=== PATIENT | male | born 1935 | race Caucasian/White ===

== ENCOUNTER 2017-07-09 17:18 | Emergency (ER) | payer MEDICARE, MEDICAID ==
[~2017-07-09] VITALS: Ht 182.9 cm; Wt 78.0 kg
[~2017-07-09 17:18] MED LIST: DIGO0.25 PO; FLAG500T PO; GABA800T OR; GLIP5 PO; GLUCTAB OR; LEVA500T PO; METO50CR PO; PHEN1TAB49 PO; SIMV5TAB3 PO; TRAM50 PO; ZOFR8TAB4 PO
[2017-07-09] MEDS ORDERED: SODIUM CHLORIDE 0.9% FLUSH 5 ML FLUSH IV FLUSH PRN (17:30)
[2017-07-09 17:40] VITALS: BP 160/74; PULSE 72; RESP 18; TEMP 98.5; O2SAT 95
--- NOTE | 2017-07-09 17:46 | PD ---
HPI . fall Chief Complaint: Fall Time Seen by Provider: 17:30 Travel History International Travel<30 days: No Contact w/Intl Traveler<30days: No History of Present Illness HPI The patient is 81 years old. He arrives after a fall from [facility]. The fall was unwitnessed and the patient was found on the ground. He takes Coumadin for atrial fibrillation. He was sent to the ER for evaluation. In the ER the patient offers no complaint. EMS reports normal vital signs on scene. Onset sudden. Location generalized. PFSH Past Medical History Arthritis: No Asthma: No Atrial Fibrillation: Yes Autoimmune Disease: No Blood Disorders: No Anxiety: No Depression: No Heart Rhythm Problems: Yes Cancer: No Cardiovascular Problems: Yes High Cholesterol: Yes Chemotherapy: No Chest Pain: Yes Congestive Heart Failure: No COPD: No Cerebrovascular Accident: No Coronary Artery Disease: Yes Diabetes: Yes Diminished Hearing: No Endocrine: No Gastrointestinal Disorders: Yes GERD: Yes Glaucoma: No Genitourinary: No Headaches: No Hepatitis: Yes (A LONG TIME AGO) Hiatal Hernia: No Hypertension: Yes Immune Disorder: No Implanted Vascular Access Dvce: No Kidney Stones: No Musculoskeletal: No Neurologic: Yes (NEUROPATHY) Psychiatric: No Reproductive: No Respiratory: No Migraines: No Myocardial Infarction: No Radiation Therapy: No Renal Failure: No Seizures: No Sickle Cell Disease: No Sleep Apnea: No Thyroid Disease: No Ulcer: No Past Surgical History Abdominal Surgery: No AICD: No Appendectomy: No Arteriovenous Shunt: No Cardiac Surgery: Yes ("QUADRUPLE BYPASS--Sep) Cholecystectomy: No Coronary Artery Bypass Graft: Yes Ear Surgery: No Endocrine Surgery: No Eye Surgery: No Genitourinary Surgery: No Gynecologic Surgery: No Insulin Pump: No Joint Replacement: No Neurologic Surgery: No Oral Surgery: Yes (TONSILLECTOMY 2000) Pacemaker: No Thoracic Surgery: No Tonsillectomy: Yes (1941) Other Surgery: Yes Social History Alcohol Use: No Tobacco Use: No Substance Use: No Allergies-Medications (Allergen,Severity, Reaction): Coded Allergies: penicillin G (Unverified Allergy, Intermediate, 06/15/17) Uncoded Allergies: MYCIN (Allergy, Severe, Rash, 06/06/09) Reported Meds & Prescriptions Reported Meds & Active Scripts Active Reported Vitamin C (Ascorbic Acid) 250 Mg Chew 500 Mg PEG DAILY Zinc Sulfate 220 Mg Tab 220 Mg PEG HS Pyridoxine (Pyridoxine HCl) 50 Mg Tab 50 Mg PEG DAILY Pantoprazole (Pantoprazole Sodium) 40 Mg Tab 40 Mg PEG DAILY Metoprolol Tartrate 50 Mg Tab 50 Mg PEG BID Metformin (Metformin HCl) 500 Mg Tab 500 Mg PEG BIDPC With meals Humalog Inj (Insulin Human Lispro) 1,000 Unit/10 Ml Vial 1-9 Units SQ ACHS Max dose at bedtime:( )units; sugars< 70,(0)units; sugars 150-199,(1)unit; sugars 200-249,(3)units; sugars 250-299,(5)units; sugars 300-349,(7)units; sugars more than 349,(9)units. Apidra Inj (Insulin Glulisine Inj) 1,000 Unit/10 Ml Vial 15 Units SQ HS Ezetimibe 10 Mg Tab 10 Mg PEG DAILY Enoxaparin Inj (Enoxaparin Sodium) 120 Mg/0.8ML Syr 120 Mg SQ DAILY Digoxin 0.25 Mg Tab 0.25 Mg G-TUBE DAILY Coumadin (Warfarin) 3 Mg Tab 3 Mg PO DAILY Citroma Liq (Magnesium Citrate) 300 Ml Liq 300 Ml PO DIRECTED Cerovite Advanced Formula (Multiple Vitamins W/ Minerals) 18 Mg Iron-400 Mcg Tab 18 Mg G-TUBE DAILY Aspirin 81 Mg Chew 81 Mg CHEW DAILY Acetaminophen Supp (Acetaminophen) 650 Mg Supp 650 Mg RECTAL Q6H PRN Review of Systems Except as stated in HPI: all other systems reviewed are Neg General / Constitutional: No: Fever Physical Exam Narrative GENERAL: 81-year-old male well-nourished well-developed no acute distress SKIN: Warm and dry. HEAD: Atraumatic. Normocephalic. EYES: Pupils equal and round. No scleral icterus. No injection or drainage. ENT: No nasal bleeding or discharge. Mucous membranes pink and moist. NECK: Trachea midline. No JVD. CARDIOVASCULAR: Regular rate and rhythm. RESPIRATORY: No accessory muscle use. Clear to auscultation. Breath sounds equal bilaterally. GASTROINTESTINAL: Abdomen soft, non-tender, nondistended. Hepatic and splenic margins not palpable. MUSCULOSKELETAL: Extremities without clubbing, cyanosis, or edema. No obvious deformities. NEUROLOGICAL: Patient moves all extremities. Speech is incomprehensible however he does respond to questions. PSYCHIATRIC: Unable to assess. Data Data Last Documented VS Vital Signs Date Time Temp Pulse Resp B/P (MAP) Pulse Ox O2 Delivery O2 Flow Rate FiO2 07/10/17 10:09 07/10/17 07:37 88 18 98 Room Air 07/09/17 18:26 98.5 Orders Orders Basic Metabolic Panel (Bmp) (07/09/17 17:30) Complete Blood Count With Diff (07/09/17 17:30) Blood Glucose (07/09/17 17:30) Ecg Monitoring (07/09/17 17:30) Iv Access Insert/Monitor (07/09/17 17:30) Oximetry (07/09/17 17:30) Sodium Chloride 0.9% Flush (Ns Flush) (07/09/17 17:30) Prothrombin Time / Inr (Pt) (07/09/17 17:41) Ct Brain W/O Iv Contrast(Rout) (07/09/17 17:41) Labs Laboratory Tests Test 07/09/17 18:10 White Blood Count 10.8 TH/MM3 Red Blood Count 5.43 MIL/MM3 Hemoglobin 15.6 GM/DL Hematocrit 45.1 % Mean Corpuscular Volume 83.1 FL Mean Corpuscular Hemoglobin 28.7 PG Mean Corpuscular Hemoglobin Concent 34.6 % Red Cell Distribution Width 14.3 % Platelet Count 351 TH/MM3 Mean Platelet Volume 7.1 FL Neutrophils (%) (Auto) 66.1 % Lymphocytes (%) (Auto) 24.8 % Monocytes (%) (Auto) 7.6 % Eosinophils (%) (Auto) 0.7 % Basophils (%) (Auto) 0.8 % Neutrophils # (Auto) 7.1 TH/MM3 Lymphocytes # (Auto) 2.7 TH/MM3 Monocytes # (Auto) 0.8 TH/MM3 Eosinophils # (Auto) 0.1 TH/MM3 Basophils # (Auto) 0.1 TH/MM3 CBC Comment AUTO DIFF Differential Comment AUTO DIFF CONFIRMED Platelet Estimate NORMAL Platelet Morphology Comment NORMAL Prothrombin Time 19.9 SEC Prothromb Time International Ratio 1.8 RATIO Blood Urea Nitrogen 22 MG/DL Creatinine 0.71 MG/DL Random Glucose 149 MG/DL Calcium Level 8.8 MG/DL Sodium Level 134 MEQ/L Potassium Level 5.0 MEQ/L Chloride Level 99 MEQ/L Carbon Dioxide Level 28.9 MEQ/L Anion Gap 6 MEQ/L Estimat Glomerular Filtration Rate 107 ML/MIN MDM Medical Decision Making Medical Screen Exam Complete: Yes Emergency Medical Condition: Yes Differential Diagnosis Intracranial hemorrhage, anemia, contusion, electrolyte imbalance, anemia Narrative Course CBC & BMP Diagram 07/09/17 18:10 Calcium Level 8.8 Last [address] 07/09/17 1741 Signed Impressions: Service Date/Time: Sunday, July 09, 2017 18:12 - CONCLUSION: 1. No acute findings. Remote lacunar infarct right basal ganglia. Atrophy and ventricular prominence. Chavez Landis MD INR 1.8 No evidence intracranial hemorrhage/significant head trauma. Pt is ok for discharge home. Diagnosis Primary Impression: Fall Qualified Codes: W19.XXXA - Unspecified fall, initial encounter Referrals: Primary Care Physician 1 day Med/Other Pt SpecificInfo: No Meds Exist/No RX given Disposition: DISCHARGE HOME Condition: Stable Marvel Pettit MD Jul 09, 2017 17:46
[2017-07-09 18:25] LABS: AUTOMATED NEUTROPHIL # 7.1 TH/MM3 (1.8-7.7); BASOPHIL # 0.1 TH/MM3 (0-0.2); BASOPHIL % 0.8 % (0.0-2.0); EOSINOPHIL # 0.1 TH/MM3 (0-0.4); EOSINOPHIL % 0.7 % (0.0-4.0); HEMATOCRIT 45.1 % (39.0-51.0); LYMPH % 24.8 % (9.0-44.0); LYMPHOCYTE # 2.7 TH/MM3 (1.0-4.8); MEAN CELL VOLUME 83.1 FL (80.0-100.0); MEAN CORPUSCULAR HEMOGLOBIN 28.7 PG (27.0-34.0); MEAN CORPUSCULAR HGB CONC 34.6 % (32.0-36.0); MONO % 7.6 % (0.0-8.0); NEUT % 66.1 % (16.0-70.0); PLATELET COUNT 351 TH/MM3 (150-450); RED BLOOD COUNT 5.43 MIL/MM3 (4.50-5.90); RED CELL DISTRIBUTION WIDTH 14.3 % (11.6-17.2); WHITE BLOOD COUNT 10.8 TH/MM3 (4.0-11.0)
[2017-07-09 18:26] VITALS: BP 160/74; PULSE 72; RESP 18; TEMP 98.5; O2SAT 95
[2017-07-09 18:27] LABS: HEMO FLAGS AUTO DIFF
[2017-07-09 18:35] LABS: INTERNATIONAL NORMALIZED RATIO 1.8 RATIO; PROTHROMBIN TIME - PATIENT 19.9 SEC (9.8-11.6)
--- NOTE | 2017-07-09 18:42 | RADRPT ---
EXAM DATE/TIME: 07/09/2017 18:12 [facility] COMPARISON: No previous studies available for comparison. INDICATIONS : Head pain due to trauma. RADIATION DOSE: 56.35 CTDIvol (mGy) MEDICAL HISTORY : Cardiovascular disease. Hypertension. Diabetes mellitus type 2.AFIB SURGICAL HISTORY : CABG ENCOUNTER: Initial ACUITY: 1 day PAIN SCALE: Non-responsive LOCATION: Bilateral cranial TECHNIQUE: Multiple contiguous axial images were obtained of the head. Using automated exposure control and adj ustment of the mA and/or kV according to patient size, radiation dose was kept as low as reasonably a chievable to obtain optimal diagnostic quality images. DICOM format image data is available electro nically for review and comparison. FINDINGS: There is atrophy and mild ventricular prominence. Remote lacunar infarct right basal ganglia. White m atter ischemic changes, chronic. No acute bony abnormality. CONCLUSION: 1. No acute findings. Remote lacunar infarct right basal ganglia. Atrophy and ventricular prominence. Chavez Landis MD on July 09, 2017 at 18:38 Board Certified Radiologist. This report was verified electronically.
[2017-07-09 18:54] LABS: BICARBONATE 28.9 MEQ/L (21.0-32.0)
[2017-07-09] MEDS ORDERED: PYRI50TA PEG (19:00)
[2017-07-09] MEDS ORDERED: PANT40TA3 PEG (19:00)
[2017-07-09] MEDS ORDERED: HUMALOG SQ (19:00)
[2017-07-09] MEDS ORDERED: VITA250C3 PEG (19:00)
[2017-07-09] MEDS ORDERED: APIDINJ SQ (19:00)
[2017-07-09] MEDS ORDERED: DIGO0.25 G-TUBE (19:00)
[2017-07-09] MEDS ORDERED: ENOX120I SQ (19:00)
[2017-07-09] MEDS ORDERED: CEROTAB G-TUBE (19:00)
[2017-07-09] MEDS ORDERED: ZINC220T PEG (19:00)
[2017-07-09] MEDS ORDERED: METF500T PEG (19:00)
[2017-07-09] MEDS ORDERED: ASPI81CH CHEW (19:00)
[2017-07-09] MEDS ORDERED: COUM3TAB PO (19:00)
[2017-07-09] MEDS ORDERED: EZET1TAB8 PEG (19:00)
[2017-07-09] MEDS ORDERED: CITRSOL4 PO (19:00)
[2017-07-09] MEDS ORDERED: METO50TA PEG (19:00)
[2017-07-09] MEDS ORDERED: ACET650S4 RECTAL (19:00)
[2017-07-09 20:01] LABS: PLATELET ESTIMATE SMEAR NORMAL (NORMAL); PLATELET MORPHOLOGY NORMAL (NORMAL); SCAN/DIFF AUTO DIFF CONFIRMED
[2017-07-09 22:00] VITALS: BP 141/74; PULSE 74; RESP 16
[2017-07-10 03:30] VITALS: BP 153/71; PULSE 70; RESP 16
[2017-07-10 07:37] VITALS: BP 128/62; PULSE 88; RESP 18; O2SAT 98
== END 2017-07-10 10:19 | disposition home or self-care (01) ==
LOC: NEPE 17:18
DX: T14.90 Injury, unspecified (principal); I48.91 Unspecified atrial fibrillation; W19.XXXA Unspecified fall, initial encounter; Y92.538 Other ambulatory health services establishments as the place of occurrence of the external cause; Z79.01 Long term (current) use of anticoagulants
CPT/HCPCS: 70450; 80048; 85025; 85610; 99284

== ENCOUNTER 2017-09-03 23:46 | Inpatient (IN) | payer MEDICARE, OTHER ==
[~2017-09-03] VITALS: Ht 182.9 cm; Wt 121.5 kg
[~2017-09-03 23:46] MED LIST changes: +ACET650S4 RECTAL; +APIDINJ SQ; +ASPI-516 CHEW; +CEROTAB G-TUBE; +CITRSOL4 PO; +COUM3TAB PO; +DIGO0.25 G-TUBE; -DIGO0.25 PO; +ENOX120I SQ; +EZET1TAB8 PEG; -FLAG500T PO; -GABA800T OR; -GLIP5 PO; -GLUCTAB OR; +HUMALOG SQ; -LEVA500T PO; +METF500T PEG; -METO50CR PO; +METO50TA PEG; +PANT40TA3 PEG; -PHEN1TAB49 PO; +PYRI50TA5 PEG; -SIMV5TAB3 PO; -TRAM50 PO; +VITA250C3 PEG; +ZINC220T PEG; -ZOFR8TAB4 PO
[2017-09-04] VITALS (32 sets, daily range): BP systolic 91–133; BP diastolic 49–98; PULSE 81–173; RESP 14–44; TEMP 99.1–102.3; O2SAT 88–100
[2017-09-04] MEDS ORDERED: PANTOPRAZOLE INJ 80 MG in SODIUM CHLORIDE 0.9% INJ 100 ML IV SCH (00:17)
[2017-09-04] MEDS ORDERED: SODIUM CHLOR 0.9% 1000 ML INJ 1,000 ML IV SCH (00:17)
[2017-09-04] MEDS ORDERED: PANTOPRAZOLE INJ 80 MG in SODIUM CHLORIDE 0.9% INJ 35 ML IV ONE (00:17)
--- NOTE | 2017-09-04 00:30 | PD ---
HPI Chief Complaint: GI Complaint Time Seen by Provider: 00:17 Travel History International Travel<30 days: No Contact w/Intl Traveler<30days: No Traveled to known affect area: No History of Present Illness HPI 82yo M with PMH of dementia, CVA with baseline aphasia, DM, HTN was sent here from [facility] because he had vomited bright red blood and also had blood from rectum today. Pt is at baseline mental status. Pt is aphasic but awake and moves upper extremities to command. He is tachycardic in the 120s. Uses 2L NC normally and saturating at 94% on 3L NC. Pt is full code and has no family member. Next of kin is a long time significant other. PFSH Past Medical History Hx Anticoagulant Therapy: Yes (COUMADIN) Arthritis: No Asthma: No Atrial Fibrillation: Yes Autoimmune Disease: No Blood Disorders: No Anxiety: No Depression: No Heart Rhythm Problems: Yes Cancer: No Cardiovascular Problems: Yes High Cholesterol: Yes Chemotherapy: No Chest Pain: Yes Congestive Heart Failure: No COPD: No Cerebrovascular Accident: Yes Coronary Artery Disease: Yes Dementia: Yes Diabetes: Yes Patient Takes Glucophage: No Diminished Hearing: Yes Endocrine: No Gastrointestinal Disorders: Yes GERD: Yes Glaucoma: No Genitourinary: No Headaches: No Hepatitis: Yes (HX) Hiatal Hernia: No Hypertension: Yes Immune Disorder: No Implanted Vascular Access Dvce: No Kidney Stones: No Musculoskeletal: No Neurologic: Yes (NEUROPATHY) Psychiatric: No Reproductive: No Respiratory: No Migraines: No Myocardial Infarction: No Radiation Therapy: No Renal Failure: No Seizures: No Sickle Cell Disease: No Sleep Apnea: No Thyroid Disease: No Ulcer: No Tetanus Vaccination: > 5 Years Influenza Vaccination: No Past Surgical History Abdominal Surgery: No AICD: No Appendectomy: No Arteriovenous Shunt: No Cardiac Surgery: Yes ("QUADRUPLE BYPASS--Sep) Cholecystectomy: No Coronary Artery Bypass Graft: Yes Ear Surgery: No Endocrine Surgery: No Eye Surgery: No Genitourinary Surgery: No Gynecologic Surgery: No Insulin Pump: No Joint Replacement: No Neurologic Surgery: No Oral Surgery: Yes (TONSILLECTOMY 2000) Pacemaker: No Thoracic Surgery: No Tonsillectomy: Yes Other Surgery: Yes Social History Alcohol Use: No Tobacco Use: No Substance Use: No Allergies-Medications (Allergen,Severity, Reaction): Coded Allergies: penicillin G (Unverified Allergy, Intermediate, 11/4/17) Uncoded Allergies: MYCIN (Allergy, Severe, Rash, 06/06/09) Reported Meds & Prescriptions Reported Meds & Active Scripts Active Reported Vitamin C (Ascorbic Acid) 250 Mg Chew 500 Mg PEG DAILY Zinc Sulfate 220 Mg Tab 220 Mg PEG HS Pyridoxine (Pyridoxine HCl) 50 Mg Tab 50 Mg PEG DAILY Pantoprazole (Pantoprazole Sodium) 40 Mg Tab 40 Mg PEG DAILY Metoprolol Tartrate 50 Mg Tab 50 Mg PEG BID Metformin (Metformin HCl) 500 Mg Tab 500 Mg PEG BIDPC With meals Humalog Inj (Insulin Human Lispro) 1,000 Unit/10 Ml Vial 1-9 Units SQ ACHS Max dose at bedtime:( )units; sugars< 70,(0)units; sugars 150-199,(1)unit; sugars 200-249,(3)units; sugars 250-299,(5)units; sugars 300-349,(7)units; sugars more than 349,(9)units. Apidra Inj (Insulin Glulisine Inj) 1,000 Unit/10 Ml Vial 15 Units SQ HS Ezetimibe 10 Mg Tab 10 Mg PEG DAILY Enoxaparin Inj (Enoxaparin Sodium) 120 Mg/0.8ML Syr 120 Mg SQ DAILY Digoxin 0.25 Mg Tab 0.25 Mg G-TUBE DAILY Coumadin (Warfarin) 3 Mg Tab 3 Mg PO DAILY Citroma Liq (Magnesium Citrate) 300 Ml Liq 300 Ml PO DIRECTED Cerovite Advanced Formula (Multiple Vitamins W/ Minerals) 18 Mg Iron-400 Mcg Tab 18 Mg G-TUBE DAILY Aspirin 81 Mg Chew 81 Mg CHEW DAILY Acetaminophen Supp (Acetaminophen) 650 Mg Supp 650 Mg RECTAL Q6H PRN Review of Systems Except as stated in HPI: all other systems reviewed are Neg Physical Exam Narrative GENERAL: 82yo M in moderate distress. SKIN: Focused skin assessment warm/dry. HEAD: Atraumatic. Normocephalic. EYES: Pupils equal and round. No scleral icterus. No injection or drainage. ENT: No nasal bleeding or discharge. Mucous membranes pink and moist. NECK: Trachea midline. No JVD. CARDIOVASCULAR: Tachycardic in 120s. RESPIRATORY: No accessory muscle use. Clear to auscultation. Breath sounds equal bilaterally. GASTROINTESTINAL: Abdomen soft, non-tender, nondistended. No rebound tenderness or guarding. MUSCULOSKELETAL: No obvious deformities. No clubbing. No cyanosis. No edema. NEUROLOGICAL: Aphasic. Moves upper extremities to command. Does not move lower extremities. Exam limited. Data Data Last Documented VS Vital Signs Date Time Temp Pulse Resp B/P (MAP) Pulse Ox O2 Delivery O2 Flow Rate FiO2 09/04/17 01:04 138 32 117/58 (77) 97 Nasal Cannula 2.00 09/04/17 00:20 101.3 Orders Orders Basic Metabolic Panel (Bmp) (09/04/17 00:17) Complete Blood Count With Diff (09/04/17:) Lipase (09/04/17:17) Prothrombin Time / Inr (Pt) (09/04/17:) Act Partial Throm Time (Ptt) (09/04/17:) Urinalysis - C+S If Indicated (09/04/17:17) Type And Screen (09/04/17:) Cath For Specimen (09/04/17 00:17) Sodium Chlor 0.9% 1000 Ml Inj (Ns 1000 M (09/04/17 00:17) Sodium Chloride 0.9... W/Pantoprazole In (09/04/17 00:17) Sodium Chloride 0.9... W/Pantoprazole In (09/04/17 00:17) Electrocardiogram (09/04/17 ) Troponin I (09/04/17 00:17) Blood Culture (09/04/17 00:31) Lactic Acid Sepsis Protocol (09/04/17 00:31) Acetaminophen Supp (Tylenol Supp) (09/04/17 01:00) Urinary Catheter Insert/Apply (09/04/17 01:00) Vancomycin Inj (Vancomycin Inj) (09/04/17 01:15) Aztreonam Inj (Azactam Inj) (09/04/17 01:15) Chest, Single Ap (09/04/17 ) Prothrombin Complex Conc Inj (Kcentra In (09/04/17 02:45) Phytonadione Inj (Vitamin K Inj) (09/04/17 02:15) Fresh Frozen Plasma (Ffp) (09/04/17 02:06) Blood Product Administration (09/04/17 02:06) Ct Brain W/O Iv Contrast(Rout) (09/04/17 ) Ct Thorax/ Chest W Iv Contrast (09/04/17 ) Ct Abd/Pel W Iv Contrast(Rout) (09/04/17 ) Acetaminophen Supp (Tylenol Supp) (09/04/17 02:30) Digoxin (Lanoxin) (09/04/17 09:00) Ezetimibe (Zetia) (09/04/17 09:00) Zinc Sulfate (Zinc Sulfate) (09/04/17 21:00) Blood Glucose Goal (Criteria) (09/04/17 02:17) Hypoglycemia 70 Mg/Dl Or < (09/04/17 02:17) Notify Dr: Other (09/04/17 02:17) Dextrose 50% In Pieter (Vial) Inj (D50w (Vi (09/04/17 02:30) Glucagon Inj (Glucagon Inj) (09/04/17 02:30) Insulin Aspart Supplemtl Scale (Novolog (09/04/17 08:00) Admit To Inpatient (09/04/17 ) Code Status (09/04/17 02:18) Vital Signs (Adult) NOEMI.Q1H (09/04/17 02:18) Activity Bed Rest (09/04/17 02:18) Elevate Head Of Bed (09/04/17 02:18) Neuro Checks . ORDERED (09/04/17 02:18) Intake + Output Q1H (09/04/17 02:18) Diet Npo (09/04/17 Breakfast) Sodium Chlor 0.9% 1000 Ml Inj (Ns 1000 M (09/04/17 02:18) Sodium Chloride 0.9% Flush (Ns Flush) (09/04/17 02:30) Sodium Chloride 0.9% Flush (Ns Flush) (09/04/17 09:00) Acetaminophen (Tylenol) (09/04/17 02:30) Pantoprazole Inj (Protonix Inj) (09/04/17 09:00) Midazolam Inj (Versed Inj) (09/04/17 02:30) Artificial Tears Opth Soln (Tears Natura (09/04/17 09:00) Ondansetron Inj (Zofran Inj) (09/04/17 02:30) Albuterol-Ipratropium Neb (Duoneb Neb) (09/04/17 02:30) Complete Blood Count With Diff (09/05/17 04:00) Comprehensive Metabolic Panel (09/05/17 04:00) Act Partial Throm Time (Ptt) (09/05/17 04:00) Prothrombin Time / Inr (Pt) (09/05/17 04:00) Magnesium (Mg) (09/05/17 04:00) Phosphorus (Po4) (09/05/17 04:00) Pt Request For Service (09/04/17 02:18) Consult Gastroenterology (09/04/17 ) Transcribing Operators Supervisor / Telemetry NOEMI.Q8H (09/04/17 02:18) Scd Bilateral/Knee High NOEMI.BID (09/04/17 02:18) Kelvin Bilateral/Knee High NOEMI.QSHIFT (09/04/17 02:18) Pharmacologic Contraindication (09/04/17:18) ^ Initiate Protocol (09/04/17 02:18) Instruction (09/04/17 02:18) [facility] Information (09/04/17 02:30) Chlorhexidine 2% Cloth (Chlorhexidine 2% (09/04/17 04:00) Chlorhexidine 2% Cloth (Chlorhexidine 2% (09/04/17 02:30) Mrsa Pcr Surveillance (09/04/17 02:18) Docusate Sodium-Senna (Socorro-Colace) (09/04/17 09:00) Magnesium Hydroxide Liq (Milk Of Magnesi (09/04/17 02:30) Sennosides (Senokot) (09/04/17 02:30) Bisacodyl Supp (Dulcolax Supp) (09/04/17 02:30) Lactulose Liq (Lactulose Liq) (09/04/17 02:30) Elevate Head Of Bed (09/04/17 02:18) Chlorhexidine 0.12% Liq (Peridex 0.12% L (09/04/17 08:00) Restraints Non-Violent NOEMI.Q3H (09/04/17 02:18) Ventilator Weaning Readiness NOEMI.DAILY@0800 (09/04/17 02:18) Propofol 1000 Mg/100 Ml Inj (Diprivan 10 (09/04/17 02:30) Neurological Rass Scale Q30MX2,Q2HX4,Q4H (09/04/17 02:18) Inpatient Certification (09/04/17 ) Admit Order (Ed Use Only) (09/04/17 02:29) Labs Laboratory Tests Test 09/04/17 00:20 09/04/17 00:37 09/04/17 00:40 White Blood Count 14.5 TH/MM3 Red Blood Count 5.26 MIL/MM3 Hemoglobin 14.4 GM/DL Hematocrit 44.6 % Mean Corpuscular Volume 84.7 FL Mean Corpuscular Hemoglobin 27.4 PG Mean Corpuscular Hemoglobin Concent 32.4 % Red Cell Distribution Width 15.1 % Platelet Count 348 TH/MM3 Mean Platelet Volume 7.3 FL Neutrophils (%) (Auto) 82.0 % Lymphocytes (%) (Auto) 12.1 % Monocytes (%) (Auto) 4.6 % Eosinophils (%) (Auto) 0.7 % Basophils (%) (Auto) 0.6 % Neutrophils # (Auto) 11.9 TH/MM3 Lymphocytes # (Auto) 1.8 TH/MM3 Monocytes # (Auto) 0.7 TH/MM3 Eosinophils # (Auto) 0.1 TH/MM3 Basophils # (Auto) 0.1 TH/MM3 CBC Comment DIFF FINAL Differential Comment Prothrombin Time 54.9 SEC Prothromb Time International Ratio 4.6 RATIO Activated Partial Thromboplast Time 45.1 SEC Blood Urea Nitrogen 36 MG/DL Creatinine 0.95 MG/DL Random Glucose 206 MG/DL Calcium Level 8.3 MG/DL Sodium Level 142 MEQ/L Potassium Level 3.5 MEQ/L Chloride Level 105 MEQ/L Carbon Dioxide Level 26.3 MEQ/L Anion Gap 11 MEQ/L Estimat Glomerular Filtration Rate 76 ML/MIN Troponin I LESS THAN 0.02 NG/ML Lipase 243 U/L Urine Color YELLOW Urine Turbidity CLEAR Urine pH 6.0 Urine Specific Jackson 1.022 Urine Protein TRACE mg/dL Urine Glucose (UA) TRACE mg/dL Urine Ketones NEG mg/dL Urine Occult Blood NEG Urine Nitrite NEG Urine Bilirubin NEG Urine Urobilinogen LESS THAN 2.0 MG/DL Urine Leukocyte Esterase NEG Urine RBC 5 /hpf Urine WBC 2 /hpf Urine Mucus FEW /lpf Microscopic Urinalysis Comment CULT NOT INDICATED Lactic Acid Level 3.2 mmol/L MDM Medical Decision Making Medical Screen Exam Complete: Yes Emergency Medical Condition: Yes Interpretation(s) EKG: Sinus tachycardia at 136bpm. ST depressions lateral leads. Differential Diagnosis Sepsis secondary to UTI vs. Pneumonia vs. Upper GI bleed vs. dehydration Narrative Course 82yo M with dementia, CVA here for evaluation after vomiting blood. Hemprompt positive from blood in mouth. Hemaprompt negative from stool. Pt with sinus tachycardia in the 130s upon arrival and BP was low at 96/52. Pt also with fever of 101.3F. Labs reviewed, leukocytosis at 14.5. H/H stable at 14.4/ 44.6. Lactic acid elevated at 3.2. BUN elevated at 36, consistent with GI bleed. Troponin negative. INR elevated at 4.6. Pt given K-centra, FFP, vitamin K. CXR showed mild patchy opacity of lung bases. Pt given antibiotics. Pt given NS IVF x3. Pt reevaluated at bedside and was hypoxic in the 80s on 100% nonrebreather. Pt seems more tachypneic. Discussed with pt's only contact, his significant other on the phone and she said he is full code and wants everything done. Pt emergently intubated. CXR showed ET tube and NG tube in place. Increased bilateral lower lung zone opacity. Discussed with Dr. Escobar and accepted to his service. Critical Care Narrative Aggregate critical care was 60 minutes. Time to perform other separately billable procedures was not included in the critical care time. My time did not include minutes spent treating any other patients simultaneously or on activities that did not directly contribute to the patient's treatment. The services I provided to this patient were to treat and/or prevent clinically significant deterioration that could result in: respiratory failure or . I provided critical care services requiring my management, as noted below: Chart data review, documentation time, medication orders and management, vital sign assessments/reviewing monitor data, ordering and reviewing lab tests, ordering and interpreting/reviewing x- rays and diagnostic studies, care of the patient and discussion of the patient with admitting physicians. Procedures Procedure Narrative The patient was put in optimal position for the procedure. Rapid sequence intubation was initiated by me using 20 milligrams of etomidate IV and 50 milligrams of rocuronium IV. The patient was intubated with a [-] cuffed endotracheal tube. Tube placement was confirmed by visualization of the tube and balloon passing through the cords, capnometry and subsequent chest x-ray. Breath sounds were equal and well aerated bilaterally postintubation. No breath sounds over stomach. Patient tolerated procedure well. Sepsis Criteria SIRS Criteria (2 or more): Temp > 100.9 or < 96.8, Heart rate over 90 Sepsis Criteria (SIRS+source): Infect source susp/known Severe Sepsis (+one): Hypotension Septic Shock Criteria: Unresponsive to 30ml/kg fluid bolus Diagnosis Primary Impression: Acute respiratory failure with hypoxia Additional Impression: GI bleeding Admitting Information Admitting Physician Requests: Diana Encarnacion DO Sep 04, 2017 00:30
[2017-09-04 00:37] LABS: AUTOMATED NEUTROPHIL # 11.9 TH/MM3 (1.8-7.7); BASOPHIL # 0.1 TH/MM3 (0-0.2); BASOPHIL % 0.6 % (0.0-2.0); EOSINOPHIL # 0.1 TH/MM3 (0-0.4); EOSINOPHIL % 0.7 % (0.0-4.0); HEMATOCRIT 44.6 % (39.0-51.0); HEMO FLAGS DIFF FINAL; LYMPH % 12.1 % (9.0-44.0); LYMPHOCYTE # 1.8 TH/MM3 (1.0-4.8); MEAN CELL VOLUME 84.7 FL (80.0-100.0); MEAN CORPUSCULAR HEMOGLOBIN 27.4 PG (27.0-34.0); MEAN CORPUSCULAR HGB CONC 32.4 % (32.0-36.0); MONO % 4.6 % (0.0-8.0); PLATELET COUNT 348 TH/MM3 (150-450); RED BLOOD COUNT 5.26 MIL/MM3 (4.50-5.90); RED CELL DISTRIBUTION WIDTH 15.1 % (11.6-17.2); WHITE BLOOD COUNT 14.5 TH/MM3 (4.0-11.0)
[2017-09-04 00:54] LABS: APTT (PATIENT) 45.1 SEC (24.3-30.1); INTERNATIONAL NORMALIZED RATIO 4.6 RATIO; PROTHROMBIN TIME - PATIENT 54.9 SEC (9.8-11.6)
[2017-09-04] MEDS ORDERED: ACETAMINOPHEN 650 MG SUPP RECTAL ONE (01:00)
[2017-09-04 01:06] LABS: BLOOD, URINE NEG (NEG); GLUCOSE,URINE TRACE mg/dL (NEG); KETONE, URINE NEG (NEG); MUCUS URINE FEW /lpf (OCC); NITRITE,URINE NEG (NEG); URINE COLOR YELLOW (YELLW/STRAW)
[2017-09-04 01:07] LABS: COMMENT (UR) CULT NOT INDICATED; CULTURE IF INDICATED CULT NOT INDICATED
[2017-09-04] MEDS ORDERED: VANCOMYCIN INJ 1,100 MG in SODIUM CHLOR 0.9% 250 ML INJ 250 ML IV ONE (01:15)
[2017-09-04] MEDS ORDERED: AZTREONAM INJ 1,000 MG in SODIUM CHLORIDE 0.9% INJ 100 ML IV ONE (01:15)
[2017-09-04 01:19] LABS: ANION GAP 11 MEQ/L (5-15); BICARBONATE 26.3 MEQ/L (21.0-32.0); BLOOD UREA NITROGEN 36 MG/DL (7-18); CHLORIDE 105 MEQ/L (98-107); GLOMERULAR FILTRATION RATE 76 ML/MIN (>89); POTASSIUM 3.5 MEQ/L (3.5-5.1); SODIUM (NA) 142 MEQ/L (136-145)
--- NOTE | 2017-09-04 02:11 | RADRPT ---
EXAM DATE/TIME: 09/04/2017 01:55 [facility] COMPARISON: No previous studies available for comparison. INDICATIONS : Shortness of breath MEDICAL HISTORY : Cardiovascular disease. Diabetes mellitus type II. Hypertension. A-Fib SURGICAL HISTORY : CABG. ENCOUNTER: Initial ACUITY: 1 day PAIN SCORE: 8/10 LOCATION: Bilateral chest FINDINGS: Single AP view of the chest. Mild patchy opacity at the lung bases. No evidence of pleural effusion o r pneumothorax. Median sternotomy wires. Cardiomediastinal silhouette within normal limits. CONCLUSION: Mild patchy opacity of the lung bases likely representing atelectasis or scarring. Damion Monroy MD on September 04, 2017 at 2:09 Board Certified Radiologist. This report was verified electronically.
[2017-09-04] MEDS ORDERED: PHYTONADIONE INJ 10 MG in SODIUM CHLORIDE 0.9% INJ 50 ML IV ONE (02:15)
[2017-09-04] MEDS ORDERED: RESP: ALBUTEROL 2.5 MG/IPRATROPIUM 0.5 MG NEB (PRN) INH (02:30)
[2017-09-04] MEDS ORDERED: DEXTROSE 50% IN WATER 50 ML VIAL(D50) IV PUSH PRN (02:30)
[2017-09-04] MEDS ORDERED: GLUCAGON 1 MG/ML VIAL OTHER PRN (02:30)
[2017-09-04] MEDS ORDERED: ONDANSETRON HCL 4 MG/2 ML VIAL IV PUSH PRN (02:30)
[2017-09-04] MEDS ORDERED: ACETAMINOPHEN 650 MG SUPP RECTAL PRN (02:30)
[2017-09-04] MEDS ORDERED: LACTULOSE SYRUP 20 GM/30 ML CUP PO PRN (02:30)
[2017-09-04] MEDS ORDERED: SODIUM CHLORIDE 0.9% FLUSH 10 ML FLUSH IV FLUSH PRN (02:30)
[2017-09-04] MEDS ORDERED: MAGNESIUM HYDROXIDE SUSP 30 ML CUP PO PRN (02:30)
[2017-09-04] MEDS ORDERED: SENNOSIDES 8.6 MG TAB PO PRN (02:30)
[2017-09-04] MEDS ORDERED: MISCELLANEOUS NURSING INFORMATION XX SCH (02:30)
[2017-09-04] MEDS ORDERED: MIDAZOLAM HCL 2 MG/2 ML VIAL IV PUSH PRN (02:30)
[2017-09-04] MEDS ORDERED: BISACODYL 10 MG SUPP RECTAL PRN (02:30)
[2017-09-04] MEDS ORDERED: CHLORHEXIDINE GLUCONATE 2 % 1 PACK (2 CLOTHS) TOP PRN (02:30)
[2017-09-04] MEDS: CHLORHEXIDINE GLUCONATE 2 % 1 PACK (2 CLOTHS) TOP SCH (02:42)
[2017-09-04] MEDS ORDERED: PROTHROMBIN COMPLEX CONC INJ 2,500 UNITS in SYRINGE/BAG 1 EA IV ONE (02:45)
[2017-09-04 02:53] LABS: LACTIC ACID GHOST NOT REPORTABLE
[2017-09-04] MEDS ORDERED: ROCURONIUM INJ 50 MG/5 ML VIAL IV ONE ×2 (03:00→10:00)
[2017-09-04] MEDS ORDERED: ETOMIDATE 20 MG/10 ML VIAL IV PUSH ONE (03:00)
[2017-09-04 03:18] LABS: BLOOD GAS BASE EXCESS -5.3 mmol/L (-2-2); BLOOD GAS HCO3 22 mmol/L (22-26); BLOOD GAS O2 HGB SATURATION 96 % (90-100); BLOOD GAS OXYGEN CONTENT 18.6 Vol % (12.0-20.0); BLOOD GAS PCO2 60 mmHg (38-42); BLOOD GAS PO2 145 mmHG (61-120); BLOOD GAS TOTAL HGB 13.6 G/DL (12.0-16.0); TEMP CORR TO 98.6
[2017-09-04 03:19] LABS: CRITICAL VALUE YES; DRAW SITE RT RADIAL; FIO2 100 %; NUMBER OF ARTERIAL PUNCTURES 1; OXYGEN DEVICE VENT; STAT YES; ULNAR PULSE PRESENT
[2017-09-04] MEDS: PROPOFOL 1000 MG/100 ML INJ 100 ML IV PRN (03:41)
--- NOTE | 2017-09-04 03:42 | RADRPT ---
EXAM DATE/TIME: 09/04/2017 03:16 [facility] COMPARISON: CHEST SINGLE AP, September 04, 2017, 1:55. INDICATIONS : E-T Tube placement. MEDICAL HISTORY : Cardiovascular disease. Diabetes mellitus type II. Hypertension. A-Fib SURGICAL HISTORY : CABG. ENCOUNTER: Subsequent ACUITY: 1 day PAIN SCORE: Non-responsive. LOCATION: Bilateral chest FINDINGS: Single AP view of the chest. Endotracheal tube is in place with the tip 4 cm above the katerine. Nasoga stric tube is in place with the tip below the field of view of the radiograph. Median sternotomy wire s noted. Increased bilateral lower lung zone patchy pulmonary opacity with mild obscuration of the he midiaphragms. No evidence of pleural effusion or pneumothorax. CONCLUSION: 1. Endotracheal tube and nasogastric tube now in place. 2. Increased bilateral lower lung zone opacity indicating pulmonary edema versus atelectasis/consolid ation. Damion Monroy MD on September 04, 2017 at 3:30 Board Certified Radiologist. This report was verified electronically.
[2017-09-04] MEDS ORDERED: IOHEXOL 350 MG/ML 10 ML VIAL (for RAD DIAG) IVCONTRAST ONE (04:15)
--- NOTE | 2017-09-04 04:45 | RADRPT ---
EXAM DATE/TIME: 09/04/2017 03:49 [facility] COMPARISON: CT BRAIN W/O CONTRAST, July 09, 2017, 18:12. INDICATIONS : Altered mental status. RADIATION DOSE: 63.09 CTDIvol (mGy) ; Tabletop CT Head; Patient motion MEDICAL HISTORY : Cerebrovascular disease. Dementia. Hypertension.Diabetes. SURGICAL HISTORY : CABG ENCOUNTER: Initial ACUITY: 1 day PAIN SCALE: Non-responsive LOCATION: cranial TECHNIQUE: Multiple contiguous axial images were obtained of the head. Using automated exposure control and adj ustment of the mA and/or kV according to patient size, radiation dose was kept as low as reasonably a chievable to obtain optimal diagnostic quality images. DICOM format image data is available electro nically for review and comparison. FINDINGS: CEREBRUM: Diffuse prominence of the ventricles, sulci, and cisterns unchanged indicating diffuse atrophy. No ev idence of midline shift, mass lesion, hemorrhage or acute infarction. No extra-axial fluid collectio ns are seen. Evidence of old insult right basal ganglia unchanged. POSTERIOR FOSSA: The cerebellum and brainstem are intact. The 4th ventricle is midline. The cerebellopontine angle i s unremarkable. EXTRACRANIAL: The visualized portion of the orbits is intact. SKULL: The calvaria is intact. No evidence of skull fracture. CONCLUSION: Age-related and chronic ischemic change. No acute intracranial findings. Damion Monroy MD on September 04, 2017 at 4:41 Board Certified Radiologist. This report was verified electronically.
--- NOTE | 2017-09-04 04:51 | RADRPT ---
EXAM DATE/TIME: 09/04/2017 03:55 [facility] COMPARISON: No previous studies available for comparison. INDICATIONS : Blood in stool. IV CONTRAST: 95 cc Omnipaque 350 (iohexol) IV ; Cumulative dose for multiple exams. ORAL CONTRAST: No oral contrast ingested. RADIATION DOSE: 17.71 CTDIvol (mGy) ; Combined studies - Thorax/Abdomen/Pelvis MEDICAL HISTORY : Hypertension. Cerebrovascular disease. Gastroesophageal reflux disease.Diabetes. CAD. SURGICAL HISTORY : CABG ENCOUNTER: Initial ACUITY: 1 day PAIN SCALE: Non-responsive LOCATION: Abdomen. TECHNIQUE: Volumetric scanning of the abdomen and pelvis was performed. Using automated exposure control and ad justment of the mA and/or kV according to patient size, radiation dose was kept as low as reasonably achievable to obtain optimal diagnostic quality images. DICOM format image data is available electro nically for review and comparison. FINDINGS: LOWER LUNGS: Bilateral lower lung consolidation posteriorly. LIVER: Diffuse mild periportal edema. Liver otherwise homogeneous and within normal limits. Nonspecific mild diffuse gallbladder wall thickening. No pericholecystic inflammatory changes. SPLEEN: Normal size without lesion. PANCREAS: Within normal limits. KIDNEYS: 1.1 cm cyst in the medial upper pole of the right kidney. 2 mm punctate calculus in the upper pole of the left kidney. No evidence of hydronephrosis. ADRENAL GLANDS: Within normal limits. VASCULAR: Diffuse arterial calcification. Distal abdominal aortic diameter is 3.5 cm. BOWEL/MESENTERY: Numerous colonic diverticula. Prominent amount of stool in the rectum. No evidence of acute diverticu litis. Appendix within normal limits. No free air or free fluid. ABDOMINAL WALL: Gastrostomy tube in place with the tip in the gastric lumen. RETROPERITONEUM: There is no lymphadenopathy. BLADDER: Diffuse urinary bladder wall thickening. Lee catheter in place. Bladder is collapsed. REPRODUCTIVE: Within normal limits. INGUINAL: There is no lymphadenopathy or hernia. MUSCULOSKELETAL: Within normal limits for patient age. CONCLUSION: 1. Diffuse urinary bladder wall thickening. 2. Bilateral lower lobe pulmonary consolidation. 3. Nonobstructing left renal calculus. 4. Colonic diverticulosis with no evidence of acute diverticulitis. 5. Nonspecific diffuse mild gallbladder wall thickening. No pericholecystic inflammatory changes. Damion Monroy MD on September 04, 2017 at 4:43 Board Certified Radiologist. This report was verified electronically.
--- NOTE | 2017-09-04 04:55 | RADRPT ---
EXAM DATE/TIME: 09/04/2017 03:55 [facility] COMPARISON: No previous studies available for comparison. INDICATIONS : Hemoptysis. IV CONTRAST: 95 cc Omnipaque 350 (iohexol) IV ; Cumulative dose for multiple exams. RADIATION DOSE: 17.71 CTDIvol (mGy) ; Combined studies - Thorax/Abdomen/Pelvis MEDICAL HISTORY : Cardiovascular disease. Hypertension. CAD. GERD. Diabetes. CVA. Dementia. SURGICAL HISTORY : CABG ENCOUNTER: Initial ACUITY: 1 day PAIN SCALE: Non-responsive LOCATION: chest TECHNIQUE: Volumetric scanning of the chest was performed. Using automated exposure control and adjustment of t he mA and/or kV according to patient size, radiation dose was kept as low as reasonably achievable to obtain optimal diagnostic quality images. DICOM format image data is available electronically for review and comparison. Follow-up recommendations for detected pulmonary nodules are based at a minimum on nodule size and pa tient risk factors according to Fleischner Society Guidelines. FINDINGS: LUNGS: Multiple areas of lobular consolidation in the right upper lobe and right lower lobe. Prominent confl uent posterior inferior right lower lobe consolidation. Prominent confluent posterior inferior left l ower lobe consolidation also seen. PLEURA: No evidence of pleural effusion. MEDIASTINUM: Diffuse aortic calcification and atherosclerotic disease. Endotracheal tube in place with the tip jus t above the katerine. AXILLAE: Within normal limits. No lymphadenopathy. SKELETAL: Within normal limits for patient age. MISCELLANEOUS: Abdomen findings are described on abdomen CT report. CONCLUSION: Moderate severity bilateral pulmonary consolidation most prominent at the dependent p ortions of lower lobes. Damion Monroy MD on September 04, 2017 at 4:50 Board Certified Radiologist. This report was verified electronically.
[2017-09-04] MEDS: SODIUM CHLOR 0.9% 1000 ML INJ 1,000 ML IV SCH ×3 (05:07→18:15)
[2017-09-04] MEDS: fentaNYL DRIP 250 ML IV PRN (05:07)
--- NOTE | 2017-09-04 05:54 | HHI.HP ---
HPI Service Critical Care Medicine Primary Care Physician Unknown Admission Diagnosis GI bleed with supratherapeutic INR Diagnosis: Travel History International Travel<30 Days: No Contact w/Intl Traveler <30 Da: No Traveled to Known Affected Are: No History of Present Illness 82-year-old gentleman with past medical history of dementia, status post CVA with baseline aphasia, dysphasia and PEG, DM, HTN was sent here from [facility] because he had vomited bright red blood and also had blood from rectum today. He was also chronic respiratory failure on 2 L nasal cannula and usually sats close to 94%. Patient has no family members however his next of can and long time friend requested patient to be a full code and he was intubated for an airway protection and hypoxemia by ED attending. Review of Systems ROS Unobtainable patient is sedated and intubated Past Family Social History Allergies: Coded Allergies: penicillin G (Unverified Allergy, Intermediate, 09/04/17) Uncoded Allergies: MYCIN (Allergy, Severe, Rash, 06/06/09) Past Medical History Atrial fibrillation Coronary artery disease Diabetes mellitus CVA Dementia Dysphagia Aphasia GERD Diabetic neuropathy Dyslipidemia Past Surgical History CABG Tonsillectomy Macular degeneration Reported Medications Reported Meds & Active Scripts Active Reported Vitamin C (Ascorbic Acid) 250 Mg Chew 500 Mg PEG DAILY Zinc Sulfate 220 Mg Tab 220 Mg PEG HS Pyridoxine (Pyridoxine HCl) 50 Mg Tab 50 Mg PEG DAILY Pantoprazole (Pantoprazole Sodium) 40 Mg Tab 40 Mg PEG DAILY Metoprolol Tartrate 50 Mg Tab 50 Mg PEG BID Metformin (Metformin HCl) 500 Mg Tab 500 Mg PEG BIDPC With meals Humalog Inj (Insulin Human Lispro) 1,000 Unit/10 Ml Vial 1-9 Units SQ ACHS Max dose at bedtime:( )units; sugars< 70,(0)units; sugars 150-199,(1)unit; sugars 200-249,(3)units; sugars 250-299,(5)units; sugars 300-349,(7)units; sugars more than 349,(9)units. Apidra Inj (Insulin Glulisine Inj) 1,000 Unit/10 Ml Vial 15 Units SQ HS Ezetimibe 10 Mg Tab 10 Mg PEG DAILY Enoxaparin Inj (Enoxaparin Sodium) 120 Mg/0.8ML Syr 120 Mg SQ DAILY Digoxin 0.25 Mg Tab 0.25 Mg G-TUBE DAILY Coumadin (Warfarin) 3 Mg Tab 3 Mg PO DAILY Citroma Liq (Magnesium Citrate) 300 Ml Liq 300 Ml PO DIRECTED Cerovite Advanced Formula (Multiple Vitamins W/ Minerals) 18 Mg Iron-400 Mcg Tab 18 Mg G-TUBE DAILY Aspirin 81 Mg Chew 81 Mg CHEW DAILY Acetaminophen Supp (Acetaminophen) 650 Mg Supp 650 Mg RECTAL Q6H PRN Active Ordered Medications Current Medications Medications (Trade) Dose Ordered Sig/Andrea Route PRN Reason Start Time Stop Time Status Last Admin Dose Admin Acetaminophen (Tylenol Supp) 650 mg Q6H PRN RECTAL FEVER 09/04/17 02:30 Digoxin (Lanoxin) 0.25 mg DAILY G-TUBE 09/04/17 09:00 EZETIMIBE (Zetia) 10 mg DAILY PEG 09/04/17 09:00 Zinc Sulfate (Zinc Sulfate) 220 mg HS PEG 09/04/17 21:00 Dextrose (D50w (Vial) Inj) 50 ml UNSCH PRN IV PUSH HYPOGLYCEMIA-SEE COMMENTS 09/04/17 02:30 Glucagon (Glucagon Inj) 1 mg UNSCH PRN OTHER HYPOGLYCEMIA-SEE COMMENTS 09/04/17 02:30 Insulin Aspart (NovoLOG SUPPLEMENTAL SCALE) 1 ACHS SLIDING SCALE SQ 09/04/17 08:00 Sodium Chloride 1,000 ml @ 124 mls/hr Q8H4M IV 09/04/17 02:18 09/04/17 05:07 Sodium Chloride (NS Flush) 2 ml UNSCH PRN IV FLUSH FLUSH AFTER USING IV ACCESS 09/04/17 02:30 Sodium Chloride (NS Flush) 2 ml BID IV FLUSH 09/04/17 09:00 Acetaminophen (Tylenol) 650 mg Q6H PRN PO PAIN 1-10 AND/OR FEVER >101F 09/04/17 02:30 09/04/17 06:03 Pantoprazole Sodium (Protonix Inj) 40 mg Q12HR IV PUSH 09/04/17 09:00 Midazolam HCl (Versed Inj) 2 mg Q1H PRN IV PUSH SEDATION 09/04/17 02:30 Artificial Tears (Tears Naturale Opth Soln) 1 drop TID EACH EYE 09/04/17 09:00 Ondansetron HCl (Zofran Inj) 4 mg Q6H PRN IV PUSH NAUSEA OR VOMITING 09/04/17 02:30 Albuterol/ Ipratropium (Duoneb Neb) 1 ampule Q2HR NEB PRN INH WHEEZING 09/04/17 02:30 Miscellaneous Information 1 Q361D XX 09/04/17 02:30 Chlorhexidine Gluconate (Chlorhexidine 2% Cloth) 3 pack Taper DAILY@04 TOP 09/04/17 04:00 08/31/18 03:59 Chlorhexidine Gluconate (Chlorhexidine 2% Cloth) 3 pack UNSCH PRN TOP HYGIENIC CARE 09/04/17 02:30 Senna/Docusate Sodium ([place]-Colace) 1 tab BID PO 09/04/17 09:00 Magnesium Hydroxide (Milk Of Magnesia Liq) 30 ml Q12H PRN PO Mild constipation 09/04/17 02:30 Sennosides (Senokot) 17.2 mg Q12H PRN PO Moderate constipation 09/04/17 02:30 Bisacodyl (Dulcolax Supp) 10 mg DAILY PRN RECTAL SEVERE CONSITIPATION 09/04/17 02:30 Lactulose (Lactulose Liq) 30 ml DAILY PRN PO SEVERE CONSITIPATION 09/04/17 02:30 Chlorhexidine Gluconate (Peridex 0.12% Liq) 15 ml BID@08,20 MT 09/04/17 08:00 Propofol 100 ml @ 2.19 mls/hr TITRATE PRN IV SEDATION 09/04/17 02:30 09/04/17 03:41 Fentanyl Citrate 250 ml @ 5 mls/hr TITRATE PRN IV SEDATION 09/04/17 04:45 09/04/17 05:07 Family History No family history significant of malignancy Social History Lives at the detention, no history significant of tobacco alcohol or illicit drug abuse Physical Exam Vital Signs Vital Signs Date Time Temp Pulse Resp B/P (MAP) Pulse Ox O2 Delivery O2 Flow Rate FiO2 09/04/17 05:19 101.9 144 34 101/51 98 09/04/17 05:00 101.9 144 36 95/49 (64) 98 09/04/17 04:28 99 100 09/04/17 04:15 102.2 152 44 127/59 (81) 100 09/04/17 04:00 100 09/04/17 04:00 152 09/04/17 03:50 100 100 09/04/17 03:40 09/04/17 02:37 138 14 133/58 (83) 100 Auto-Vent 100 09/04/17 02:37 100 09/04/17 02:35 99 Ventilator 100 09/04/17 02:35 99 100 09/04/17 01:04 138 32 117/58 (77) 97 Nasal Cannula 2.00 09/04/17 00:20 101.3 134 32 96/52 (67) 95 Nasal Cannula 2.00 Physical Exam GENERAL: Elderly gentleman sedated and intubated SKIN: Warm and dry. HEAD: Normocephalic. EYES: No scleral icterus. No injection or drainage. NECK: Supple, trachea midline. No JVD or lymphadenopathy. CARDIOVASCULAR: Regular rate and rhythm without murmurs, gallops, or rubs. RESPIRATORY: Breath sounds equal bilaterally. No accessory muscle use. GASTROINTESTINAL: Abdomen soft, non-tender, nondistended. MUSCULOSKELETAL: No cyanosis, or edema. BACK: Nontender without obvious deformity. NEURO EXAM: Mental Status: The patient is sedated and intubated Cranial Nerves: Pupils are round, reactive to light. Reflexes: Biceps, patellar, and Achilles are 2/4 bilaterally. No clonus. Laboratory Laboratory Tests Test 09/04/17 00:20 09/04/17 00:37 09/04/17 00:40 09/04/17 02:59 White Blood Count 14.5 Red Blood Count 5.26 Hemoglobin 14.4 Hematocrit 44.6 Mean Corpuscular Volume 84.7 Mean Corpuscular Hemoglobin 27.4 Mean Corpuscular Hemoglobin Concent 32.4 Red Cell Distribution Width 15.1 Platelet Count 348 Mean Platelet Volume 7.3 Neutrophils (%) (Auto) 82.0 Lymphocytes (%) (Auto) 12.1 Monocytes (%) (Auto) 4.6 Eosinophils (%) (Auto) 0.7 Basophils (%) (Auto) 0.6 Neutrophils # (Auto) 11.9 Lymphocytes # (Auto) 1.8 Monocytes # (Auto) 0.7 Eosinophils # (Auto) 0.1 Basophils # (Auto) 0.1 CBC Comment DIFF FINAL Differential Comment Prothrombin Time 54.9 Prothromb Time International Ratio 4.6 Activated Partial Thromboplast Time 45.1 Blood Urea Nitrogen 36 Creatinine 0.95 Random Glucose 206 Calcium Level 8.3 Sodium Level 142 Potassium Level 3.5 Chloride Level 105 Carbon Dioxide Level 26.3 Anion Gap 11 Estimat Glomerular Filtration Rate 76 Troponin I LESS THAN 0.02 Lipase 243 Urine Color YELLOW Urine Turbidity CLEAR Urine pH 6.0 Urine Specific [place] 1.022 Urine Protein TRACE Urine Glucose (UA) TRACE Urine Ketones NEG Urine Occult Blood NEG Urine Nitrite NEG Urine Bilirubin NEG Urine Urobilinogen LESS THAN 2.0 Urine Leukocyte Esterase NEG Urine RBC 5 Urine WBC 2 Urine Mucus FEW Microscopic Urinalysis Comment CULT NOT INDICATED Lactic Acid Level 3.2 Blood Gas Puncture Site RT RADIAL Blood Gas Patient Temperature 98.6 Blood Gas HCO3 22 Blood Gas Base Excess -5.3 Blood Gas Oxygen Saturation 96 Arterial Blood pH 7.19 Arterial Blood Partial Pressure CO2 60 Arterial Blood Partial Pressure O2 145 Arterial Blood Oxygen Content 18.6 Arterial Blood Carboxyhemoglobin 1.0 Arterial Blood Methemoglobin 1.0 Blood Gas Hemoglobin 13.6 Oxygen Delivery Device VENT Blood Gas Ventilator Setting Blood Gas Inspired Oxygen 100 Test 09/04/17 03:40 09/04/17 04:15 Lactic Acid Level 3.0 Date/Time Source Procedure Growth Status 09/04/17 00:40 Blood Peripheral Aerobic Blood Culture Pending Received 09/04/17 00:40 Blood Peripheral Anaerobic Blood Culture Pending Received Result Diagram: 09/04/17 0020 09/04/17 0020 Imaging Last [address] 09/04/17 0000 Signed Impressions: Service Date/Time: Monday, September 04, 2017 03:49 - CONCLUSION: Age- related and chronic ischemic change. No acute intracranial findings. Damion Monroy MD Chest X-Ray 09/04/17 0000 Signed Impressions: Service Date/Time: Monday, September 04, 2017 03:16 - CONCLUSION: 1. Endotracheal tube and nasogastric tube now in place. 2. Increased bilateral lower lung zone opacity indicating pulmonary edema versus atelectasis/consolidation. Damion Monroy MD Chest X-Ray 09/04/17 0000 Signed Impressions: Service Date/Time: Monday, September 04, 2017 01:55 - CONCLUSION: Mild patchy opacity of the lung bases likely representing atelectasis or scarring. Damion Monroy MD Chest CT 09/04/17 0000 Signed Impressions: Service Date/Time: Monday, September 04, 2017 03:55 - CONCLUSION: Moderate severity bilateral pulmonary consolidation most prominent at the dependent portions of lower lobes. Damion Monroy MD Abdomen/Pelvis CT 09/04/17 0000 Signed Impressions: Service Date/Time: Monday, September 04, 2017 03:55 - CONCLUSION: 1. Diffuse urinary bladder wall thickening. 2. Bilateral lower lobe pulmonary consolidation. 3. Nonobstructing left renal calculus. 4. Colonic diverticulosis with no evidence of acute diverticulitis. 5. Nonspecific diffuse mild gallbladder wall thickening. No pericholecystic inflammatory changes. Damion Monroy MD Caprini VTE Risk Assessment Caprini VTE Risk Assessment: Mod/High Risk (score >= 2) VTE Pharm Contraindication: Hemorrhage Caprini Risk Assessment Model Point Value = 1 Point Value = 2 Point Value = 3 Point Value = 5 Age 41-60 Minor surgery BMI > 25 kg/m2 Swollen legs Varicose veins or History of unexplained or recurrent spontaneous Oral contraceptives or hormone replacement Sepsis (< 1 month) Serious lung disease, including pneumonia (< 1 month) Abnormal pulmonary function Acute myocardial infarction Congestive heart failure (< 1 month) History of inflammatory bowel disease Medical patient at bed rest Age 61-74 Arthroscopic surgery Major open surgery (> 45 min) Laparoscopic surgery (> 45 min) Malignancy Confined to bed (> 72 hours) Immobilizing plaster cast Central venous access Age >= 75 History of VTE Family history of VTE Factor V Leiden Prothrombin [id number] Lupus anticoagulant Anticardiolipin antibodies Elevated serum homocysteine Heparin-induced thrombocytopenia Other congenital or acquired thrombophilia Stroke (< 1 month) Elective arthroplasty Hip, pelvis, or leg fracture Acute spinal cord injury (< 1 month) Prophylaxis Regimen Total Risk Factor Score Risk Level Prophylaxis Regimen 0-1 Low Early ambulation 2 Moderate Order ONE of the following: *Sequential Compression Device (SCD) *Heparin 5000 units SQ BID 3-4 Higher Order ONE of the following medications: *Heparin 5000 units SQ TID *Enoxaparin/Lovenox 40 mg SQ daily (WT < 150 kg, CrCl > 30 mL/min) *Enoxaparin/Lovenox 30 mg SQ daily (WT < 150 kg, CrCl > 10-29 mL/min) *Enoxaparin/Lovenox 30 mg SQ BID (WT < 150 kg, CrCl > 30 mL/min) AND/OR *Sequential Compression Device (SCD) 5 or more Highest Order ONE of the following medications: *Heparin 5000 units SQ TID (Preferred with Epidurals) *Enoxaparin/Lovenox 40 mg SQ daily (WT < 150 kg, CrCl > 30 mL/min) *Enoxaparin/Lovenox 30 mg SQ daily (WT < 150 kg, CrCl > 10-29 mL/min) *Enoxaparin/Lovenox 30 mg SQ BID (WT < 150 kg, CrCl > 30 mL/min) AND *Sequential Compression Device (SCD) Assessment and Plan Assessment and Plan Respiratory failure - Acute on chronic - Intubated for airway protection - Mechanical ventilation - CXR and ABG daily - DuoNeb scheduled and when necessary GI bleed - Protonix IV twice a day - Monitor H&H - Transfuse when necessary to keep hemoglobin above 8 - GI consultation Atrial fibrillation - Continue home dose of digoxin - Amiodarone Diabetes - Hold long acting insulins due to nothing by mouth - Insulin sliding scale Dementia - Supportive care Dysphagia - PEG tube in place - Nothing by mouth until GI cleared DVT GI prophylaxis - Teds SCDs - Protonix IV twice a day - No pharmacological DVT prophylaxis due to GI bleed Critical Care: The total critical care time was 35 minutes. Time to perform other separately billable procedures was not included in the critical care time. Jian Escobar MD Sep 04, 2017 5:53 am
[2017-09-04] MEDS: ACETAMINOPHEN 325 MG TAB PO PRN (06:03)
[2017-09-04] MEDS ORDERED: AMIODARONE INJ 150 MG in DEXTROSE 5% IN WATER 100ML INJ 100 ML IV ONE ×4 (06:24→17:45)
[2017-09-04] MEDS ORDERED: Vancomycin Consult Pharmacy 1 EA OTHER SCH (06:45)
[2017-09-04] MEDS ORDERED: PIPERACIL-TAZO 3.375 GM PREMIX 50 ML IV SCH (06:45)
[2017-09-04] MEDS: PANTOPRAZOLE SODIUM 40 MG VIAL IV PUSH SCH ×2 (08:07→20:54)
[2017-09-04] MEDS: DIGOXIN 0.25 MG TAB G-TUBE SCH (08:07)
[2017-09-04] MEDS: SODIUM CHLORIDE 0.9% FLUSH 10 ML FLUSH IV FLUSH SCH ×2 (08:07→21:23)
[2017-09-04] MEDS: EZETIMIBE 10 MG TAB PEG SCH (08:07)
[2017-09-04] MEDS: CHLORHEXIDINE 0.12% (ORAL KIT) 15 ML CUP MT SCH ×2 (08:07→21:26)
[2017-09-04] MEDS ORDERED: TERBUTALINE INJ 1 MG/ML AMP SQ PRN ×4 (08:45→23:30)
[2017-09-04] MEDS: ARTIFICIAL TEARS OPTH SOLN 15 ML BTL EACH EYE SCH ×3 (09:00→17:56)
[2017-09-04] MEDS: DOCUSATE SODIUM 50 MG/SENNA 8.6 MG TAB PO SCH ×2 (09:00→21:02)
--- NOTE | 2017-09-04 09:00 | HHI.CCPN ---
Subjective Remarks/Hospital Course 82-year-old gentleman with past medical history of dementia, status post CVA with baseline aphasia, dysphasia and PEG, DM, HTN was sent here from [facility] because he had vomited bright red blood and also had blood from rectum today. He was also chronic respiratory failure on 2 L nasal cannula and usually sats close to 94%. Patient has no family members however his next of can and long time friend requested patient to be a full code and he was intubated for an airway protection and hypoxemia by ED attending. CCM re eval at 08.30: Worsening septic shock. Worsening hypoxia, now on 100% FiO2. Showing agonal breathing on the ventilator TV increased to 600, PEEP increased to 10. Kalin-Synephrine started to keep map above 65, additional 1 L fluid bolus given. Receiving sedation after blood pressure is improved. CT of the chest did show extensive bibasilar pneumonia Objective Vital Signs Date Time Temp Pulse Resp B/P (MAP) Pulse Ox O2 Delivery O2 Flow Rate FiO2 09/04/17 08:35 97 90 09/04/17 07:47 125 83/44 09/04/17 06:55 101.8 34 09/04/17 02:37 Auto-Vent 09/04/17 01:04 2.00 Intake and Output 09/04/17 09/04/17 09/05/17 08:00 16:00 00:00 Intake Total 2045 ml Output Total 350 ml Balance 1695 ml Result Diagram: 09/04/17 0020 09/04/17 0020 Other Results Laboratory Tests Test 09/04/17 02:59 Blood Gas Puncture Site RT RADIAL Blood Gas Patient Temperature 98.6 Blood Gas HCO3 22 mmol/L (22-26) Blood Gas Base Excess -5.3 mmol/L (-2-2) Blood Gas Oxygen Saturation 96 % (90-100) Arterial Blood pH 7.19 (7.380-7.420) Arterial Blood Partial Pressure CO2 60 mmHg (38-42) Arterial Blood Partial Pressure O2 145 mmHG (61-120) Arterial Blood Oxygen Content 18.6 Vol % (12.0-20.0) Arterial Blood Carboxyhemoglobin 1.0 % (0-4) Arterial Blood Methemoglobin 1.0 % (0-2) Blood Gas Hemoglobin 13.6 G/DL (12.0-16.0) Oxygen Delivery Device VENT Blood Gas Ventilator Setting Blood Gas Inspired Oxygen 100 % Imaging Last [address] 09/04/17 Signed Impressions: Service Date/Time: Monday, September 04, 2017 03:49 - CONCLUSION: Age- related and chronic ischemic change. No acute intracranial findings. Damion Monroy MD Chest X-Ray 09/04/17 Signed Impressions: Service Date/Time: Monday, September 04, 2017 03:16 - CONCLUSION: 1. Endotracheal tube and nasogastric tube now in place. 2. Increased bilateral lower lung zone opacity indicating pulmonary edema versus atelectasis/consolidation. Damion Monroy MD Chest X-Ray 09/04/17 Signed Impressions: Service Date/Time: Monday, September 04, 2017 01:55 - CONCLUSION: Mild patchy opacity of the lung bases likely representing atelectasis or scarring. Damion Monroy MD Chest CT 09/04/17 Signed Impressions: Service Date/Time: Monday, September 04, 2017 03:55 - CONCLUSION: Moderate severity bilateral pulmonary consolidation most prominent at the dependent portions of lower lobes. Damion Monroy MD Abdomen/Pelvis CT 09/04/17 Signed Impressions: Service Date/Time: Monday, September 04, 2017 03:55 - CONCLUSION: 1. Diffuse urinary bladder wall thickening. 2. Bilateral lower lobe pulmonary consolidation. 3. Nonobstructing left renal calculus. 4. Colonic diverticulosis with no evidence of acute diverticulitis. 5. Nonspecific diffuse mild gallbladder wall thickening. No pericholecystic inflammatory changes. Damion Monroy MD Objective Remarks GENERAL: Elderly gentleman sedated and intubated, showing agonal breathing on vent SKIN: Warm and dry. HEAD: Normocephalic. EYES: No scleral icterus. No injection or drainage. NECK: Supple, trachea midline. No JVD or lymphadenopathy. CARDIOVASCULAR: Tachycardic rate and rhythm without murmurs, gallops, or rubs. RESPIRATORY: Breath sounds equal bilaterally. No accessory muscle use. Diminished air entry at the bases with crackles. Tachypneic GASTROINTESTINAL: Abdomen soft, non-tender, nondistended. MUSCULOSKELETAL: No cyanosis, or edema. BACK: Nontender without obvious deformity. NEURO: The patient is sedated and intubated. Pupils are round, reactive to light. No focal deficits Urinary Catheter: Yes Assessment to: Continue A/P Assessment and Plan Neuro: Metabolic encephalopathy History of CVA Dementia - Propofol and sedation for ventilator synchrony - Daily sedation vacation only when the respiratory status and mental status improves RESP; Acute on chronic hypoxemic respiratory failure Severe bilateral pneumonia - Intubated for airway protection - PRVC 18/500/PEEP 5. FiO2 100%. PEEP increased to 10, tidal volume increased to 600 - Attempt to wean FiO2 to keep saturation above 90% - CXR and ABG daily - DuoNeb scheduled and when necessary - Broad-spectrum antibiotics with vancomycin Azactam and Flagyl CVS: Septic shock Sinus tachycardia History of atrial fibrillation - Start Kalin-Synephrine to keep map above 65 - Trend lactic acid - Received 2 L fluid boluses, additional 1 L fluid bolus with normal saline - Continue normal saline at 124 mL per hour - Continue home dose of digoxin - Amiodarone gtt if needed GI: GI bleed - Protonix IV twice a day - Monitor H&H - Transfuse when necessary to keep hemoglobin above 8 - GI consultation pending - PEG tube in place - Nothing by mouth until GI cleared ID: Septic shock Bilateral pneumonia - Follow-up on blood and sputum culture - Continue vancomycin, DC Zosyn and start Azactam and Flagyl - Aggressive fluid resuscitation and pressors as above ENDO: Diabetes - Hold long acting insulins due to nothing by mouth - Insulin sliding scale DVT GI prophylaxis - Teds SCDs - Protonix IV twice a day - No pharmacological DVT prophylaxis due to GI bleed Critical Care: The total critical care time was 42 minutes. Time to perform other separately billable procedures was not included in the critical care time. Jose Trinidad MD Sep 04, 2017 09:00
[2017-09-04] MEDS ORDERED: SODIUM BICARBONATE 8.4% INJ 50 MEQ/50 ML SYR ONE ×2 (09:13)
--- NOTE | 2017-09-04 09:37 | PD.PROCEDR ---
Central Line Procedure REASON FOR PROCEDURE Central venous access PROCEDURE PERFORMED Central line placement: L subclavian central line (5 lumen) CONSENT Informed consent for procedure was obtained from POA. The risks and benefits of the procedure were discussed to include but limited to bleeding, clot formation, infection, and even . ANESTHESIA Local injection of 1% Lidocaine DESCRIPTION OF THE PROCEDURE The patient was placed in supine, mild Trendelenburg position. The area was exposed and cleansed with ChloraPrep, times two. Large sterile drape was used to cover the patient, with the site exposed, under sterile conditions including cap, face mask, sterile gown, and sterile gloves. On single attempt, the introducer needle was inserted with negative pressure in syringe and venous flash was obtained. The guide wire was then advanced without any restriction and the needle was removed. The dilator was used without any complications. Using Seldinger technique the 20 CM 10F 5 lumen catheter was advanced over the guide wire to a depth of 18 centimeters. The guide wire was removed. All ports were aspirated with dark venous blood return and flushed easily with sterile saline. All ports were capped. Antibiotic disc was placed around central line at puncture site. The central line was secured to the skin with two interrupted 2.0 silk sutures. The area was bandaged with sterile see- through central line bandage. COMPLICATIONS: No apparent complications ESTIMATED BLOOD LOSS: Less than 1 cc. Jose Trinidad MD Sep 04, 2017 09:37
[2017-09-04] MEDS: PHENYLEPHRINE INJ 40 MG in DEXTROSE 5% IN WATE 500 ML INJ 496 ML IV PRN ×10 (09:41→23:46)
[2017-09-04] MEDS ORDERED: SODIUM CHLOR 0.9% 1000 ML INJ 1,000 ML IV ONE ×2 (10:00→15:15)
[2017-09-04] MEDS ORDERED: SODIUM BICARBONATE 8.4% INJ 50 MEQ/50 ML SYR IV ONE (10:00)
[2017-09-04] MEDS: metroNIDAZOLE 500 MG INJ 100 ML IV SCH ×2 (10:08→16:44)
--- NOTE | 2017-09-04 10:14 | RADRPT ---
EXAM DATE/TIME: 09/04/2017 09:58 [place] COMPARISON: CHEST SINGLE AP, September 04, 2017, 3:16. INDICATIONS : Status post central line placement. Evaluate for line placement. MEDICAL HISTORY : Cardiovascular disease. Diabetes mellitus type II. Hypertension. A-Fib SURGICAL HISTORY : CABG. ENCOUNTER: Subsequent ACUITY: 1 day PAIN SCORE: Non-responsive. LOCATION: chest FINDINGS: Interval placement of right-sided subclavian catheter with tip in the atriocaval junction. No signifi cant pneumothorax. Stable ETT and NGT coursing beyond the GE junction with tip omitted from the image . Redemonstration of bilateral lower lung zone pleural-parenchymal disease, partially imaged on this exam. Remainder of exam unchanged. CONCLUSION: 1. Right subclavian central line in good position without significant pneumothorax. 2. Remainder of the exam is unchanged. Ady George MD on September 04, 2017 at 10:11 Board Certified Radiologist. This report was verified electronically.
[2017-09-04 10:26] LABS: BLOOD GAS BASE EXCESS -3.4 mmol/L (-2-2); BLOOD GAS CARBOXYHEMOGLOBIN 0.8 % (0-4); BLOOD GAS HCO3 23 mmol/L (22-26); BLOOD GAS METHEMOGLOBIN 1.3 % (0-2); BLOOD GAS O2 HGB SATURATION 93 % (90-100); BLOOD GAS PCO2 53 mmHg (38-42); BLOOD GAS PO2 86 mmHg (61-120); BLOOD GAS TOTAL HGB 12.2 G/DL (12.0-16.0); CRITICAL VALUE YES; OXYGEN DEVICE VENTILATOR; TEMP CORR TO 98.6
[2017-09-04 10:27] LABS: DRAW SITE RT RADIAL; FIO2 100 %; NUMBER OF ARTERIAL PUNCTURES 1; STAT NO; ULNAR PULSE PRESENT; VENT SETTINGS PRVC18/600/+10PEEP
[2017-09-04] MEDS: INSULIN ASPART SUPPLEMENTAL SCALE SQ SCH ×4 (11:41→21:00)
[2017-09-04] MEDS: AZTREONAM INJ 2,000 MG in SODIUM CHLORIDE 0.9% INJ 100 ML IV SCH ×2 (11:41→18:14)
[2017-09-04 11:50] LABS: AUTOMATED NEUTROPHIL # 19.1 TH/MM3 (1.8-7.7); BASOPHIL % 0.2 % (0.0-2.0); EOSINOPHIL # 0.1 TH/MM3 (0-0.4); EOSINOPHIL % 0.3 % (0.0-4.0); HEMATOCRIT 37.3 % (39.0-51.0); HEMO FLAGS DIFF FINAL; LYMPH % 4.8 % (9.0-44.0); MEAN CELL VOLUME 85.9 FL (80.0-100.0); MEAN CORPUSCULAR HEMOGLOBIN 28.6 PG (27.0-34.0); MEAN CORPUSCULAR HGB CONC 33.3 % (32.0-36.0); MONO % 3.3 % (0.0-8.0); NEUT % 91.4 % (16.0-70.0); PLATELET COUNT 342 TH/MM3 (150-450); RED BLOOD COUNT 4.34 MIL/MM3 (4.50-5.90); RED CELL DISTRIBUTION WIDTH 15.4 % (11.6-17.2); WHITE BLOOD COUNT 20.9 TH/MM3 (4.0-11.0)
--- NOTE | 2017-09-04 14:23 | PD.CONS ---
HPI History of Present Illness This is a 82 year old male with hx CVA, dysphagia with PEG, DM, HTN, dementia who was sent from [facility] for BRBPR and hematemesis. Per nursing report he was having coffee ground output from PEG and CGE. His INR was 4.6 on admission. He has been intubated. Hx obtained from EMR, nurses as pt intubated. (Aliza Devlin) PFSH Past Medical History AF DM respiratory failure Dementia dysphagia CVA Past Surgical History unk (Aliza Devlin) Coded Allergies: penicillin G (Unverified Allergy, Intermediate, 09/04/17) Uncoded Allergies: MYCIN (Allergy, Severe, Rash, 06/06/09) Family History unk Social History unk (Aliza Devlin) Review of Systems ROS noncontributory (Aliza Devlin) GI Exam Vitals I&O Vital Signs Date Time Temp Pulse Resp B/P (MAP) Pulse Ox O2 Delivery O2 Flow Rate FiO2 09/04/17 13:37 93 90 09/04/17 12:56 112 104/51 09/04/17 12:37 99 80 09/04/17 11:00 100 90 09/04/17 10:04 113 81/45 09/04/17 09:41 111 77/44 09/04/17 08:35 97 100 09/04/17 07:47 125 83/44 09/04/17 06:55 101.8 140 34 97/51 93 09/04/17 06:00 102.2 143 35 93/51 (65) 98 09/04/17 06:00 143 09/04/17 05:51 102.2 141 33 91/51 97 09/04/17 05:19 101.9 144 34 101/51 98 09/04/17 05:00 101.9 144 36 95/49 (64) 98 09/04/17 04:28 99 100 09/04/17 04:15 102.2 152 44 127/59 (81) 100 09/04/17 04:00 100 09/04/17 04:00 152 09/04/17 03:50 100 100 09/04/17 03:40 09/04/17 02:37 138 14 133/58 (83) 100 Auto-Vent 100 09/04/17 02:37 100 09/04/17 02:35 99 Ventilator 100 09/04/17 02:35 99 100 09/04/17 01:04 138 32 117/58 (77) 97 Nasal Cannula 2.00 09/04/17 00:20 101.3 134 32 96/52 (67) 95 Nasal Cannula 2.00 I/O 09/03/17 09/03/17 09/03/17 09/04/17 09/04/17 09/04/17 07:00 15:00 23:00 07:00 15:00 23:00 Intake Total 1942 ml 103 ml Output Total 350 ml Balance 1592 ml 103 ml Intake IV Total 1652 ml 103 ml FFP 285 ml Blood Product IV Normal Saline Flush 5 ml Output Urine Total 350 ml # Bowel Movements 1 Imaging Last Impressions Head CT 09/04/17 0000 Signed Impressions: Service Date/Time: Monday, September 04, 2017 03:49 - CONCLUSION: Age- related and chronic ischemic change. No acute intracranial findings. Damion Monroy MD Chest X-Ray 09/04/17 0000 Signed Impressions: Service Date/Time: Monday, September 04, 2017 09:58 - CONCLUSION: 1. Right subclavian central line in good position without significant pneumothorax. 2. Remainder of the exam is unchanged. Ady George MD Chest CT 09/04/17 0000 Signed Impressions: Service Date/Time: Monday, September 04, 2017 03:55 - CONCLUSION: Moderate severity bilateral pulmonary consolidation most prominent at the dependent portions of lower lobes. Damion Monroy MD Abdomen/Pelvis CT 09/04/17 0000 Signed Impressions: Service Date/Time: Monday, September 04, 2017 03:55 - CONCLUSION: 1. Diffuse urinary bladder wall thickening. 2. Bilateral lower lobe pulmonary consolidation. 3. Nonobstructing left renal calculus. 4. Colonic diverticulosis with no evidence of acute diverticulitis. 5. Nonspecific diffuse mild gallbladder wall thickening. No pericholecystic inflammatory changes. Damion Monroy MD Laboratory Test 09/04/17 00:20 09/04/17 00:37 09/04/17 00:40 09/04/17 02:59 White Blood Count 14.5 TH/MM3 Red Blood Count 5.26 MIL/MM3 Hemoglobin 14.4 GM/DL Hematocrit 44.6 % Mean Corpuscular Volume 84.7 FL Mean Corpuscular Hemoglobin 27.4 PG Mean Corpuscular Hemoglobin Concent 32.4 % Red Cell Distribution Width 15.1 % Platelet Count 348 TH/MM3 Mean Platelet Volume 7.3 FL Neutrophils (%) (Auto) 82.0 % Lymphocytes (%) (Auto) 12.1 % Monocytes (%) (Auto) 4.6 % Eosinophils (%) (Auto) 0.7 % Basophils (%) (Auto) 0.6 % Neutrophils # (Auto) 11.9 TH/MM3 Lymphocytes # (Auto) 1.8 TH/MM3 Monocytes # (Auto) 0.7 TH/MM3 Eosinophils # (Auto) 0.1 TH/MM3 Basophils # (Auto) 0.1 TH/MM3 CBC Comment DIFF FINAL Differential Comment Prothrombin Time 54.9 SEC Prothromb Time International Ratio 4.6 RATIO Activated Partial Thromboplast Time 45.1 SEC Blood Urea Nitrogen 36 MG/DL Creatinine 0.95 MG/DL Random Glucose 206 MG/DL Calcium Level 8.3 MG/DL Sodium Level 142 MEQ/L Potassium Level 3.5 MEQ/L Chloride Level 105 MEQ/L Carbon Dioxide Level 26.3 MEQ/L Anion Gap 11 MEQ/L Estimat Glomerular Filtration Rate 76 ML/MIN Troponin I LESS THAN 0.02 NG/ML Lipase 243 U/L Urine Color YELLOW Urine Turbidity CLEAR Urine pH 6.0 Urine Specific [place] 1.022 Urine Protein TRACE mg/dL Urine Glucose (UA) TRACE mg/dL Urine Ketones NEG mg/dL Urine Occult Blood NEG Urine Nitrite NEG Urine Bilirubin NEG Urine Urobilinogen LESS THAN 2.0 MG/DL Urine Leukocyte Esterase NEG Urine RBC 5 /hpf Urine WBC 2 /hpf Urine Mucus FEW /lpf Microscopic Urinalysis Comment CULT NOT INDICATED Lactic Acid Level 3.2 mmol/L Blood Gas Puncture Site RT RADIAL Blood Gas Patient Temperature 98.6 Blood Gas HCO3 22 mmol/L Blood Gas Base Excess -5.3 mmol/L Blood Gas Oxygen Saturation 96 % Arterial Blood pH 7.19 Arterial Blood Partial Pressure CO2 60 mmHg Arterial Blood Partial Pressure O2 145 mmHG Arterial Blood Oxygen Content 18.6 Vol % Arterial Blood Carboxyhemoglobin 1.0 % Arterial Blood Methemoglobin 1.0 % Blood Gas Hemoglobin 13.6 G/DL Oxygen Delivery Device VENT Blood Gas Ventilator Setting Blood Gas Inspired Oxygen 100 % Test 09/04/17 03:40 09/04/17 04:15 09/04/17 10:20 09/04/17 11:30 Lactic Acid Level 3.0 mmol/L 3.1 mmol/L Nasal Screen MRSA (PCR) MRSA DETECTED Blood Gas Puncture Site RT RADIAL Blood Gas Patient Temperature 98.6 Blood Gas HCO3 23 mmol/L Blood Gas Base Excess -3.4 mmol/L Blood Gas Oxygen Saturation 93 % Arterial Blood pH 7.25 Arterial Blood Partial Pressure CO2 53 mmHg Arterial Blood Partial Pressure O2 86 mmHg Arterial Blood Oxygen Content 16.0 Vol % Arterial Blood Carboxyhemoglobin 0.8 % Arterial Blood Methemoglobin 1.3 % Blood Gas Hemoglobin 12.2 G/DL Oxygen Delivery Device VENTILATOR Blood Gas Ventilator Setting PRVC18/600/+10PEEP Blood Gas Inspired Oxygen 100 % White Blood Count 20.9 TH/MM3 Red Blood Count 4.34 MIL/MM3 Hemoglobin 12.4 GM/DL Hematocrit 37.3 % Mean Corpuscular Volume 85.9 FL Mean Corpuscular Hemoglobin 28.6 PG Mean Corpuscular Hemoglobin Concent 33.3 % Red Cell Distribution Width 15.4 % Platelet Count 342 TH/MM3 Mean Platelet Volume 7.6 FL Neutrophils (%) (Auto) 91.4 % Lymphocytes (%) (Auto) 4.8 % Monocytes (%) (Auto) 3.3 % Eosinophils (%) (Auto) 0.3 % Basophils (%) (Auto) 0.2 % Neutrophils # (Auto) 19.1 TH/MM3 Lymphocytes # (Auto) 1.0 TH/MM3 Monocytes # (Auto) 0.7 TH/MM3 Eosinophils # (Auto) 0.1 TH/MM3 Basophils # (Auto) 0.0 TH/MM3 CBC Comment DIFF FINAL Differential Comment Date/Time Source Procedure Growth Status 09/04/17 00:40 Blood Peripheral Aerobic Blood Culture Pending Received 09/04/17 00:40 Blood Peripheral Anaerobic Blood Culture Pending Received 09/04/17 08:55 Sputum Endotracheal Gram Stain Pending Received 09/04/17 08:55 Sputum Endotracheal Sputum Culture Pending Received Physical Examination HEENT: normocephalic; atraumatic; no jaundice. OGT with dark output, some coffee ground appearance; intubated CHEST: CTA CARDIAC: RRR ABDOMEN: Soft, nondistended, nontender; no hepatosplenomegaly;BS faint; PEG site with scant discharge/leakage EXTREMITIES: No clubbing, cyanosis, or edema. SKIN: Normal; no rash; no jaundice. ADVENTURE GUIDE: sedated on vent (Aliza Devlin) Assessment and Plan Plan ASSESSMENT - hematemesis, ?BRBPR - reports of CGE. some dark output with coffee ground appearance from OGT. per RN no rectal bleeding seen. INR was 4.6 on admission, got vit K this morning. CT showed diverticulosis. - anemia - mild, HH was WNL on admission and has dropped to 12.4 today. could be multifactorial d/t above and dilution - septic shock, PNA, respiratory failure, metabolic encephalopathy, per [facility] - consider EGD when stable - monitor HH - transfuse if needed - supportive care - further recs to follow This pt seen by myself and Dr Marr and this note is written on his behalf (Aliza Devlin) Physician Comments Seen and examined, plan as above. Will monitor with you current status, follow HH and correct INR and overall status. Thank you for the consult. (Nicole Marr MD) Aliza Devlin Sep 04, 2017 14:23 Nicole Marr MD Sep 04, 2017 14:55
[2017-09-04] MEDS ORDERED: DILTIAZEM HCL 25 MG/5 ML VIAL ONE (17:33)
[2017-09-04] MEDS ORDERED: DILTIAZEM HCL 25 MG/5 ML (Bolus) IV PUSH ONE (18:00)
[2017-09-04] MEDS: AMIODARONE INJ 450 MG in DEXTROSE 5% IN WATE(EXCEL) INJ 250 ML IV PRN ×2 (20:15)
[2017-09-04] MEDS: ZINC SULFATE 220 MG CAP PEG SCH (20:54)
[2017-09-04] MEDS: HYDROCORTISONE SOD SUCCINATE 100 MG VIAL IV SCH (22:27)
[2017-09-04] MEDS: NOREPINEPHRINE-DEXTROSE DRIP 250 ML IV PRN (23:51)
[2017-09-05] VITALS (24 sets, daily range): BP systolic 100–132; BP diastolic 43–62; PULSE 74–118; RESP 15–20; TEMP 102–103.1; O2SAT 92–98
[2017-09-05] MEDS: metroNIDAZOLE 500 MG INJ 100 ML IV SCH ×3 (00:09→17:39)
[2017-09-05] MEDS: AMIODARONE INJ 450 MG in DEXTROSE 5% IN WATE(EXCEL) INJ 250 ML IV PRN ×4 (01:05→16:58)
[2017-09-05] MEDS: PHENYLEPHRINE INJ 40 MG in DEXTROSE 5% IN WATE 500 ML INJ 496 ML IV PRN ×10 (01:18→22:52)
[2017-09-05] MEDS: AZTREONAM INJ 2,000 MG in SODIUM CHLORIDE 0.9% INJ 100 ML IV SCH ×2 (02:33→10:01)
[2017-09-05] MEDS ORDERED: VANCOMYCIN 1,500 MG/NS 500 ML IV SCH ×2 (03:00)
[2017-09-05 03:16] LABS: APTT (PATIENT) 42.2 SEC (24.3-30.1); AUTOMATED NEUTROPHIL # 33.8 TH/MM3 (1.8-7.7); BASOPHIL # 0.2 TH/MM3 (0-0.2); BASOPHIL % 0.4 % (0.0-2.0); HEMATOCRIT 35.8 % (39.0-51.0); INTERNATIONAL NORMALIZED RATIO 1.7 RATIO; LYMPH % 5.4 % (9.0-44.0); LYMPHOCYTE # 2.1 TH/MM3 (1.0-4.8); MEAN CORPUSCULAR HEMOGLOBIN 27.5 PG (27.0-34.0); MEAN CORPUSCULAR HGB CONC 31.2 % (32.0-36.0); MONO % 4.7 % (0.0-8.0); NEUT % 89.5 % (16.0-70.0); PLATELET COUNT 358 TH/MM3 (150-450); PROTHROMBIN TIME - PATIENT 19.5 SEC (9.8-11.6); RED BLOOD COUNT 4.07 MIL/MM3 (4.50-5.90); RED CELL DISTRIBUTION WIDTH 15.8 % (11.6-17.2); WHITE BLOOD COUNT 37.9 TH/MM3 (4.0-11.0)
[2017-09-05 03:21] LABS: HEMO FLAGS AUTO DIFF
[2017-09-05 03:44] LABS: BICARBONATE 19.5 MEQ/L (21.0-32.0); MAGNESIUM 1.6 MG/DL (1.5-2.5); POTASSIUM 4.9 MEQ/L (3.5-5.1); TOTAL BILIRUBIN ADULT 1.9 MG/DL (0.2-1.0)
[2017-09-05] MEDS: CHLORHEXIDINE GLUCONATE 2 % 1 PACK (2 CLOTHS) TOP SCH (04:00)
[2017-09-05] MEDS: SODIUM CHLOR 0.9% 1000 ML INJ 1,000 ML IV SCH (04:03)
[2017-09-05 04:29] LABS: BANDS 30 % (0-6); METAMYELOCYTES 32 % (0-1); MYELOCYTES 2 % (0-0); NEUTROPHIL # MANUAL DIFF 35.2 TH/MM3 (1.8-7.7); POLYS (SEG NEUTROPHILS) 29 % (16-70); WBC DIFF SAMPLE 100
[2017-09-05 04:30] LABS: DOHLE BODIES PRESENT (NONE SEEN)
[2017-09-05 04:31] LABS: PLATELET ESTIMATE SMEAR HIGH (NORMAL); PLATELET MORPHOLOGY NORMAL (NORMAL); SCAN/DIFF FINAL DIFF MANUAL
[2017-09-05] MEDS: HYDROCORTISONE SOD SUCCINATE 100 MG VIAL IV SCH ×3 (04:56→20:51)
[2017-09-05] MEDS: fentaNYL DRIP 250 ML IV PRN (05:04)
[2017-09-05] MEDS: PANTOPRAZOLE SODIUM 40 MG VIAL IV PUSH SCH ×2 (08:39→20:51)
[2017-09-05] MEDS: EZETIMIBE 10 MG TAB PEG SCH (08:40)
[2017-09-05] MEDS: ARTIFICIAL TEARS OPTH SOLN 15 ML BTL EACH EYE SCH ×2 (08:40→17:39)
[2017-09-05] MEDS: SODIUM CHLORIDE 0.9% FLUSH 10 ML FLUSH IV FLUSH SCH ×2 (08:40→20:51)
[2017-09-05] MEDS: DIGOXIN 0.25 MG TAB G-TUBE SCH (08:40)
[2017-09-05] MEDS: INSULIN ASPART SUPPLEMENTAL SCALE SQ SCH ×4 (08:41→20:53)
[2017-09-05] MEDS: CHLORHEXIDINE 0.12% (ORAL KIT) 15 ML CUP MT SCH ×2 (08:42→20:51)
[2017-09-05] MEDS: DOCUSATE SODIUM 50 MG/SENNA 8.6 MG TAB PO SCH ×2 (08:43→20:51)
--- NOTE | 2017-09-05 09:03 | EKG ---
Date Performed: 09/04/2017 Time Performed: 00:32:39 PTAGE: 82 years EKG: SINUS TACHYCARDIA ST DEVIATION AND MODERATE T-WAVE ABNORMALITY, CONSIDER INFERIOR ISCHEMIA Compared to prior tracing no significant change ABNORMAL ECG PREVIOUS TRACING : 12/25/2013 19.23 DOCTOR: Kevin Corbin Interpretating Date/Time 09/05/2017 09:02:21
--- NOTE | 2017-09-05 09:26 | HHI.GIFU ---
Subjective Remarks Followup visit for GI bleed. Patient in bed. Sedated on vent. RN reports no more blood noted. (Aidee Shea) Objective Vitals I&O Vital Signs Date Time Temp Pulse Resp B/P (MAP) Pulse Ox O2 Delivery O2 Flow Rate FiO2 09/05/17 08:00 70 09/05/17 06:47 76 115/56 09/05/17 06:45 73 115/56 09/05/17 06:15 74 108/53 09/05/17 06:00 74 09/05/17 06:00 102.0 74 18 118/54 (75) 95 09/05/17 06:00 74 118/54 09/05/17 06:00 74 118/54 09/05/17 06:00 74 118/54 09/05/17 06:00 74 118/54 09/05/17 05:04 76 116/53 09/05/17 05:00 102.6 76 18 116/53 (74) 95 09/05/17 04:53 70 09/05/17 04:47 98 70 09/05/17 04:00 80 09/05/17 04:00 103.0 79 18 109/55 (73) 98 09/05/17 04:00 79 09/05/17 03:57 79 103/55 09/05/17 03:45 79 103/55 09/05/17 03:00 80 18 115/56 (75) 97 09/05/17 03:00 80 115/56 09/05/17 02:00 82 18 103/51 (68) 98 09/05/17 02:00 82 09/05/17 01:18 84 75/43 09/05/17 01:09 83 102/51 09/05/17 01:05 84 102/51 09/05/17 01:00 84 20 101/51 (68) 98 09/05/17 00:55 85 111/54 09/05/17 00:45 85 111/54 09/05/17 00:15 86 103/51 09/05/17 00:00 86 09/05/17 00:00 103.1 90 20 100/53 (69) 98 09/05/17 00:00 90 09/04/17 23:56 99 80 11/4/17 23:51 90 90/53 11/4/17 23:46 90 90/53 09/04/17 23:30 89 83/45 09/04/17 23:00 91 20 96/51 (66) 98 09/04/17 22:45 90 90/50 09/04/17 22:00 92 20 94/51 (65) 98 09/04/17 22:00 92 09/04/17 21:45 168 117/58 09/04/17 21:15 168 117/58 09/04/17 21:03 118 110/53 09/04/17 21:00 109 24 110/53 (72) 100 09/04/17 20:49 100 90 09/04/17 20:15 179 132/66 09/04/17 20:00 90 09/04/17 20:00 104 09/04/17 20:00 173 23 115/57 (76) 100 09/04/17 19:15 124 72/52 09/04/17 19:00 100.3 104 21 125/98 (107) 100 09/04/17 19:00 104 125/98 09/04/17 18:13 103 113/56 09/04/17 18:13 100 50 09/04/17 18:11 100 100 09/04/17 18:00 120 09/04/17 17:45 207 136/90 09/04/17 16:00 90 09/04/17 16:00 102.3 87 32 112/55 (74) 88 09/04/17 16:00 90 09/04/17 14:00 112 09/04/17 13:37 93 90 09/04/17 12:56 112 104/51 09/04/17 12:37 99 80 09/04/17 12:00 90 09/04/17 12:00 113 09/04/17 12:00 99.1 88 36 131/63 (85) 95 09/04/17 11:00 100 90 09/04/17 10:04 113 81/45 09/04/17 10:00 113 09/04/17 09:41 111 77/44 I/O 09/04/17 09/04/17 09/04/17 09/05/17 09/05/17 09/05/17 07:00 15:00 23:00 07:00 15:00 23:00 Intake Total 1942 ml 103 ml 1803 ml 4693 ml Output Total 350 ml 565 ml 60 ml Balance 1592 ml 103 ml 1238 ml 4633 ml Intake IV Total 1652 ml 103 ml 1803 ml 4443 ml FFP 285 ml Blood Product IV Normal Saline Flush 5 ml Other 250 ml Output Urine Total 350 ml 565 ml 60 ml # Bowel Movements 1 0 Laboratory Laboratory Tests Test 09/04/17 10:20 09/04/17 11:30 09/05/17 02:40 Blood Gas Puncture Site RT RADIAL Blood Gas Patient Temperature 98.6 Blood Gas HCO3 23 Blood Gas Base Excess -3.4 Blood Gas Oxygen Saturation 93 Arterial Blood pH 7.25 Arterial Blood Partial Pressure CO2 53 Arterial Blood Partial Pressure O2 86 Arterial Blood Oxygen Content 16.0 Arterial Blood Carboxyhemoglobin 0.8 Arterial Blood Methemoglobin 1.3 Blood Gas Hemoglobin 12.2 Oxygen Delivery Device VENTILATOR Blood Gas Ventilator Setting PRVC18/600/+10PEEP Blood Gas Inspired Oxygen 100 White Blood Count 20.9 37.9 Red Blood Count 4.34 4.07 Hemoglobin 12.4 11.2 Hematocrit 37.3 35.8 Mean Corpuscular Volume 85.9 88.0 Mean Corpuscular Hemoglobin 28.6 27.5 Mean Corpuscular Hemoglobin Concent 33.3 31.2 Red Cell Distribution Width 15.4 15.8 Platelet Count 342 358 Mean Platelet Volume 7.6 7.8 Neutrophils (%) (Auto) 91.4 89.5 Lymphocytes (%) (Auto) 4.8 5.4 Monocytes (%) (Auto) 3.3 4.7 Eosinophils (%) (Auto) 0.3 0.0 Basophils (%) (Auto) 0.2 0.4 Neutrophils # (Auto) 19.1 33.8 Lymphocytes # (Auto) 1.0 2.1 Monocytes # (Auto) 0.7 1.8 Eosinophils # (Auto) 0.1 0.0 Basophils # (Auto) 0.0 0.2 CBC Comment DIFF FINAL AUTO DIFF Differential Comment FINAL DIFF MANUAL Lactic Acid Level 3.1 Differential Total Cells Counted 100 Neutrophils % (Manual) 29 Band Neutrophils % 30 Lymphocytes % 4 Monocytes % 3 Neutrophils # (Manual) 35.2 Metamyelocytes 32 Myelocytes 2 Dohle Bodies PRESENT Platelet Estimate HIGH Platelet Morphology Comment NORMAL Red Cell Morphology Comment NORMAL Prothrombin Time 19.5 Prothromb Time International Ratio 1.7 Activated Partial Thromboplast Time 42.2 Blood Urea Nitrogen 54 Creatinine 2.62 Random Glucose 354 Total Protein 5.0 Albumin 1.7 Calcium Level 6.0 Phosphorus Level 4.3 Magnesium Level 1.6 Alkaline Phosphatase 49 Aspartate Amino Transf (AST/SGOT) 46 Alanine Aminotransferase (ALT/SGPT) 29 Total Bilirubin 1.9 Sodium Level 131 Potassium Level 4.9 Chloride Level 102 Carbon Dioxide Level 19.5 Anion Gap 10 Estimat Glomerular Filtration Rate 24 Protein Corrected Calcium 7.0 Date/Time Source Procedure Growth Status 09/04/17 00:40 Blood Peripheral Aerobic Blood Culture Pending Received 09/04/17 00:40 Blood Peripheral Anaerobic Blood Culture Pending Received 09/04/17 08:55 Sputum Endotracheal Gram Stain - Final Resulted 09/04/17 08:55 Sputum Endotracheal Sputum Culture Pending Resulted Imaging Last Impressions Head CT 09/04/17 0000 Signed Impressions: Service Date/Time: Monday, September 04, 2017 03:49 - CONCLUSION: Age- related and chronic ischemic change. No acute intracranial findings. Damion Monroy MD Chest X-Ray 09/04/17 Signed Impressions: Service Date/Time: Monday, September 04, 2017 09:58 - CONCLUSION: 1. Right subclavian central line in good position without significant pneumothorax. 2. Remainder of the exam is unchanged. Ady George MD Chest CT 09/04/17 0000 Signed Impressions: Service Date/Time: Monday, September 04, 2017 03:55 - CONCLUSION: Moderate severity bilateral pulmonary consolidation most prominent at the dependent portions of lower lobes. Damion Monroy MD Abdomen/Pelvis CT 09/04/17 Signed Impressions: Service Date/Time: Monday, September 04, 2017 03:55 - CONCLUSION: 1. Diffuse urinary bladder wall thickening. 2. Bilateral lower lobe pulmonary consolidation. 3. Nonobstructing left renal calculus. 4. Colonic diverticulosis with no evidence of acute diverticulitis. 5. Nonspecific diffuse mild gallbladder wall thickening. No pericholecystic inflammatory changes. Damion Monroy MD Physical Exam HEENT: Normocephalic; atraumatic; no jaundice. NECK: Neck is supple CHEST: CTA CARDIAC: RRR ABDOMEN: Soft, nondistended, nontender. PEG site with scant amount of white discharge. EXTREMITIES: No clubbing, cyanosis, or edema. SKIN: Normal; no rash; no jaundice. F[employer]IVER: Sedated on vent. (Aidee Shea) Assessment and Plan Plan ASSESSMENT - Hematemesis, ?BRBPR. Patient sent to ED from [facility] with reports of coffee ground emesis and BRBPR. Some dark output with coffee ground appearance from OGT was noted initially on admission, this has now resolved. No rectal bleeding noted. INR was 4.6 on admission, received Vit K. INR 1.7 today (09/05) . Abdomen/Pelvis CT ()--1. Diffuse urinary bladder wall thickening. 2. Bilateral lower lobe pulmonary consolidation.3. Nonobstructing left renal calculus. 4. Colonic diverticulosis with no evidence of acute diverticulitis. 5. Nonspecific diffuse mild gallbladder wall thickening. No pericholecystic inflammatory changes. HH trending down, 11.2/35.8 today. - Anemia - mild, HH 14.4/44.6 on admission. Trending down. 11.2/35.8 - Septic shock, PNA, respiratory failure, metabolic encephalopathy, per [facility] PLAN - Consider EGD when stable - Monitor HH, transfuse if needed - Supportive care - Further recommendations to follow based on results of above. Patient seen and examined by Dr. Marr and myself and this note is written on his behalf. (Aidee Shea) Physician Comments No active or recent bleeding. Plan as above. Will need endoscopic evaluation when stable. Will sign off for now, please notify us if needed. (Nicole Marr MD) Aidee Shea Sep 05, 2017 09:26 Nicole Marr MD Sep 05, 2017 12:14
[2017-09-05] MEDS: ACETAMINOPHEN 325 MG TAB PO PRN ×2 (12:28)
--- NOTE | 2017-09-05 13:07 | HHI.CCPN ---
Subjective Remarks/Hospital Course 82-year-old gentleman with past medical history of dementia, status post CVA with baseline aphasia, dysphasia and PEG, DM, HTN was sent here from [facility] because he had vomited bright red blood and also had blood from rectum today. He was also chronic respiratory failure on 2 L nasal cannula and usually sats close to 94%. Patient has no family members however his next of can and long time friend requested patient to be a full code and he was intubated for an airway protection and hypoxemia by ED attending. CCM re eval at 08.30: Worsening septic shock. Worsening hypoxia, now on 100% FiO2. Showing agonal breathing on the ventilator TV increased to 600, PEEP increased to 10. Kalin-Synephrine started to keep map above 65, additional 1 L fluid bolus given. Receiving sedation after blood pressure is improved. CT of the chest did show extensive bibasilar pneumonia SUBJ 09/05: Showing some signs of clinical deterioration. Febrile at 102.5 BUN/ creatinine 54/2.6. It was 36/0.9 yesterday. Urine output 625 mill in 24 hours. Remains on Levophed 3 mcg/m and Kalin-Synephrine at 250 mcg/m. worsening metabolic acidosis and renal function makes prognosis guarded. Sputum culture with gram-positive cocci in pairs and clusters. Most likely MRSA-discussed with pharmacy to adjust vancomycin dose appropriately Objective Vital Signs Date Time Temp Pulse Resp B/P (MAP) Pulse Ox O2 Delivery O2 Flow Rate FiO2 09/05/17 12:00 102.2 79 18 103/51 (68) 96 09/05/17 11:37 60 09/04/17 02:37 Auto-Vent 09/04/17 01:04 2.00 Intake and Output 09/05/17 09/05/17 09/06/17 08:00 16:00 00:00 Intake Total 4193 ml 200 ml Output Total 50 ml Balance 4143 ml 200 ml Result Diagram: 09/05/17 0240 09/05/17 0240 Imaging Last [address] 09/04/17 0000 Signed Impressions: Service Date/Time: Monday, September 04, 2017 03:49 - CONCLUSION: Age- related and chronic ischemic change. No acute intracranial findings. Damion Monroy MD Chest X-Ray 09/04/17 0000 Signed Impressions: Service Date/Time: Monday, September 04, 2017 03:16 - CONCLUSION: 1. Endotracheal tube and nasogastric tube now in place. 2. Increased bilateral lower lung zone opacity indicating pulmonary edema versus atelectasis/consolidation. Damion Monroy MD Chest X-Ray 09/04/17 0000 Signed Impressions: Service Date/Time: Monday, September 04, 2017 01:55 - CONCLUSION: Mild patchy opacity of the lung bases likely representing atelectasis or scarring. Damion Monroy MD Chest CT 09/04/17 0000 Signed Impressions: Service Date/Time: Monday, September 04, 2017 03:55 - CONCLUSION: Moderate severity bilateral pulmonary consolidation most prominent at the dependent portions of lower lobes. Damion Monroy MD Abdomen/Pelvis CT 09/04/17 0000 Signed Impressions: Service Date/Time: Monday, September 04, 2017 03:55 - CONCLUSION: 1. Diffuse urinary bladder wall thickening. 2. Bilateral lower lobe pulmonary consolidation. 3. Nonobstructing left renal calculus. 4. Colonic diverticulosis with no evidence of acute diverticulitis. 5. Nonspecific diffuse mild gallbladder wall thickening. No pericholecystic inflammatory changes. Damion Monroy MD Objective Remarks GENERAL: Elderly gentleman sedated and intubated, showing agonal breathing on vent, with large TV SKIN: Warm and dry. HEAD: Normocephalic. EYES: No scleral icterus. No injection or drainage. NECK: Supple, trachea midline. No JVD or lymphadenopathy. CARDIOVASCULAR: Tachycardic rate and rhythm without murmurs, gallops, or rubs. Remains on Levophed and Kalin-Synephrine RESPIRATORY: Breath sounds equal bilaterally. Taking large TV. Diminished air entry at the bases with crackles. GASTROINTESTINAL: Abdomen soft, non-tender, nondistended. MUSCULOSKELETAL: No cyanosis, or edema. NEURO: The patient is sedated and intubated. Pupils are round, reactive. Only slight withdrawal to pain patient is on sedation A/P Assessment and Plan Neuro: Metabolic encephalopathy History of CVA Dementia - Currently sedation for ventilator synchrony - Daily sedation vacation only when the respiratory status and mental status improves RESP; Acute on chronic hypoxemic respiratory failure Severe bilateral pneumonia - Intubated for airway protection, and severe pneumonia - PRVC 18/500/PEEP 5. FiO2 100%. PEEP 10, tidal volume 600 - Attempt to wean FiO2 to keep saturation above 90%, currently at 60% - CXR and ABG daily - DuoNeb scheduled and when necessary - Broad-spectrum antibiotics with vancomycin Azactam and Flagyl. Add Levaquin for atypical coverage - Stress dose hydrocortisone 100 mg IV every 8 hours CVS: Septic shock Atrial fibrillation with RVR History of atrial fibrillation - On Levophed Kalin-Synephrine to keep map above 65, increase Levophed to attempt to wean off Kalin-Synephrine - Trend lactic acid - Received 3 L fluid boluses after admission. Continue normal saline at 124 mL per hour - Continue home dose of digoxin - Amiodarone gtt at maintenance dose GI: GI bleed - Protonix IV twice a day - Monitor H&H, Transfuse when necessary to keep hemoglobin above 8 - GI consulted- EGD when stable. INR 1.7 today - PEG tube in place - Nothing by mouth until GI cleared ID: Septic shock Bilateral pneumonia Supratherapeutic INR - Follow-up on blood and sputum culture. Sputum Gram stain shows GPC in pairs and clusters most likely MRSA - Continue vancomycin, Azactam and Flagyl. Add Levaquin renally dosed for atypical coverage - Aggressive fluid resuscitation and pressors as above ENDO: Diabetes - Hold long acting insulins due to nothing by mouth - Insulin sliding scale DVT GI prophylaxis - Teds SCDs - Protonix IV twice a day - No pharmacological DVT prophylaxis due to GI bleed Critical Care: The total critical care time was 40 minutes. Time to perform other separately billable procedures was not included in the critical care time. Remains critically ill and tolerating, severe septic shock from pneumonia. Showing evidence of multiorgan failure with refractory shock and worsening renal function. Palliative care consult requested to assist with goals of care Jose Trinidad MD Sep 05, 2017 13:06
--- NOTE | 2017-09-05 13:16 | EKG ---
Date Performed: 09/04/2017 Time Performed: 18:28:24 PTAGE: 82 years EKG: ATRIAL FIBRILLATION WITH RAPID VENTRICULAR RESPONSE NONSPECIFIC T-WAVE ABNORMALITY ABNORMAL ECG PREVIOUS TRACING : 09/04/2017 00.32 Compared to previous tracing, atrial fibrillation has repla reina Sinus rhythm , inferior and lateral ST depression has resolved, nonspecific T wave abnormality is now evident. DOCTOR: Dylan Miller Interpretating Date/Time 09/05/2017 13:14:13
[2017-09-05 13:21] LABS: BLOOD GAS BASE EXCESS -12.7 mmol/L (-2-2); BLOOD GAS CARBOXYHEMOGLOBIN 1.1 % (0-4); BLOOD GAS HCO3 15 mmol/L (22-26); BLOOD GAS METHEMOGLOBIN 1.4 % (0-2); BLOOD GAS O2 HGB SATURATION 88 % (90-100); BLOOD GAS OXYGEN CONTENT 12.9 Vol % (12.0-20.0); BLOOD GAS PCO2 52 mmHg (38-42); BLOOD GAS PO2 62 mmHg (61-120); BLOOD GAS TOTAL HGB 10.3 G/DL (12.0-16.0); CRITICAL VALUE YES; DRAW SITE RT FEMORAL; FIO2 50 %; NUMBER OF ARTERIAL PUNCTURES 1; OXYGEN DEVICE VENTILATOR; STAT NO; TEMP CORR TO 98.6; VENT SETTINGS SEE COMMENTS
[2017-09-05] MEDS: NOREPINEPHRINE-DEXTROSE DRIP 250 ML IV PRN ×2 (13:23→21:06)
[2017-09-05] MEDS ORDERED: SODIUM BICARBONATE 8.4% INJ 50 MEQ/50 ML SYR IV PUSH ONE (14:00)
[2017-09-05] MEDS ORDERED: SODIUM BICARBONATE 8.4% INJ 50 MEQ/50 ML SYR ONE (14:00)
[2017-09-05] MEDS: LEVOFLOXACIN 750 MG PREMIX INJ 150 ML IV SCH (14:48)
[2017-09-05] MEDS: SODIUM BICARBONATE 8.4% INJ 150 MEQ in WATER STERILE FOR INJ 850 ML IV SCH ×2 (14:48→20:52)
--- NOTE | 2017-09-05 15:25 | PD.PROCEDR ---
Procedure Note Procedure REASON FOR PROCEDURE Invasive BP monitoring, frequent ABGs PROCEDURE PERFORMED R femoral arterial line placement CONSENT Emergency procedure due to shock and refractory metabolic acidosis ANESTHESIA Local injection of 1% Lidocaine DESCRIPTION OF THE PROCEDURE The patient was placed in supine, position. The area was exposed and cleansed with ChloraPrep, times two. Large sterile drape was used to cover the patient, with the site exposed, under sterile conditions including cap, face mask, sterile gown, and sterile gloves. On single attempt, the introducer needle was inserted with negative pressure in syringe and arterial flash was obtained. The guide wire was then advanced without any restriction and the needle was removed. The dilator was used without any complications. Using Seldinger technique the arterial catheter was placed and good wave form was obtained. The guide wire was removed. Antibiotic disc was placed around central line at puncture site. The central line was secured to the skin with two interrupted 2.0 silk sutures. The area was bandaged with sterile see-through central line bandage. COMPLICATIONS: No apparent complications ESTIMATED BLOOD LOSS: Less than 1 cc. Jose Trinidad MD Sep 05, 2017 15:25
[2017-09-05] MEDS: RESP: ALBUTEROL 2.5 MG/IPRATROPIUM 0.5 MG NEB (SCH) NEB ×2 (15:39→23:07)
[2017-09-05 16:15] LABS: BLOOD GAS BASE EXCESS -8.9 mmol/L (-2-2); BLOOD GAS CARBOXYHEMOGLOBIN 1.1 % (0-4); BLOOD GAS HCO3 18 mmol/L (22-26); BLOOD GAS METHEMOGLOBIN 1.3 % (0-2); BLOOD GAS O2 HGB SATURATION 92 % (90-100); BLOOD GAS OXYGEN CONTENT 13.2 Vol % (12.0-20.0); BLOOD GAS PCO2 47 mmHg (38-42); BLOOD GAS PO2 68 mmHg (61-120); BLOOD GAS TOTAL HGB 10.2 G/DL (12.0-16.0); CRITICAL VALUE YES; OXYGEN DEVICE VENTILATOR; TEMP CORR TO 98.6
[2017-09-05 16:16] LABS: DRAW SITE ALINE; FIO2 50 %; STAT YES; VENT SETTINGS SEE COMMENTS
[2017-09-05] MEDS ORDERED: SODIUM BICARBONATE 8.4% INJ 50 MEQ/50 ML SYR IV ONE (17:00)
[2017-09-05] MEDS: AZTREONAM 1,000 MG/NS 100 ML IV SCH ×2 (18:32)
[2017-09-05] MEDS: ZINC SULFATE 220 MG CAP PEG SCH (20:51)
[2017-09-06] VITALS (33 sets, daily range): BP systolic 98–150; BP diastolic 41–78; PULSE 120–143; RESP 14–26; TEMP 98.7–101.8; O2SAT 94–100
[2017-09-06] MEDS: AZTREONAM 1,000 MG/NS 100 ML IV SCH ×6 (00:54→12:12)
[2017-09-06] MEDS: metroNIDAZOLE 500 MG INJ 100 ML IV SCH ×3 (00:55→17:16)
[2017-09-06] MEDS: ACETAMINOPHEN 325 MG TAB PO PRN (00:55)
[2017-09-06] MEDS: NOREPINEPHRINE-DEXTROSE DRIP 250 ML IV PRN ×3 (02:10→12:49)
[2017-09-06] MEDS: CHLORHEXIDINE GLUCONATE 2 % 1 PACK (2 CLOTHS) TOP SCH (04:00)
[2017-09-06] MEDS: SODIUM BICARBONATE 8.4% INJ 150 MEQ in WATER STERILE FOR INJ 850 ML IV SCH ×3 (04:03→16:13)
[2017-09-06] MEDS: RESP: ALBUTEROL 2.5 MG/IPRATROPIUM 0.5 MG NEB (SCH) NEB ×4 (04:35→19:33)
--- NOTE | 2017-09-06 05:22 | RADRPT ---
EXAM DATE/TIME: 09/06/2017 04:13 [place] COMPARISON: CHEST SINGLE AP, September 04, 2017, 9:58. INDICATIONS : Shortness of breath, possible pulmonary disease. MEDICAL HISTORY : Cardiovascular disease. Diabetes mellitus type II. Hypertension. A-Fib SURGICAL HISTORY : CABG. ENCOUNTER: Subsequent ACUITY: 3 days PAIN SCORE: Non-responsive. LOCATION: Bilateral chest FINDINGS: The cardiac silhouette is normal in transverse diameter. Median sternotomy wires are present. Support lines and tubes are in satisfactory position. There are findings of congestive heart failure with in terstitial and alveolar opacity bilaterally. Left lower lobe atelectasis versus pneumonia. There has been no significant change when compared to the prior exam. CONCLUSION: 1. Cardiomegaly and findings of congestive heart failure. There has been no significant change when c ompared to the prior exam. Pastor London MD on September 06, 2017 at 5:20 Board Certified Radiologist. This report was verified electronically.
[2017-09-06 05:50] LABS: AUTOMATED NEUTROPHIL # 19.5 TH/MM3 (1.8-7.7); BASOPHIL # 0.1 TH/MM3 (0-0.2); BASOPHIL % 0.2 % (0.0-2.0); EOSINOPHIL % 0.1 % (0.0-4.0); HEMATOCRIT 32.8 % (39.0-51.0); LYMPH % 4.6 % (9.0-44.0); MEAN CELL VOLUME 83.6 FL (80.0-100.0); MEAN CORPUSCULAR HEMOGLOBIN 27.1 PG (27.0-34.0); MEAN CORPUSCULAR HGB CONC 32.4 % (32.0-36.0); MONO % 2.9 % (0.0-8.0); NEUT % 92.2 % (16.0-70.0); PLATELET COUNT 188 TH/MM3 (150-450); RED BLOOD COUNT 3.92 MIL/MM3 (4.50-5.90); RED CELL DISTRIBUTION WIDTH 15.6 % (11.6-17.2); WHITE BLOOD COUNT 21.2 TH/MM3 (4.0-11.0)
[2017-09-06 06:01] LABS: HEMO FLAGS AUTO DIFF
[2017-09-06 06:10] LABS: BICARBONATE 20.2 MEQ/L (21.0-32.0); MAGNESIUM 1.2 MG/DL (1.5-2.5); POTASSIUM 3.9 MEQ/L (3.5-5.1); TOTAL BILIRUBIN ADULT 1.4 MG/DL (0.2-1.0)
[2017-09-06 06:12] LABS: CALCIUM-PROTEIN CORRECTED 6.6 MG/DL (8.5-10.1)
[2017-09-06] MEDS: HYDROCORTISONE SOD SUCCINATE 100 MG VIAL IV SCH ×3 (06:21→21:36)
[2017-09-06] MEDS: AMIODARONE INJ 450 MG in DEXTROSE 5% IN WATE(EXCEL) INJ 250 ML IV PRN ×4 (06:22→21:42)
[2017-09-06] MEDS: PHENYLEPHRINE INJ 40 MG in DEXTROSE 5% IN WATE 500 ML INJ 496 ML IV PRN ×2 (06:35)
[2017-09-06] MEDS: INSULIN ASPART SUPPLEMENTAL SCALE SQ SCH ×4 (08:00→20:00)
[2017-09-06] MEDS: CHLORHEXIDINE 0.12% (ORAL KIT) 15 ML CUP MT SCH ×2 (08:00→21:35)
[2017-09-06 08:03] LABS: BANDS 31 % (0-6); DOHLE BODIES PRESENT (NONE SEEN); METAMYELOCYTES 26 % (0-1); NEUTROPHIL # MANUAL DIFF 20.4 TH/MM3 (1.8-7.7); POLYS (SEG NEUTROPHILS) 39 % (16-70); WBC DIFF SAMPLE 100
[2017-09-06 08:05] LABS: PLATELET ESTIMATE SMEAR NORMAL (NORMAL); TOXIC GRANULATION 1+ (NORMAL); TOXIC VACUOLATION PRESENT (NONE SEEN)
[2017-09-06 08:06] LABS: PLATELET MORPHOLOGY NORMAL (NORMAL); SCAN/DIFF FINAL DIFF MANUAL
[2017-09-06] MEDS: SODIUM CHLORIDE 0.9% FLUSH 10 ML FLUSH IV FLUSH SCH ×2 (08:56→21:36)
[2017-09-06] MEDS: DIGOXIN 0.25 MG TAB G-TUBE SCH (08:56)
[2017-09-06] MEDS: DOCUSATE SODIUM 50 MG/SENNA 8.6 MG TAB PO SCH ×2 (08:56→21:35)
[2017-09-06] MEDS: EZETIMIBE 10 MG TAB PEG SCH (08:56)
[2017-09-06] MEDS: PANTOPRAZOLE SODIUM 40 MG VIAL IV PUSH SCH ×2 (08:56→21:36)
[2017-09-06] MEDS: ARTIFICIAL TEARS OPTH SOLN 15 ML BTL EACH EYE SCH ×3 (08:57→17:16)
--- NOTE | 2017-09-06 10:46 | PD.CONS ---
Consult Service Palliative Care Consult Requested By Dr. Trinidad . Primary Care Physician Unknown . Reason for Consultation a. To assist with evaluation and management of symptoms including: Dyspnea , pain b. To assist medical decision maker(s) with: better understanding of current medical conditions; weighing benefits/burdens of medical treatment options; making medical treatment decisions. . HPI History of Present Illness This 82-year-old male, with a past history of dementia, stroke, chronic atrial fib, CAD, PVD, and diabetes, has been residing at a [place] [facility] facility. He presented to the ED on 07/09/17 after a fall, and a CT brain scan revealed an old lacunar infarct in the right basal ganglia area, as well as atrophy. The patient's friend said this was a new stroke as far she knew, and the patient was much weaker after that, nonambulatory, and he was sent to the [place] [facility]. He presented again to this hospital on 08/12/17 for lab work, and was noted to have an ammonia level of 47 and a lactic acid of 3.6. He then presented for this hospitalization on 09/04/17 after the [place] [facility] staff noted that he was both vomiting blood and passing blood per rectum. He has been on long-term Coumadin therapy. In the emergency department, findings included: * Nonverbal, dyspneic * Temp 101.3, pulse 138, respirations 32, blood pressure 117/58, and initial oxygen saturation 97% on 2 L * White count 14.15, hemoglobin 14.4 * INR 4.6 * Sodium 142, creatinine 0.95 * Chest x-ray with lower lung opacities * CT brain scan without acute findings * CT chest with moderate consolidation in both lungs * CT abdomen/pelvis with some bladder wall thickening, lower lung consolidation , and gallbladder wall thickening but no other acute findings. The patient's dyspnea worsened while in the emergency department, he became more hypoxic, and he was INTUBATED. [place] [facility] and later that day developed shock felt to be due to sepsis, and he was placed on pressor agents. By 09/05/17, the patient's hemoglobin was 12.4, the albumin was noted to be 1.7, temperature was up to 102.5, and the patient was now on both Levaquin and Kalin-Synephrine. Renal failure was developing, with creatinine 2.6 to and bicarbonate of 19 on , and now creatinine 3.99 with GFR 15 this morning. The patient continues on pressors, has mottling of the lower legs and feet, has "ice cold" feet, and remains on mechanical ventilation Palliative Care was consulted to assist with symptom management, and to enter into discussions with friends who know the patient concerning who the legal decision-maker will be, any past expressed goals are wishes, the prognosis, and the benefits and burdens of the various treatment options. . Function/Cognitive Trajectory The patient had been declining for the past year or 2, getting weaker, having more difficulty getting around. He started using a walker about a year ago, and was ambulatory with that walker at home until he had the stroke 2 or 3 months ago. He has lived in the [place] [facility] since then. He failed rehab attempts and was now a long-term resident. He remained nonverbal and nonambulatory, and had significant dysphagia resulting in placement of a PEG tube. . Review of Systems ROS Limitations: Clinical Condition (history per medical records), Intubated Constitutional: COMPLAINS OF: Fever Endocrine: DENIES: Polyuria Eyes: DENIES: Eye inflammation Ears, nose, mouth, throat: DENIES: Epistaxis Respiratory: COMPLAINS OF: Shortness of breath Cardiovascular: COMPLAINS OF: Lower Extremity Edema Gastrointestinal: COMPLAINS OF: Bloody stools, Vomiting, Vomiting blood Genitourinary: DENIES: Hematuria Musculoskeletal: DENIES: Joint Swelling Integumentary: DENIES: Rash Hematologic/Lymphatics: COMPLAINS OF: Bruising Immunologic/Allergic: DENIES: Urticaria Neurologic: DENIES: Seizures Psychiatric: COMPLAINS OF: Confusion Past Family Social History Coded Allergies: penicillin G (Unverified Allergy, Intermediate, 09/04/17) Uncoded Allergies: MYCIN (Allergy, Severe, Rash, 06/06/09) Past Medical History * History of CVA, with aphasia and dysphagia * History of dementia * Chronic atrial fibrillation, recently on Coumadin * Diabetes type 2 * CAD, history of CABG * Peripheral neuropathy * Peripheral vascular disease, status post stent in the left leg * Hyperlipidemia * Hypertension * Macular degeneration . Past Surgical History * Tonsillectomy 194 * CABG 2005 * Left leg stent for PVD * PEG tube . Reported Medications Reported Meds & Active Scripts Active Reported Vitamin C (Ascorbic Acid) 250 Mg Chew 500 Mg PEG DAILY Zinc Sulfate 220 Mg Tab 220 Mg PEG HS Pyridoxine (Pyridoxine HCl) 50 Mg Tab 50 Mg PEG DAILY Pantoprazole (Pantoprazole Sodium) 40 Mg Tab 40 Mg PEG DAILY Metoprolol Tartrate 50 Mg Tab 50 Mg PEG BID Metformin (Metformin HCl) 500 Mg Tab 500 Mg PEG BIDPC With meals Humalog Inj (Insulin Human Lispro) 1,000 Unit/10 Ml Vial 1-9 Units SQ ACHS Max dose at bedtime:( )units; sugars< 70,(0)units; sugars 150-199,(1)unit; sugars 200-249,(3)units; sugars 250-299,(5)units; sugars 300-349,(7)units; sugars more than 349,(9)units. Apidra Inj (Insulin Glulisine Inj) 1,000 Unit/10 Ml Vial 15 Units SQ HS Ezetimibe 10 Mg Tab 10 Mg PEG DAILY Enoxaparin Inj (Enoxaparin Sodium) 120 Mg/0.8ML Syr 120 Mg SQ DAILY Digoxin 0.25 Mg Tab 0.25 Mg G-TUBE DAILY Coumadin (Warfarin) 3 Mg Tab 3 Mg PO DAILY Citroma Liq (Magnesium Citrate) 300 Ml Liq 300 Ml PO DIRECTED Cerovite Advanced Formula (Multiple Vitamins W/ Minerals) 18 Mg Iron-400 Mcg Tab 18 Mg G-TUBE DAILY Aspirin 81 Mg Chew 81 Mg CHEW DAILY Acetaminophen Supp (Acetaminophen) 650 Mg Supp 650 Mg RECTAL Q6H PRN . Current Medications Medications (Trade) Dose Ordered Sig/Andrea Route Start Time Stop Time Status Last Admin (Tylenol Supp) 650 mg Q6H PRN RECTAL 09/04/17 02:30 09/04/17 17:13 (Lanoxin) 0.25 mg DAILY G-TUBE 09/04/17 09:00 09/06/17 08:56 (Zetia) 10 mg DAILY PEG 09/04/17 09:00 09/06/17 08:56 (Zinc Sulfate) 220 mg HS PEG 09/04/17 21:00 09/05/17 20:51 (D50w (Vial) Inj) 50 ml UNSCH PRN IV PUSH 09/04/17 02:30 (Glucagon Inj) 1 mg UNSCH PRN OTHER 09/04/17 02:30 (NovoLOG SUPPLEMENTAL SCALE) 1 ACHS SLIDING SCALE SQ 09/04/17 08:00 09/06/17 08:00 (NS Flush) 2 ml UNSCH PRN IV FLUSH 09/04/17 02:30 (NS Flush) 2 ml BID IV FLUSH 09/04/17 09:00 09/06/17 08:56 (Tylenol) 650 mg Q6H PRN PO 09/04/17 02:30 09/06/17 00:55 (Protonix Inj) 40 mg Q12HR IV PUSH 09/04/17 09:00 09/06/17 08:56 (Versed Inj) 2 mg Q1H PRN IV PUSH 09/04/17 02:30 (Tears Naturale Opth Soln) 1 drop TID EACH EYE 09/04/17 09:00 09/06/17 08:57 (Zofran Inj) 4 mg Q6H PRN IV PUSH 09/04/17 02:30 (Duoneb Neb) 1 ampule Q2HR NEB PRN INH 09/04/17 02:30 Miscellaneous Information 1 Q361D XX 09/04/17 02:30 (Chlorhexidine 2% Cloth) 3 pack Taper DAILY@04 TOP 09/04/17 04:00 08/31/18 03:59 09/06/17 04:00 (Chlorhexidine 2% Cloth) 3 pack UNSCH PRN TOP 09/04/17 02:30 (Socorro-Colace) 1 tab BID PO 09/04/17 09:00 09/06/17 08:56 (Milk Of Magnesia Liq) 30 ml Q12H PRN PO 09/04/17 02:30 (Senokot) 17.2 mg Q12H PRN PO 09/04/17 02:30 (Dulcolax Supp) 10 mg DAILY PRN RECTAL 09/04/17 02:30 (Lactulose Liq) 30 ml DAILY PRN PO 09/04/17 02:30 (Peridex 0.12% Liq) 15 ml BID@08,20 MT 09/04/17 08:00 09/06/17 08:00 Propofol 100 ml @ 2.19 mls/hr TITRATE PRN IV 09/04/17 02:30 09/04/17 03:41 Fentanyl Citrate 250 ml @ 5 mls/hr TITRATE PRN IV 09/04/17 04:45 09/05/17 05:04 Amiodarone HCl 450 mg/Dextrose 259 ml @ 34.53 mls/ hr Q7H31M PRN IV 09/04/17 06:34 09/06/17 06:22 Pharmacy Profile Note 0 ml @ 0 mls/hr UNSCH OTHER 09/04/17 06:45 (Brethine Inj) 1 mg UNSCH PRN SQ 09/04/17 08:45 Metronidazole 100 ml @ 100 mls/hr Q8H IV 09/04/17 09:00 09/06/17 08:56 Phenylephrine HCl 40 mg/Dextrose 500 ml @ 30 mls/hr TITRATE PRN IV 09/04/17 10:00 09/06/17 06:35 Vancomycin HCl 1500 mg/Sodium Chloride 515 ml @ 257.5 mls/ hr Q24H IV 09/05/17 03:00 Future Hold 09/05/17 01:36 (SoluCORTEF INJ) 100 mg Q8HR IV 09/04/17 22:00 09/06/17 06:21 Norepinephrine Bitartrate 250 ml @ 7.5 mls/hr TITRATE PRN IV 09/04/17 23:30 09/06/17 06:23 Aztreonam 1000 mg/ Sodium Chloride 100 ml @ 200 mls/hr Q6H IV 09/05/17 18:00 09/06/17 06:00 (Duoneb Neb) 1 ampule Q6HR NEB NEB 09/05/17 16:00 09/06/17 09:42 Levofloxacin/ Dextrose 150 ml @ 100 mls/hr Q48H IV 09/05/17 14:00 09/05/17 14:48 Sodium Bicarbonate 150 meq/Sterile Water 1,000 ml @ 150 mls/hr Q6H40M IV 09/05/17 16:00 09/06/17 10:11 Vancomycin HCl 1250 mg/Sodium Chloride 262.5 ml @ 250 mls/hr ONCE ONCE IV 09/06/17 12:00 09/06/17 13:02 Family History The patient's father at age 70 of melanoma, and his mother at age 46 with MS and heart disease. Other family members have had heart disease. . Substance Use Tobacco: None Alcohol: None Prescription med abuse: None Illicits: None . Psychosocial History The patient was born and raised in [place], but moved to [place] more than 60 years ago. He was living with his significant other Ameena Pineda for the past 14 years, but he has been in the [place] [facility] is a long-term resident now for the last 2 or 3 months since his stroke. 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 He has been retired several years. He was and , and he had no children. His significant other Ameena Pineda thinks the patient may have a sister, but she does not know the sister's name or what state she may live in, and notes that the patient has had no contact with her for quite some time. . Spiritual/Cultural Factors The patient was raised [employer]an, but he is said now "to not like them at all." The patient's significant other Ameena Pineda and her daughter believe that the patient would want a garment manufacturing supervisor to come by to visit him. . Living Will: Never completed Health Care Surrogate: Never completed Durable Power of Physics Teacher: Never completed Documented care wishes: The patient's significant other Ms. Pineda reports that the patient has told her on multiple occasions in the past couple years that he would not want to be kept alive on life support indefinitely. She is certain that he would not want to be resuscitated when his heart stops now. . Family/friends goals: The patient's significant other and her daughter both note the patient well, and they are certain that he would not want to be resuscitated when his heart stops in the upcoming hours or days. They note that he told them in the past that he would not want to be kept alive on life support for very long. . Ethical and Legal Issues There are no ethical issues that would impact his care or decision-making at this time. The patient lacks capacity for decision-making, and he will not regain that capacity. The only potential family is a sister, but there is been no contact for many years and no one knows her name or what state she may reside in. Therefore, the proxy decision-maker is the patient's long time significant other Ameena Pineda. . Physical Exam Vital Signs Date Time Temp Pulse Resp B/P (MAP) Pulse Ox O2 Delivery O2 Flow Rate FiO2 09/06/17 09:00 143 25 131/56 (81) 97 113/51 (71) 09/06/17 08:45 138 24 123/56 (78) 96 108/49 (68) 09/06/17 08:30 137 24 112/56 (74) 96 102/46 (64) 09/06/17 08:15 135 24 127/57 (80) 97 110/49 (69) 09/06/17 08:00 50 09/06/17 08:00 99.1 134 26 115/54 (74) 96 106/48 (67) 09/06/17 08:00 134 09/06/17 07:59 95 50 09/06/17 07:45 135 16 118/58 (78) 95 103/48 (66) 09/06/17 07:30 141 16 111/57 (75) 95 102/47 (65) 09/06/17 07:15 138 18 118/56 (76) 95 104/47 (66) 09/06/17 07:00 131 16 105/54 (71) 96 103/47 (65) 09/06/17 06:35 133 98/50 09/06/17 06:23 129 103/47 09/06/17 06:22 143 107/47 09/06/17 06:00 98.7 134 14 129/57 (81) 95 113/52 (72) 09/06/17 06:00 133 09/06/17 05:15 140 110/58 09/06/17 05:00 99.0 138 20 131/60 (83) 95 109/54 (72) 09/06/17 04:38 99 50 09/06/17 04:03 135 114/50 09/06/17 04:00 126 09/06/17 04:00 50 09/06/17 04:00 99.8 135 17 136/70 (92) 95 98/45 (62) 09/06/17 03:00 100.8 134 14 121/55 (77) 94 104/47 (66) 09/06/17 02:10 124 125/42 09/06/17 02:10 121 139/41 09/06/17 02:00 121 09/06/17 02:00 101.8 121 20 150/78 (102) 100 139/41 (73) 09/06/17 01:00 104.0 123 18 138/60 (86) 95 138/47 (77) 09/06/17 00:54 121 138/47 09/06/17 00:00 104.2 120 19 130/61 (84) 94 132/45 (74) 09/06/17 00:00 120 09/06/17 00:00 50 09/05/17 23:07 95 50 09/05/17 23:00 104.0 118 19 126/59 (81) 92 129/43 (71) 09/05/17 22:52 117 127/44 09/05/17 22:00 118 09/05/17 22:00 103.6 118 18 121/57 (78) 92 127/43 (71) 09/05/17 21:06 115 123/42 09/05/17 21:00 103.3 114 18 113/56 (75) 92 115/43 (67) 09/05/17 20:00 50 09/05/17 20:00 115 09/05/17 20:00 102.9 115 17 125/59 (81) 92 118/44 (68) 09/05/17 19:00 102.6 117 18 125/56 (79) 93 123/46 (71) 09/05/17 18:00 102.2 117 15 132/62 (85) 95 127/47 (73) 09/05/17 18:00 117 09/05/17 16:58 116 119/46 09/05/17 16:28 97 50 09/05/17 16:00 50 09/05/17 16:00 112 09/05/17 14:44 95 50 09/05/17 14:00 81 09/05/17 13:23 79 102/50 09/05/17 12:00 102.2 79 18 103/51 (68) 96 09/05/17 12:00 60 09/05/17 12:00 79 09/05/17 11:37 96 60 09/06/17 09/07/17 19:00 07:00 Intake Total 580 ml Balance 580 ml Intake IV Total 580 ml Exam CONSTITUTIONAL/GENERAL: This is an ill-appearing, elderly patient, in mild respiratory distress. TUBES/LINES/DRAINS: ET tube, Lee, right subclavian, art line SKIN: No jaundice, rashes, or lesions. Ecchymoses on upper extremities. No wounds seen anteriorly. Skin temperature very cold in the feet and ankles HEAD: Atraumatic. Normocephalic. EYES: Pupils equal and round and reactive. No scleral icterus. No injection or drainage. Fundi not examined. ENT: Nose without bleeding or purulent drainage. NECK: Trachea midline. Supple, nontender. No palpable thyroid enlargement or nodularity. CARDIOVASCULAR: Irregular, rapid rhythm without murmurs, gallops, or rubs. No JVD. Peripheral pulses not palpable in the feet/ankles. RESPIRATORY/CHEST: Symmetric, perhaps mildly labored respirations. A few scattered rales and rhonchi. GASTROINTESTINAL: Abdomen soft, non-tender, nondistended. No hepato-splenomegaly , or palpable masses. No guarding. Bowel sounds present. GENITOURINARY: Without palpable bladder distension. Lee catheter in place. MUSCULOSKELETAL: Extremities without clubbing, but there is marked mottling and cool temperatures in the ankles and feet..No calf tenderness. No mottling or clubbing. LYMPHATICS: No palpable cervical or supraclavicular adenopathy. NEUROLOGICAL: Not responsive to voice, touch, or pain. PSYCHIATRIC: Unable to evaluate due to clinical condition .. Diagnostic Tests Laboratory Laboratory Tests Test 09/04/17 00:20 09/04/17 00:37 09/04/17 00:40 09/04/17 02:59 White Blood Count 14.5 TH/MM3 (4.0-11.0) Red Blood Count 5.26 MIL/MM3 (4.50-5.90) Hemoglobin 14.4 GM/DL (13.0-17.0) Hematocrit 44.6 % (39.0-51.0) Mean Corpuscular Volume 84.7 FL (80.0-100.0) Mean Corpuscular Hemoglobin 27.4 PG (27.0-34.0) Mean Corpuscular Hemoglobin Concent 32.4 % (32.0-36.0) Red Cell Distribution Width 15.1 % (11.6-17.2) Platelet Count 348 TH/MM3 (150-450) Mean Platelet Volume 7.3 FL (7.0-11.0) Neutrophils (%) (Auto) 82.0 % (16.0-70.0) Lymphocytes (%) (Auto) 12.1 % (9.0-44.0) Monocytes (%) (Auto) 4.6 % (0.0-8.0) Eosinophils (%) (Auto) 0.7 % (0.0-4.0) Basophils (%) (Auto) 0.6 % (0.0-2.0) Neutrophils # (Auto) 11.9 TH/MM3 (1.8-7.7) Lymphocytes # (Auto) 1.8 TH/MM3 (1.0-4.8) Monocytes # (Auto) 0.7 TH/MM3 (0-0.9) Eosinophils # (Auto) 0.1 TH/MM3 (0-0.4) Basophils # (Auto) 0.1 TH/MM3 (0-0.2) CBC Comment DIFF FINAL Differential Comment Prothrombin Time 54.9 SEC (9.8-11.6) Prothromb Time International Ratio 4.6 RATIO Activated Partial Thromboplast Time 45.1 SEC (24.3-30.1) Blood Urea Nitrogen 36 MG/DL (7-18) Creatinine 0.95 MG/DL (0.60-1.30) Random Glucose 206 MG/DL (74-106) Calcium Level 8.3 MG/DL (8.5-10.1) Sodium Level 142 MEQ/L (136-145) Potassium Level 3.5 MEQ/L (3.5-5.1) Chloride Level 105 MEQ/L (98-107) Carbon Dioxide Level 26.3 MEQ/L (21.0-32.0) Anion Gap 11 MEQ/L (5-15) Estimat Glomerular Filtration Rate 76 ML/MIN (>89) Troponin I LESS THAN 0.02 NG/ML Lipase 243 U/L (73-393) Urine Color YELLOW (YELLW/STRAW) Urine Turbidity CLEAR (CLEAR) Urine pH 6.0 (5.0-8.5) Urine Specific [place] 1.022 (1.002-1.035) Urine Protein TRACE mg/dL (NEG-TRACE) Urine Glucose (UA) TRACE mg/dL (NEG) Urine Ketones NEG mg/dL (NEG) Urine Occult Blood NEG (NEG) Urine Nitrite NEG (NEG) Urine Bilirubin NEG (NEG) Urine Urobilinogen LESS THAN 2.0 MG/DL (LESS Urine Leukocyte Esterase NEG (NEG) Urine RBC 5 /hpf (0-3) Urine WBC 2 /hpf (0-5) Urine Mucus FEW /lpf (OCC) Microscopic Urinalysis Comment CULT NOT INDICATED Lactic Acid Level 3.2 mmol/L (0.4-2.0) Blood Gas Puncture Site RT RADIAL Blood Gas Patient Temperature 98.6 Blood Gas HCO3 22 mmol/L (22-26) Blood Gas Base Excess -5.3 mmol/L (-2-2) Blood Gas Oxygen Saturation 96 % (90-100) Arterial Blood pH 7.19 (7.380-7.420) Arterial Blood Partial Pressure CO2 60 mmHg (38-42) Arterial Blood Partial Pressure O2 145 mmHG (61-120) Arterial Blood Oxygen Content 18.6 Vol % (12.0-20.0) Arterial Blood Carboxyhemoglobin 1.0 % (0-4) Arterial Blood Methemoglobin 1.0 % (0-2) Blood Gas Hemoglobin 13.6 G/DL (12.0-16.0) Oxygen Delivery Device VENT Blood Gas Ventilator Setting Blood Gas Inspired Oxygen 100 % Test 09/04/17 03:40 09/04/17 04:15 09/04/17 10:20 09/04/17 11:30 Lactic Acid Level 3.0 mmol/L (0.4-2.0) 3.1 mmol/L (0.4-2.0) Nasal Screen MRSA (PCR) MRSA DETECTED (NOT DETECT) Blood Gas Puncture Site RT RADIAL Blood Gas Patient Temperature 98.6 Blood Gas HCO3 23 mmol/L (22-26) Blood Gas Base Excess -3.4 mmol/L (-2-2) Blood Gas Oxygen Saturation 93 % (90-100) Arterial Blood pH 7.25 (7.380-7.420) Arterial Blood Partial Pressure CO2 53 mmHg (38-42) Arterial Blood Partial Pressure O2 86 mmHg (61-120) Arterial Blood Oxygen Content 16.0 Vol % (12.0-20.0) Arterial Blood Carboxyhemoglobin 0.8 % (0-4) Arterial Blood Methemoglobin 1.3 % (0-2) Blood Gas Hemoglobin 12.2 G/DL (12.0-16.0) Oxygen Delivery Device VENTILATOR Blood Gas Ventilator Setting PRVC18/600/+10PEEP Blood Gas Inspired Oxygen 100 % White Blood Count 20.9 TH/MM3 (4.0-11.0) Red Blood Count 4.34 MIL/MM3 (4.50-5.90) Hemoglobin 12.4 GM/DL (13.0-17.0) Hematocrit 37.3 % (39.0-51.0) Mean Corpuscular Volume 85.9 FL (80.0-100.0) Mean Corpuscular Hemoglobin 28.6 PG (27.0-34.0) Mean Corpuscular Hemoglobin Concent 33.3 % (32.0-36.0) Red Cell Distribution Width 15.4 % (11.6-17.2) Platelet Count 342 TH/MM3 (150-450) Mean Platelet Volume 7.6 FL (7.0-11.0) Neutrophils (%) (Auto) 91.4 % (16.0-70.0) Lymphocytes (%) (Auto) 4.8 % (9.0-44.0) Monocytes (%) (Auto) 3.3 % (0.0-8.0) Eosinophils (%) (Auto) 0.3 % (0.0-4.0) Basophils (%) (Auto) 0.2 % (0.0-2.0) Neutrophils # (Auto) 19.1 TH/MM3 (1.8-7.7) Lymphocytes # (Auto) 1.0 TH/MM3 (1.0-4.8) Monocytes # (Auto) 0.7 TH/MM3 (0-0.9) Eosinophils # (Auto) 0.1 TH/MM3 (0-0.4) Basophils # (Auto) 0.0 TH/MM3 (0-0.2) CBC Comment DIFF FINAL Differential Comment Test 09/05/17 02:40 09/05/17 13:10 09/05/17 14:15 09/05/17 16:05 White Blood Count 37.9 TH/MM3 (4.0-11.0) Red Blood Count 4.07 MIL/MM3 (4.50-5.90) Hemoglobin 11.2 GM/DL (13.0-17.0) Hematocrit 35.8 % (39.0-51.0) Mean Corpuscular Volume 88.0 FL (80.0-100.0) Mean Corpuscular Hemoglobin 27.5 PG (27.0-34.0) Mean Corpuscular Hemoglobin Concent 31.2 % (32.0-36.0) Red Cell Distribution Width 15.8 % (11.6-17.2) Platelet Count 358 TH/MM3 (150-450) Mean Platelet Volume 7.8 FL (7.0-11.0) Neutrophils (%) (Auto) 89.5 % (16.0-70.0) Lymphocytes (%) (Auto) 5.4 % (9.0-44.0) Monocytes (%) (Auto) 4.7 % (0.0-8.0) Eosinophils (%) (Auto) 0.0 % (0.0-4.0) Basophils (%) (Auto) 0.4 % (0.0-2.0) Neutrophils # (Auto) 33.8 TH/MM3 (1.8-7.7) Lymphocytes # (Auto) 2.1 TH/MM3 (1.0-4.8) Monocytes # (Auto) 1.8 TH/MM3 (0-0.9) Eosinophils # (Auto) 0.0 TH/MM3 (0-0.4) Basophils # (Auto) 0.2 TH/MM3 (0-0.2) CBC Comment AUTO DIFF Differential Total Cells Counted 100 Neutrophils % (Manual) 29 % (16-70) Band Neutrophils % 30 % (0-6) Lymphocytes % 4 % (9-44) Monocytes % 3 % (0-8) Neutrophils # (Manual) 35.2 TH/MM3 (1.8-7.7) Metamyelocytes 32 % (0-1) Myelocytes 2 % (0-0) Differential Comment FINAL DIFF MANUAL Dohle Bodies PRESENT (NONE SEEN) Platelet Estimate HIGH (NORMAL) Platelet Morphology Comment NORMAL (NORMAL) Red Cell Morphology Comment NORMAL (NORMAL) Prothrombin Time 19.5 SEC (9.8-11.6) Prothromb Time International Ratio 1.7 RATIO Activated Partial Thromboplast Time 42.2 SEC (24.3-30.1) Blood Urea Nitrogen 54 MG/DL (7-18) Creatinine 2.62 MG/DL (0.60-1.30) Random Glucose 354 MG/DL (74-106) Total Protein 5.0 GM/DL (6.4-8.2) Albumin 1.7 GM/DL (3.4-5.0) Calcium Level 6.0 MG/DL (8.5-10.1) Phosphorus Level 4.3 MG/DL (2.5-4.9) Magnesium Level 1.6 MG/DL (1.5-2.5) Alkaline Phosphatase 49 U/L (45-117) Aspartate Amino Transf (AST/SGOT) 46 U/L (15-37) Alanine Aminotransferase (ALT/SGPT) 29 U/L (12-78) Total Bilirubin 1.9 MG/DL (0.2-1.0) Sodium Level 131 MEQ/L (136-145) Potassium Level 4.9 MEQ/L (3.5-5.1) Chloride Level 102 MEQ/L (98-107) Carbon Dioxide Level 19.5 MEQ/L (21.0-32.0) Anion Gap 10 MEQ/L (5-15) Estimat Glomerular Filtration Rate 24 ML/MIN (>89) Protein Corrected Calcium 7.0 MG/DL (8.5-10.1) Blood Gas Puncture Site RT FEMORAL ROMI Blood Gas Patient Temperature 98.6 98.6 Blood Gas HCO3 15 mmol/L (22-26) 18 mmol/L (22-26) Blood Gas Base Excess -12.7 mmol/L (-2-2) -8.9 mmol/L (-2-2) Blood Gas Oxygen Saturation 88 % (90-100) 92 % (90-100) Arterial Blood pH 7.10 (7.380-7.420) 7.20 (7.380-7.420) Arterial Blood Partial Pressure CO2 52 mmHg (38-42) 47 mmHg (38-42) Arterial Blood Partial Pressure O2 62 mmHg (61-120) 68 mmHg (61-120) Arterial Blood Oxygen Content 12.9 Vol % (12.0-20.0) 13.2 Vol % (12.0-20.0) Arterial Blood Carboxyhemoglobin 1.1 % (0-4) 1.1 % (0-4) Arterial Blood Methemoglobin 1.4 % (0-2) 1.3 % (0-2) Blood Gas Hemoglobin 10.3 G/DL (12.0-16.0) 10.2 G/DL (12.0-16.0) Oxygen Delivery Device VENTILATOR VENTILATOR Blood Gas Ventilator Setting SEE COMMENTS SEE COMMENTS Blood Gas Inspired Oxygen 50 % 50 % Lactic Acid Level 3.4 mmol/L (0.4-2.0) Test 09/06/17 04:30 White Blood Count 21.2 TH/MM3 (4.0-11.0) Red Blood Count 3.92 MIL/MM3 (4.50-5.90) Hemoglobin 10.6 GM/DL (13.0-17.0) Hematocrit 32.8 % (39.0-51.0) Mean Corpuscular Volume 83.6 FL (80.0-100.0) Mean Corpuscular Hemoglobin 27.1 PG (27.0-34.0) Mean Corpuscular Hemoglobin Concent 32.4 % (32.0-36.0) Red Cell Distribution Width 15.6 % (11.6-17.2) Platelet Count 188 TH/MM3 (150-450) Mean Platelet Volume 7.9 FL (7.0-11.0) Neutrophils (%) (Auto) 92.2 % (16.0-70.0) Lymphocytes (%) (Auto) 4.6 % (9.0-44.0) Monocytes (%) (Auto) 2.9 % (0.0-8.0) Eosinophils (%) (Auto) 0.1 % (0.0-4.0) Basophils (%) (Auto) 0.2 % (0.0-2.0) Neutrophils # (Auto) 19.5 TH/MM3 (1.8-7.7) Lymphocytes # (Auto) 1.0 TH/MM3 (1.0-4.8) Monocytes # (Auto) 0.6 TH/MM3 (0-0.9) Eosinophils # (Auto) 0.0 TH/MM3 (0-0.4) Basophils # (Auto) 0.1 TH/MM3 (0-0.2) CBC Comment AUTO DIFF Differential Total Cells Counted 100 Neutrophils % (Manual) 39 % (16-70) Band Neutrophils % 31 % (0-6) Lymphocytes % 3 % (9-44) Monocytes % 1 % (0-8) Neutrophils # (Manual) 20.4 TH/MM3 (1.8-7.7) Metamyelocytes 26 % (0-1) Differential Comment FINAL DIFF MANUAL Toxic Granulation 1+ (NORMAL) Toxic Vacuolation PRESENT (NONE SEEN) Dohle Bodies PRESENT (NONE SEEN) Platelet Estimate NORMAL (NORMAL) Platelet Morphology Comment NORMAL (NORMAL) Blood Urea Nitrogen 63 MG/DL (7-18) Creatinine 3.99 MG/DL (0.60-1.30) Random Glucose 204 MG/DL (74-106) Total Protein 4.6 GM/DL (6.4-8.2) Albumin 1.5 GM/DL (3.4-5.0) Calcium Level 5.5 MG/DL (8.5-10.1) Magnesium Level 1.2 MG/DL (1.5-2.5) Alkaline Phosphatase 72 U/L (45-117) Aspartate Amino Transf (AST/SGOT) 48 U/L (15-37) Alanine Aminotransferase (ALT/SGPT) 32 U/L (12-78) Total Bilirubin 1.4 MG/DL (0.2-1.0) Sodium Level 123 MEQ/L (136-145) Potassium Level 3.9 MEQ/L (3.5-5.1) Chloride Level 89 MEQ/L (98-107) Carbon Dioxide Level 20.2 MEQ/L (21.0-32.0) Anion Gap 14 MEQ/L (5-15) Estimat Glomerular Filtration Rate 15 ML/MIN (>89) Protein Corrected Calcium 6.6 MG/DL (8.5-10.1) Random Vancomycin Level 17.7 COMMENT Result Diagram: 09/06/17 0430 09/06/17 0430 Microbiology Microbiology Date/Time Source Procedure Growth Status 09/04/17 00:40 Blood Peripheral Aerobic Blood Culture - Preliminary NO GROWTH IN 1 DAY Resulted 09/04/17 00:40 Blood Peripheral Anaerobic Blood Culture - Preliminary NO GROWTH IN 1 DAY Resulted 09/04/17 00:35 Blood Peripheral Aerobic Blood Culture - Preliminary NO GROWTH IN 1 DAY Resulted 09/04/17 00:35 Blood Peripheral Anaerobic Blood Culture - Preliminary NO GROWTH IN 1 DAY Resulted 09/04/17 08:55 Sputum Endotracheal Gram Stain - Final Resulted 09/04/17 08:55 Sputum Culture - Preliminary S. Aureus Mrsa Resulted 09/05/17 09:00 Wound Other Gram Stain - Final Resulted 09/05/17 09:00 Wound Other Wound Culture Pending Resulted Imaging Last Impressions Chest X-Ray 09/06/17 0600 Signed Impressions: Service Date/Time: Wednesday, September 06, 2017 04:13 - CONCLUSION: 1. Cardiomegaly and findings of congestive heart failure. There has been no significant change when compared to the prior exam. Pastor London MD Head CT 09/04/17 0000 Signed Impressions: Service Date/Time: Monday, September 04, 2017 03:49 - CONCLUSION: Age- related and chronic ischemic change. No acute intracranial findings. Damion Monroy MD Chest CT 09/04/17 0000 Signed Impressions: Service Date/Time: Monday, September 04, 2017 03:55 - CONCLUSION: Moderate severity bilateral pulmonary consolidation most prominent at the dependent portions of lower lobes. Damion Monroy MD Abdomen/Pelvis CT 09/04/17 0000 Signed Impressions: Service Date/Time: Monday, September 04, 2017 03:55 - CONCLUSION: 1. Diffuse urinary bladder wall thickening. 2. Bilateral lower lobe pulmonary consolidation. 3. Nonobstructing left renal calculus. 4. Colonic diverticulosis with no evidence of acute diverticulitis. 5. Nonspecific diffuse mild gallbladder wall thickening. No pericholecystic inflammatory changes. Damion Monroy MD Procedures INTUBATION 09/04/17 Right subclavian line 09/04/17 Art line 09/04/17 . Patient/Family Conference Present at Family Conference: Patient's significant other Ms. Pineda and her daughter Riana. . Family Conference Time (mins): 58 Family Conference Location: Consult Room Issues Discussed: * Palliative care role, purpose, approach * Additional medical, psychosocial, and spiritual history * Patients general health, functional status, and cognitive changes in the months leading up to the current hospitalization * Patient/family understanding of the current medical problems * Patient/family understanding of prognosis * Patients goals of care as best understood from advance directives and/or conversations and/or values * Current medical treatment options and benefits/burdens of those options * Likely scenarios comparing ongoing aggressive care with a transition to comfort measures only * Questions answered to the best of my ability * Palliative care contact information provided Ms. Pineda and her daughter feel it is very important that we make sure the patient does not suffer, acknowledging that is likely going to come in the upcoming hours or days from the multisystem organ failure. . Assessment and Plan Disease Oriented Problem List: (1) multisystem organ failure (2) septic shock, pneumonia (3) respiratory failure (4) GI bleeding Comment: Source undetermined (5) rapidly progressive RENAL FAILURE, with acidosis (6) history of CVA, with aphasia and dysphagia (7) history of dementia (8) chronic atrial fibrillation, recently on Coumadin (9) diabetes type 2 (10) CAD, history of CABG (11) peripheral neuropathy (12) peripheral vascular disease, status post stent left leg (13) hyperlipidemia (14) hypertension (15) macular degeneration Symptom Scale: (1) pain 0-10 Scale: Unable to quantify (2) dyspnea 0-10 Scale: Unable to quantify Pertinent Non-Medical Issues Psychosocial: Originally from [place]. Served in the [employer], , no children, lives with significant other Ms. Pineda the past 14 years. Spiritual: The patient was raised [employer]an, but he is said now "to not like them at all." The patient's significant other Ameena Pineda and her daughter believe that the patient would want a garment manufacturing supervisor to come by to visit him. Legal: The patient lacks capacity for decision-making, and he will not regain that capacity. The only potential family is a sister, but there is been no contact for many years and no one knows her name or what state she may reside in. Therefore, the proxy decision-maker is the patient's long time significant other Ameena Pineda. Ethical issues impacting care: None . Important Contacts Significant other and proxy decision-maker Ameena Pineda: Home: Ms. Pineda's daughter Riana Harmon: [phone] Ms. Pineda's son Otto Pineda: [phone] . Prognosis This patient is terminal, with multisystem organ failure and ongoing shock, acidosis. . Code Status: Alternative Code (intubation only) Plan * ALTERNATE CODE (intubation only) * DECISION-MAKING: The patient lacks capacity for decision-making, and he will not regain that capacity. The only potential family is a sister, but there is been no contact for many years and no one knows her name or what state she may reside in. Therefore, the proxy decision-maker is the patient's long time significant other Ameena Pineda. * GOALS: The patient's significant other and her daughter both note the patient well, and they are certain that he would not want to be resuscitated when his heart stops in the upcoming hours or days. They note that he told them in the past that he would not want to be kept alive on life support for very long. ALTERNATE CODE STATUS entered into the orders. Ms. Pineda and her daughter feel it is very important that we make sure the patient does not suffer , acknowledging that is likely going to come in the upcoming hours or days from the multisystem organ failure. * Director Oracle Database consulted. * SYMPTOMS: The patient remains on the ventilator and fentanyl, and has no apparent or obvious pain or dyspnea at this time. I have encouraged the nursing staff to observe closely for any signs of suffering and to adjust the fentanyl accordingly. * Discussed with Dr. Richmond: We will continue the current treatment, anticipating that will come for this patient in the upcoming hours or days. * Palliative Care will continue to follow this patient during this hospitalization. . Time Spent Total Floor Time (mins): 84 Face to Face Time (mins): 15 >50% Counseling/Coord of Care: Yes (d/w RN and w Dr. Richmond) Thank you for the opportunity to participate in the care of Mr. Dooley. Attestation To help prompt me to consider important information that might be impacting today's encounter and assessment, information from prior notes written by myself or my colleagues may have been "brought forward" into today's note. My signature on this note, however, is an attestation that I personally performed the exam, history, and/or decision-making noted today, and, unless otherwise indicated, the interactions with patient, family, and staff as well as the review of records all occurred today. I also attest that the listed assessment and stated plan reflect my best clinical judgment today based on the combination of historical information, prior notes, and today's exam/ interactions. When time spent is documented, it refers only to time spent today by the signer, or if indicated, combined time spent today by collaborating physician/nurse practitioner. Mary Rodriguez MD Sep 06, 2017 10:46
[2017-09-06] MEDS ORDERED: VANCOMYCIN INJ 1,250 MG in SODIUM CHLOR 0.9% 250 ML INJ 250 ML IV ONE (12:00)
[2017-09-06] MEDS: PROPOFOL 1000 MG/100 ML INJ 100 ML IV PRN ×2 (12:12→20:34)
[2017-09-06] MEDS: fentaNYL DRIP 250 ML IV PRN (12:49)
--- NOTE | 2017-09-06 15:09 | HHI.CCPN ---
Subjective Remarks/Hospital Course 82-year-old gentleman with past medical history of dementia, status post CVA with baseline aphasia, dysphasia and PEG, DM, HTN was sent here from [facility] because he had vomited bright red blood and also had blood from rectum today. He was also chronic respiratory failure on 2 L nasal cannula and usually sats close to 94%. Patient has no family members however his next of can and long time friend requested patient to be a full code and he was intubated for an airway protection and hypoxemia by ED attending. CCM re eval at 08.30: Worsening septic shock. Worsening hypoxia, now on 100% FiO2. Showing agonal breathing on the ventilator TV increased to 600, PEEP increased to 10. Kalin-Synephrine started to keep map above 65, additional 1 L fluid bolus given. Receiving sedation after blood pressure is improved. CT of the chest did show extensive bibasilar pneumonia 09/05: Showing some signs of clinical deterioration. Febrile at 102.5 BUN/ creatinine 54/2.6. It was 36/0.9 yesterday. Urine output 625 mill in 24 hours. Remains on Levophed 3 mcg/m and Kalin-Synephrine at 250 mcg/m. worsening metabolic acidosis and renal function makes prognosis guarded. Sputum culture with gram-positive cocci in pairs and clusters. Most likely MRSA-discussed with pharmacy to adjust vancomycin dose appropriately Subjective 09/06: Febrile. Minimal response on ventilator. Essentially anuric. In discussion with palliative care patient is currently actually cut intubation only with no escalation of care. MRSA in sputum and wound. Has continued vancomycin secondary to elevated creatinine. Objective Vital Signs Date Time Temp Pulse Resp B/P (MAP) Pulse Ox O2 Delivery O2 Flow Rate FiO2 09/06/17 14:00 130 09/06/17 12:49 105/50 09/06/17 12:00 99.0 24 99 09/06/17 12:00 50 09/04/17 02:37 Auto-Vent 09/04/17 01:04 2.00 Intake and Output 09/06/17 09/06/17 09/07/17 08:00 16:00 00:00 Intake Total 6001 ml 959 ml Output Total 95 ml Balance 5906 ml 959 ml Result Diagram: 09/06/17 0430 09/06/17 0430 Other Results Microbiology Date/Time Source Procedure Growth Status 09/04/17 00:40 Blood Peripheral Aerobic Blood Culture - Preliminary NO GROWTH IN 2 DAYS Resulted 09/04/17 00:40 Blood Peripheral Anaerobic Blood Culture - Preliminary NO GROWTH IN 2 DAYS Resulted 09/04/17 08:55 Sputum Endotracheal Gram Stain - Final Complete 09/04/17 08:55 Sputum Culture - Final S. Aureus Mrsa Complete 09/05/17 09:00 Wound Other Gram Stain - Final Resulted 09/05/17 09:00 Wound Culture - Preliminary S. Aureus Mrsa Resulted Imaging Last Impressions Chest X-Ray 09/06/17 0600 Signed Impressions: Service Date/Time: Wednesday, September 06, 2017 04:13 - CONCLUSION: 1. Cardiomegaly and findings of congestive heart failure. There has been no significant change when compared to the prior exam. Pastor London MD Head CT 09/04/17 0000 Signed Impressions: Service Date/Time: Monday, September 04, 2017 03:49 - CONCLUSION: Age- related and chronic ischemic change. No acute intracranial findings. Damion Monroy MD Chest CT 09/04/17 0000 Signed Impressions: Service Date/Time: Monday, September 04, 2017 03:55 - CONCLUSION: Moderate severity bilateral pulmonary consolidation most prominent at the dependent portions of lower lobes. Damion Monroy MD Abdomen/Pelvis CT 09/04/17 0000 Signed Impressions: Service Date/Time: Monday, September 04, 2017 03:55 - CONCLUSION: 1. Diffuse urinary bladder wall thickening. 2. Bilateral lower lobe pulmonary consolidation. 3. Nonobstructing left renal calculus. 4. Colonic diverticulosis with no evidence of acute diverticulitis. 5. Nonspecific diffuse mild gallbladder wall thickening. No pericholecystic inflammatory changes. Damion Monroy MD Objective Remarks GENERAL: 82-year-old male, critically ill currently orotracheally intubated SKIN: Mottled. Cool extremities. HEAD: Normocephalic. EYES: No scleral icterus. No injection or drainage. Pupils are about 2 mm bilaterally and minimally reactive. NECK: Supple, trachea midline. No JVD or lymphadenopathy. CARDIOVASCULAR: Tachycardia, RR. S1, S2. No S4. Without murmurs, gallops, or rubs. RESPIRATORY: Breath sounds equal bilaterally. Taking large TV. Diminished air entry at the bases with crackles. GASTROINTESTINAL: Abdomen soft, non-tender, nondistended. MUSCULOSKELETAL: 1+ peripheral edema NEURO: The patient is sedated and intubated. Only slight withdrawal to pain bilateral upper looks really. Positive gag. Positive corneal reflex. Patient is on sedation Urinary Catheter: Yes Assessment to: Continue Lee insert reason: Prolonged Immobilization Vascular Central Line Catheter: Yes Date of Insertion: Sep 04, 2017 Line: Central Venous Catheter Side: Right Location: Subclavian A/P Assessment and Plan Neuro: Metabolic encephalopathy History of CVA Dementia - Currently sedation with propofol drip at 17 mg/kg minutes and fentanyl drip at 200 and output for sedation/analgesia while intubated - Goal of RA SS -2 - Daily sedation vacation only when the respiratory status and mental status improves RESP; Acute on chronic hypoxemic respiratory failure Severe bilateral pneumonia - Intubated for airway protection, and severe pneumonia - PRVC 20/600/0.9/10/50 -Ventilator bundle - CXR and ABG daily -Albuterol/ipratropium aerosols every 6 hours with albuterol aerosols every 2 hours. Dyspnea - Stress dose hydrocortisone 100 mg IV every 8 hours CVS: Septic shock Atrial fibrillation with RVR History of atrial fibrillation Dyslipidemia - On norepinephrine at 10 mcg/m and phenylephrine at 60 mg/m to keep map above 65, - Received 3 L fluid boluses after admission. - Currently on sterile water with 3 ampules of bicarbonate at 150 cc an hour - Home dose of digoxin 0.25 mill grams daily will be held in light of acute kidney injury. Recheck digoxin level in a.m. - Amiodarone gtt at maintenance dose 0.5 mg per minute On ezetimibe 10 mg daily for dyslipidemia. Holding metoprolol 50 mg twice daily in light of hypotension/vasopressor use GI: GI bleed -Pantoprazole 40 mg IV twice a day - Monitor H&H, Transfuse when necessary to keep hemoglobin above 8 - GI consulted- EGD when stable. - PEG tube in place some erythema. ID: Septic shock Bilateral pneumonia PEG tube infection - Follow-up on blood and sputum culture. Sputum Gram stain and wound from PEG tube shows MRSA - Continue aztreonam, metronidazole and levofloxacin. Discontinued vancomycin secondary to acute kidney injury. We'll add linezolid - Aggressive fluid resuscitation and pressors as above HEME: Leukocytosis Normocytic anemia Chronic warfarin use Holding warfarin 3 mg daily in light of GI bleed Monitor CBC daily. Follow trends FEN: Hypocalcemia Hyponatremia Low magnesium 2 g mag sulfate and 1 g calcium chloride 1 now. Recheck in a.m. Adjust IV fluids/vasopressors from D5 water to normal saline ENDO: Diabetes - Hold metformin 500 twice a day, acute kidney injury and insulin Glulisine 15 units at night and Humalog sliding scale - Insulin sliding scale high scale every 4 hours DVT GI prophylaxis - Teds SCDs -Pantoprazole IV twice a day - No pharmacological DVT prophylaxis due to GI bleed Level III follow-up Steve Richmond MD Sep 06, 2017 15:09
[2017-09-06] MEDS: LINEZOLID 600 MG PREMIX 300 ML IV SCH (15:42)
[2017-09-06] MEDS: MAGNESIUM SULFATE 1 GM PREMIX 100 ML IV SCH ×2 (15:42→17:16)
[2017-09-06] MEDS ORDERED: CALCIUM CHLORIDE INJ 1 GM in SODIUM CHLORIDE 0.9% INJ 100 ML IV ONE (16:00)
[2017-09-06 16:09] LABS: BLOOD GAS BASE EXCESS -5.1 mmol/L (-2-2); BLOOD GAS HCO3 20 mmol/L (22-26); BLOOD GAS METHEMOGLOBIN 1.3 % (0-2); BLOOD GAS O2 HGB SATURATION 93 % (90-100); BLOOD GAS OXYGEN CONTENT 13.3 Vol % (12.0-20.0); BLOOD GAS PCO2 43 mmHg (38-42); BLOOD GAS PO2 74 mmHg (61-120); BLOOD GAS TOTAL HGB 10.2 G/DL (12.0-16.0); CRITICAL VALUE NO; DRAW SITE ART LINE; FIO2 50 %; OXYGEN DEVICE VENTILATOR; TEMP CORR TO 98.6; VENT SETTINGS PRVC/AC 600/20
[2017-09-06 16:10] LABS: STAT NO
[2017-09-06] MEDS: PHENYLEPHRINE INJ 40 MG in SODIUM CHLORID 0.9% 500 ML INJ 496 ML IV PRN (16:14)
[2017-09-06] MEDS: NOREPINEPHRINE INJ 4 MG in SODIUM CHLOR 0.9% 250 ML INJ 246 ML IV PRN (16:15)
[2017-09-06 17:48] LABS: MEAN CELL VOLUME 82.7 FL (80.0-100.0); MEAN CORPUSCULAR HEMOGLOBIN 27.4 PG (27.0-34.0); MEAN CORPUSCULAR HGB CONC 33.1 % (32.0-36.0); PLATELET COUNT 177 TH/MM3 (150-450); RED BLOOD COUNT 3.75 MIL/MM3 (4.50-5.90); REVIEW FLAG FINAL; WHITE BLOOD COUNT 21.9 TH/MM3 (4.0-11.0)
[2017-09-06 19:26] LABS: APTT (PATIENT) 63.9 SEC (24.3-30.1)
[2017-09-06 19:31] LABS: INTERNATIONAL NORMALIZED RATIO 6.3 RATIO
--- NOTE | 2017-09-06 21:23 | RADRPT ---
EXAM DATE/TIME: 09/06/2017 18:21 [facility] COMPARISON: CT ABDOMEN & PELVIS W CONTRAST, September 04, 2017, 3:55. INDICATIONS : Increased BUN/Creatnine. MEDICAL HISTORY : Stroke. Hypercholesterolemia. Gastroesophageal reflux disease. Neuropathy. Dementia. Coronary artery disease. Anticoagulant therapy. Atrial fibrillation. Dyspnea. Diabetes. MRSA. SURGICAL HISTORY : Tonsillectomy. CABG. Left foot surgery. ENCOUNTER: Initial ACUITY: 1 day PAIN SCORE: Nonresponsive. LOCATION: Bilateral flank MEASUREMENTS: RIGHT KIDNEY: 11.4 x 4.7 x 6.0 cm LEFT KIDNEY: 9.7 x 4.5 x 6.4 cm FINDINGS: RIGHT KIDNEY: Renal cortex is normal in thickness and echotexture. No hydronephrosis, stone, or mass. LEFT KIDNEY: Renal cortex is normal in thickness and echotexture. No hydronephrosis, stone, or mass. BLADDER: Decompressed with a Lee catheter in place. There is a small left pleural effusion. CONCLUSION: 1. No hydronephrosis is present. 2. There is a small left pleural effusion visualized. Amos Mcclain MD on September 06, 2017 at 21:19 Board Certified Radiologist. This report was verified electronically.
[2017-09-06] MEDS: MUPIROCIN 2% OINT 1 APPLIC/GM SYR EACH NARE SCH (21:35)
[2017-09-06] MEDS: ZINC SULFATE 220 MG CAP PEG SCH (21:36)
[2017-09-07] VITALS (26 sets, daily range): BP systolic 96–160; BP diastolic 42–67; PULSE 123–139; RESP 18–22; TEMP 97.8–99.9; O2SAT 89–100
[2017-09-07] MEDS: NOREPINEPHRINE INJ 4 MG in SODIUM CHLOR 0.9% 250 ML INJ 246 ML IV PRN ×5 (00:04→23:42)
[2017-09-07] MEDS: metroNIDAZOLE 500 MG INJ 100 ML IV SCH ×3 (00:04→17:09)
[2017-09-07] MEDS: SODIUM BICARBONATE 8.4% INJ 150 MEQ in WATER STERILE FOR INJ 850 ML IV SCH ×4 (00:04→22:25)
[2017-09-07] MEDS: LINEZOLID 600 MG PREMIX 300 ML IV SCH ×2 (02:44→15:30)
[2017-09-07] MEDS: fentaNYL DRIP 250 ML IV PRN ×3 (02:45→22:26)
[2017-09-07] MEDS ORDERED: PHARMACY ORDERED LAB ONE (02:45)
[2017-09-07] MEDS: RESP: ALBUTEROL 2.5 MG/IPRATROPIUM 0.5 MG NEB (SCH) NEB ×4 (03:40→22:15)
[2017-09-07] MEDS: PHENYLEPHRINE INJ 40 MG in SODIUM CHLORID 0.9% 500 ML INJ 496 ML IV PRN ×3 (03:50→22:32)
[2017-09-07] MEDS: CHLORHEXIDINE GLUCONATE 2 % 1 PACK (2 CLOTHS) TOP SCH (03:55)
[2017-09-07] MEDS: INSULIN ASPART SUPPLEMENTAL SCALE SQ SCH ×6 (03:56→20:00)
[2017-09-07 04:15] LABS: HEMATOCRIT 31.6 % (39.0-51.0); MEAN CELL VOLUME 80.9 FL (80.0-100.0); MEAN CORPUSCULAR HEMOGLOBIN 27.2 PG (27.0-34.0); MEAN CORPUSCULAR HGB CONC 33.7 % (32.0-36.0); PLATELET COUNT 190 TH/MM3 (150-450); RED BLOOD COUNT 3.91 MIL/MM3 (4.50-5.90); RED CELL DISTRIBUTION WIDTH 15.5 % (11.6-17.2); WHITE BLOOD COUNT 25.5 TH/MM3 (4.0-11.0)
[2017-09-07 04:20] LABS: HEMO FLAGS AUTO DIFF
[2017-09-07 04:57] LABS: BICARBONATE 22.8 MEQ/L (21.0-32.0); DIGOXIN 1.3 NG/ML (0.8-2.0); MAGNESIUM 1.6 MG/DL (1.5-2.5); POTASSIUM 3.8 MEQ/L (3.5-5.1); TOTAL BILIRUBIN ADULT 1.1 MG/DL (0.2-1.0)
[2017-09-07 05:01] LABS: CALCIUM-PROTEIN CORRECTED 6.8 MG/DL (8.5-10.1)
[2017-09-07 05:10] LABS: BANDS 5 % (0-6); CORRECTED NUCLEATED RBC 1 /100 WBC (0-0); METAMYELOCYTES 3 % (0-1); POLYS (SEG NEUTROPHILS) 90 % (16-70); WBC DIFF SAMPLE 100
[2017-09-07 05:11] LABS: DOHLE BODIES PRESENT (NONE SEEN); TOXIC GRANULATION 1+ (NORMAL); TOXIC VACUOLATION PRESENT (NONE SEEN)
[2017-09-07 05:12] LABS: PLATELET ESTIMATE SMEAR NORMAL (NORMAL); PLATELET MORPHOLOGY NORMAL (NORMAL)
[2017-09-07] MEDS ORDERED: CALCIUM GLUCONATE INJ 2 GM in SODIUM CHLORIDE 0.9% INJ 100 ML IV ONE (05:15)
[2017-09-07 05:17] LABS: SCAN/DIFF FINAL DIFF MANUAL
[2017-09-07] MEDS: HYDROCORTISONE SOD SUCCINATE 100 MG VIAL IV SCH ×3 (05:27→22:32)
[2017-09-07] MEDS: MAGNESIUM SULFATE 1 GM PREMIX 100 ML IV SCH ×2 (05:27→06:25)
--- NOTE | 2017-09-07 05:42 | RADRPT ---
EXAM DATE/TIME: 09/07/2017 04:12 [facility] COMPARISON: CHEST SINGLE AP, September 06, 2017, 4:13. INDICATIONS : Short of breath. MEDICAL HISTORY : Cardiovascular disease. Diabetes mellitus type II. Hypertension. A-Fib SURGICAL HISTORY : CABG. ENCOUNTER: Subsequent ACUITY: 3 days PAIN SCORE: 0/10 LOCATION: Bilateral chest FINDINGS: The cardiac silhouette is normal in transverse diameter. Median sternotomy wires are present. There a re findings of congestive heart failure with interstitial and alveolar opacity bilaterally. Small ascencion ateral pleural effusions are identified. CONCLUSION: 1. Cardiomegaly and findings of congestive heart failure. There has been no significant change when c ompared to the prior exam. Pastor London MD on September 07, 2017 at 5:40 Board Certified Radiologist. This report was verified electronically.
[2017-09-07] MEDS: CHLORHEXIDINE 0.12% (ORAL KIT) 15 ML CUP MT SCH ×2 (08:02→22:33)
[2017-09-07] MEDS: PANTOPRAZOLE SODIUM 40 MG VIAL IV PUSH SCH ×2 (08:03→22:32)
[2017-09-07] MEDS: EZETIMIBE 10 MG TAB PEG SCH (08:03)
[2017-09-07] MEDS: DOCUSATE SODIUM 50 MG/SENNA 8.6 MG TAB PO SCH ×2 (08:03→22:32)
[2017-09-07] MEDS: SODIUM CHLORIDE 0.9% FLUSH 10 ML FLUSH IV FLUSH SCH ×2 (08:03→22:32)
[2017-09-07] MEDS: ARTIFICIAL TEARS OPTH SOLN 15 ML BTL EACH EYE SCH ×3 (08:04→17:17)
[2017-09-07] MEDS: MUPIROCIN 2% OINT 1 APPLIC/GM SYR EACH NARE SCH ×2 (08:04→22:32)
[2017-09-07] MEDS ORDERED: GELATIN 12 MM/7 MM FOAM ONE (09:39)
[2017-09-07] MEDS ORDERED: SODIUM CHLORIDE 1 GRAM TAB PO ONE (09:45)
[2017-09-07] MEDS ORDERED: GELATIN 12 MM/7 MM FOAM TOPICAL ONE (09:45)
--- NOTE | 2017-09-07 09:57 | HHI.CCPN ---
Subjective Remarks/Hospital Course 82-year-old gentleman with past medical history of dementia, status post CVA with baseline aphasia, dysphasia and PEG, DM, HTN was sent here from [facility] because he had vomited bright red blood and also had blood from rectum today. He was also chronic respiratory failure on 2 L nasal cannula and usually sats close to 94%. Patient has no family members however his next of can and long time friend requested patient to be a full code and he was intubated for an airway protection and hypoxemia by ED attending. CCM re eval at 08.30: Worsening septic shock. Worsening hypoxia, now on 100% FiO2. Showing agonal breathing on the ventilator TV increased to 600, PEEP increased to 10. Kalin-Synephrine started to keep map above 65, additional 1 L fluid bolus given. Receiving sedation after blood pressure is improved. CT of the chest did show extensive bibasilar pneumonia 09/05: Showing some signs of clinical deterioration. Febrile at 102.5 BUN/ creatinine 54/2.6. It was 36/0.9 yesterday. Urine output 625 mill in 24 hours. Remains on Levophed 3 mcg/m and Kalin-Synephrine at 250 mcg/m. worsening metabolic acidosis and renal function makes prognosis guarded. Sputum culture with gram-positive cocci in pairs and clusters. Most likely MRSA-discussed with pharmacy to adjust vancomycin dose appropriately 09/06: Febrile. Minimal response on ventilator. Essentially anuric. In discussion with palliative care patient is currently actually cut intubation only with no escalation of care. MRSA in sputum and wound. Have dis continued vancomycin secondary to elevated creatinine. Subjective 09/07: Positive gag and corneal reflex otherwise unresponsive on the ventilator. Becoming more edematous. Extremities with mottling. Very poor outlook. Objective Vital Signs Date Time Temp Pulse Resp B/P (MAP) Pulse Ox O2 Delivery O2 Flow Rate FiO2 09/07/17 08:01 134 114/50 09/07/17 08:00 99.4 22 94 09/07/17 08:00 50 09/04/17 02:37 Auto-Vent 09/04/17 01:04 2.00 Intake and Output 09/07/17 09/07/17 09/08/17 08:00 16:00 00:00 Intake Total 3942 ml 100 ml Output Total 190 ml Balance 3752 ml 100 ml Result Diagram: 09/07/17 0359 09/07/17 0359 Other Results Microbiology Date/Time Source Procedure Growth Status 09/04/17 00:40 Blood Peripheral Aerobic Blood Culture - Preliminary NO GROWTH IN 2 DAYS Resulted 09/04/17 00:40 Blood Peripheral Anaerobic Blood Culture - Preliminary NO GROWTH IN 2 DAYS Resulted 09/04/17 08:55 Sputum Endotracheal Gram Stain - Final Complete 09/04/17 08:55 Sputum Culture - Final S. Aureus Mrsa Complete 09/05/17 09:00 Wound Other Gram Stain - Final Resulted 09/05/17 09:00 Wound Culture - Preliminary S. Aureus Mrsa Yeast-Id To Follow Resulted Imaging Last Impressions Chest X-Ray 09/07/17 0600 Signed Impressions: Service Date/Time: Thursday, September 07, 2017 04:12 - CONCLUSION: 1. Cardiomegaly and findings of congestive heart failure. There has been no significant change when compared to the prior exam. Pastor London MD Renal Ultrasound 09/06/17 0000 Signed Impressions: Service Date/Time: Wednesday, September 06, 2017 18:21 - CONCLUSION: 1. No hydronephrosis is present. 2. There is a small left pleural effusion visualized. Amos Mcclain MD Head CT 09/04/17 0000 Signed Impressions: Service Date/Time: Monday, September 04, 2017 03:49 - CONCLUSION: Age- related and chronic ischemic change. No acute intracranial findings. Damion Monroy MD Chest CT 09/04/17 0000 Signed Impressions: Service Date/Time: Monday, September 04, 2017 03:55 - CONCLUSION: Moderate severity bilateral pulmonary consolidation most prominent at the dependent portions of lower lobes. Damion Monroy MD Abdomen/Pelvis CT 09/04/17 0000 Signed Impressions: Service Date/Time: Monday, September 04, 2017 03:55 - CONCLUSION: 1. Diffuse urinary bladder wall thickening. 2. Bilateral lower lobe pulmonary consolidation. 3. Nonobstructing left renal calculus. 4. Colonic diverticulosis with no evidence of acute diverticulitis. 5. Nonspecific diffuse mild gallbladder wall thickening. No pericholecystic inflammatory changes. Damion Monroy MD Objective Remarks GENERAL: 82-year-old male, critically ill currently orotracheally intubated SKIN: Mottled. Cool extremities. HEAD: Normocephalic. EYES: No scleral icterus. No injection or drainage. Pupils are about 2 mm bilaterally and minimally reactive. NECK: Supple, trachea midline. No JVD or lymphadenopathy. CARDIOVASCULAR: Tachycardia, RR. S1, S2. No S4. Without murmurs, gallops, or rubs. RESPIRATORY: Breath sounds equal bilaterally. Taking large TV. Diminished air entry at the bases with crackles. GASTROINTESTINAL: Abdomen soft, non-tender, nondistended. MUSCULOSKELETAL: 2+ peripheral edema NEURO: The patient is sedated and intubated. Only slight withdrawal to pain bilateral upper looks really. Positive gag. Positive corneal reflex. Patient is on sedation Vascular Central Line Catheter: Yes Assessment to: Continue Date of Insertion: Sep 04, 2017 Line: Central Venous Catheter Side: Right Location: Subclavian A/P Assessment and Plan Neuro: Metabolic encephalopathy History of CVA Dementia - Currently sedation with propofol drip at 13 mg/kg minutes and fentanyl drip at 200 and output for sedation/analgesia while intubated - Goal of RA SS -2 - Daily sedation vacation only when the respiratory status and mental status improves RESP; Acute on chronic hypoxemic respiratory failure Severe bilateral pneumonia - Intubated for airway protection, and severe pneumonia - PRVC 20/600/0.9/10/50 -Ventilator bundle - CXR and ABG daily -Albuterol/ipratropium aerosols every 6 hours with albuterol aerosols every 2 hours. Dyspnea - Stress dose hydrocortisone 100 mg IV every 8 hours CVS: Septic shock Atrial fibrillation with RVR History of atrial fibrillation Dyslipidemia - On norepinephrine at 10 mcg/m and phenylephrine at 60 mg/m to keep map above 65, - Received 3 L fluid boluses after admission. - Currently on sterile water with 3 ampules of bicarbonate at 150 cc an hour - Home dose of digoxin 0.25 mill grams daily will be held in light of acute kidney injury. Recheck digoxin level in a.m /. was 1.4 - Amiodarone gtt at maintenance dose 0.5 mg per minute On ezetimibe 10 mg daily for dyslipidemia. Holding metoprolol 50 mg twice daily in light of hypotension/vasopressor use GI: GI bleed -Pantoprazole 40 mg IV twice a day - Monitor H&H, Transfuse when necessary to keep hemoglobin above 8 - GI consulted- EGD when stable. - PEG tube in place some erythema. No tube feeding until cleared by GI ID: Septic shock Bilateral pneumonia PEG tube infection - Follow-up on blood and sputum culture. Sputum Gram stain and wound from PEG tube shows MRSA - Continue metronidazole and levofloxacin. Discontinued vancomycin secondary to acute kidney injury. We'll add linezolid - Aggressive fluid resuscitation and pressors as above HEME: Leukocytosis Normocytic anemia Chronic warfarin use Elevated INR Holding warfarin 3 mg daily in light of GI bleed Monitor CBC daily. Follow trends Vitamin K 10 mg IV 1, FFP 2 units 1. Recheck in a.m. FEN: Hypocalcemia Hyponatremia 2 g mag sulfate and 1 g calcium chloride 1 now. Recheck in a.m. Adjust IV fluids/vasopressors from D5 water to normal saline Sodium chloride tablets today. ENDO: Diabetes - Hold metformin 500 twice a day, acute kidney injury and insulin Glulisine 15 units at night and Humalog sliding scale - Insulin sliding scale high scale every 4 hours DVT GI prophylaxis - Teds SCDs -Pantoprazole IV twice a day - No pharmacological DVT prophylaxis due to GI bleed Level III follow-up Steve Richmond MD Sep 07, 2017 09:57
[2017-09-07] MEDS ORDERED: PHYTONADIONE INJ 10 MG in SODIUM CHLORIDE 0.9% INJ 50 ML IV ONE (11:00)
[2017-09-07 11:56] LABS: URIC ACID 7.9 MG/DL (2.6-7.2)
[2017-09-07] MEDS: AMIODARONE INJ 450 MG in DEXTROSE 5% IN WATE(EXCEL) INJ 250 ML IV PRN ×2 (12:15)
[2017-09-07] MEDS: LEVOFLOXACIN 750 MG PREMIX INJ 150 ML IV SCH (13:18)
--- NOTE | 2017-09-07 15:19 | HHI.HCPN ---
Reason for visit a. To assist with evaluation and management of symptoms including: Dyspnea , pain b. To assist medical decision maker(s) with: better understanding of current medical conditions; weighing benefits/burdens of medical treatment options; making medical treatment decisions. . Subjective/Interval History INTERVAL NOTE: The patient continues to decline. His heart rate remains in the 130s, he remains on pressors, and his GFR remains at 15. He is now essentially anuric. The patient remains unresponsive, with cold/mottled lower extremities, and his coagulopathy now has prior needle puncture sites losing blood. Significant other Ms. Pineda is at the bedside, see below . Family/friend interactions SO/HCP Ms. Pineda says that she understands he is dying, but she is still hoping for miracle. She understands that that miracle may be "a whole new body when God takes him." She again reiterates that she just wants to make sure he is not suffering and his last hours or days. . Advance Directives Living Will: Never completed Health Care Surrogate: Never completed Durable Power of Social Services Designee: Never completed Advance Directive Specifics Documented care wishes: The patient's significant other Ms. Pineda reports that the patient has told her on multiple occasions in the past couple years that he would not want to be kept alive on life support indefinitely. She is certain that he would not want to be resuscitated when his heart stops now. . Objective Vital Signs Date Time Temp Pulse Resp B/P (MAP) Pulse Ox O2 Delivery O2 Flow Rate FiO2 09/07/17 14:00 131 09/07/17 13:35 132 131/49 09/07/17 13:30 130 129/50 09/07/17 13:24 97.8 133 20 130/53 100 09/07/17 13:19 139 105/44 09/07/17 12:34 130 106/44 09/07/17 12:27 134 97/44 09/07/17 12:15 133 100/41 09/07/17 12:03 132 101/44 09/07/17 12:03 132 101/44 09/07/17 12:00 131 09/07/17 12:00 50 09/07/17 12:00 97.9 131 20 129/60 (83) 94 107/45 (65) 09/07/17 11:30 97.9 132 20 111/45 95 09/07/17 11:00 130 20 98/43 (61) 92 09/07/17 10:58 98.0 134 20 101/44 92 09/07/17 10:33 91 50 09/07/17 10:00 139 09/07/17 10:00 139 20 112/58 (76) 89 99/45 (63) 09/07/17 09:00 132 21 96/45 (62) 93 09/07/17 08:01 134 114/50 09/07/17 08:00 130 09/07/17 08:00 99.4 130 22 126/56 (79) 94 112/49 (70) 09/07/17 08:00 50 09/07/17 07:45 95 50 09/07/17 07:30 136 114/50 09/07/17 07:00 135 20 111/49 (69) 95 09/07/17 06:00 128 09/07/17 04:23 92 50 09/07/17 04:00 128 09/07/17 04:00 98.1 128 20 148/67 (94) 96 132/55 (80) 09/07/17 04:00 50 09/07/17 03:50 127 146/59 09/07/17 02:00 131 09/07/17 00:04 131 119/53 09/07/17 00:00 139 09/07/17 00:00 99.9 139 20 125/55 (78) 95 111/54 (73) 09/07/17 00:00 50 09/06/17 23:09 95 50 09/06/17 22:00 135 09/06/17 21:42 127 115/49 09/06/17 20:00 50 09/06/17 20:00 98.8 137 23 142/63 (89) 95 116/49 (71) 09/06/17 20:00 137 09/06/17 19:31 96 50 09/06/17 18:00 130 09/06/17 17:00 138 20 139/52 (81) 97 09/06/17 16:15 125 129/50 09/06/17 16:14 125 129/50 09/06/17 16:00 128 09/06/17 16:00 98.9 128 22 134/62 (86) 97 118/50 (72) 09/06/17 16:00 50 09/06/17 15:56 96 50 Intake & Output 09/07/17 09/07/17 07:00 19:00 Intake Total 2959 ml 2848 ml Output Total 190 ml Balance 2769 ml 2848 ml Intake IV Total 2959 ml 2483 ml FFP 320 ml Blood Product IV Normal Saline Flush 45 ml Output Urine Total 150 ml Gastric Drainage Total 40 ml Physical Exam CONSTITUTIONAL/GENERAL: This is an ill-appearing, elderly patient, in mild respiratory distress. TUBES/LINES/DRAINS: ET tube, Lee, right subclavian, art line SKIN: No jaundice, rashes, or lesions. Sanguinous fluid leaking from the needle puncture sites in the arms. Skin temperature very cold in the feet and ankles NECK: Trachea midline. Supple, nontender. No palpable thyroid enlargement or nodularity. CARDIOVASCULAR: Irregular, rapid rhythm without murmurs, gallops, or rubs. No JVD. Peripheral pulses not palpable in the feet/ankles. RESPIRATORY/CHEST: Symmetric, unlabored respirations. A few scattered rales and rhonchi. GASTROINTESTINAL: Abdomen soft, nondistended. No hepato-splenomegaly, or palpable masses. No guarding. Bowel sounds diminished. MUSCULOSKELETAL: Extremities without clubbing, but there is marked mottling and cool temperatures in the ankles and feet..No calf tenderness. Mottling in the lower legs and feet NEUROLOGICAL: Not responsive to voice, touch, or pain. PSYCHIATRIC: Unable to evaluate due to clinical condition .. Diagnostic Tests Laboratory Laboratory Tests Test 09/05/17 02:40 09/05/17 13:10 09/05/17 14:15 09/05/17 16:05 White Blood Count 37.9 TH/MM3 (4.0-11.0) Red Blood Count 4.07 MIL/MM3 (4.50-5.90) Hemoglobin 11.2 GM/DL (13.0-17.0) Hematocrit 35.8 % (39.0-51.0) Mean Corpuscular Volume 88.0 FL (80.0-100.0) Mean Corpuscular Hemoglobin 27.5 PG (27.0-34.0) Mean Corpuscular Hemoglobin Concent 31.2 % (32.0-36.0) Red Cell Distribution Width 15.8 % (11.6-17.2) Platelet Count 358 TH/MM3 (150-450) Mean Platelet Volume 7.8 FL (7.0-11.0) Neutrophils (%) (Auto) 89.5 % (16.0-70.0) Lymphocytes (%) (Auto) 5.4 % (9.0-44.0) Monocytes (%) (Auto) 4.7 % (0.0-8.0) Eosinophils (%) (Auto) 0.0 % (0.0-4.0) Basophils (%) (Auto) 0.4 % (0.0-2.0) Neutrophils # (Auto) 33.8 TH/MM3 (1.8-7.7) Lymphocytes # (Auto) 2.1 TH/MM3 (1.0-4.8) Monocytes # (Auto) 1.8 TH/MM3 (0-0.9) Eosinophils # (Auto) 0.0 TH/MM3 (0-0.4) Basophils # (Auto) 0.2 TH/MM3 (0-0.2) CBC Comment AUTO DIFF Differential Total Cells Counted 100 Neutrophils % (Manual) 29 % (16-70) Band Neutrophils % 30 % (0-6) Lymphocytes % 4 % (9-44) Monocytes % 3 % (0-8) Neutrophils # (Manual) 35.2 TH/MM3 (1.8-7.7) Metamyelocytes 32 % (0-1) Myelocytes 2 % (0-0) Differential Comment FINAL DIFF MANUAL Dohle Bodies PRESENT (NONE SEEN) Platelet Estimate HIGH (NORMAL) Platelet Morphology Comment NORMAL (NORMAL) Red Cell Morphology Comment NORMAL (NORMAL) Prothrombin Time 19.5 SEC (9.8-11.6) Prothromb Time International Ratio 1.7 RATIO Activated Partial Thromboplast Time 42.2 SEC (24.3-30.1) Blood Urea Nitrogen 54 MG/DL (7-18) Creatinine 2.62 MG/DL (0.60-1.30) Random Glucose 354 MG/DL (74-106) Total Protein 5.0 GM/DL (6.4-8.2) Albumin 1.7 GM/DL (3.4-5.0) Calcium Level 6.0 MG/DL (8.5-10.1) Phosphorus Level 4.3 MG/DL (2.5-4.9) Magnesium Level 1.6 MG/DL (1.5-2.5) Alkaline Phosphatase 49 U/L (45-117) Aspartate Amino Transf (AST/SGOT) 46 U/L (15-37) Alanine Aminotransferase (ALT/SGPT) 29 U/L (12-78) Total Bilirubin 1.9 MG/DL (0.2-1.0) Sodium Level 131 MEQ/L (136-145) Potassium Level 4.9 MEQ/L (3.5-5.1) Chloride Level 102 MEQ/L (98-107) Carbon Dioxide Level 19.5 MEQ/L (21.0-32.0) Anion Gap 10 MEQ/L (5-15) Estimat Glomerular Filtration Rate 24 ML/MIN (>89) Protein Corrected Calcium 7.0 MG/DL (8.5-10.1) Blood Gas Puncture Site RT FEMORAL ROMI Blood Gas Patient Temperature 98.6 98.6 Blood Gas HCO3 15 mmol/L (22-26) 18 mmol/L (22-26) Blood Gas Base Excess -12.7 mmol/L (-2-2) -8.9 mmol/L (-2-2) Blood Gas Oxygen Saturation 88 % (90-100) 92 % (90-100) Arterial Blood pH 7.10 (7.380-7.420) 7.20 (7.380-7.420) Arterial Blood Partial Pressure CO2 52 mmHg (38-42) 47 mmHg (38-42) Arterial Blood Partial Pressure O2 62 mmHg (61-120) 68 mmHg (61-120) Arterial Blood Oxygen Content 12.9 Vol % (12.0-20.0) 13.2 Vol % (12.0-20.0) Arterial Blood Carboxyhemoglobin 1.1 % (0-4) 1.1 % (0-4) Arterial Blood Methemoglobin 1.4 % (0-2) 1.3 % (0-2) Blood Gas Hemoglobin 10.3 G/DL (12.0-16.0) 10.2 G/DL (12.0-16.0) Oxygen Delivery Device VENTILATOR VENTILATOR Blood Gas Ventilator Setting SEE COMMENTS SEE COMMENTS Blood Gas Inspired Oxygen 50 % 50 % Lactic Acid Level 3.4 mmol/L (0.4-2.0) Test 09/06/17 04:30 09/06/17 15:15 09/06/17 15:55 09/06/17 16:00 White Blood Count 21.2 TH/MM3 (4.0-11.0) 21.9 TH/MM3 (4.0-11.0) Red Blood Count 3.92 MIL/MM3 (4.50-5.90) 3.75 MIL/MM3 (4.50-5.90) Hemoglobin 10.6 GM/DL (13.0-17.0) 10.3 GM/DL (13.0-17.0) Hematocrit 32.8 % (39.0-51.0) 31.0 % (39.0-51.0) Mean Corpuscular Volume 83.6 FL (80.0-100.0) 82.7 FL (80.0-100.0) Mean Corpuscular Hemoglobin 27.1 PG (27.0-34.0) 27.4 PG (27.0-34.0) Mean Corpuscular Hemoglobin Concent 32.4 % (32.0-36.0) 33.1 % (32.0-36.0) Red Cell Distribution Width 15.6 % (11.6-17.2) 16.0 % (11.6-17.2) Platelet Count 188 TH/MM3 (150-450) 177 TH/MM3 (150-450) Mean Platelet Volume 7.9 FL (7.0-11.0) 8.1 FL (7.0-11.0) Neutrophils (%) (Auto) 92.2 % (16.0-70.0) Lymphocytes (%) (Auto) 4.6 % (9.0-44.0) Monocytes (%) (Auto) 2.9 % (0.0-8.0) Eosinophils (%) (Auto) 0.1 % (0.0-4.0) Basophils (%) (Auto) 0.2 % (0.0-2.0) Neutrophils # (Auto) 19.5 TH/MM3 (1.8-7.7) Lymphocytes # (Auto) 1.0 TH/MM3 (1.0-4.8) Monocytes # (Auto) 0.6 TH/MM3 (0-0.9) Eosinophils # (Auto) 0.0 TH/MM3 (0-0.4) Basophils # (Auto) 0.1 TH/MM3 (0-0.2) CBC Comment AUTO DIFF Differential Total Cells Counted 100 Neutrophils % (Manual) 39 % (16-70) Band Neutrophils % 31 % (0-6) Lymphocytes % 3 % (9-44) Monocytes % 1 % (0-8) Neutrophils # (Manual) 20.4 TH/MM3 (1.8-7.7) Metamyelocytes 26 % (0-1) Differential Comment FINAL DIFF MANUAL Toxic Granulation 1+ (NORMAL) Toxic Vacuolation PRESENT (NONE SEEN) Dohle Bodies PRESENT (NONE SEEN) Platelet Estimate NORMAL (NORMAL) Platelet Morphology Comment NORMAL (NORMAL) Blood Urea Nitrogen 63 MG/DL (7-18) Creatinine 3.99 MG/DL (0.60-1.30) Random Glucose 204 MG/DL (74-106) Total Protein 4.6 GM/DL (6.4-8.2) Albumin 1.5 GM/DL (3.4-5.0) Calcium Level 5.5 MG/DL (8.5-10.1) Magnesium Level 1.2 MG/DL (1.5-2.5) Alkaline Phosphatase 72 U/L (45-117) Aspartate Amino Transf (AST/SGOT) 48 U/L (15-37) Alanine Aminotransferase (ALT/SGPT) 32 U/L (12-78) Total Bilirubin 1.4 MG/DL (0.2-1.0) Sodium Level 123 MEQ/L (136-145) Potassium Level 3.9 MEQ/L (3.5-5.1) Chloride Level 89 MEQ/L (98-107) Carbon Dioxide Level 20.2 MEQ/L (21.0-32.0) Anion Gap 14 MEQ/L (5-15) Estimat Glomerular Filtration Rate 15 ML/MIN (>89) Protein Corrected Calcium 6.6 MG/DL (8.5-10.1) Random Vancomycin Level 17.7 COMMENT Urine Eosinophils NONE SEEN /HPF (NONE SEEN) Urine Random Creatinine 80.7 MG/DL Urine Random Sodium 14 MEQ/L Blood Gas Puncture Site ART LINE Blood Gas Patient Temperature 98.6 Blood Gas HCO3 20 mmol/L (22-26) Blood Gas Base Excess -5.1 mmol/L (-2-2) Blood Gas Oxygen Saturation 93 % (90-100) Arterial Blood pH 7.30 (7.380-7.420) Arterial Blood Partial Pressure CO2 43 mmHg (38-42) Arterial Blood Partial Pressure O2 74 mmHg (61-120) Arterial Blood Oxygen Content 13.3 Vol % (12.0-20.0) Arterial Blood Carboxyhemoglobin 1.0 % (0-4) Arterial Blood Methemoglobin 1.3 % (0-2) Blood Gas Hemoglobin 10.2 G/DL (12.0-16.0) Oxygen Delivery Device VENTILATOR Blood Gas Ventilator Setting PRV/AC 600/20 Blood Gas Inspired Oxygen 50 % Test 09/06/17 18:30 09/07/17 03:59 09/07/17 10:45 Prothrombin Time 76.0 SEC (9.8-11.6) Prothromb Time International Ratio 6.3 RATIO Activated Partial Thromboplast Time 63.9 SEC (24.3-30.1) Fibrinogen 579 mg/dL (227-377) White Blood Count 25.5 TH/MM3 (4.0-11.0) Red Blood Count 3.91 MIL/MM3 (4.50-5.90) Hemoglobin 10.6 GM/DL (13.0-17.0) Hematocrit 31.6 % (39.0-51.0) Mean Corpuscular Volume 80.9 FL (80.0-100.0) Mean Corpuscular Hemoglobin 27.2 PG (27.0-34.0) Mean Corpuscular Hemoglobin Concent 33.7 % (32.0-36.0) Red Cell Distribution Width 15.5 % (11.6-17.2) Platelet Count 190 TH/MM3 (150-450) Mean Platelet Volume 7.7 FL (7.0-11.0) CBC Comment AUTO DIFF Differential Total Cells Counted 100 Neutrophils % (Manual) 90 % (16-70) Band Neutrophils % 5 % (0-6) Lymphocytes % 1 % (9-44) Monocytes % 1 % (0-8) Neutrophils # (Manual) 25.0 TH/MM3 (1.8-7.7) Metamyelocytes 3 % (0-1) Nucleated Red Blood Cells 1 /100 WBC (0-0) Differential Comment FINAL DIFF MANUAL Toxic Granulation 1+ (NORMAL) Toxic Vacuolation PRESENT (NONE SEEN) Dohle Bodies PRESENT (NONE SEEN) Platelet Estimate NORMAL (NORMAL) Platelet Morphology Comment NORMAL (NORMAL) Blood Urea Nitrogen 64 MG/DL (7-18) Creatinine 3.90 MG/DL (0.60-1.30) Random Glucose 167 MG/DL (74-106) Total Protein 4.4 GM/DL (6.4-8.2) Albumin 1.3 GM/DL (3.4-5.0) Calcium Level 5.6 MG/DL (8.5-10.1) Phosphorus Level 3.7 MG/DL (2.5-4.9) Magnesium Level 1.6 MG/DL (1.5-2.5) Alkaline Phosphatase 122 U/L (45-117) Aspartate Amino Transf (AST/SGOT) 37 U/L (15-37) Alanine Aminotransferase (ALT/SGPT) 29 U/L (12-78) Total Bilirubin 1.1 MG/DL (0.2-1.0) Sodium Level 121 MEQ/L (136-145) Potassium Level 3.8 MEQ/L (3.5-5.1) Chloride Level 83 MEQ/L (98-107) Carbon Dioxide Level 22.8 MEQ/L (21.0-32.0) Anion Gap 15 MEQ/L (5-15) Estimat Glomerular Filtration Rate 15 ML/MIN (>89) Lactic Acid Level 4.5 mmol/L (0.4-2.0) Protein Corrected Calcium 6.8 MG/DL (8.5-10.1) Digoxin Level 1.3 NG/ML (0.8-2.0) Urine Osmolality 274 MOSM/KG (300-1300) Urine Random Sodium 13 MEQ/L Serum Osmolality 272 MOSM/KG (275-295) Uric Acid 7.9 MG/DL (2.6-7.2) Thyroid Stimulating Hormone 3rd Gen 0.910 uIU/ML (0.358-3.740) Result Diagram: 09/07/17 0359 09/07/17 0359 Microbiology Microbiology Date/Time Source Procedure Growth Status 09/05/17 09:00 Wound Other Gram Stain - Final Resulted 09/05/17 09:00 Wound Culture - Preliminary S. Aureus Mrsa Yeast-Id To Follow Resulted Procedures INTUBATION 09/04/17 Right subclavian line 09/04/17 Art line 09/04/17 . Assessment and Plan Disease Oriented Problem List: (1) multisystem organ failure (2) septic shock, pneumonia (3) respiratory failure (4) GI bleeding Comment: Source undetermined (5) rapidly progressive RENAL FAILURE, with acidosis (6) history of CVA, with aphasia and dysphagia (7) history of dementia (8) chronic atrial fibrillation, recently on Coumadin (9) diabetes type 2 (10) CAD, history of CABG (11) peripheral neuropathy (12) peripheral vascular disease, status post stent left leg Symptom Scale: (1) pain 0-10 Scale: Unable to quantify (2) dyspnea 0-10 Scale: Unable to quantify Pertinent Non-Medical Issues Psychosocial: Originally from [place]. Served in the [employer], , no children, lives with significant other Ms. Pineda the past 14 years. Spiritual: The patient was raised Alevism, but he is said now "to not like them at all." The patient's significant other Ameena Pineda and her daughter believe that the patient would want a upkeep mechanic to come by to visit him. Legal: The patient lacks capacity for decision-making, and he will not regain that capacity. The only potential family is a sister, but there is been no contact for many years and no one knows her name or what state she may reside in. Therefore, the proxy decision-maker is the patient's long time significant other Ameena Pineda. Ethical issues impacting care: None . Important Contacts Significant other and proxy decision-maker Ameena Pineda: Home: Ms. Pineda's daughter Riana Harmon: [phone] Ms. Pineda's son Otto Pineda: [phone] . Prognosis This patient is terminal, with multisystem organ failure and ongoing shock, acidosis. . Code Status: Alternative Code (intubation only) Plan * ALTERNATE CODE (intubation only) * DECISION-MAKING: The patient lacks capacity for decision-making, and he will not regain that capacity. The only potential family is a sister, but there is been no contact for many years and no one knows her name or what state she may reside in. Therefore, the proxy decision-maker is the patient's long time significant other Ameena Pineda. * GOALS: The patient's significant other and her daughter both know the patient well, and they are certain that he would not want to be resuscitated when his heart stops in the upcoming hours or days. They note that he told them in the past that he would not want to be kept alive on life support for very long. Ms. Pineda and her daughter feel it is very important that we make sure the patient does not suffer, acknowledging that is likely going to come in the upcoming hours or days from the multisystem organ failure. * SYMPTOMS: The patient remains on the ventilator and fentanyl, and has no apparent or obvious pain or dyspnea at this time. * I anticipate in the upcoming hours.. * Palliative Care will continue to follow this patient during this hospitalization. . Time Spent Total Floor Time (mins): 41 Face to Face Time (mins): 26 >50% Counseling/Coord of Care: Yes (d/w Dr. Richmond) Attestation To help prompt me to consider important information that might be impacting today's encounter and assessment, information from prior notes written by myself or my colleagues may have been "brought forward" into today's note. My signature on this note, however, is an attestation that I personally performed the exam, history, and/or decision-making noted today, and, unless otherwise indicated, the interactions with patient, family, and staff as well as the review of records all occurred today. I also attest that the listed assessment and stated plan reflect my best clinical judgment today based on the combination of historical information, prior notes, and today's exam/ interactions. When time spent is documented, it refers only to time spent today by the signer, or if indicated, combined time spent today by collaborating physician/nurse practitioner. Mary Rodriguez MD Sep 07, 2017 15:19
[2017-09-07] MEDS: PROPOFOL 1000 MG/100 ML INJ 100 ML IV PRN (15:31)
[2017-09-07] MEDS ORDERED: CALCIUM GLUCONATE INJ 1 GM in SODIUM CHLORIDE 0.9% INJ 100 ML IV ONE (18:00)
[2017-09-07] MEDS: ZINC SULFATE 220 MG CAP PEG SCH (22:32)
[2017-09-08] VITALS (28 sets, daily range): BP systolic 112–161; BP diastolic 41–72; PULSE 117–129; RESP 20–24; TEMP 100.8; O2SAT 92–100
[2017-09-08] MEDS: metroNIDAZOLE 500 MG INJ 100 ML IV SCH ×3 (02:11→16:51)
[2017-09-08] MEDS: PHENYLEPHRINE INJ 40 MG in SODIUM CHLORID 0.9% 500 ML INJ 496 ML IV PRN ×5 (02:28→21:58)
[2017-09-08] MEDS: AMIODARONE INJ 450 MG in DEXTROSE 5% IN WATE(EXCEL) INJ 250 ML IV PRN ×4 (02:29→16:50)
[2017-09-08] MEDS: LINEZOLID 600 MG PREMIX 300 ML IV SCH ×2 (03:03→15:09)
[2017-09-08] MEDS: SODIUM BICARBONATE 8.4% INJ 150 MEQ in WATER STERILE FOR INJ 850 ML IV SCH ×2 (03:03→09:48)
[2017-09-08] MEDS: RESP: ALBUTEROL 2.5 MG/IPRATROPIUM 0.5 MG NEB (SCH) NEB ×4 (03:49→20:17)
[2017-09-08] MEDS: INSULIN ASPART SUPPLEMENTAL SCALE SQ SCH ×6 (04:00→20:00)
[2017-09-08] MEDS: CHLORHEXIDINE GLUCONATE 2 % 1 PACK (2 CLOTHS) TOP SCH (04:00)
[2017-09-08] MEDS: NOREPINEPHRINE INJ 4 MG in SODIUM CHLOR 0.9% 250 ML INJ 246 ML IV PRN ×4 (05:10→22:38)
[2017-09-08] MEDS: HYDROCORTISONE SOD SUCCINATE 100 MG VIAL IV SCH ×3 (05:10→21:35)
[2017-09-08] MEDS: PROPOFOL 1000 MG/100 ML INJ 100 ML IV PRN ×3 (05:11→21:35)
[2017-09-08 05:44] LABS: MEAN CELL VOLUME 80.6 FL (80.0-100.0); MEAN CORPUSCULAR HEMOGLOBIN 27.3 PG (27.0-34.0); MEAN CORPUSCULAR HGB CONC 33.8 % (32.0-36.0); PLATELET COUNT 164 TH/MM3 (150-450); RED BLOOD COUNT 2.41 MIL/MM3 (4.50-5.90); RED CELL DISTRIBUTION WIDTH 15.1 % (11.6-17.2); WHITE BLOOD COUNT 22.6 TH/MM3 (4.0-11.0)
[2017-09-08 05:58] LABS: HEMO FLAGS AUTO DIFF
[2017-09-08 06:01] LABS: HEMATOCRIT 19.4 % (39.0-51.0)
[2017-09-08 06:14] LABS: APTT (PATIENT) 53.3 SEC (24.3-30.1); INTERNATIONAL NORMALIZED RATIO 1.7 RATIO; PROTHROMBIN TIME - PATIENT 19.5 SEC (9.8-11.6)
[2017-09-08 06:24] LABS: ALKALINE PHOSPHATASE 124 U/L (45-117); ALT (GPT) 38 U/L (12-78); ANION GAP 14 MEQ/L (5-15); AST (GOT) 71 U/L (15-37); BICARBONATE 26.9 MEQ/L (21.0-32.0); BLOOD UREA NITROGEN 64 MG/DL (7-18); CALCIUM-PROTEIN CORRECTED 6.3 MG/DL (8.5-10.1); CHLORIDE 79 MEQ/L (98-107); GLOMERULAR FILTRATION RATE 15 ML/MIN (>89); MAGNESIUM 1.8 MG/DL (1.5-2.5); POTASSIUM 4.1 MEQ/L (3.5-5.1); TOTAL BILIRUBIN ADULT 1.6 MG/DL (0.2-1.0)
[2017-09-08 06:27] LABS: SODIUM (NA) 120 MEQ/L (136-145)
[2017-09-08 07:08] LABS: BANDS 4 % (0-6); CORRECTED NUCLEATED RBC 2 /100 WBC (0-0); NEUTROPHIL # MANUAL DIFF 21.9 TH/MM3 (1.8-7.7); POLYS (SEG NEUTROPHILS) 93 % (16-70); WBC DIFF SAMPLE 100
[2017-09-08 07:09] LABS: PLATELET ESTIMATE SMEAR NORMAL (NORMAL); PLATELET MORPHOLOGY NORMAL (NORMAL); SCAN/DIFF FINAL DIFF MANUAL
[2017-09-08] MEDS: CHLORHEXIDINE 0.12% (ORAL KIT) 15 ML CUP MT SCH ×2 (07:37→21:36)
[2017-09-08] MEDS: fentaNYL DRIP 250 ML IV PRN ×2 (07:38→17:31)
[2017-09-08] MEDS: PANTOPRAZOLE SODIUM 40 MG VIAL IV PUSH SCH ×2 (07:39→21:35)
[2017-09-08] MEDS: ARTIFICIAL TEARS OPTH SOLN 15 ML BTL EACH EYE SCH ×3 (07:40→17:31)
[2017-09-08] MEDS: DOCUSATE SODIUM 50 MG/SENNA 8.6 MG TAB PO SCH ×2 (07:40→21:35)
[2017-09-08] MEDS: MUPIROCIN 2% OINT 1 APPLIC/GM SYR EACH NARE SCH ×2 (07:40→21:35)
[2017-09-08] MEDS: SODIUM CHLORIDE 0.9% FLUSH 10 ML FLUSH IV FLUSH SCH ×2 (07:40→21:35)
[2017-09-08] MEDS: EZETIMIBE 10 MG TAB PEG SCH (07:40)
[2017-09-08] MEDS ORDERED: PHYTONADIONE INJ 10 MG in DEXTROSE 5% IN WATER INJ 50 ML IV ONE ×2 (13:15)
[2017-09-08] MEDS ORDERED: CALCIUM CHLORIDE INJ 2 GM in SODIUM CHLORIDE 0.9% INJ 100 ML IV ONE (13:15)
--- NOTE | 2017-09-08 13:15 | HHI.CCPN ---
Subjective Remarks/Hospital Course 82-year-old gentleman with past medical history of dementia, status post CVA with baseline aphasia, dysphasia and PEG, DM, HTN was sent here from [facility] because he had vomited bright red blood and also had blood from rectum today. He was also chronic respiratory failure on 2 L nasal cannula and usually sats close to 94%. Patient has no family members however his next of can and long time friend requested patient to be a full code and he was intubated for an airway protection and hypoxemia by ED attending. CCM re eval at 08.30: Worsening septic shock. Worsening hypoxia, now on 100% FiO2. Showing agonal breathing on the ventilator TV increased to 600, PEEP increased to 10. Kalin-Synephrine started to keep map above 65, additional 1 L fluid bolus given. Receiving sedation after blood pressure is improved. CT of the chest did show extensive bibasilar pneumonia 09/05: Showing some signs of clinical deterioration. Febrile at 102.5 BUN/ creatinine 54/2.6. It was 36/0.9 yesterday. Urine output 625 mill in 24 hours. Remains on Levophed 3 mcg/m and Kalin-Synephrine at 250 mcg/m. worsening metabolic acidosis and renal function makes prognosis guarded. Sputum culture with gram-positive cocci in pairs and clusters. Most likely MRSA-discussed with pharmacy to adjust vancomycin dose appropriately 09/06: Febrile. Minimal response on ventilator. Essentially anuric. In discussion with palliative care patient is currently actually cut intubation only with no escalation of care. MRSA in sputum and wound. Have dis continued vancomycin secondary to elevated creatinine. 09/07: Positive gag and corneal reflex otherwise unresponsive on the ventilator. Becoming more edematous. Extremities with mottling. Very poor outlook. Subjective 09/08: Tmax 100.9. Hemoglobin decreased to 6.6. Will transfuse 1 unit PRBCs today. Receiving 2 g calcium chloride 1 now. Actively dying. Objective Vital Signs Date Time Temp Pulse Resp B/P (MAP) Pulse Ox O2 Delivery O2 Flow Rate FiO2 09/08/17 13:00 100.9 117 21 125/50 95 09/08/17 12:00 50 Intake and Output 09/08/17 09/08/17 09/09/17 08:00 16:00 00:00 Intake Total 3803 ml 3782 ml Output Total 150 ml Balance 3653 ml 3782 ml Result Diagram: 09/08/17 0530 09/08/17 0530 Other Results Microbiology Date/Time Source Procedure Growth Status 09/04/17 00:40 Blood Peripheral Aerobic Blood Culture - Preliminary NO GROWTH IN 4 DAYS Resulted 09/04/17 00:40 Blood Peripheral Anaerobic Blood Culture - Preliminary NO GROWTH IN 4 DAYS Resulted 09/04/17 08:55 Sputum Endotracheal Gram Stain - Final Complete 09/04/17 08:55 Sputum Culture - Final S. Aureus Mrsa Complete 09/05/17 09:00 Wound Other Gram Stain - Final Complete 09/05/17 09:00 Wound Culture - Final S. Aureus Mrsa Lilian Glabrata Complete Imaging Last Impressions Chest X-Ray 09/07/17 0600 Signed Impressions: Service Date/Time: Thursday, September 07, 2017 04:12 - CONCLUSION: 1. Cardiomegaly and findings of congestive heart failure. There has been no significant change when compared to the prior exam. Pastor London MD Renal Ultrasound 09/06/17 0000 Signed Impressions: Service Date/Time: Wednesday, September 06, 2017 18:21 - CONCLUSION: 1. No hydronephrosis is present. 2. There is a small left pleural effusion visualized. Amos Mcclain MD Head CT 09/04/17 0000 Signed Impressions: Service Date/Time: Monday, September 04, 2017 03:49 - CONCLUSION: Age- related and chronic ischemic change. No acute intracranial findings. Damion Monroy MD Chest CT 09/04/17 0000 Signed Impressions: Service Date/Time: Monday, September 04, 2017 03:55 - CONCLUSION: Moderate severity bilateral pulmonary consolidation most prominent at the dependent portions of lower lobes. Damion Monroy MD Abdomen/Pelvis CT 09/04/17 0000 Signed Impressions: Service Date/Time: Monday, September 04, 2017 03:55 - CONCLUSION: 1. Diffuse urinary bladder wall thickening. 2. Bilateral lower lobe pulmonary consolidation. 3. Nonobstructing left renal calculus. 4. Colonic diverticulosis with no evidence of acute diverticulitis. 5. Nonspecific diffuse mild gallbladder wall thickening. No pericholecystic inflammatory changes. Damion Monroy MD Objective Remarks GENERAL: 82-year-old male, critically ill currently orotracheally intubated SKIN: Mottled. Cool extremities. HEAD: Normocephalic. EYES: No scleral icterus. No injection or drainage. Pupils are about 2 mm bilaterally and minimally reactive. NECK: Supple, trachea midline. No JVD or lymphadenopathy. CARDIOVASCULAR: Tachycardia, RR. S1, S2. No S4. Without murmurs, gallops, or rubs. RESPIRATORY: Breath sounds equal bilaterally. Taking large TV. Diminished air entry at the bases with crackles. GASTROINTESTINAL: Abdomen soft, non-tender, nondistended. MUSCULOSKELETAL: 2+ peripheral edema NEURO: The patient is sedated and intubated. Only slight withdrawal to pain bilateral upper looks really. Positive gag. Positive corneal reflex. Patient is on sedation Vascular Central Line Catheter: Yes Assessment to: Continue Date of Insertion: Sep 04, 2017 Line: Central Venous Catheter Side: Right Location: Subclavian A/P Assessment and Plan Neuro: Metabolic encephalopathy History of CVA Dementia - Currently sedation with propofol drip at 10 mg/kg minutes and fentanyl drip at 200 and output for sedation/analgesia while intubated - Goal of RA SS -2 - Daily sedation vacation only when the respiratory status and mental status improves RESP; Acute on chronic hypoxemic respiratory failure Severe bilateral pneumonia - Intubated for airway protection, and severe pneumonia - PRVC 20/600/0.9/10/50 -Ventilator bundle - CXR and ABG daily -Albuterol/ipratropium aerosols every 6 hours with albuterol aerosols every 2 hours. Dyspnea - Stress dose hydrocortisone 100 mg IV every 8 hours CVS: Septic shock Atrial fibrillation with RVR History of atrial fibrillation Dyslipidemia - On norepinephrine at 12 mcg/m and phenylephrine at 180 mg/m to keep map above 65, - Received 3 L fluid boluses after admission. - Currently on sterile water with 3 ampules of bicarbonate at 150 cc an hour - Home dose of digoxin 0.25 mill grams daily will be held in light of acute kidney injury. Recheck digoxin level in a.m /. was 1.4 - Amiodarone gtt at maintenance dose 0.5 mg per minute On ezetimibe 10 mg daily for dyslipidemia. Holding metoprolol 50 mg twice daily in light of hypotension/vasopressor use No escalation of vasopressor use. GI: GI bleed -Pantoprazole 40 mg IV twice a day - Monitor H&H, Transfuse when necessary to keep hemoglobin above 8 - GI consulted- EGD when stable. - PEG tube in place some erythema. No tube feeding until cleared by GI ID: Septic shock Bilateral pneumonia PEG tube infection - Follow-up on blood and sputum culture. Sputum Gram stain and wound from PEG tube shows MRSA - Continue metronidazole and levofloxacin. Discontinued vancomycin secondary to acute kidney injury. We'll add linezolid - Aggressive fluid resuscitation and pressors as above will not exceed current threshold HEME: Leukocytosis Normocytic anemia Chronic warfarin use Elevated INR Elevated PTT Holding warfarin 3 mg daily in light of GI bleed Monitor CBC daily. Follow trends Vitamin K 10 mg IV 1, recheck in AM. Transfuse 1 unit PRBCs today FEN: Hypocalcemia Hyponatremia 2 g mag sulfate and 1 g calcium chloride 1 now. Recheck in a.m. Adjust IV fluids/vasopressors from D5 water to normal saline Sodium chloride tablets today. ENDO: Diabetes - Hold metformin 500 twice a day, acute kidney injury and insulin Glulisine 15 units at night and Humalog sliding scale - Insulin sliding scale high scale every 4 hours RENAL: Acute kidney injury Patient with minimal urine output. Very poor candidate for eye HD. Would not do CVVH or SLED at this time. Discussed with very poor prognosis. Will not consult nephrology due to very poor prognosis DVT GI prophylaxis - Teds SCDs -Pantoprazole IV twice a day - No pharmacological DVT prophylaxis due to GI bleed Level III follow-up Plan is no escalation of care. Will transfuse 1 unit PRBCs today however. No additional vasopressors. No consultation to nephrology for possible hemodialysis. Discussed with . She is aware and understands. She is hoping for miracle and we will readjust goals of care if patient shows any improvement. However she appears realistic about ultimate outcome Steve Richmond MD Sep 08, 2017 13:15
--- NOTE | 2017-09-08 14:37 | HHI.HCPN ---
Reason for visit a. To assist with evaluation and management of symptoms including: Dyspnea , pain b. To assist medical decision maker(s) with: better understanding of current medical conditions; weighing benefits/burdens of medical treatment options; making medical treatment decisions. . Subjective/Interval History INTERVAL NOTE: The patient is actively dying, imminent. His heart rate remains in the 130s, he remains on pressors, and his GFR remains at 15. He remains essentially anuric. The patient remains unresponsive, with cold/mottled lower extremities. His temperature remains near 101 all day today. . Family/friend interactions Ms. Pineda hasn't been feeling well and may not be able to come in today, but we spoke on the phone about his continued decline and the fact that he appears to be imminent now. She is still hoping for a miracle but understands his condition and clearly. . Advance Directives Living Will: Never completed Health Care Surrogate: Never completed Durable Power of [employer]: Never completed Advance Directive Specifics Documented care wishes: The patient's significant other Ms. Pineda reports that the patient has told her on multiple occasions in the past couple years that he would not want to be kept alive on life support indefinitely. She is certain that he would not want to be resuscitated when his heart stops now. . Objective Vital Signs Date Time Temp Pulse Resp B/P (MAP) Pulse Ox O2 Delivery O2 Flow Rate FiO2 09/08/17 13:15 100.9 127 20 125/51 96 09/08/17 13:00 100.9 117 21 125/50 95 09/08/17 12:30 100.9 123 20 118/48 95 09/08/17 12:09 100.8 126 24 115/48 94 09/08/17 12:00 50 09/08/17 12:00 128 09/08/17 12:00 100.9 122 24 134/59 (84) 95 117/48 (71) 09/08/17 11:48 123 112/48 09/08/17 11:22 97 50 09/08/17 11:00 100.8 125 20 122/49 (73) 97 09/08/17 10:00 126 09/08/17 10:00 100.8 124 20 140/61 (87) 97 112/41 (64) 09/08/17 09:47 130 113/39 09/08/17 09:00 100.6 128 21 122/46 (71) 97 09/08/17 08:23 94 50 09/08/17 08:00 100.6 127 20 137/64 (88) 95 115/46 (69) 09/08/17 08:00 127 09/08/17 08:00 50 09/08/17 07:38 133 110/45 09/08/17 07:15 123 116/43 09/08/17 07:15 123 116/43 09/08/17 07:00 100.2 124 20 119/46 (70) 93 09/08/17 06:00 120 09/08/17 05:10 128 126/47 09/08/17 04:10 93 50 09/08/17 04:00 50 09/08/17 04:00 122 09/08/17 04:00 99.7 122 22 148/65 (92) 95 125/47 (73) 09/08/17 02:29 125 115/55 09/08/17 02:28 125 115/55 09/08/17 02:00 119 09/08/17 00:30 100 60 09/08/17 00:00 80 09/08/17 00:00 129 09/08/17 00:00 129 22 139/61 (87) 100 119/45 (69) 09/07/17 23:42 125 103/39 09/07/17 22:32 126 128/46 09/07/17 22:17 100 80 09/07/17 22:00 123 09/07/17 21:55 124 112/42 09/07/17 21:50 124 111/43 09/07/17 21:45 124 111/42 09/07/17 21:45 124 111/42 09/07/17 20:00 80 09/07/17 20:00 98.6 123 18 130/58 (82) 100 118/44 (68) 09/07/17 20:00 123 09/07/17 18:00 128 09/07/17 17:59 133 103/39 09/07/17 17:00 97.9 131 20 147/51 (83) 100 09/07/17 16:58 100 100 09/07/17 16:00 97.9 126 21 142/61 (88) 100 118/43 (68) 09/07/17 16:00 126 09/07/17 16:00 50 09/07/17 15:00 97.5 128 20 106/42 (63) 100 Intake & Output 09/08/17 09/08/17 07:00 19:00 Intake Total 4500 ml 5669 ml Output Total 150 ml Balance 4350 ml 5669 ml Intake IV Total 4500 ml 5654 ml Blood Product IV Normal Saline Flush 15 ml Output Urine Total 100 ml Gastric Drainage Total 50 ml Physical Exam CONSTITUTIONAL/GENERAL: This is an ill-appearing, elderly patient, in mild respiratory distress. TUBES/LINES/DRAINS: ET tube, Lee, right subclavian, art line SKIN: No jaundice, rashes, or lesions. Sanguinous fluid leaking from the needle puncture sites in the arms. Skin temperature very cold in the feet and ankles CARDIOVASCULAR: Irregular, rapid rhythm without murmurs, gallops, or rubs. No JVD. Peripheral pulses not palpable in the feet/ankles. RESPIRATORY/CHEST: Symmetric, unlabored respirations. A few scattered rales and rhonchi. GASTROINTESTINAL: Abdomen soft, nondistended. No hepato-splenomegaly, or palpable masses. No guarding. Bowel sounds diminished. MUSCULOSKELETAL: Extremities without clubbing, but there is marked mottling and cool temperatures in the ankles and feet..No calf tenderness. Mottling in the lower legs and feet NEUROLOGICAL: Not responsive to voice, touch, or pain. PSYCHIATRIC: Unable to evaluate due to clinical condition .. Diagnostic Tests Laboratory Laboratory Tests Test 09/05/17 16:05 09/06/17 04:30 09/06/17 15:15 09/06/17 15:55 Blood Gas Puncture Site BOULDER Blood Gas Patient Temperature 98.6 Blood Gas HCO3 18 mmol/L (22-26) Blood Gas Base Excess -8.9 mmol/L (-2-2) Blood Gas Oxygen Saturation 92 % (90-100) Arterial Blood pH 7.20 (7.380-7.420) Arterial Blood Partial Pressure CO2 47 mmHg (38-42) Arterial Blood Partial Pressure O2 68 mmHg (61-120) Arterial Blood Oxygen Content 13.2 Vol % (12.0-20.0) Arterial Blood Carboxyhemoglobin 1.1 % (0-4) Arterial Blood Methemoglobin 1.3 % (0-2) Blood Gas Hemoglobin 10.2 G/DL (12.0-16.0) Oxygen Delivery Device VENTILATOR Blood Gas Ventilator Setting SEE COMMENTS Blood Gas Inspired Oxygen 50 % White Blood Count 21.2 TH/MM3 (4.0-11.0) 21.9 TH/MM3 (4.0-11.0) Red Blood Count 3.92 MIL/MM3 (4.50-5.90) 3.75 MIL/MM3 (4.50-5.90) Hemoglobin 10.6 GM/DL (13.0-17.0) 10.3 GM/DL (13.0-17.0) Hematocrit 32.8 % (39.0-51.0) 31.0 % (39.0-51.0) Mean Corpuscular Volume 83.6 FL (80.0-100.0) 82.7 FL (80.0-100.0) Mean Corpuscular Hemoglobin 27.1 PG (27.0-34.0) 27.4 PG (27.0-34.0) Mean Corpuscular Hemoglobin Concent 32.4 % (32.0-36.0) 33.1 % (32.0-36.0) Red Cell Distribution Width 15.6 % (11.6-17.2) 16.0 % (11.6-17.2) Platelet Count 188 TH/MM3 (150-450) 177 TH/MM3 (150-450) Mean Platelet Volume 7.9 FL (7.0-11.0) 8.1 FL (7.0-11.0) Neutrophils (%) (Auto) 92.2 % (16.0-70.0) Lymphocytes (%) (Auto) 4.6 % (9.0-44.0) Monocytes (%) (Auto) 2.9 % (0.0-8.0) Eosinophils (%) (Auto) 0.1 % (0.0-4.0) Basophils (%) (Auto) 0.2 % (0.0-2.0) Neutrophils # (Auto) 19.5 TH/MM3 (1.8-7.7) Lymphocytes # (Auto) 1.0 TH/MM3 (1.0-4.8) Monocytes # (Auto) 0.6 TH/MM3 (0-0.9) Eosinophils # (Auto) 0.0 TH/MM3 (0-0.4) Basophils # (Auto) 0.1 TH/MM3 (0-0.2) CBC Comment AUTO DIFF Differential Total Cells Counted 100 Neutrophils % (Manual) 39 % (16-70) Band Neutrophils % 31 % (0-6) Lymphocytes % 3 % (9-44) Monocytes % 1 % (0-8) Neutrophils # (Manual) 20.4 TH/MM3 (1.8-7.7) Metamyelocytes 26 % (0-1) Differential Comment FINAL DIFF MANUAL Toxic Granulation 1+ (NORMAL) Toxic Vacuolation PRESENT (NONE SEEN) Dohle Bodies PRESENT (NONE SEEN) Platelet Estimate NORMAL (NORMAL) Platelet Morphology Comment NORMAL (NORMAL) Blood Urea Nitrogen 63 MG/DL (7-18) Creatinine 3.99 MG/DL (0.60-1.30) Random Glucose 204 MG/DL (74-106) Total Protein 4.6 GM/DL (6.4-8.2) Albumin 1.5 GM/DL (3.4-5.0) Calcium Level 5.5 MG/DL (8.5-10.1) Magnesium Level 1.2 MG/DL (1.5-2.5) Alkaline Phosphatase 72 U/L (45-117) Aspartate Amino Transf (AST/SGOT) 48 U/L (15-37) Alanine Aminotransferase (ALT/SGPT) 32 U/L (12-78) Total Bilirubin 1.4 MG/DL (0.2-1.0) Sodium Level 123 MEQ/L (136-145) Potassium Level 3.9 MEQ/L (3.5-5.1) Chloride Level 89 MEQ/L (98-107) Carbon Dioxide Level 20.2 MEQ/L (21.0-32.0) Anion Gap 14 MEQ/L (5-15) Estimat Glomerular Filtration Rate 15 ML/MIN (>89) Protein Corrected Calcium 6.6 MG/DL (8.5-10.1) Random Vancomycin Level 17.7 COMMENT Urine Eosinophils NONE SEEN /HPF (NONE SEEN) Urine Random Creatinine 80.7 MG/DL Urine Random Sodium 14 MEQ/L Test 09/06/17 16:00 09/06/17 18:30 09/07/17 03:59 09/07/17 10:45 Blood Gas Puncture Site ART LINE Blood Gas Patient Temperature 98.6 Blood Gas HCO3 20 mmol/L (22-26) Blood Gas Base Excess -5.1 mmol/L (-2-2) Blood Gas Oxygen Saturation 93 % (90-100) Arterial Blood pH 7.30 (7.380-7.420) Arterial Blood Partial Pressure CO2 43 mmHg (38-42) Arterial Blood Partial Pressure O2 74 mmHg (61-120) Arterial Blood Oxygen Content 13.3 Vol % (12.0-20.0) Arterial Blood Carboxyhemoglobin 1.0 % (0-4) Arterial Blood Methemoglobin 1.3 % (0-2) Blood Gas Hemoglobin 10.2 G/DL (12.0-16.0) Oxygen Delivery Device VENTILATOR Blood Gas Ventilator Setting PRVC/AC 600/20 Blood Gas Inspired Oxygen 50 % Prothrombin Time 76.0 SEC (9.8-11.6) Prothromb Time International Ratio 6.3 RATIO Activated Partial Thromboplast Time 63.9 SEC (24.3-30.1) Fibrinogen 579 mg/dL (227-377) White Blood Count 25.5 TH/MM3 (4.0-11.0) Red Blood Count 3.91 MIL/MM3 (4.50-5.90) Hemoglobin 10.6 GM/DL (13.0-17.0) Hematocrit 31.6 % (39.0-51.0) Mean Corpuscular Volume 80.9 FL (80.0-100.0) Mean Corpuscular Hemoglobin 27.2 PG (27.0-34.0) Mean Corpuscular Hemoglobin Concent 33.7 % (32.0-36.0) Red Cell Distribution Width 15.5 % (11.6-17.2) Platelet Count 190 TH/MM3 (150-450) Mean Platelet Volume 7.7 FL (7.0-11.0) CBC Comment AUTO DIFF Differential Total Cells Counted 100 Neutrophils % (Manual) 90 % (16-70) Band Neutrophils % 5 % (0-6) Lymphocytes % 1 % (9-44) Monocytes % 1 % (0-8) Neutrophils # (Manual) 25.0 TH/MM3 (1.8-7.7) Metamyelocytes 3 % (0-1) Nucleated Red Blood Cells 1 /100 WBC (0-0) Differential Comment FINAL DIFF MANUAL Toxic Granulation 1+ (NORMAL) Toxic Vacuolation PRESENT (NONE SEEN) Dohle Bodies PRESENT (NONE SEEN) Platelet Estimate NORMAL (NORMAL) Platelet Morphology Comment NORMAL (NORMAL) Blood Urea Nitrogen 64 MG/DL (7-18) Creatinine 3.90 MG/DL (0.60-1.30) Random Glucose 167 MG/DL (74-106) Total Protein 4.4 GM/DL (6.4-8.2) Albumin 1.3 GM/DL (3.4-5.0) Calcium Level 5.6 MG/DL (8.5-10.1) Phosphorus Level 3.7 MG/DL (2.5-4.9) Magnesium Level 1.6 MG/DL (1.5-2.5) Alkaline Phosphatase 122 U/L (45-117) Aspartate Amino Transf (AST/SGOT) 37 U/L (15-37) Alanine Aminotransferase (ALT/SGPT) 29 U/L (12-78) Total Bilirubin 1.1 MG/DL (0.2-1.0) Sodium Level 121 MEQ/L (136-145) Potassium Level 3.8 MEQ/L (3.5-5.1) Chloride Level 83 MEQ/L (98-107) Carbon Dioxide Level 22.8 MEQ/L (21.0-32.0) Anion Gap 15 MEQ/L (5-15) Estimat Glomerular Filtration Rate 15 ML/MIN (>89) Lactic Acid Level 4.5 mmol/L (0.4-2.0) Protein Corrected Calcium 6.8 MG/DL (8.5-10.1) Digoxin Level 1.3 NG/ML (0.8-2.0) Urine Osmolality 274 MOSM/KG (300-1300) Urine Random Sodium 13 MEQ/L Serum Osmolality 272 MOSM/KG (275-295) Uric Acid 7.9 MG/DL (2.6-7.2) Thyroid Stimulating Hormone 3rd Gen 0.910 uIU/ML (0.358-3.740) Test 09/08/17 05:30 09/08/17 08:10 White Blood Count 22.6 TH/MM3 (4.0-11.0) Red Blood Count 2.41 MIL/MM3 (4.50-5.90) Hemoglobin 6.6 GM/DL (13.0-17.0) Hematocrit 19.4 % (39.0-51.0) Mean Corpuscular Volume 80.6 FL (80.0-100.0) Mean Corpuscular Hemoglobin 27.3 PG (27.0-34.0) Mean Corpuscular Hemoglobin Concent 33.8 % (32.0-36.0) Red Cell Distribution Width 15.1 % (11.6-17.2) Platelet Count 164 TH/MM3 (150-450) Mean Platelet Volume 7.7 FL (7.0-11.0) CBC Comment AUTO DIFF Differential Total Cells Counted 100 Neutrophils % (Manual) 93 % (16-70) Band Neutrophils % 4 % (0-6) Monocytes % 3 % (0-8) Neutrophils # (Manual) 21.9 TH/MM3 (1.8-7.7) Nucleated Red Blood Cells 2 /100 WBC (0-0) Differential Comment FINAL DIFF MANUAL Platelet Estimate NORMAL (NORMAL) Platelet Morphology Comment NORMAL (NORMAL) Prothrombin Time 19.5 SEC (9.8-11.6) Prothromb Time International Ratio 1.7 RATIO Activated Partial Thromboplast Time 53.3 SEC (24.3-30.1) Blood Urea Nitrogen 64 MG/DL (7-18) Creatinine 3.98 MG/DL (0.60-1.30) Random Glucose 177 MG/DL (74-106) Total Protein 3.9 GM/DL (6.4-8.2) Albumin 1.2 GM/DL (3.4-5.0) Calcium Level LESS THAN 5.0 MG/DL Phosphorus Level 4.7 MG/DL (2.5-4.9) Magnesium Level 1.8 MG/DL (1.5-2.5) Alkaline Phosphatase 124 U/L (45-117) Aspartate Amino Transf (AST/SGOT) 71 U/L (15-37) Alanine Aminotransferase (ALT/SGPT) 38 U/L (12-78) Total Bilirubin 1.6 MG/DL (0.2-1.0) Sodium Level 120 MEQ/L (136-145) Potassium Level 4.1 MEQ/L (3.5-5.1) Chloride Level 79 MEQ/L (98-107) Carbon Dioxide Level 26.9 MEQ/L (21.0-32.0) Anion Gap 14 MEQ/L (5-15) Estimat Glomerular Filtration Rate 15 ML/MIN (>89) Protein Corrected Calcium 6.3 MG/DL (8.5-10.1) Lactic Acid Level 4.2 mmol/L (0.4-2.0) Result Diagram: 09/08/17 0530 09/08/17 0530 Procedures INTUBATION 09/04/17 Right subclavian line 09/04/17 Art line 09/04/17 . Assessment and Plan Disease Oriented Problem List: (1) multisystem organ failure (2) septic shock, pneumonia (3) respiratory failure (4) GI bleeding Comment: Source undetermined (5) rapidly progressive RENAL FAILURE, with acidosis (6) history of CVA, with aphasia and dysphagia (7) history of dementia (8) chronic atrial fibrillation, recently on Coumadin (9) diabetes type 2 (10) CAD, history of CABG (11) peripheral neuropathy (12) peripheral vascular disease, status post stent left leg Symptom Scale: (1) pain 0-10 Scale: Unable to quantify (2) dyspnea 0-10 Scale: Unable to quantify Pertinent Non-Medical Issues Psychosocial: Originally from [place]. Served in the [employer], , no children, lives with significant other Ms. Pineda the past 14 years. Spiritual: The patient was raised Alevism, but he is said now "to not like them at all." The patient's significant other Ameena Pineda and her daughter believe that the patient would want a tar kettle runner to come by to visit him. Legal: The patient lacks capacity for decision-making, and he will not regain that capacity. The only potential family is a sister, but there is been no contact for many years and no one knows her name or what state she may reside in. Therefore, the proxy decision-maker is the patient's long time significant other Ameena Pineda. Ethical issues impacting care: None . Important Contacts Significant other and proxy decision-maker Ameena Pineda: Home: Ms. Pineda's daughter Riana Harmon: [phone] Ms. Pineda's son Otto Pineda: [phone] . Prognosis This patient is terminal, with multisystem organ failure and ongoing shock, acidosis. . Code Status: Alternative Code (intubation only) Plan * ALTERNATE CODE (intubation only) * DECISION-MAKING: The patient lacks capacity for decision-making, and he will not regain that capacity. The only potential family is a sister, but there is been no contact for many years and no one knows her name or what state she may reside in. Therefore, the proxy decision-maker is the patient's long time significant other Ameena Pineda. * GOALS: Ensuring comfort while awaiting . * SYMPTOMS: The patient remains on the ventilator and fentanyl, and has no apparent or obvious pain or dyspnea at this time. * I anticipate in the upcoming hours.. * Palliative Care will continue to follow this patient during this hospitalization. . Time Spent Total Floor Time (mins): 38 Face to Face Time (mins): 10 >50% Counseling/Coord of Care: Yes (d/w RN) Attestation To help prompt me to consider important information that might be impacting today's encounter and assessment, information from prior notes written by myself or my colleagues may have been "brought forward" into today's note. My signature on this note, however, is an attestation that I personally performed the exam, history, and/or decision-making noted today, and, unless otherwise indicated, the interactions with patient, family, and staff as well as the review of records all occurred today. I also attest that the listed assessment and stated plan reflect my best clinical judgment today based on the combination of historical information, prior notes, and today's exam/ interactions. When time spent is documented, it refers only to time spent today by the signer, or if indicated, combined time spent today by collaborating physician/nurse practitioner. Mary Rodriguez MD Sep 08, 2017 14:37
[2017-09-08] MEDS ORDERED: SODIUM CHLORIDE 1 GRAM TAB PO ONE (15:00)
[2017-09-08] MEDS: SODIUM CHLOR 0.9% 1000 ML INJ 1,000 ML IV SCH (15:10)
[2017-09-08] MEDS: ZINC SULFATE 220 MG CAP PEG SCH (21:35)
[2017-09-09] VITALS (20 sets, daily range): BP systolic 102–167; BP diastolic 53–75; PULSE 88–119; RESP 16–20; TEMP 97.7–98.9; O2SAT 96–99
[2017-09-09] MEDS: SODIUM CHLOR 0.9% 1000 ML INJ 1,000 ML IV SCH ×3 (00:20→20:50)
[2017-09-09] MEDS: metroNIDAZOLE 500 MG INJ 100 ML IV SCH ×3 (00:20→17:15)
[2017-09-09] MEDS: LINEZOLID 600 MG PREMIX 300 ML IV SCH ×2 (03:21→15:50)
[2017-09-09] MEDS: fentaNYL DRIP 250 ML IV PRN ×3 (03:21→21:55)
[2017-09-09] MEDS: INSULIN ASPART SUPPLEMENTAL SCALE SQ SCH ×5 (03:22→20:00)
[2017-09-09] MEDS: PHENYLEPHRINE INJ 40 MG in SODIUM CHLORID 0.9% 500 ML INJ 496 ML IV PRN (03:57)
[2017-09-09] MEDS: CHLORHEXIDINE GLUCONATE 2 % 1 PACK (2 CLOTHS) TOP SCH (04:00)
[2017-09-09] MEDS: RESP: ALBUTEROL 2.5 MG/IPRATROPIUM 0.5 MG NEB (SCH) NEB ×3 (04:32→15:27)
[2017-09-09] MEDS: HYDROCORTISONE SOD SUCCINATE 100 MG VIAL IV SCH ×3 (04:40→21:55)
[2017-09-09 05:06] LABS: HEMATOCRIT 21.6 % (39.0-51.0); MEAN CELL VOLUME 81.3 FL (80.0-100.0); MEAN CORPUSCULAR HEMOGLOBIN 28.9 PG (27.0-34.0); MEAN CORPUSCULAR HGB CONC 35.6 % (32.0-36.0); PLATELET COUNT 128 TH/MM3 (150-450); RED BLOOD COUNT 2.66 MIL/MM3 (4.50-5.90); RED CELL DISTRIBUTION WIDTH 15.4 % (11.6-17.2)
[2017-09-09 05:12] LABS: HEMO FLAGS AUTO DIFF
[2017-09-09 05:32] LABS: MAGNESIUM 1.8 MG/DL (1.5-2.5); POTASSIUM 3.6 MEQ/L (3.5-5.1); TOTAL BILIRUBIN ADULT 2.1 MG/DL (0.2-1.0)
[2017-09-09 05:40] LABS: APTT (PATIENT) 43.5 SEC (24.3-30.1); INTERNATIONAL NORMALIZED RATIO 1.3 RATIO; PROTHROMBIN TIME - PATIENT 15.1 SEC (9.8-11.6)
[2017-09-09] MEDS: PROPOFOL 1000 MG/100 ML INJ 100 ML IV PRN ×2 (05:50→15:57)
[2017-09-09 05:54] LABS: CALCIUM-PROTEIN CORRECTED 6.5 MG/DL (8.5-10.1)
--- NOTE | 2017-09-09 06:06 | RADRPT ---
EXAM DATE/TIME: 09/09/2017 04:06 [place] COMPARISON: CHEST SINGLE AP, September 07, 2017, 4:12. INDICATIONS : Shortness of breath, possible pulmonary disease. MEDICAL HISTORY : Cardiovascular disease. Diabetes mellitus type II. Hypertension. A-Fib SURGICAL HISTORY : CABG. ENCOUNTER: Subsequent ACUITY: 4 - 6 days PAIN SCORE: 0/10 LOCATION: Bilateral chest FINDINGS: The cardiac silhouette is enlarged in transverse diameter. Support lines and tubes are in satisfactor y position. There are findings of congestive heart failure with interstitial and alveolar opacity ascencion aterally. Moderate size bilateral pleural effusions are identified. CONCLUSION: 1. Cardiomegaly and findings of congestive heart failure. There has been no significant change when c ompared to the prior exam. Pastor London MD on September 09, 2017 at 6:04 Board Certified Radiologist. This report was verified electronically.
[2017-09-09 07:42] LABS: BANDS 5 % (0-6); METAMYELOCYTES 1 % (0-1); WBC DIFF SAMPLE 100
[2017-09-09 07:43] LABS: NEUTROPHIL # MANUAL DIFF 26.7 TH/MM3 (1.8-7.7); POLYS (SEG NEUTROPHILS) 93 % (16-70)
[2017-09-09 07:44] LABS: PLATELET ESTIMATE SMEAR LOW (NORMAL); PLATELET MORPHOLOGY NORMAL (NORMAL)
[2017-09-09 07:45] LABS: SCAN/DIFF FINAL DIFF MANUAL; TOXIC GRANULATION 1+ (NORMAL)
[2017-09-09] MEDS: AMIODARONE INJ 450 MG in DEXTROSE 5% IN WATE(EXCEL) INJ 250 ML IV PRN ×4 (08:18→23:53)
[2017-09-09] MEDS: CHLORHEXIDINE 0.12% (ORAL KIT) 15 ML CUP MT SCH ×2 (08:20→19:34)
[2017-09-09] MEDS: MUPIROCIN 2% OINT 1 APPLIC/GM SYR EACH NARE SCH ×2 (08:21→20:48)
[2017-09-09] MEDS: PANTOPRAZOLE SODIUM 40 MG VIAL IV PUSH SCH ×2 (08:21→20:48)
[2017-09-09] MEDS: SODIUM CHLORIDE 0.9% FLUSH 10 ML FLUSH IV FLUSH SCH ×2 (08:21→20:48)
[2017-09-09] MEDS: DOCUSATE SODIUM 50 MG/SENNA 8.6 MG TAB PO SCH ×2 (08:22→20:50)
[2017-09-09] MEDS: EZETIMIBE 10 MG TAB PEG SCH (08:22)
[2017-09-09] MEDS: SODIUM CHLORIDE 1 GRAM TAB PO SCH (08:22)
[2017-09-09] MEDS: ARTIFICIAL TEARS OPTH SOLN 15 ML BTL EACH EYE SCH ×3 (08:23→17:15)
[2017-09-09] MEDS: LEVOFLOXACIN 750 MG PREMIX INJ 150 ML IV SCH (12:37)
--- NOTE | 2017-09-09 13:39 | HHI.CCPN ---
Subjective Remarks/Hospital Course 82-year-old gentleman with past medical history of dementia, status post CVA with baseline aphasia, dysphasia and PEG, DM, HTN was sent here from [facility] because he had vomited bright red blood and also had blood from rectum today. He was also chronic respiratory failure on 2 L nasal cannula and usually sats close to 94%. Patient has no family members however his next of can and long time friend requested patient to be a full code and he was intubated for an airway protection and hypoxemia by ED attending. CCM re eval at 08.30: Worsening septic shock. Worsening hypoxia, now on 100% FiO2. Showing agonal breathing on the ventilator TV increased to 600, PEEP increased to 10. Kalin-Synephrine started to keep map above 65, additional 1 L fluid bolus given. Receiving sedation after blood pressure is improved. CT of the chest did show extensive bibasilar pneumonia 09/05: Showing some signs of clinical deterioration. Febrile at 102.5 BUN/ creatinine 54/2.6. It was 36/0.9 yesterday. Urine output 625 mill in 24 hours. Remains on Levophed 3 mcg/m and Kalin-Synephrine at 250 mcg/m. worsening metabolic acidosis and renal function makes prognosis guarded. Sputum culture with gram-positive cocci in pairs and clusters. Most likely MRSA-discussed with pharmacy to adjust vancomycin dose appropriately 09/06: Febrile. Minimal response on ventilator. Essentially anuric. In discussion with palliative care patient is currently actually cut intubation only with no escalation of care. MRSA in sputum and wound. Have dis continued vancomycin secondary to elevated creatinine. 09/07: Positive gag and corneal reflex otherwise unresponsive on the ventilator. Becoming more edematous. Extremities with mottling. Very poor outlook. 09/08: Tmax 100.9. Hemoglobin decreased to 6.6. Will transfuse 1 unit PRBCs today. Receiving 2 g calcium chloride 1 now. Actively dying. Subjective 09/09: Resting in bed in no acute distress. Less marked today. Continues with low-grade temperatures. Hemoglobin stable. Receiving calcium today. Objective Vital Signs Date Time Temp Pulse Resp B/P (MAP) Pulse Ox O2 Delivery O2 Flow Rate FiO2 09/09/17 12:45 97 50 09/09/17 10:00 88 09/09/17 08:18 123/62 09/09/17 04:00 98.6 20 Intake and Output 09/09/17 09/09/17 09/10/17 08:00 16:00 00:00 Intake Total 1750 ml Output Total 450 ml Balance 1300 ml Result Diagram: 09/09/17 0446 09/09/17 0446 Other Results Microbiology Date/Time Source Procedure Growth Status 09/04/17 00:40 Blood Peripheral Aerobic Blood Culture - Final NO GROWTH IN 5 DAYS Complete 09/04/17 00:40 Blood Peripheral Anaerobic Blood Culture - Final NO GROWTH IN 5 DAYS Complete 09/04/17 08:55 Sputum Endotracheal Gram Stain - Final Complete 09/04/17 08:55 Sputum Culture - Final S. Aureus Mrsa Complete 09/05/17 09:00 Wound Other Gram Stain - Final Complete 09/05/17 09:00 Wound Culture - Final S. Aureus Mrsa Lilian Glabrata Complete Imaging Last Impressions Chest X-Ray 09/09/17 0600 Signed Impressions: Service Date/Time: September 04:06 - CONCLUSION: 1. Cardiomegaly and findings of congestive heart failure. There has been no significant change when compared to the prior exam. Pastor London MD Renal Ultrasound 09/06/17 0000 Signed Impressions: Service Date/Time: Wednesday, September 06, 2017 18:21 - CONCLUSION: 1. No hydronephrosis is present. 2. There is a small left pleural effusion visualized. Amos Mcclain MD Head CT 09/04/17 0000 Signed Impressions: Service Date/Time: Monday, September 04, 2017 03:49 - CONCLUSION: Age- related and chronic ischemic change. No acute intracranial findings. Damion Monroy MD Chest CT 09/04/17 0000 Signed Impressions: Service Date/Time: Monday, September 04, 2017 03:55 - CONCLUSION: Moderate severity bilateral pulmonary consolidation most prominent at the dependent portions of lower lobes. Damion Monroy MD Abdomen/Pelvis CT 09/04/17 0000 Signed Impressions: Service Date/Time: Monday, September 04, 2017 03:55 - CONCLUSION: 1. Diffuse urinary bladder wall thickening. 2. Bilateral lower lobe pulmonary consolidation. 3. Nonobstructing left renal calculus. 4. Colonic diverticulosis with no evidence of acute diverticulitis. 5. Nonspecific diffuse mild gallbladder wall thickening. No pericholecystic inflammatory changes. Damion Monroy MD Objective Remarks GENERAL: 82-year-old male, critically ill currently orotracheally intubated SKIN: Diffuse today.patient today EYES: No scleral icterus. No injection or drainage. Pupils are about 2 mm bilaterally and minimally reactive. NECK: Supple, trachea midline. No JVD or lymphadenopathy. CARDIOVASCULAR: Tachycardia, RR. S1, S2. No S4. Without murmurs, gallops, or rubs. RESPIRATORY: Breath sounds equal bilaterally. Taking large TV. Diminished air entry at the bases with crackles. GASTROINTESTINAL: Abdomen soft, non-tender, nondistended. MUSCULOSKELETAL: 2+ peripheral edema NEURO: The patient is sedated and intubated. Only slight withdrawal to pain bilateral upper looks really. Positive gag. Positive corneal reflex. Patient is on sedation Assessment to: Continue Vascular Central Line Catheter: Yes Assessment to: Continue Date of Insertion: Sep 04, 2017 Line: Central Venous Catheter Side: Right Location: Subclavian A/P Assessment and Plan Neuro: Metabolic encephalopathy History of CVA Dementia - Currently sedation with propofol drip at 15 mg/kg minutes and fentanyl drip at 250 mics grams an hour for sedation/analgesia while intubated - Goal of RASS -2 - Daily sedation vacation only when the respiratory status and mental status improves RESP; Acute on chronic hypoxemic respiratory failure Severe bilateral pneumonia - Intubated for airway protection, and severe pneumonia - PRVC 20/600/0.9/10/50 -Ventilator bundle - CXR and ABG daily -Albuterol/ipratropium aerosols every 6 hours with albuterol aerosols every 2 hours. Dyspnea - Stress dose hydrocortisone 100 mg IV every 8 hours CVS: Septic shock Atrial fibrillation with RVR History of atrial fibrillation Dyslipidemia - On norepinephrine at 2 mcg/m and phenylephrine at 60 mg/m to keep map above 65 , - Received 3 L fluid boluses after admission. - Currently on sterile water with 3 ampules of bicarbonate at 150 cc an hour - Home dose of digoxin 0.25 mill grams daily will be held in light of acute kidney injury. Recheck digoxin level in a.m /. was 1.4 - Amiodarone gtt at maintenance dose 0.5 mg per minute On ezetimibe 10 mg daily for dyslipidemia. Holding metoprolol 50 mg twice daily in light of hypotension/vasopressor use No escalation of vasopressor use. GI: GI bleed -Pantoprazole 40 mg IV twice a day - Monitor H&H, Transfuse when necessary to keep hemoglobin above 8 - GI consulted- EGD when stable last neurologic recovery. They have signed off - PEG tube in place some erythema. We'll start on low-dose Nepro 10 cc an hour ID: Septic shock Bilateral pneumonia PEG tube infection - Follow-up on blood and sputum culture. Sputum Gram stain and wound from PEG tube shows MRSA - Continue metronidazole and levofloxacin. Discontinued vancomycin secondary to acute kidney injury. We'll add linezolid - Aggressive fluid resuscitation and pressors as above will not exceed current threshold HEME: Leukocytosis Normocytic anemia Chronic warfarin use Elevated INR Elevated PTT Holding warfarin 3 mg daily in light of GI bleed Monitor CBC daily. Follow trends Vitamin K 10 mg IV 1, recheck in AM. Transfuse 1 unit PRBCs today FEN: Hypocalcemia Hyponatremia 1 g calcium chloride 1 now. Recheck in a.m. Adjust IV fluids/vasopressors from D5 water to normal saline Sodium chloride tablets today. ENDO: Diabetes - Hold metformin 500 twice a day, acute kidney injury and insulin Glulisine 15 units at night and Humalog sliding scale - Insulin sliding scale high scale every 4 hours RENAL: Acute kidney injury Patient with minimal urine output. Very poor candidate for eye HD. Would not do CVVH or SLED at this time. Discussed with very poor prognosis. Will not consult nephrology due to very poor prognosis DVT GI prophylaxis - Teds SCDs -Pantoprazole IV twice a day - No pharmacological DVT prophylaxis due to GI bleed Level III follow-up Plan is no escalation of care. Will transfuse 1 unit PRBCs today however. No additional vasopressors. No consultation to nephrology for possible hemodialysis. Discussed with . She is aware and understands. She is hoping for miracle and we will readjust goals of care if patient shows any improvement. However she appears realistic about ultimate outcome Steve Richmond MD Sep 09, 2017 13:39
[2017-09-09] MEDS ORDERED: SODIUM CHLORIDE 1 GRAM TAB PO ONE (13:45)
[2017-09-09] MEDS ORDERED: CALCIUM CHLORIDE INJ 1 GM in SODIUM CHLORIDE 0.9% INJ 100 ML IV ONE (14:00)
--- NOTE | 2017-09-09 15:10 | HHI.HCPN ---
Reason for visit a. To assist with evaluation and management of symptoms including: Dyspnea , pain b. To assist medical decision maker(s) with: better understanding of current medical conditions; weighing benefits/burdens of medical treatment options; making medical treatment decisions. . Subjective/Interval History INTERVAL NOTE: The patient remains unresponsive, and continues to have persistent low-grade fever. Mottling in his legs has resolved for now.. He remains essentially anuric. His white count is 27, hemoglobin 7.7, sodium 122. He is receiving some calcium at this time; the chest x-ray continues to show evidence of CHF. . Family/friend interactions Ms. Pineda is present again and we spoke at length about "the up and down" course that the patient is taking. She understands his body continues to fail overall, and she wants to continue focusing on making sure he is not suffering. . Advance Directives Living Will: Never completed Health Care Surrogate: Never completed Durable Power of Professional Services Specialist: Never completed Advance Directive Specifics Documented care wishes: The patient's significant other Ms. Pineda reports that the patient has told her on multiple occasions in the past couple years that he would not want to be kept alive on life support indefinitely. She is certain that he would not want to be resuscitated when his heart stops now. . Objective Vital Signs Date Time Temp Pulse Resp B/P (MAP) Pulse Ox O2 Delivery O2 Flow Rate FiO2 09/09/17 12:45 97 50 09/09/17 12:00 90 09/09/17 12:00 50 09/09/17 12:00 98.9 107 18 121/60 (80) 97 118/58 (78) 09/09/17 11:00 50 09/09/17 10:30 98 50 09/09/17 10:00 88 09/09/17 08:18 104 123/62 09/09/17 08:00 98.4 107 20 154/74 (100) 99 142/68 (92) 09/09/17 08:00 50 09/09/17 08:00 90 09/09/17 07:45 98 50 09/09/17 06:00 97 09/09/17 04:40 112 141/66 09/09/17 04:40 112 141/66 09/09/17 04:32 98 50 09/09/17 04:00 50 09/09/17 04:00 98.6 112 20 167/75 (105) 99 152/67 (95) 09/09/17 04:00 112 09/09/17 03:57 109 157/68 09/09/17 03:53 113 156/67 09/09/17 03:53 113 156/67 09/09/17 02:00 114 09/09/17 00:56 97 50 09/09/17 00:20 121 136/58 09/09/17 00:20 121 136/58 09/09/17 00:00 50 09/09/17 00:00 119 09/09/17 00:00 98.4 119 20 156/71 (99) 96 141/59 (86) 09/08/17 22:38 122 139/55 09/08/17 22:16 94 50 09/08/17 22:00 120 09/08/17 21:58 118 136/54 09/08/17 21:00 121 145/57 09/08/17 21:00 121 145/57 09/08/17 20:15 92 50 09/08/17 20:00 50 09/08/17 20:00 122 09/08/17 20:00 98.8 122 21 157/70 (99) 92 135/54 (81) 09/08/17 18:00 119 09/08/17 18:00 119 133/53 09/08/17 17:45 120 138/53 09/08/17 17:00 99.5 128 22 143/57 (85) 93 09/08/17 16:51 125 147/60 09/08/17 16:50 133 148/59 09/08/17 16:50 127 146/60 09/08/17 16:27 93 50 09/08/17 16:00 127 09/08/17 16:00 99.9 127 23 161/72 (101) 92 145/57 (86) 09/08/17 16:00 50 09/08/17 15:10 129 142/55 Intake & Output 09/09/17 09/09/17 07:00 19:00 Intake Total 2600 ml Output Total 450 ml Balance 2150 ml Intake IV Total 2600 ml Output Urine Total 200 ml Gastric Drainage Total 250 ml Physical Exam CONSTITUTIONAL/GENERAL: This is an ill-appearing, elderly patient, in mild respiratory distress. TUBES/LINES/DRAINS: ET tube, Lee, right subclavian, art line SKIN: No jaundice, rashes, or lesions. Sanguinous fluid leaking from the needle puncture sites in the arms. Skin temperature is fairly normal now CARDIOVASCULAR: Irregular, rapid rhythm without murmurs, gallops, or rubs. No JVD. Peripheral pulses not palpable in the feet/ankles. RESPIRATORY/CHEST: Symmetric, unlabored respirations. A few scattered rales and rhonchi. GASTROINTESTINAL: Abdomen soft, nondistended. No hepato-splenomegaly, or palpable masses. No guarding. Bowel sounds diminished. MUSCULOSKELETAL: Extremities without clubbing..No calf tenderness. Mottling in the lower legs and feet NEUROLOGICAL: Not responsive to voice, touch, or pain. PSYCHIATRIC: Unable to evaluate due to clinical condition .. Diagnostic Tests Laboratory Laboratory Tests Test 09/06/17 15:15 09/06/17 15:55 09/06/17 16:00 09/06/17 18:30 Urine Eosinophils NONE SEEN /HPF (NONE SEEN) Urine Random Creatinine 80.7 MG/DL Urine Random Sodium 14 MEQ/L White Blood Count 21.9 TH/MM3 (4.0-11.0) Red Blood Count 3.75 MIL/MM3 (4.50-5.90) Hemoglobin 10.3 GM/DL (13.0-17.0) Hematocrit 31.0 % (39.0-51.0) Mean Corpuscular Volume 82.7 FL (80.0-100.0) Mean Corpuscular Hemoglobin 27.4 PG (27.0-34.0) Mean Corpuscular Hemoglobin Concent 33.1 % (32.0-36.0) Red Cell Distribution Width 16.0 % (11.6-17.2) Platelet Count 177 TH/MM3 (150-450) Mean Platelet Volume 8.1 FL (7.0-11.0) Blood Gas Puncture Site ART LINE Blood Gas Patient Temperature 98.6 Blood Gas HCO3 20 mmol/L (22-26) Blood Gas Base Excess -5.1 mmol/L (-2-2) Blood Gas Oxygen Saturation 93 % (90-100) Arterial Blood pH 7.30 (7.380-7.420) Arterial Blood Partial Pressure CO2 43 mmHg (38-42) Arterial Blood Partial Pressure O2 74 mmHg (61-120) Arterial Blood Oxygen Content 13.3 Vol % (12.0-20.0) Arterial Blood Carboxyhemoglobin 1.0 % (0-4) Arterial Blood Methemoglobin 1.3 % (0-2) Blood Gas Hemoglobin 10.2 G/DL (12.0-16.0) Oxygen Delivery Device VENTILATOR Blood Gas Ventilator Setting PRVC/AC 600/20 Blood Gas Inspired Oxygen 50 % Prothrombin Time 76.0 SEC (9.8-11.6) Prothromb Time International Ratio 6.3 RATIO Activated Partial Thromboplast Time 63.9 SEC (24.3-30.1) Fibrinogen 579 mg/dL (227-377) Test 09/07/17 03:59 09/07/17 10:45 09/08/17 05:30 09/08/17 08:10 White Blood Count 25.5 TH/MM3 (4.0-11.0) 22.6 TH/MM3 (4.0-11.0) Red Blood Count 3.91 MIL/MM3 (4.50-5.90) 2.41 MIL/MM3 (4.50-5.90) Hemoglobin 10.6 GM/DL (13.0-17.0) 6.6 GM/DL (13.0-17.0) Hematocrit 31.6 % (39.0-51.0) 19.4 % (39.0-51.0) Mean Corpuscular Volume 80.9 FL (80.0-100.0) 80.6 FL (80.0-100.0) Mean Corpuscular Hemoglobin 27.2 PG (27.0-34.0) 27.3 PG (27.0-34.0) Mean Corpuscular Hemoglobin Concent 33.7 % (32.0-36.0) 33.8 % (32.0-36.0) Red Cell Distribution Width 15.5 % (11.6-17.2) 15.1 % (11.6-17.2) Platelet Count 190 TH/MM3 (150-450) 164 TH/MM3 (150-450) Mean Platelet Volume 7.7 FL (7.0-11.0) 7.7 FL (7.0-11.0) CBC Comment AUTO DIFF AUTO DIFF Differential Total Cells Counted 100 100 Neutrophils % (Manual) 90 % (16-70) 93 % (16-70) Band Neutrophils % 5 % (0-6) 4 % (0-6) Lymphocytes % 1 % (9-44) Monocytes % 1 % (0-8) 3 % (0-8) Neutrophils # (Manual) 25.0 TH/MM3 (1.8-7.7) 21.9 TH/MM3 (1.8-7.7) Metamyelocytes 3 % (0-1) Nucleated Red Blood Cells 1 /100 WBC (0-0) 2 /100 WBC (0-0) Differential Comment FINAL DIFF MANUAL FINAL DIFF MANUAL Toxic Granulation 1+ (NORMAL) Toxic Vacuolation PRESENT (NONE SEEN) Dohle Bodies PRESENT (NONE SEEN) Platelet Estimate NORMAL (NORMAL) NORMAL (NORMAL) Platelet Morphology Comment NORMAL (NORMAL) NORMAL (NORMAL) Blood Urea Nitrogen 64 MG/DL (7-18) 64 MG/DL (7-18) Creatinine 3.90 MG/DL (0.60-1.30) 3.98 MG/DL (0.60-1.30) Random Glucose 167 MG/DL (74-106) 177 MG/DL (74-106) Total Protein 4.4 GM/DL (6.4-8.2) 3.9 GM/DL (6.4-8.2) Albumin 1.3 GM/DL (3.4-5.0) 1.2 GM/DL (3.4-5.0) Calcium Level 5.6 MG/DL (8.5-10.1) LESS THAN 5.0 MG/DL Phosphorus Level 3.7 MG/DL (2.5-4.9) 4.7 MG/DL (2.5-4.9) Magnesium Level 1.6 MG/DL (1.5-2.5) 1.8 MG/DL (1.5-2.5) Alkaline Phosphatase 122 U/L (45-117) 124 U/L (45-117) Aspartate Amino Transf (AST/SGOT) 37 U/L (15-37) 71 U/L (15-37) Alanine Aminotransferase (ALT/SGPT) 29 U/L (12-78) 38 U/L (12-78) Total Bilirubin 1.1 MG/DL (0.2-1.0) 1.6 MG/DL (0.2-1.0) Sodium Level 121 MEQ/L (136-145) 120 MEQ/L (136-145) Potassium Level 3.8 MEQ/L (3.5-5.1) 4.1 MEQ/L (3.5-5.1) Chloride Level 83 MEQ/L (98-107) 79 MEQ/L (98-107) Carbon Dioxide Level 22.8 MEQ/L (21.0-32.0) 26.9 MEQ/L (21.0-32.0) Anion Gap 15 MEQ/L (5-15) 14 MEQ/L (5-15) Estimat Glomerular Filtration Rate 15 ML/MIN (>89) 15 ML/MIN (>89) Lactic Acid Level 4.5 mmol/L (0.4-2.0) 4.2 mmol/L (0.4-2.0) Protein Corrected Calcium 6.8 MG/DL (8.5-10.1) 6.3 MG/DL (8.5-10.1) Digoxin Level 1.3 NG/ML (0.8-2.0) Urine Osmolality 274 MOSM/KG (300-1300) Urine Random Sodium 13 MEQ/L Serum Osmolality 272 MOSM/KG (275-295) Uric Acid 7.9 MG/DL (2.6-7.2) Thyroid Stimulating Hormone 3rd Gen 0.910 uIU/ML (0.358-3.740) Prothrombin Time 19.5 SEC (9.8-11.6) Prothromb Time International Ratio 1.7 RATIO Activated Partial Thromboplast Time 53.3 SEC (24.3-30.1) Test 09/09/17 04:46 White Blood Count 27.0 TH/MM3 (4.0-11.0) Red Blood Count 2.66 MIL/MM3 (4.50-5.90) Hemoglobin 7.7 GM/DL (13.0-17.0) Hematocrit 21.6 % (39.0-51.0) Mean Corpuscular Volume 81.3 FL (80.0-100.0) Mean Corpuscular Hemoglobin 28.9 PG (27.0-34.0) Mean Corpuscular Hemoglobin Concent 35.6 % (32.0-36.0) Red Cell Distribution Width 15.4 % (11.6-17.2) Platelet Count 128 TH/MM3 (150-450) Mean Platelet Volume 7.5 FL (7.0-11.0) CBC Comment AUTO DIFF Differential Total Cells Counted 100 Neutrophils % (Manual) 93 % (16-70) Band Neutrophils % 5 % (0-6) Lymphocytes % 1 % (9-44) Neutrophils # (Manual) 26.7 TH/MM3 (1.8-7.7) Metamyelocytes 1 % (0-1) Differential Comment FINAL DIFF MANUAL Toxic Granulation 1+ (NORMAL) Platelet Estimate LOW (NORMAL) Platelet Morphology Comment NORMAL (NORMAL) Basophilic Stippling FAINT (NORMAL) Prothrombin Time 15.1 SEC (9.8-11.6) Prothromb Time International Ratio 1.3 RATIO Activated Partial Thromboplast Time 43.5 SEC (24.3-30.1) Fibrinogen 475 mg/dL (227-377) Blood Urea Nitrogen 69 MG/DL (7-18) Creatinine 3.89 MG/DL (0.60-1.30) Random Glucose 214 MG/DL (74-106) Total Protein 3.7 GM/DL (6.4-8.2) Albumin 1.1 GM/DL (3.4-5.0) Calcium Level 5.1 MG/DL (8.5-10.1) Phosphorus Level 4.2 MG/DL (2.5-4.9) Magnesium Level 1.8 MG/DL (1.5-2.5) Alkaline Phosphatase 135 U/L (45-117) Aspartate Amino Transf (AST/SGOT) 68 U/L (15-37) Alanine Aminotransferase (ALT/SGPT) 48 U/L (12-78) Total Bilirubin 2.1 MG/DL (0.2-1.0) Sodium Level 122 MEQ/L (136-145) Potassium Level 3.6 MEQ/L (3.5-5.1) Chloride Level 83 MEQ/L (98-107) Carbon Dioxide Level 25.0 MEQ/L (21.0-32.0) Anion Gap 14 MEQ/L (5-15) Estimat Glomerular Filtration Rate 15 ML/MIN (>89) Lactic Acid Level 1.5 mmol/L (0.4-2.0) Protein Corrected Calcium 6.5 MG/DL (8.5-10.1) Ammonia 23 MCMOL/L (11-32) Total Creatine Kinase 207 U/L (39-308) Result Diagram: 09/09/17 0446 09/09/17 0446 Imaging Last Impressions Chest X-Ray 09/09/17 0600 Signed Impressions: Service Date/Time: September 04:06 - CONCLUSION: 1. Cardiomegaly and findings of congestive heart failure. There has been no significant change when compared to the prior exam. Pastor London MD Renal Ultrasound 09/06/17 0000 Signed Impressions: Service Date/Time: Wednesday, September 06, 2017 18:21 - CONCLUSION: 1. No hydronephrosis is present. 2. There is a small left pleural effusion visualized. Amos Mcclain MD Head CT 09/04/17 0000 Signed Impressions: Service Date/Time: Monday, September 04, 2017 03:49 - CONCLUSION: Age- related and chronic ischemic change. No acute intracranial findings. Damion Monroy MD Chest CT 09/04/17 0000 Signed Impressions: Service Date/Time: Monday, September 04, 2017 03:55 - CONCLUSION: Moderate severity bilateral pulmonary consolidation most prominent at the dependent portions of lower lobes. Damion Monroy MD Abdomen/Pelvis CT 09/04/17 0000 Signed Impressions: Service Date/Time: Monday, September 04, 2017 03:55 - CONCLUSION: 1. Diffuse urinary bladder wall thickening. 2. Bilateral lower lobe pulmonary consolidation. 3. Nonobstructing left renal calculus. 4. Colonic diverticulosis with no evidence of acute diverticulitis. 5. Nonspecific diffuse mild gallbladder wall thickening. No pericholecystic inflammatory changes. Damion Monroy MD Procedures INTUBATION 09/04/17 Right subclavian line 09/04/17 Art line 09/04/17 . Assessment and Plan Disease Oriented Problem List: (1) multisystem organ failure (2) septic shock, pneumonia (3) respiratory failure (4) GI bleeding Comment: Source undetermined (5) rapidly progressive RENAL FAILURE, with acidosis (6) history of CVA, with aphasia and dysphagia (7) history of dementia (8) chronic atrial fibrillation, recently on Coumadin (9) diabetes type 2 (10) CAD, history of CABG (11) peripheral neuropathy (12) peripheral vascular disease, status post stent left leg Symptom Scale: (1) pain 0-10 Scale: Unable to quantify (2) dyspnea 0-10 Scale: Unable to quantify Pertinent Non-Medical Issues Psychosocial: Originally from [place]. Served in the [email or web address], , no children, lives with significant other Ms. Pineda the past 14 years. Spiritual: The patient was raised Anabaptism, but he is said now "to not like them at all." The patient's significant other Ameena Pineda and her daughter believe that the patient would want a inventory administrator to come by to visit him. Legal: The patient lacks capacity for decision-making, and he will not regain that capacity. The only potential family is a sister, but there is been no contact for many years and no one knows her name or what state she may reside in. Therefore, the proxy decision-maker is the patient's long time significant other Ameena Pineda. Ethical issues impacting care: None . Important Contacts Significant other and proxy decision-maker Ameena Pineda: Home: Ms. Pineda's daughter Riana Harmon: [phone] Ms. Pineda's son Otto Pineda: [phone] . Prognosis This patient is terminal, with multisystem organ failure and ongoing shock, acidosis. . Code Status: Alternative Code (intubation only) Plan * ALTERNATE CODE (intubation only) * DECISION-MAKING: The patient lacks capacity for decision-making, and he will not regain that capacity. The proxy decision-maker is the patient's long time significant other Ameena Pineda. * GOALS: Ensuring comfort while awaiting . * SYMPTOMS: The patient remains on the ventilator and fentanyl, and I have no additional medication recommendations at this time.. * We will continue supporting Mrs. Pineda... * Palliative Care will continue to follow this patient during this hospitalization. . Time Spent Total Floor Time (mins): 39 Face to Face Time (mins): 15 >50% Counseling/Coord of Care: Yes (d/w Dr. Richmond) Attestation To help prompt me to consider important information that might be impacting today's encounter and assessment, information from prior notes written by myself or my colleagues may have been "brought forward" into today's note. My signature on this note, however, is an attestation that I personally performed the exam, history, and/or decision-making noted today, and, unless otherwise indicated, the interactions with patient, family, and staff as well as the review of records all occurred today. I also attest that the listed assessment and stated plan reflect my best clinical judgment today based on the combination of historical information, prior notes, and today's exam/ interactions. When time spent is documented, it refers only to time spent today by the signer, or if indicated, combined time spent today by collaborating physician/nurse practitioner. Mary Rodriguez MD Sep 09, 2017 15:10
[2017-09-09] MEDS: ZINC SULFATE 220 MG CAP PEG SCH (20:48)
[2017-09-10] VITALS (18 sets, daily range): BP systolic 91–125; BP diastolic 47–61; PULSE 81–93; RESP 20; TEMP 97.5–98.4; O2SAT 94–99
[2017-09-10] MEDS: metroNIDAZOLE 500 MG INJ 100 ML IV SCH ×3 (00:55→16:36)
[2017-09-10] MEDS: PROPOFOL 1000 MG/100 ML INJ 100 ML IV PRN ×3 (03:37→18:45)
[2017-09-10] MEDS: CHLORHEXIDINE GLUCONATE 2 % 1 PACK (2 CLOTHS) TOP SCH (04:00)
[2017-09-10] MEDS: INSULIN ASPART SUPPLEMENTAL SCALE SQ SCH ×6 (04:00→20:00)
[2017-09-10] MEDS: LINEZOLID 600 MG PREMIX 300 ML IV SCH ×2 (04:19→15:50)
[2017-09-10] MEDS: PHENYLEPHRINE INJ 40 MG in SODIUM CHLORID 0.9% 500 ML INJ 496 ML IV PRN ×2 (04:36→16:34)
[2017-09-10] MEDS: HYDROCORTISONE SOD SUCCINATE 100 MG VIAL IV SCH ×3 (05:51→21:39)
[2017-09-10 05:55] LABS: MEAN CELL VOLUME 81.4 FL (80.0-100.0); MEAN CORPUSCULAR HEMOGLOBIN 28.5 PG (27.0-34.0); MEAN CORPUSCULAR HGB CONC 34.9 % (32.0-36.0); PLATELET COUNT 96 TH/MM3 (150-450); RED BLOOD COUNT 2.48 MIL/MM3 (4.50-5.90); RED CELL DISTRIBUTION WIDTH 15.5 % (11.6-17.2); WHITE BLOOD COUNT 25.6 TH/MM3 (4.0-11.0)
[2017-09-10 06:02] LABS: REVIEW FLAG FINAL
[2017-09-10 06:06] LABS: HEMATOCRIT 20.2 % (39.0-51.0)
[2017-09-10 07:11] LABS: BICARBONATE 26.4 MEQ/L (21.0-32.0); MAGNESIUM 1.9 MG/DL (1.5-2.5); POTASSIUM 3.6 MEQ/L (3.5-5.1); TOTAL BILIRUBIN ADULT 1.2 MG/DL (0.2-1.0)
[2017-09-10 07:23] LABS: CALCIUM-PROTEIN CORRECTED 6.8 MG/DL (8.5-10.1)
[2017-09-10] MEDS: fentaNYL DRIP 250 ML IV PRN ×2 (08:39→18:14)
[2017-09-10] MEDS: MUPIROCIN 2% OINT 1 APPLIC/GM SYR EACH NARE SCH ×2 (08:40→20:37)
[2017-09-10] MEDS: PANTOPRAZOLE SODIUM 40 MG VIAL IV PUSH SCH ×2 (08:41→20:37)
[2017-09-10] MEDS: EZETIMIBE 10 MG TAB PEG SCH (08:41)
[2017-09-10] MEDS: SODIUM CHLORIDE 1 GRAM TAB PO SCH (08:41)
[2017-09-10] MEDS: DOCUSATE SODIUM 50 MG/SENNA 8.6 MG TAB PO SCH ×2 (08:41→20:37)
[2017-09-10] MEDS: SODIUM CHLORIDE 0.9% FLUSH 10 ML FLUSH IV FLUSH SCH ×2 (08:42→20:38)
[2017-09-10] MEDS: CHLORHEXIDINE 0.12% (ORAL KIT) 15 ML CUP MT SCH ×2 (08:43→20:37)
[2017-09-10] MEDS: SODIUM CHLOR 0.9% 1000 ML INJ 1,000 ML IV SCH ×2 (08:44→16:41)
[2017-09-10] MEDS: ARTIFICIAL TEARS OPTH SOLN 15 ML BTL EACH EYE SCH ×3 (08:44→16:46)
--- NOTE | 2017-09-10 10:29 | HHI.CCPN ---
Subjective Remarks/Hospital Course 82-year-old gentleman with past medical history of dementia, status post CVA with baseline aphasia, dysphasia and PEG, DM, HTN was sent here from [facility] because he had vomited bright red blood and also had blood from rectum today. He was also chronic respiratory failure on 2 L nasal cannula and usually sats close to 94%. Patient has no family members however his next of can and long time friend requested patient to be a full code and he was intubated for an airway protection and hypoxemia by ED attending. [facility] re eval at 08.30: Worsening septic shock. Worsening hypoxia, now on 100% FiO2. Showing agonal breathing on the ventilator TV increased to 600, PEEP increased to 10. Kalin-Synephrine started to keep map above 65, additional 1 L fluid bolus given. Receiving sedation after blood pressure is improved. CT of the chest did show extensive bibasilar pneumonia 09/05: Showing some signs of clinical deterioration. Febrile at 102.5 BUN/ creatinine 54/2.6. It was 36/0.9 yesterday. Urine output 625 mill in 24 hours. Remains on Levophed 3 mcg/m and Kalin-Synephrine at 250 mcg/m. worsening metabolic acidosis and renal function makes prognosis guarded. Sputum culture with gram-positive cocci in pairs and clusters. Most likely MRSA-discussed with pharmacy to adjust vancomycin dose appropriately 09/06: Febrile. Minimal response on ventilator. Essentially anuric. In discussion with palliative care patient is currently actually cut intubation only with no escalation of care. MRSA in sputum and wound. Have dis continued vancomycin secondary to elevated creatinine. 09/07: Positive gag and corneal reflex otherwise unresponsive on the ventilator. Becoming more edematous. Extremities with mottling. Very poor outlook. 09/08: Tmax 100.9. Hemoglobin decreased to 6.6. Will transfuse 1 unit PRBCs today. Receiving 2 g calcium chloride 1 now. Actively dying. 09/09: Resting in bed in no acute distress. Less marked today. Continues with low-grade temperatures. Hemoglobin stable. Receiving calcium today. Subjective 09/10: Low-grade fevers. Off norepinephrine. Currently on low-dose Kalin- Synephrine. Minimal urine output. High tube feed residuals. Objective Vital Signs Date Time Temp Pulse Resp B/P (MAP) Pulse Ox O2 Delivery O2 Flow Rate FiO2 09/10/17 08:59 99 40 09/10/17 06:00 83 09/10/17 04:36 97/52 09/10/17 04:00 97.7 20 09/10/17 00:03 Ventilator Intake and Output 09/10/17 09/10/17 09/11/17 08:00 16:00 00:00 Intake Total 900 ml Output Total 450 ml Balance 450 ml Result Diagram: 09/10/17 0540 09/10/17 0540 Other Results Microbiology Date/Time Source Procedure Growth Status 09/04/17 00:40 Blood Peripheral Aerobic Blood Culture - Final NO GROWTH IN 5 DAYS Complete 09/04/17 00:40 Blood Peripheral Anaerobic Blood Culture - Final NO GROWTH IN 5 DAYS Complete 09/04/17 08:55 Sputum Endotracheal Gram Stain - Final Complete 09/04/17 08:55 Sputum Culture - Final S. Aureus Mrsa Complete 09/05/17 09:00 Wound Other Gram Stain - Final Complete 09/05/17 09:00 Wound Culture - Final S. Aureus Mrsa Lilian Glabrata Complete Imaging Last Impressions Chest X-Ray 09/09/17 0600 Signed Impressions: Service Date/Time: September 04:06 - CONCLUSION: 1. Cardiomegaly and findings of congestive heart failure. There has been no significant change when compared to the prior exam. Pastor London MD Renal Ultrasound 09/06/17 0000 Signed Impressions: Service Date/Time: Wednesday, September 06, 2017 18:21 - CONCLUSION: 1. No hydronephrosis is present. 2. There is a small left pleural effusion visualized. Amos Mcclain MD Head CT 09/04/17 0000 Signed Impressions: Service Date/Time: Monday, September 04, 2017 03:49 - CONCLUSION: Age- related and chronic ischemic change. No acute intracranial findings. Damion Monroy MD Chest CT 09/04/17 0000 Signed Impressions: Service Date/Time: Monday, September 04, 2017 03:55 - CONCLUSION: Moderate severity bilateral pulmonary consolidation most prominent at the dependent portions of lower lobes. Damion Monroy MD Abdomen/Pelvis CT 09/04/17 0000 Signed Impressions: Service Date/Time: Monday, September 04, 2017 03:55 - CONCLUSION: 1. Diffuse urinary bladder wall thickening. 2. Bilateral lower lobe pulmonary consolidation. 3. Nonobstructing left renal calculus. 4. Colonic diverticulosis with no evidence of acute diverticulitis. 5. Nonspecific diffuse mild gallbladder wall thickening. No pericholecystic inflammatory changes. Damion Monroy MD Objective Remarks GENERAL: 82-year-old male, critically ill currently orotracheally intubated SKIN: Diffuse today.patient today EYES: No scleral icterus. No injection or drainage. Pupils are about 2 mm bilaterally and minimally reactive. NECK: Supple, trachea midline. No JVD or lymphadenopathy. CARDIOVASCULAR: Tachycardia, RR. S1, S2. No S4. Without murmurs, gallops, or rubs. RESPIRATORY: Breath sounds equal bilaterally. Taking large TV. Diminished air entry at the bases with crackles. GASTROINTESTINAL: Abdomen soft, non-tender, nondistended. MUSCULOSKELETAL: 2+ peripheral edema NEURO: The patient is sedated and intubated. Only slight withdrawal to pain bilateral upper looks really. Positive gag. Positive corneal reflex. Patient is on sedation Vascular Central Line Catheter: Yes Assessment to: Continue Date of Insertion: Sep 04, 2017 Line: Central Venous Catheter Side: Right Location: Subclavian A/P Assessment and Plan Neuro: Metabolic encephalopathy History of CVA Dementia - Currently sedation with propofol drip at 15 mg/kg minutes and fentanyl drip at 250 mics grams an hour for sedation/analgesia while intubated - Goal of RASS -2 - Daily sedation vacation only when the respiratory status and mental status improves RESP; Acute on chronic hypoxemic respiratory failure Severe bilateral pneumonia - Intubated for airway protection, and severe pneumonia - PRVC 20/600/0.9/10/50 -Ventilator bundle - CXR and ABG daily -Albuterol/ipratropium aerosols every 6 hours with albuterol aerosols every 2 hours. Dyspnea - Stress dose hydrocortisone 100 mg IV every 8 hours CVS: Septic shock Atrial fibrillation with RVR History of atrial fibrillation Dyslipidemia - On norepinephrine at 2 mcg/m and phenylephrine at 60 mg/m to keep map above 65 , - Received 3 L fluid boluses after admission. - Currently on sterile water with 3 ampules of bicarbonate at 150 cc an hour - Home dose of digoxin 0.25 mill grams daily will be held in light of acute kidney injury. Recheck digoxin level in a.m 09/07. was 1.4 - Amiodarone gtt at maintenance dose 0.5 mg per minute On ezetimibe 10 mg daily for dyslipidemia. Holding metoprolol 50 mg twice daily in light of hypotension/vasopressor use No escalation of vasopressor use. GI: GI bleed -Pantoprazole 40 mg IV twice a day - Monitor H&H, Transfuse when necessary to keep hemoglobin above 8 - GI consulted- EGD when stable last neurologic recovery. They have signed off - PEG tube in place some erythema. We'll start on low-dose Nepro 10 cc an hour ID: Septic shock Bilateral pneumonia PEG tube infection - Follow-up on blood and sputum culture. Sputum Gram stain and wound from PEG tube shows MRSA - Continue metronidazole and levofloxacin. Micafungin 100 mg IV daily. Discontinued vancomycin secondary to acute kidney injury. Continue with linezolid - Aggressive fluid resuscitation and pressors as above will not exceed current threshold HEME: Leukocytosis Normocytic anemia Chronic warfarin use Elevated INR Elevated PTT Holding warfarin 3 mg daily in light of GI bleed Monitor CBC daily. Follow trends Most likely need transfusion of blood products in a.m. 11/ FEN: Hypocalcemia Hyponatremia 2 g calcium chloride 1 now. Recheck in a.m. Adjust IV fluids/vasopressors from D5 water to normal saline Sodium chloride tablets today. ENDO: Diabetes - Hold metformin 500 twice a day, acute kidney injury and insulin Glulisine 15 units at night and Humalog sliding scale - Insulin sliding scale high scale every 4 hours RENAL: Acute kidney injury Patient with minimal urine output. Very poor candidate for eye HD. Would not do CVVH or SLED at this time. Discussed with very poor prognosis. Will not consult nephrology due to very poor prognosis DVT GI prophylaxis - Teds SCDs -Pantoprazole IV twice a day - No pharmacological DVT prophylaxis due to GI bleed Level III follow-up Plan is no escalation of care. Will transfuse 1 unit PRBCs today however. No additional vasopressors. No consultation to nephrology for possible hemodialysis. Discussed with . She is aware and understands. She is hoping for miracle and we will readjust goals of care if patient shows any improvement. However she appears realistic about ultimate outcome Steve Richmond MD Sep 10, 2017 10:29
[2017-09-10] MEDS ORDERED: POTASSIUM CHLOR 20 MEQ PREMIX 100 ML IV ONE (10:45)
[2017-09-10] MEDS ORDERED: CALCIUM CHLORIDE INJ 2 GM in SODIUM CHLORIDE 0.9% INJ 100 ML IV ONE (12:00)
[2017-09-10] MEDS ORDERED: BUMETANIDE INJ 1 MG/4 ML VIAL IV PUSH ONE (12:00)
[2017-09-10] MEDS: ALBUMIN 25% INJ 100 ML IV SCH (12:09)
[2017-09-10] MEDS ORDERED: SODIUM CHLORIDE 1 GRAM TAB PO ONE (13:00)
[2017-09-10] MEDS: METOCLOPRAMIDE HCL 10 MG/2 ML VIAL IV PUSH SCH ×2 (13:03→21:39)
[2017-09-10] MEDS: MICAFUNGIN INJ 100 MG in SODIUM CHLORIDE 0.9% INJ 100 ML IV SCH (14:06)
[2017-09-10] MEDS: AMIODARONE INJ 450 MG in DEXTROSE 5% IN WATE(EXCEL) INJ 250 ML IV PRN ×2 (15:47)
[2017-09-10] MEDS: ZINC SULFATE 220 MG CAP PEG SCH (20:37)
[2017-09-11] VITALS (27 sets, daily range): BP systolic 94–168; BP diastolic 46–75; PULSE 56–84; RESP 9–26; TEMP 94.3–98.2; O2SAT 95–100
[2017-09-11] MEDS: metroNIDAZOLE 500 MG INJ 100 ML IV SCH ×3 (00:01→16:29)
[2017-09-11] MEDS: ALBUMIN 25% INJ 100 ML IV SCH ×3 (00:01→22:17)
[2017-09-11] MEDS: INSULIN ASPART SUPPLEMENTAL SCALE SQ SCH ×6 (00:01→20:00)
[2017-09-11] MEDS: fentaNYL DRIP 250 ML IV PRN (03:33)
[2017-09-11] MEDS: PROPOFOL 1000 MG/100 ML INJ 100 ML IV PRN (03:33)
[2017-09-11] MEDS: CHLORHEXIDINE GLUCONATE 2 % 1 PACK (2 CLOTHS) TOP SCH ×2 (04:00→20:06)
[2017-09-11] MEDS: LINEZOLID 600 MG PREMIX 300 ML IV SCH ×2 (04:56→15:16)
[2017-09-11] MEDS: METOCLOPRAMIDE HCL 10 MG/2 ML VIAL IV PUSH SCH ×3 (05:04→22:09)
[2017-09-11] MEDS: HYDROCORTISONE SOD SUCCINATE 100 MG VIAL IV SCH ×3 (05:04→22:09)
--- NOTE | 2017-09-11 05:12 | RADRPT ---
EXAM DATE/TIME: 09/11/2017 04:12 [facility] COMPARISON: CHEST SINGLE AP, September 09, 2017, 4:06. INDICATIONS : Respiratory failure, GI bleed MEDICAL HISTORY : Cardiovascular disease. Diverticulitis. Hypertension. A-Fib SURGICAL HISTORY : CABG. ENCOUNTER: Subsequent ACUITY: 1 week PAIN SCORE: Non-responsive. LOCATION: Bilateral chest FINDINGS: The cardiac silhouette is enlarged in transverse diameter. There are findings of congestive heart shukri lure with interstitial and alveolar opacity bilaterally. Moderate size bilateral pleural effusions ar e identified. CONCLUSION: 1. Cardiomegaly and findings of congestive heart failure. There has been no significant change when c ompared to the prior exam. Pastor London MD on September 11, 2017 at 5:10 Board Certified Radiologist. This report was verified electronically.
[2017-09-11 05:45] LABS: AUTOMATED NEUTROPHIL # 10.6 TH/MM3 (1.8-7.7); BASOPHIL % 0.2 % (0.0-2.0); LYMPH % 3.7 % (9.0-44.0); LYMPHOCYTE # 0.4 TH/MM3 (1.0-4.8); MEAN CELL VOLUME 81.3 FL (80.0-100.0); MEAN CORPUSCULAR HEMOGLOBIN 28.6 PG (27.0-34.0); MEAN CORPUSCULAR HGB CONC 35.2 % (32.0-36.0); MONO % 1.9 % (0.0-8.0); NEUT % 94.2 % (16.0-70.0); PLATELET COUNT 54 TH/MM3 (150-450); RED BLOOD COUNT 2.09 MIL/MM3 (4.50-5.90); WHITE BLOOD COUNT 11.3 TH/MM3 (4.0-11.0)
[2017-09-11 06:07] LABS: BICARBONATE 22.5 MEQ/L (21.0-32.0); MAGNESIUM 1.9 MG/DL (1.5-2.5); POTASSIUM 3.7 MEQ/L (3.5-5.1); TOTAL BILIRUBIN ADULT 1.3 MG/DL (0.2-1.0)
[2017-09-11] MEDS: SODIUM CHLOR 0.9% 1000 ML INJ 1,000 ML IV SCH ×2 (06:28→20:43)
[2017-09-11] MEDS: AMIODARONE INJ 450 MG in DEXTROSE 5% IN WATE(EXCEL) INJ 250 ML IV PRN ×2 (06:28)
[2017-09-11] MEDS: PHENYLEPHRINE INJ 40 MG in SODIUM CHLORID 0.9% 500 ML INJ 496 ML IV PRN (06:28)
[2017-09-11 06:32] LABS: CALCIUM-PROTEIN CORRECTED 7.1 MG/DL (8.5-10.1)
[2017-09-11 06:40] LABS: HEMO FLAGS AUTO DIFF
[2017-09-11] MEDS ORDERED: SODIUM CHLORIDE 1 GRAM TAB PO ONE (08:00)
[2017-09-11] MEDS: ARTIFICIAL TEARS OPTH SOLN 15 ML BTL EACH EYE SCH ×3 (08:42→17:17)
[2017-09-11] MEDS: SODIUM CHLORIDE 0.9% FLUSH 10 ML FLUSH IV FLUSH SCH ×2 (08:42→20:44)
[2017-09-11] MEDS: SODIUM CHLORIDE 1 GRAM TAB PO SCH (08:42)
[2017-09-11] MEDS: CHLORHEXIDINE 0.12% (ORAL KIT) 15 ML CUP MT SCH ×2 (08:42→20:00)
[2017-09-11] MEDS: EZETIMIBE 10 MG TAB PEG SCH (08:43)
[2017-09-11] MEDS: DOCUSATE SODIUM 50 MG/SENNA 8.6 MG TAB PO SCH ×2 (08:43→22:09)
[2017-09-11] MEDS: PANTOPRAZOLE SODIUM 40 MG VIAL IV PUSH SCH ×2 (08:44→22:08)
[2017-09-11] MEDS: MUPIROCIN 2% OINT 1 APPLIC/GM SYR EACH NARE SCH ×2 (08:44→21:00)
[2017-09-11] MEDS ORDERED: CALCIUM CHLORIDE INJ 2 GM in SODIUM CHLORIDE 0.9% INJ 100 ML IV ONE (09:00)
[2017-09-11 10:15] LABS: BANDS 5 % (0-6); CORRECTED NUCLEATED RBC 2 /100 WBC (0-0); NEUTROPHIL # MANUAL DIFF 10.1 TH/MM3 (1.8-7.7); POLYS (SEG NEUTROPHILS) 84 % (16-70); TOXIC GRANULATION 1+ (NORMAL); WBC DIFF SAMPLE 100
[2017-09-11 10:16] LABS: PLATELET ESTIMATE SMEAR LOW (NORMAL); PLATELET MORPHOLOGY NORMAL (NORMAL); SCAN/DIFF FINAL DIFF MANUAL
--- NOTE | 2017-09-11 10:58 | HHI.CCPN ---
Subjective Remarks/Hospital Course 82-year-old gentleman with past medical history of dementia, status post CVA with baseline aphasia, dysphasia and PEG, DM, HTN was sent here from [facility] because he had vomited bright red blood and also had blood from rectum today. He was also chronic respiratory failure on 2 L nasal cannula and usually sats close to 94%. Patient has no family members however his next of can and long time friend requested patient to be a full code and he was intubated for an airway protection and hypoxemia by ED attending. [facility] re eval at 08.30: Worsening septic shock. Worsening hypoxia, now on 100% FiO2. Showing agonal breathing on the ventilator TV increased to 600, PEEP increased to 10. Kalin-Synephrine started to keep map above 65, additional 1 L fluid bolus given. Receiving sedation after blood pressure is improved. CT of the chest did show extensive bibasilar pneumonia 09/05: Showing some signs of clinical deterioration. Febrile at 102.5 BUN/ creatinine 54/2.6. It was 36/0.9 yesterday. Urine output 625 mill in 24 hours. Remains on Levophed 3 mcg/m and Kalin-Synephrine at 250 mcg/m. worsening metabolic acidosis and renal function makes prognosis guarded. Sputum culture with gram-positive cocci in pairs and clusters. Most likely MRSA-discussed with pharmacy to adjust vancomycin dose appropriately 09/06: Febrile. Minimal response on ventilator. Essentially anuric. In discussion with palliative care patient is currently actually cut intubation only with no escalation of care. MRSA in sputum and wound. Have dis continued vancomycin secondary to elevated creatinine. 09/07: Positive gag and corneal reflex otherwise unresponsive on the ventilator. Becoming more edematous. Extremities with mottling. Very poor outlook. 09/08: Tmax 100.9. Hemoglobin decreased to 6.6. Will transfuse 1 unit PRBCs today. Receiving 2 g calcium chloride 1 now. Actively dying. 09/09: Resting in bed in no acute distress. Less marked today. Continues with low-grade temperatures. Hemoglobin stable. Receiving calcium today. 09/10: Low-grade fevers. Off norepinephrine. Currently on low-dose Kalin- Synephrine. Minimal urine output. High tube feed residuals. Subjective 09/11: Resting in bed. Currently off all sedation. Minimal blink. No corneal reflex. Positive gag. Does not withdraw to pain. Not tolerating tube feeds. Objective Vital Signs Date Time Temp Pulse Resp B/P (MAP) Pulse Ox O2 Delivery O2 Flow Rate FiO2 09/11/17 10:00 75 09/11/17 09:40 97.5 12 120/52 97 09/11/17 08:22 45 09/11/17 04:00 Ventilator Intake and Output 09/11/17 09/11/17 09/12/17 08:00 16:00 00:00 Intake Total 2609 ml 10 ml Output Total 425 ml Balance 2184 ml 10 ml Result Diagram: 09/11/17 0455 09/11/17 0455 Other Results Microbiology Date/Time Source Procedure Growth Status 09/04/17 00:40 Blood Peripheral Aerobic Blood Culture - Final NO GROWTH IN 5 DAYS Complete 09/04/17 00:40 Blood Peripheral Anaerobic Blood Culture - Final NO GROWTH IN 5 DAYS Complete 09/04/17 08:55 Sputum Endotracheal Gram Stain - Final Complete 09/04/17 08:55 Sputum Culture - Final S. Aureus Mrsa Complete 09/05/17 09:00 Wound Other Gram Stain - Final Complete 09/05/17 09:00 Wound Culture - Final S. Aureus Mrsa Lilian Glabrata Complete Imaging Last Impressions Chest X-Ray 09/11/17 0600 Signed Impressions: Service Date/Time: Monday, September 11, 2017 04:12 - CONCLUSION: 1. Cardiomegaly and findings of congestive heart failure. There has been no significant change when compared to the prior exam. Pastor London MD Renal Ultrasound 09/06/17 0000 Signed Impressions: Service Date/Time: Wednesday, September 06, 2017 18:21 - CONCLUSION: 1. No hydronephrosis is present. 2. There is a small left pleural effusion visualized. Amos Mcclain MD Head CT 09/04/17 0000 Signed Impressions: Service Date/Time: Monday, September 04, 2017 03:49 - CONCLUSION: Age- related and chronic ischemic change. No acute intracranial findings. Damion Monroy MD Chest CT 09/04/17 0000 Signed Impressions: Service Date/Time: Monday, September 04, 2017 03:55 - CONCLUSION: Moderate severity bilateral pulmonary consolidation most prominent at the dependent portions of lower lobes. Damion Monroy MD Abdomen/Pelvis CT 09/04/17 0000 Signed Impressions: Service Date/Time: Monday, September 04, 2017 03:55 - CONCLUSION: 1. Diffuse urinary bladder wall thickening. 2. Bilateral lower lobe pulmonary consolidation. 3. Nonobstructing left renal calculus. 4. Colonic diverticulosis with no evidence of acute diverticulitis. 5. Nonspecific diffuse mild gallbladder wall thickening. No pericholecystic inflammatory changes. Damion Monroy MD Objective Remarks GENERAL: 82-year-old male, critically ill currently orotracheally intubated SKIN: Diffuse today.patient today EYES: No scleral icterus. No injection or drainage. Pupils are about 2 mm bilaterally and minimally reactive. NECK: Supple, trachea midline. No JVD or lymphadenopathy. CARDIOVASCULAR: Tachycardia, RR. S1, S2. No S4. Without murmurs, gallops, or rubs. RESPIRATORY: Breath sounds equal bilaterally. Taking large TV. Diminished air entry at the bases with crackles. GASTROINTESTINAL: Abdomen soft, non-tender, nondistended. MUSCULOSKELETAL: 2+ peripheral edema NEURO: The patient is sedated and intubated. Only slight withdrawal to pain bilateral upper looks really. Positive gag. Positive corneal reflex. Patient is on sedation Vascular Central Line Catheter: Yes Assessment to: Continue Date of Insertion: Sep 04, 2017 Line: Central Venous Catheter Side: Right Location: Subclavian A/P Assessment and Plan Neuro: Metabolic encephalopathy History of CVA Dementia - Currently sedation with propofol drip at 10 mg/kg minutes and fentanyl drip at 200 mics grams an hour for sedation/analgesia while intubated and will wean off currently - Goal of RASS 0 - Daily sedation vacation today and reassess neuro status RESP; Acute on chronic hypoxemic respiratory failure Severe bilateral pneumonia - Intubated for airway protection, and severe pneumonia - PRVC 20/600/0.9/10/50 -Ventilator bundle - CXR and ABG daily -Albuterol/ipratropium aerosols every 6 hours with albuterol aerosols every 2 hours. Dyspnea - Stress dose hydrocortisone 100 mg IV every 8 hours CVS: Septic shock Atrial fibrillation with RVR History of atrial fibrillation Dyslipidemia - On Phenylephrine at 20 mcg/m to keep map above 65, - Currently on sterile water with 3 ampules of bicarbonate at 75 cc an hour - Home dose of digoxin 0.25 mill grams daily will be held in light of acute kidney injury. Recheck digoxin level in a.m 09/07. was 1.4 - Amiodarone gtt at maintenance dose 0.5 mg per minute. Transition to oral today On ezetimibe 10 mg daily for dyslipidemia. Holding metoprolol 50 mg twice daily in light of hypotension/vasopressor use No escalation of vasopressor use. GI: GI bleed -Pantoprazole 40 mg IV twice a day - Monitor H&H, Transfuse when necessary to keep hemoglobin above 8 - GI consulted- EGD when stable last neurologic recovery. They have signed off - PEG tube in place some erythema. On metoclopramide 5 mill grams IV every 8 hours Placed OG to LIWS overnight. On 50 cc output ID: Septic shock Bilateral pneumonia PEG tube infection - Follow-up on blood and sputum culture. Sputum Gram stain and wound from PEG tube shows MRSA - Continue metronidazole linezolid and levofloxacin. Micafungin 100 mg IV daily. Discontinued vancomycin secondary to acute kidney injury. - Aggressive fluid resuscitation and pressors as above will not exceed current threshold HEME: Leukocytosis Normocytic anemia Chronic warfarin use Elevated INR Elevated PTT Holding warfarin 3 mg daily in light of GI bleed Monitor CBC daily. Follow trends Transfuse 2 units PRBCs 09/11. Recheck in a.m FEN: Hypocalcemia Hyponatremia 2 g calcium chloride 1 now. Recheck in a.m. Adjust IV fluids/vasopressors from D5 water to normal saline Sodium chloride tablets every grams today. ENDO: Diabetes - Hold metformin 500 twice a day, acute kidney injury and insulin Glulisine 15 units at night and Humalog sliding scale - Insulin sliding scale high scale every 4 hours RENAL: Acute kidney injury Patient with minimal urine output. Very poor candidate for eye HD. Would not do CVVH or SLED at this time. Discussed with very poor prognosis. Will not consult nephrology due to very poor prognosis DVT GI prophylaxis - Teds SCDs -Pantoprazole IV twice a day - No pharmacological DVT prophylaxis due to GI bleed Level III follow-up Plan is no escalation of care. Will transfuse 2 unit PRBCs today however. No additional vasopressors. No consultation to nephrology for possible hemodialysis. Discussed with . She is aware and understands. She is hoping for miracle and we will readjust goals of care if patient shows any improvement. However she appears realistic about ultimate outcome Steve Richmond MD Sep 11, 2017 10:57
[2017-09-11] MEDS: MICAFUNGIN INJ 100 MG in SODIUM CHLORIDE 0.9% INJ 100 ML IV SCH (11:51)
[2017-09-11] MEDS ORDERED: METHYLNALTREXONE BROMIDE 12 MG/0.6 ML VIAL SQ ONE (13:00)
[2017-09-11] MEDS: LEVOFLOXACIN 750 MG PREMIX INJ 150 ML IV SCH (13:45)
--- NOTE | 2017-09-11 14:43 | RADRPT ---
EXAM DATE/TIME: 09/11/2017 12:39 [facility] COMPARISON: No previous studies available for comparison. INDICATIONS : Distention, concern for ileus. MEDICAL HISTORY : Gastroesophageal reflux disease. Diabetes mellitus type II. Cardiovascular disease. Diverticulit is. Hypertension. A-Fib. Stroke. SURGICAL HISTORY : Tonsillectomy. CABG. ENCOUNTER: Initial ACUITY: 1 day PAIN SCORE: Non-responsive. LOCATION: Bilateral abdomen. FINDINGS: Supine view of the abdomen was performed. Study is extremely limited due to patient's body habitus wi th limited contrast resolution. Paucity of bowel gas without obvious obstruction. There may be some a irspace disease in both lung bases. No obvious pneumoperitoneum. Probable percutaneous feeding tube p rojecting over the left para-midline midabdomen. Dense atherosclerotic calcification of the regional vasculature. CONCLUSION: 1. Very limited exam due to patient's body habitus. 2. Paucity of bowel gas with no obvious obstruction or pneumoperitoneum. 3. Possible bibasilar airspace disease/effusions. Fareed Evangelista MD on September 11, 2017 at 14:39 Board Certified Radiologist. This report was verified electronically.
[2017-09-11] MEDS: RESP: ALBUTEROL 2.5 MG/IPRATROPIUM 0.5 MG NEB (SCH) NEB ×2 (14:50→21:52)
[2017-09-11] MEDS: ZINC SULFATE 220 MG CAP PEG SCH (22:08)
[2017-09-11] MEDS: AMIODARONE 200 MG TAB PO SCH (22:08)
[2017-09-12] VITALS (22 sets, daily range): BP systolic 130–190; BP diastolic 60–77; PULSE 71–91; RESP 17–24; TEMP 97.7–98.5; O2SAT 93–100
[2017-09-12] MEDS: metroNIDAZOLE 500 MG INJ 100 ML IV SCH ×3 (01:58→16:53)
[2017-09-12] MEDS: INSULIN ASPART SUPPLEMENTAL SCALE SQ SCH ×5 (04:00→16:00)
[2017-09-12] MEDS: RESP: ALBUTEROL 2.5 MG/IPRATROPIUM 0.5 MG NEB (SCH) NEB ×4 (04:05→22:01)
[2017-09-12] MEDS: LINEZOLID 600 MG PREMIX 300 ML IV SCH ×2 (04:17→16:10)
[2017-09-12] MEDS: HYDROCORTISONE SOD SUCCINATE 100 MG VIAL IV SCH ×3 (04:26→21:42)
[2017-09-12] MEDS: METOCLOPRAMIDE HCL 10 MG/2 ML VIAL IV PUSH SCH ×3 (04:27→21:43)
--- NOTE | 2017-09-12 05:30 | RADRPT ---
EXAM DATE/TIME: 09/12/2017 04:20 [facility] COMPARISON: CHEST SINGLE AP, September 11, 2017, 4:12. INDICATIONS : Evaluate for pnuemonia- Resiratory failure MEDICAL HISTORY : Cardiovascular disease. Diabetes mellitus type II. Hypertension. A-fib SURGICAL HISTORY : CABG. ENCOUNTER: Subsequent ACUITY: 1 week PAIN SCORE: Non-responsive. LOCATION: Bilateral chest FINDINGS: The cardiac silhouette is normal in transverse diameter. Median sternotomy wires are present. There a re findings of congestive heart failure with interstitial and alveolar opacity bilaterally. Support l tello and tubes are in satisfactory position. CONCLUSION: 1. Cardiomegaly and findings of congestive heart failure. There has been no significant change when c ompared to the prior exam. Pastor London MD on September 12, 2017 at 5:28 Board Certified Radiologist. This report was verified electronically.
[2017-09-12 06:16] LABS: AUTOMATED NEUTROPHIL # 12.1 TH/MM3 (1.8-7.7); BASOPHIL % 0.1 % (0.0-2.0); LYMPH % 2.3 % (9.0-44.0); LYMPHOCYTE # 0.3 TH/MM3 (1.0-4.8); MEAN CORPUSCULAR HEMOGLOBIN 28.7 PG (27.0-34.0); MEAN CORPUSCULAR HGB CONC 34.6 % (32.0-36.0); MONO % 1.6 % (0.0-8.0); PLATELET COUNT 46 TH/MM3 (150-450); RED CELL DISTRIBUTION WIDTH 16.1 % (11.6-17.2); WHITE BLOOD COUNT 12.6 TH/MM3 (4.0-11.0)
[2017-09-12 06:20] LABS: HEMO FLAGS DIFF FINAL
[2017-09-12 06:22] LABS: HEMATOCRIT 20.7 % (39.0-51.0)
[2017-09-12 07:11] LABS: BICARBONATE 20.9 MEQ/L (21.0-32.0); POTASSIUM 3.7 MEQ/L (3.5-5.1); TOTAL BILIRUBIN ADULT 1.6 MG/DL (0.2-1.0)
[2017-09-12 07:23] LABS: CALCIUM-PROTEIN CORRECTED 7.1 MG/DL (8.5-10.1)
[2017-09-12] MEDS: AMIODARONE 200 MG TAB PO SCH ×2 (08:19→21:42)
[2017-09-12] MEDS: DOCUSATE SODIUM 50 MG/SENNA 8.6 MG TAB PO SCH ×2 (08:19→21:43)
[2017-09-12] MEDS: PANTOPRAZOLE SODIUM 40 MG VIAL IV PUSH SCH ×2 (08:19→21:42)
[2017-09-12] MEDS: SODIUM CHLORIDE 0.9% FLUSH 10 ML FLUSH IV FLUSH SCH ×2 (08:19→21:00)
[2017-09-12] MEDS: SODIUM CHLORIDE 1 GRAM TAB PO SCH (08:19)
[2017-09-12] MEDS: EZETIMIBE 10 MG TAB PEG SCH (08:19)
[2017-09-12] MEDS: CHLORHEXIDINE 0.12% (ORAL KIT) 15 ML CUP MT SCH ×2 (08:20→20:00)
[2017-09-12] MEDS: ARTIFICIAL TEARS OPTH SOLN 15 ML BTL EACH EYE SCH ×3 (08:24→17:00)
[2017-09-12] MEDS: MUPIROCIN 2% OINT 1 APPLIC/GM SYR EACH NARE SCH ×2 (08:34→21:42)
[2017-09-12] MEDS: SODIUM CHLOR 0.9% 1000 ML INJ 1,000 ML IV SCH ×2 (09:00→19:07)
[2017-09-12] MEDS ORDERED: CALCIUM CHLORIDE INJ 1 GM in SODIUM CHLORIDE 0.9% INJ 100 ML IV ONE (10:15)
[2017-09-12] MEDS ORDERED: SODIUM CHLORIDE 1 GRAM TAB PO ONE (10:15)
[2017-09-12] MEDS: ALBUMIN 25% INJ 100 ML IV SCH (11:32)
[2017-09-12] MEDS: MICAFUNGIN INJ 100 MG in SODIUM CHLORIDE 0.9% INJ 100 ML IV SCH (11:35)
[2017-09-12] MEDS ORDERED: LABETALOL HCL 100 MG/20 ML VIAL IV PUSH PRN (14:15)
[2017-09-12] MEDS ORDERED: hydrALAZINE HCL 20 MG/ML VIAL IV PUSH PRN (14:15)
[2017-09-12] MEDS ORDERED: NITROGLYCERIN 2% OINT 1 GM PACKET TOPICAL PRN (14:15)
[2017-09-12] MEDS ORDERED: MINERAL OIL ENEMA 118 ML BTL RECTAL ONE (14:45)
[2017-09-12] MEDS ORDERED: MINERAL OIL EMULSION 55% PO ONE (14:45)
[2017-09-12] MEDS: fentaNYL DRIP 250 ML IV PRN (14:48)
--- NOTE | 2017-09-12 15:06 | HHI.CCPN ---
Subjective Remarks/Hospital Course 82-year-old gentleman with past medical history of dementia, status post CVA with baseline aphasia, dysphasia and PEG, DM, HTN was sent here from [facility] because he had vomited bright red blood and also had blood from rectum today. He was also chronic respiratory failure on 2 L nasal cannula and usually sats close to 94%. Patient has no family members however his next of can and long time friend requested patient to be a full code and he was intubated for an airway protection and hypoxemia by ED attending. [facility] re eval at 08.30: Worsening septic shock. Worsening hypoxia, now on 100% FiO2. Showing agonal breathing on the ventilator TV increased to 600, PEEP increased to 10. Kalin-Synephrine started to keep map above 65, additional 1 L fluid bolus given. Receiving sedation after blood pressure is improved. CT of the chest did show extensive bibasilar pneumonia 09/05: Showing some signs of clinical deterioration. Febrile at 102.5 BUN/ creatinine 54/2.6. It was 36/0.9 yesterday. Urine output 625 mill in 24 hours. Remains on Levophed 3 mcg/m and Kalin-Synephrine at 250 mcg/m. worsening metabolic acidosis and renal function makes prognosis guarded. Sputum culture with gram-positive cocci in pairs and clusters. Most likely MRSA-discussed with pharmacy to adjust vancomycin dose appropriately 09/06: Febrile. Minimal response on ventilator. Essentially anuric. In discussion with palliative care patient is currently actually cut intubation only with no escalation of care. MRSA in sputum and wound. Have dis continued vancomycin secondary to elevated creatinine. 09/07: Positive gag and corneal reflex otherwise unresponsive on the ventilator. Becoming more edematous. Extremities with mottling. Very poor outlook. 09/08: Tmax 100.9. Hemoglobin decreased to 6.6. Will transfuse 1 unit PRBCs today. Receiving 2 g calcium chloride 1 now. Actively dying. 09/09: Resting in bed in no acute distress. Less marked today. Continues with low-grade temperatures. Hemoglobin stable. Receiving calcium today. 09/10: Low-grade fevers. Off norepinephrine. Currently on low-dose Kalin- Synephrine. Minimal urine output. High tube feed residuals. 09/11: Resting in bed. Currently off all sedation. Minimal blink. No corneal reflex. Positive gag. Does not withdraw to pain. Not tolerating tube feeds. Subjective 09/12: Resting in bed. Sedation is been off greater than 24 hours. Patient currently somewhat treatment therefore restart. Hypertensive. Off all vasopressors. Not tolerating tube feeding. No bowel movement for several days. Significant other upset that sedation health to assess neurological status. She does not want any intervention done at this time concluding dialysis. She desires that he remains comfortable on the ventilator. Objective Vital Signs Date Time Temp Pulse Resp B/P (MAP) Pulse Ox O2 Delivery O2 Flow Rate FiO2 09/12/17 14:00 84 09/12/17 12:18 98 45 09/12/17 12:00 98.5 24 139/61 (87) 09/11/17 04:00 Ventilator Intake and Output 09/12/17 09/12/17 09/13/17 08:00 16:00 00:00 Intake Total 605 ml 410 ml Output Total 450 ml Balance 155 ml 410 ml Result Diagram: 09/12/17 0600 09/12/17 0600 Other Results Microbiology Date/Time Source Procedure Growth Status 09/04/17 00:40 Blood Peripheral Aerobic Blood Culture - Final NO GROWTH IN 5 DAYS Complete 09/04/17 00:40 Blood Peripheral Anaerobic Blood Culture - Final NO GROWTH IN 5 DAYS Complete 09/04/17 08:55 Sputum Endotracheal Gram Stain - Final Complete 09/04/17 08:55 Sputum Culture - Final S. Aureus Mrsa Complete 09/05/17 09:00 Wound Other Gram Stain - Final Complete 09/05/17 09:00 Wound Culture - Final S. Aureus Mrsa Lilian Glabrata Complete Imaging Last Impressions Chest X-Ray 09/12/17 0600 Signed Impressions: Service Date/Time: Tuesday, September 12, 2017 04:20 - CONCLUSION: 1. Cardiomegaly and findings of congestive heart failure. There has been no significant change when compared to the prior exam. Pastor London MD Abdomen X-Ray 09/11/17 0000 Signed Impressions: Service Date/Time: Monday, September 11, 2017 12:39 - CONCLUSION: 1. Very limited exam due to patient's body habitus. 2. Paucity of bowel gas with no obvious obstruction or pneumoperitoneum. 3. Possible bibasilar airspace disease/effusions. Fareed Evangelista MD Renal Ultrasound 11/6/17 0000 Signed Impressions: Service Date/Time: Wednesday, September 06, 2017 18:21 - CONCLUSION: 1. No hydronephrosis is present. 2. There is a small left pleural effusion visualized. Amos Mcclain MD Head CT 09/04/17 Signed Impressions: Service Date/Time: Monday, September 04, 2017 03:49 - CONCLUSION: Age- related and chronic ischemic change. No acute intracranial findings. Damion Monroy MD Chest CT 09/04/17 Signed Impressions: Service Date/Time: Monday, September 04, 2017 03:55 - CONCLUSION: Moderate severity bilateral pulmonary consolidation most prominent at the dependent portions of lower lobes. Damion Monroy MD Abdomen/Pelvis CT 09/04/17 Signed Impressions: Service Date/Time: Monday, September 04, 2017 03:55 - CONCLUSION: 1. Diffuse urinary bladder wall thickening. 2. Bilateral lower lobe pulmonary consolidation. 3. Nonobstructing left renal calculus. 4. Colonic diverticulosis with no evidence of acute diverticulitis. 5. Nonspecific diffuse mild gallbladder wall thickening. No pericholecystic inflammatory changes. Damion Monroy MD Objective Remarks GENERAL: 82-year-old male, critically ill currently orotracheally intubated SKIN: Diffuse today.patient today EYES: No scleral icterus. No injection or drainage. Pupils are about 2 mm bilaterally and minimally reactive. NECK: Supple, trachea midline. No JVD or lymphadenopathy. CARDIOVASCULAR: Tachycardia, RR. S1, S2. No S4. Without murmurs, gallops, or rubs. RESPIRATORY: Breath sounds equal bilaterally. Taking large TV. Diminished air entry at the bases with crackles. GASTROINTESTINAL: Abdomen soft, non-tender, nondistended. MUSCULOSKELETAL: 2+ peripheral edema NEURO: The patient is sedated and intubated. Only slight withdrawal to pain bilateral upper looks really. Positive gag. Positive corneal reflex. Patient is on sedation Vascular Central Line Catheter: Yes Assessment to: Continue Date of Insertion: Sep 04, 2017 Line: Central Venous Catheter Side: Right Location: Subclavian A/P Assessment and Plan Neuro: Metabolic encephalopathy History of CVA Dementia - Currently sedation with propofol drip at 10 mg/kg minutes and fentanyl drip as needed for sedation/analgesia while intubated and will wean off currently - Goal of RASS 0 - Daily sedation vacation today and reassess neuro status RESP; Acute on chronic hypoxemic respiratory failure Severe bilateral pneumonia - Intubated for airway protection, and severe pneumonia - PRVC 20/600/0.9/ -Ventilator bundle - CXR will follow-up in a.m. 09/13. Today's showed pulmonary edema -Albuterol/ipratropium aerosols every 6 hours with albuterol aerosols every 2 hours. Dyspnea - Stress dose hydrocortisone wean to 50 mg IV every 8 hours CVS: Septic shock Atrial fibrillation with RVR History of atrial fibrillation Dyslipidemia -Currently on normal saline 100 cc an hour and off all vasopressors keep map above 65, - Home dose of digoxin 0.25 mill grams daily will be held in light of acute kidney injury. Recheck digoxin level in .09/13 - Amiodarone currently 200 mg twice a day On ezetimibe 10 mg daily for dyslipidemia. Holding metoprolol 50 mg twice daily in light of hypotension/vasopressor use As needed hydralazine, labetalol and Nitropaste No escalation of vasopressor use. GI: GI bleed -Pantoprazole 40 mg IV twice a day - Monitor H&H, Transfuse when necessary to keep hemoglobin above 8 - GI consulted- EGD when stable last neurologic recovery. They have signed off - PEG tube in place some erythema. On metoclopramide 5 mill grams IV every 8 hours Placed OG to LIWS overnight. ID: Septic shock Bilateral pneumonia PEG tube infection - Follow-up on blood and sputum culture. Sputum Gram stain and wound from PEG tube shows MRSA - Continue metronidazole linezolid and levofloxacin. Micafungin 100 mg IV daily. Discontinued vancomycin secondary to acute kidney injury. - Aggressive fluid resuscitation and pressors as above will not exceed current threshold HEME: Leukocytosis Normocytic anemia Chronic warfarin use Elevated INR Elevated PTT Holding warfarin 3 mg daily in light of GI bleed Monitor CBC daily. Follow trends Transfuse 2 units PRBCs 09/11. Recheck in 09/13 FEN: Hypocalcemia Hyponatremia Hyperphosphatemia Adjust IV fluids/vasopressors from D5 water to normal saline Sodium chloride tablets 3 grams today. Calcium acetate 667 mg by mouth 3 times a day ENDO: Diabetes - Hold metformin 500 twice a day, acute kidney injury and insulin Glulisine 15 units at night and Humalog sliding scale - Insulin sliding scale high scale every 4 hours RENAL: Acute kidney injury Patient with minimal urine output. Very poor candidate for eye HD. Would not do CVVH or SLED at this time. Discussed with very poor prognosis. Will not consult nephrology due to very poor prognosis DVT GI prophylaxis - Teds SCDs -Pantoprazole IV twice a day - No pharmacological DVT prophylaxis due to GI bleed Level III follow-up Plan is no escalation of care. Currently not requiring vasopressors. No consultation to nephrology for possible hemodialysis. Discussed with . She is aware and understands. She is hoping for miracle and we will readjust goals of care if patient shows any improvement. However she appears realistic about ultimate outcome Mineral oil/enema today for lack of bowel movement. Steve Richmond MD Sep 12, 2017 15:06
[2017-09-12] MEDS: PROPOFOL 1000 MG/100 ML INJ 100 ML IV PRN (16:11)
[2017-09-12] MEDS: CALCIUM ACETATE 667 MG CAP PO SCH (17:00)
[2017-09-13] VITALS (20 sets, daily range): BP systolic 124–137; BP diastolic 58–63; PULSE 68–88; RESP 14–22; TEMP 97.2–99; O2SAT 89–100
[2017-09-13] MEDS: metroNIDAZOLE 500 MG INJ 100 ML IV SCH ×3 (00:57→16:02)
[2017-09-13] MEDS: INSULIN ASPART SUPPLEMENTAL SCALE SQ SCH ×3 (00:58→08:00)
[2017-09-13] MEDS: LINEZOLID 600 MG PREMIX 300 ML IV SCH ×2 (02:59→16:01)
[2017-09-13] MEDS: CHLORHEXIDINE GLUCONATE 2 % 1 PACK (2 CLOTHS) TOP SCH (03:00)
[2017-09-13] MEDS: PROPOFOL 1000 MG/100 ML INJ 100 ML IV PRN ×3 (03:05→22:33)
[2017-09-13] MEDS: RESP: ALBUTEROL 2.5 MG/IPRATROPIUM 0.5 MG NEB (SCH) NEB ×4 (04:48→21:00)
[2017-09-13] MEDS: SODIUM CHLOR 0.9% 1000 ML INJ 1,000 ML IV SCH ×2 (05:00→21:18)
--- NOTE | 2017-09-13 05:50 | RADRPT ---
EXAM DATE/TIME: 09/13/2017 04:29 [facility] COMPARISON: CHEST SINGLE AP, September 12, 2017, 4:20. INDICATIONS : Short of breath. MEDICAL HISTORY : Cardiovascular disease. Diabetes mellitus type II. Hypertension. A-fib SURGICAL HISTORY : CABG. ENCOUNTER: Subsequent ACUITY: 2 weeks PAIN SCORE: 0/10 LOCATION: Bilateral chest FINDINGS: A single view of the chest demonstrates the endotracheal tube, nasogastric tube and right subclavian central line are all stable. Patchy airspace disease is seen throughout both lungs. Very similar exam . Osseous structures are intact. CONCLUSION: Patchy airspace disease remains throughout the lungs. Tubes and catheters in good position. Valeriy Hollis MD on September 13, 2017 at 5:48 Board Certified Radiologist. This report was verified electronically.
--- NOTE | 2017-09-13 05:53 | RADRPT ---
EXAM DATE/TIME: 09/13/2017 04:36 [facility] COMPARISON: ABDOMEN KUB ONLY, September 11, 2017, 12:39. INDICATIONS : Ileus. MEDICAL HISTORY : Gastroesophageal reflux disease. Diabetes mellitus type II. Diverticulitis. Hypertension. A-Fib. Stro ke. SURGICAL HISTORY : CABG. ENCOUNTER: Subsequent ACUITY: 2 weeks PAIN SCORE: 0/10 LOCATION: Bilateral abdomen FINDINGS: Supine view of the abdomen was performed. The abdominal bowel gas pattern is normal. No abnormal ma sses, calcifications, or organomegaly is seen. The osseous structures are unremarkable. CONCLUSION: Normal examination. Tube overlies the stomach. Valeriy Hollis MD on September 13, 2017 at 5:51 Board Certified Radiologist. This report was verified electronically.
[2017-09-13] MEDS ORDERED: DEXTROSE 50% IN WATER 50 ML SYRINGE ONE (06:16)
[2017-09-13] MEDS: METOCLOPRAMIDE HCL 10 MG/2 ML VIAL IV PUSH SCH ×3 (06:30→20:42)
[2017-09-13] MEDS: HYDROCORTISONE SOD SUCCINATE 100 MG VIAL IV SCH ×3 (06:30→20:43)
[2017-09-13 07:21] LABS: AUTOMATED NEUTROPHIL # 11.6 TH/MM3 (1.8-7.7); BASOPHIL # 0.1 TH/MM3 (0-0.2); BASOPHIL % 0.4 % (0.0-2.0); EOSINOPHIL % 0.1 % (0.0-4.0); HEMATOCRIT 21.1 % (39.0-51.0); LYMPH % 1.9 % (9.0-44.0); LYMPHOCYTE # 0.2 TH/MM3 (1.0-4.8); MEAN CELL VOLUME 83.8 FL (80.0-100.0); MEAN CORPUSCULAR HEMOGLOBIN 28.6 PG (27.0-34.0); MEAN CORPUSCULAR HGB CONC 34.2 % (32.0-36.0); MONO % 1.5 % (0.0-8.0); NEUT % 96.1 % (16.0-70.0); PLATELET COUNT 43 TH/MM3 (150-450); RED BLOOD COUNT 2.52 MIL/MM3 (4.50-5.90); RED CELL DISTRIBUTION WIDTH 16.7 % (11.6-17.2); WHITE BLOOD COUNT 12.1 TH/MM3 (4.0-11.0)
[2017-09-13 07:45] LABS: HEMO FLAGS AUTO DIFF
[2017-09-13] MEDS: AMIODARONE 200 MG TAB PO SCH ×2 (08:07→20:43)
[2017-09-13] MEDS: DOCUSATE SODIUM 50 MG/SENNA 8.6 MG TAB PO SCH ×2 (08:07→20:43)
[2017-09-13] MEDS: CALCIUM ACETATE 667 MG CAP PO SCH ×3 (08:07→17:11)
[2017-09-13] MEDS: MUPIROCIN 2% OINT 1 APPLIC/GM SYR EACH NARE SCH ×2 (08:07→20:43)
[2017-09-13] MEDS: EZETIMIBE 10 MG TAB PEG SCH (08:07)
[2017-09-13] MEDS: ARTIFICIAL TEARS OPTH SOLN 15 ML BTL EACH EYE SCH ×3 (08:08→17:11)
[2017-09-13] MEDS: PANTOPRAZOLE SODIUM 40 MG VIAL IV PUSH SCH ×2 (08:09→20:43)
[2017-09-13] MEDS: SODIUM CHLORIDE 0.9% FLUSH 10 ML FLUSH IV FLUSH SCH ×2 (08:09→20:43)
[2017-09-13] MEDS: CHLORHEXIDINE 0.12% (ORAL KIT) 15 ML CUP MT SCH ×2 (08:10→20:54)
[2017-09-13 08:15] LABS: BICARBONATE 20.6 MEQ/L (21.0-32.0); DIGOXIN 1.2 NG/ML (0.8-2.0); POTASSIUM 3.6 MEQ/L (3.5-5.1); TOTAL BILIRUBIN ADULT 1.2 MG/DL (0.2-1.0)
[2017-09-13 08:20] LABS: CALCIUM-PROTEIN CORRECTED 7.1 MG/DL (8.5-10.1)
[2017-09-13] MEDS ORDERED: GLUCAGON 1 MG/ML VIAL OTHER PRN (08:30)
[2017-09-13] MEDS ORDERED: DEXTROSE 50% IN WATER 50 ML VIAL(D50) IV PUSH PRN (08:30)
--- NOTE | 2017-09-13 08:31 | HHI.CCPN ---
Subjective Remarks/Hospital Course 82-year-old gentleman with past medical history of dementia, status post CVA with baseline aphasia, dysphasia and PEG, DM, HTN was sent here from [facility] because he had vomited bright red blood and also had blood from rectum today. He was also chronic respiratory failure on 2 L nasal cannula and usually sats close to 94%. Patient has no family members however his next of can and long time friend requested patient to be a full code and he was intubated for an airway protection and hypoxemia by ED attending. CCM re eval at 08.30: Worsening septic shock. Worsening hypoxia, now on 100% FiO2. Showing agonal breathing on the ventilator TV increased to 600, PEEP increased to 10. Kalin-Synephrine started to keep map above 65, additional 1 L fluid bolus given. Receiving sedation after blood pressure is improved. CT of the chest did show extensive bibasilar pneumonia 09/05: Showing some signs of clinical deterioration. Febrile at 102.5 BUN/ creatinine 54/2.6. It was 36/0.9 yesterday. Urine output 625 mill in 24 hours. Remains on Levophed 3 mcg/m and Kalin-Synephrine at 250 mcg/m. worsening metabolic acidosis and renal function makes prognosis guarded. Sputum culture with gram-positive cocci in pairs and clusters. Most likely MRSA-discussed with pharmacy to adjust vancomycin dose appropriately 09/06: Febrile. Minimal response on ventilator. Essentially anuric. In discussion with palliative care patient is currently actually cut intubation only with no escalation of care. MRSA in sputum and wound. Have dis continued vancomycin secondary to elevated creatinine. 09/07: Positive gag and corneal reflex otherwise unresponsive on the ventilator. Becoming more edematous. Extremities with mottling. Very poor outlook. 09/08: Tmax 100.9. Hemoglobin decreased to 6.6. Will transfuse 1 unit PRBCs today. Receiving 2 g calcium chloride 1 now. Actively dying. 09/09: Resting in bed in no acute distress. Less marked today. Continues with low-grade temperatures. Hemoglobin stable. Receiving calcium today. 09/10: Low-grade fevers. Off norepinephrine. Currently on low-dose Kalin- Synephrine. Minimal urine output. High tube feed residuals. 09/11: Resting in bed. Currently off all sedation. Minimal blink. No corneal reflex. Positive gag. Does not withdraw to pain. Not tolerating tube feeds. Subjective 09/12: Resting in bed. Sedation is been off greater than 24 hours. Patient currently somewhat treatment therefore restart. Hypertensive. Off all vasopressors. Not tolerating tube feeding. No bowel movement for several days. Significant other upset that sedation health to assess neurological status. She does not want any intervention done at this time concluding dialysis. She desires that he remains comfortable on the ventilator. 09/13 Patient is sedated with Diprivan, Fentanyl and intubated. TF held for emesis. Afebrile. Objective Vital Signs Date Time Temp Pulse Resp B/P (MAP) Pulse Ox O2 Delivery O2 Flow Rate FiO2 09/13/17 06:00 75 09/13/17 04:40 97 45 09/13/17 04:00 99.0 18 137/63 (87) 09/11/17 04:00 Ventilator Intake and Output 09/13/17 09/13/17 09/14/17 08:00 16:00 00:00 Intake Total 1594 ml Output Total 450 ml Balance 1144 ml Result Diagram: 09/13/1730 09/12/17 06 Other Results Laboratory Tests Test 09/13/17 06:30 White Blood Count 12.1 TH/MM3 Red Blood Count 2.52 MIL/MM3 Hemoglobin 7.2 GM/DL Hematocrit 21.1 % Mean Corpuscular Volume 83.8 FL Mean Corpuscular Hemoglobin 28.6 PG Mean Corpuscular Hemoglobin Concent 34.2 % Red Cell Distribution Width 16.7 % Platelet Count 43 TH/MM3 Mean Platelet Volume 8.1 FL Neutrophils (%) (Auto) 96.1 % Lymphocytes (%) (Auto) 1.9 % Monocytes (%) (Auto) 1.5 % Eosinophils (%) (Auto) 0.1 % Basophils (%) (Auto) 0.4 % Neutrophils # (Auto) 11.6 TH/MM3 Lymphocytes # (Auto) 0.2 TH/MM3 Monocytes # (Auto) 0.2 TH/MM3 Eosinophils # (Auto) 0.0 TH/MM3 Basophils # (Auto) 0.1 TH/MM3 CBC Comment AUTO DIFF Imaging Last Impressions Chest X-Ray 09/13/17 0600 Signed Impressions: Service Date/Time: Wednesday, September 13, 2017 04:29 - CONCLUSION: Patchy airspace disease remains throughout the lungs. Tubes and catheters in good position. Valeriy Hollis MD Abdomen X-Ray 09/13/17 0600 Signed Impressions: Service Date/Time: Wednesday, September 13, 2017 04:36 - CONCLUSION: Normal examination. Tube overlies the stomach. Valeriy Hollis MD Renal Ultrasound 09/06/17 0000 Signed Impressions: Service Date/Time: Wednesday, September 06, 2017 18:21 - CONCLUSION: 1. No hydronephrosis is present. 2. There is a small left pleural effusion visualized. Amos Mcclain MD Head CT 09/04/17 0000 Signed Impressions: Service Date/Time: Monday, September 04, 2017 03:49 - CONCLUSION: Age- related and chronic ischemic change. No acute intracranial findings. Damion Monroy MD Chest CT 09/04/17 0000 Signed Impressions: Service Date/Time: Monday, September 04, 2017 03:55 - CONCLUSION: Moderate severity bilateral pulmonary consolidation most prominent at the dependent portions of lower lobes. Damion Monroy MD Abdomen/Pelvis CT 09/04/17 0000 Signed Impressions: Service Date/Time: Monday, September 04, 2017 03:55 - CONCLUSION: 1. Diffuse urinary bladder wall thickening. 2. Bilateral lower lobe pulmonary consolidation. 3. Nonobstructing left renal calculus. 4. Colonic diverticulosis with no evidence of acute diverticulitis. 5. Nonspecific diffuse mild gallbladder wall thickening. No pericholecystic inflammatory changes. Damion Monroy MD Objective Remarks GENERAL: 82-year-old male, critically ill currently orotracheally intubated SKIN: Diffuse today.patient today EYES: No scleral icterus. No injection or drainage. Pupils are about 2 mm bilaterally and minimally reactive. NECK: Supple, trachea midline. No JVD or lymphadenopathy. CARDIOVASCULAR: Tachycardia, RR. S1, S2. No S4. Without murmurs, gallops, or rubs. RESPIRATORY: Breath sounds equal bilaterally. Taking large TV. Diminished air entry at the bases with crackles. GASTROINTESTINAL: Abdomen soft, non-tender, nondistended. MUSCULOSKELETAL: 2+ peripheral edema NEURO: The patient is sedated and intubated. Only slight withdrawal to pain bilateral upper looks really. Positive gag. Positive corneal reflex. Patient is on sedation Date of Insertion: Sep 04, 2017 Line: Central Venous Catheter Side: Right Location: Subclavian A/P Assessment and Plan Neuro: Metabolic encephalopathy History of CVA Dementia -On Diprivan and Fentanyl drip for sedation. Daily sedation vacation. RESP; Acute on chronic hypoxemic respiratory failure Severe bilateral pneumonia - Intubated for airway protection, and severe pneumonia - PRVC 20/600/0.9/10/45 -Ventilator bundle -CXR today patchy airspace disease b/l -Albuterol/ipratropium aerosols every 6 hours with albuterol aerosols every 2 hours. - Stress dose hydrocortisone 50 mg IV every 8 hours CVS: Septic shock Atrial fibrillation with RVR History of atrial fibrillation Dyslipidemia -Monitor HR and BP keep MAP>65mmHg - Home dose of digoxin 0.25 mill grams daily on hold in light of acute kidney injury. Digoxin level:1.2 - Amiodarone currently 200 mg twice a day On ezetimibe 10 mg daily for dyslipidemia. As needed hydralazine, labetalol and Nitropaste GI: GI bleed -Pantoprazole 40 mg IV twice a day - Monitor H&H, Transfuse when necessary to keep hemoglobin above 8 - GI consulted- EGD when stable. They have signed off - PEG tube in place some erythema. On metoclopramide 5 mill grams IV every 8 hours KUB abdomen within normal Start trickle feeds with Nepro @10ml/hr ID: Septic shock Bilateral pneumonia PEG tube infection - Follow-up on blood and sputum culture. Sputum Gram stain and wound from PEG tube shows MRSA - Continue metronidazole linezolid, levofloxacin, Micafungin 100 mg IV daily. HEME: Leukocytosis Normocytic anemia Chronic warfarin use Elevated INR Elevated PTT Holding warfarin 3 mg daily in light of GI bleed Monitor CBC daily. Follow trends Transfuse 2 units PRBCs 09/11. ENDO: Diabetes - Hold metformin 500 twice a day, acute kidney injury and insulin Glulisine 15 units at night and Humalog sliding scale - Insulin sliding scale high scale every 4 hours RENAL: Acute kidney injury Monitor renal function, I/O's, avoid nephrotoxins. Cr: 3.95, UOP: 825 ml in 24 hrs Diurese with Bumex 1mg x1, decrease IVF NS@50ml/hr DVT GI prophylaxis - Teds SCDs -Pantoprazole IV twice a day - No pharmacological DVT prophylaxis due to GI bleed Palliative care is following Level III follow-up Per Dr. Richmond: Plan is no escalation of care. Currently not requiring vasopressors. No consultation to nephrology for possible hemodialysis. Discussed with . She is aware and understands. She is hoping for miracle and we will readjust goals of care if patient shows any improvement. However she appears realistic about ultimate outcome Arjun Villarreal MD Sep 13, 2017 08:31
[2017-09-13] MEDS ORDERED: BUMETANIDE INJ 1 MG/4 ML VIAL IV PUSH ONE (08:55)
[2017-09-13] MEDS: INSULIN NovoLIN REGULAR SUPPLEMENTAL SCALE SQ SCH ×4 (09:00→20:42)
[2017-09-13 09:38] LABS: PLATELET ESTIMATE SMEAR LOW (NORMAL); PLATELET MORPHOLOGY NORMAL (NORMAL); SCAN/DIFF AUTO DIFF CONFIRMED
[2017-09-13] MEDS: fentaNYL DRIP 250 ML IV PRN (11:15)
[2017-09-13] MEDS: MICAFUNGIN INJ 100 MG in SODIUM CHLORIDE 0.9% INJ 100 ML IV SCH (12:21)
[2017-09-13] MEDS: LEVOFLOXACIN 750 MG PREMIX INJ 150 ML IV SCH (15:21)
--- NOTE | 2017-09-13 17:02 | HHI.HCPN ---
Reason for visit a. To assist with evaluation and management of symptoms including: Dyspnea , pain b. To assist medical decision maker(s) with: better understanding of current medical conditions; weighing benefits/burdens of medical treatment options; making medical treatment decisions. . Subjective/Interval History INTERVAL NOTE: The patient remains unresponsive, and he is making more urine now.....but creat remains 3.95, GFR 15. The sedation was held but he did not become much more awake or aware. He did, however, begin breathing much more deeply and that settled down when the vent and sedation were added back in. . Advance Directives Living Will: Never completed Health Care Surrogate: Never completed Durable Power of Public Service Officer: Never completed Advance Directive Specifics Documented care wishes: The patient's significant other Ms. Pineda reports that the patient has told her on multiple occasions in the past couple years that he would not want to be kept alive on life support indefinitely. She is certain that he would not want to be resuscitated when his heart stops now. . Objective Vital Signs Date Time Temp Pulse Resp B/P (MAP) Pulse Ox O2 Delivery O2 Flow Rate FiO2 09/13/17 15:36 97 45 09/13/17 14:00 88 09/13/17 13:19 94 45 09/13/17 12:35 45 09/13/17 12:35 97 45 09/13/17 12:00 71 09/13/17 12:00 45 09/13/17 12:00 98.8 70 18 127/62 (83) 89 09/13/17 11:36 100 45 09/13/17 10:00 68 09/13/17 08:48 100 45 09/13/17 08:00 45 09/13/17 08:00 97.2 69 20 124/58 (80) 98 09/13/17 08:00 69 09/13/17 06:00 75 09/13/17 04:40 97 45 09/13/17 04:00 79 09/13/17 04:00 45 09/13/17 04:00 99.0 79 18 137/63 (87) 94 09/13/17 02:00 75 09/13/17 01:30 98 45 09/13/17 00:00 98.1 73 14 132/63 (86) 96 09/13/17 00:00 75 09/13/17 00:00 45 09/12/17 22:10 97 45 09/12/17 22:00 78 09/12/17 20:00 74 09/12/17 20:00 97.7 74 20 132/61 (84) 96 09/12/17 20:00 45 09/12/17 20:00 45 09/12/17 20:00 74 09/12/17 18:00 86 Intake & Output 09/13/17 09/13/17 07:00 19:00 Intake Total 4271 ml Output Total 450 ml Balance 3821 ml Intake IV Total 4271 ml Output Urine Total 450 ml Physical Exam CONSTITUTIONAL/GENERAL: This is a very weak, elderly patient, in no distress. TUBES/LINES/DRAINS: ET tube, Lee, right subclavian, art line SKIN: No jaundice, rashes, or lesions. Sanguinous fluid leaking from the forearms. Skin temperature is fairly normal now CARDIOVASCULAR: Irregular, rapid rhythm without murmurs, gallops, or rubs. No JVD. Peripheral pulses not palpable in the feet/ankles. RESPIRATORY/CHEST: Symmetric, unlabored respirations. A few scattered rales and rhonchi. GASTROINTESTINAL: Abdomen soft, nondistended. No hepato-splenomegaly, or palpable masses. No guarding. Bowel sounds diminished. MUSCULOSKELETAL: Extremities without clubbing..No calf tenderness. No mottling at this time. NEUROLOGICAL: Not responsive to voice, touch, or pain. PSYCHIATRIC: Unable to evaluate due to clinical condition .. Diagnostic Tests Laboratory Laboratory Tests Test 09/11/17 04:55 09/11/17 05:30 09/12/17 06:00 09/13/17 06:30 White Blood Count 11.3 TH/MM3 (4.0-11.0) 12.6 TH/MM3 (4.0-11.0) 12.1 TH/MM3 (4.0-11.0) Red Blood Count 2.09 MIL/MM3 (4.50-5.90) 2.50 MIL/MM3 (4.50-5.90) 2.52 MIL/MM3 (4.50-5.90) Hemoglobin 6.0 GM/DL (13.0-17.0) 7.2 GM/DL (13.0-17.0) 7.2 GM/DL (13.0-17.0) Hematocrit 17.0 % (39.0-51.0) 20.7 % (39.0-51.0) 21.1 % (39.0-51.0) Mean Corpuscular Volume 81.3 FL (80.0-100.0) 83.0 FL (80.0-100.0) 83.8 FL (80.0-100.0) Mean Corpuscular Hemoglobin 28.6 PG (27.0-34.0) 28.7 PG (27.0-34.0) 28.6 PG (27.0-34.0) Mean Corpuscular Hemoglobin Concent 35.2 % (32.0-36.0) 34.6 % (32.0-36.0) 34.2 % (32.0-36.0) Red Cell Distribution Width 16.0 % (11.6-17.2) 16.1 % (11.6-17.2) 16.7 % (11.6-17.2) Platelet Count 54 TH/MM3 (150-450) 46 TH/MM3 (150-450) 43 TH/MM3 (150-450) Mean Platelet Volume 8.1 FL (7.0-11.0) 8.4 FL (7.0-11.0) 8.1 FL (7.0-11.0) Neutrophils (%) (Auto) 94.2 % (16.0-70.0) 96.0 % (16.0-70.0) 96.1 % (16.0-70.0) Lymphocytes (%) (Auto) 3.7 % (9.0-44.0) 2.3 % (9.0-44.0) 1.9 % (9.0-44.0) Monocytes (%) (Auto) 1.9 % (0.0-8.0) 1.6 % (0.0-8.0) 1.5 % (0.0-8.0) Eosinophils (%) (Auto) 0.0 % (0.0-4.0) 0.0 % (0.0-4.0) 0.1 % (0.0-4.0) Basophils (%) (Auto) 0.2 % (0.0-2.0) 0.1 % (0.0-2.0) 0.4 % (0.0-2.0) Neutrophils # (Auto) 10.6 TH/MM3 (1.8-7.7) 12.1 TH/MM3 (1.8-7.7) 11.6 TH/MM3 (1.8-7.7) Lymphocytes # (Auto) 0.4 TH/MM3 (1.0-4.8) 0.3 TH/MM3 (1.0-4.8) 0.2 TH/MM3 (1.0-4.8) Monocytes # (Auto) 0.2 TH/MM3 (0-0.9) 0.2 TH/MM3 (0-0.9) 0.2 TH/MM3 (0-0.9) Eosinophils # (Auto) 0.0 TH/MM3 (0-0.4) 0.0 TH/MM3 (0-0.4) 0.0 TH/MM3 (0-0.4) Basophils # (Auto) 0.0 TH/MM3 (0-0.2) 0.0 TH/MM3 (0-0.2) 0.1 TH/MM3 (0-0.2) CBC Comment AUTO DIFF DIFF FINAL AUTO DIFF Differential Total Cells Counted 100 Neutrophils % (Manual) 84 % (16-70) Band Neutrophils % 5 % (0-6) Lymphocytes % 5 % (9-44) Monocytes % 6 % (0-8) Neutrophils # (Manual) 10.1 TH/MM3 (1.8-7.7) Nucleated Red Blood Cells 2 /100 WBC (0-0) Differential Comment FINAL DIFF MANUAL AUTO DIFF CONFIRMED Toxic Granulation 1+ (NORMAL) Platelet Estimate LOW (NORMAL) LOW (NORMAL) Platelet Morphology Comment NORMAL (NORMAL) NORMAL (NORMAL) Blood Urea Nitrogen 78 MG/DL (7-18) 83 MG/DL (7-18) 96 MG/DL (7-18) Creatinine 3.95 MG/DL (0.60-1.30) 3.95 MG/DL (0.60-1.30) 3.95 MG/DL (0.60-1.30) Random Glucose 158 MG/DL (74-106) 205 MG/DL (74-106) 107 MG/DL (74-106) Total Protein 3.9 GM/DL (6.4-8.2) 4.2 GM/DL (6.4-8.2) 4.2 GM/DL (6.4-8.2) Albumin 1.6 GM/DL (3.4-5.0) 2.0 GM/DL (3.4-5.0) 2.0 GM/DL (3.4-5.0) Calcium Level 5.6 MG/DL (8.5-10.1) 5.8 MG/DL (8.5-10.1) 5.8 MG/DL (8.5-10.1) Phosphorus Level 4.7 MG/DL (2.5-4.9) 5.4 MG/DL (2.5-4.9) 5.8 MG/DL (2.5-4.9) Magnesium Level 1.9 MG/DL (1.5-2.5) 2.0 MG/DL (1.5-2.5) 2.0 MG/DL (1.5-2.5) Alkaline Phosphatase 81 U/L (45-117) 76 U/L (45-117) 65 U/L (45-117) Aspartate Amino Transf (AST/SGOT) 36 U/L (15-37) 27 U/L (15-37) 22 U/L (15-37) Alanine Aminotransferase (ALT/SGPT) 30 U/L (12-78) 26 U/L (12-78) 24 U/L (12-78) Total Bilirubin 1.3 MG/DL (0.2-1.0) 1.6 MG/DL (0.2-1.0) 1.2 MG/DL (0.2-1.0) Sodium Level 124 MEQ/L (136-145) 125 MEQ/L (136-145) 126 MEQ/L (136-145) Potassium Level 3.7 MEQ/L (3.5-5.1) 3.7 MEQ/L (3.5-5.1) 3.6 MEQ/L (3.5-5.1) Chloride Level 89 MEQ/L (98-107) 89 MEQ/L (98-107) 91 MEQ/L (98-107) Carbon Dioxide Level 22.5 MEQ/L (21.0-32.0) 20.9 MEQ/L (21.0-32.0) 20.6 MEQ/L (21.0-32.0) Anion Gap 13 MEQ/L (5-15) 15 MEQ/L (5-15) 14 MEQ/L (5-15) Estimat Glomerular Filtration Rate 15 ML/MIN (>89) 15 ML/MIN (>89) 15 ML/MIN (>89) Protein Corrected Calcium 7.1 MG/DL (8.5-10.1) 7.1 MG/DL (8.5-10.1) 7.1 MG/DL (8.5-10.1) Ammonia LESS THAN 10 MCMOL/L Digoxin Level 1.2 NG/ML (0.8-2.0) Result Diagram: 09/13/17 0630 09/13/17 0630 Procedures INTUBATION 09/04/17 Right subclavian line 09/04/17 Art line 09/04/17 . Assessment and Plan Disease Oriented Problem List: (1) multisystem organ failure (2) septic shock, pneumonia (3) respiratory failure (4) GI bleeding Comment: Source undetermined (5) rapidly progressive RENAL FAILURE, with acidosis (6) history of CVA, with aphasia and dysphagia (7) history of dementia (8) chronic atrial fibrillation, recently on Coumadin (9) diabetes type 2 (10) CAD, history of CABG (11) peripheral neuropathy (12) peripheral vascular disease, status post stent left leg Symptom Scale: (1) pain 0-10 Scale: Unable to quantify (2) dyspnea 0-10 Scale: Unable to quantify Pertinent Non-Medical Issues Psychosocial: Originally from [place]. Served in the [employer], , no children, lives with significant other Ms. Pineda the past 14 years. Spiritual: The patient was raised Christian, but he is said now "to not like them at all." The patient's significant other Ameena Pineda and her daughter believe that the patient would want a carving machine operator to come by to visit him. Legal: The patient lacks capacity for decision-making, and he will not regain that capacity. The only potential family is a sister, but there is been no contact for many years and no one knows her name or what state she may reside in. Therefore, the proxy decision-maker is the patient's long time significant other Ameena Pineda. Ethical issues impacting care: None . Important Contacts Significant other and proxy decision-maker Ameena Pineda: Home: Ms. Pineda's daughter Riana Harmon: [phone] Ms. Pineda's son Otto Pineda: [phone] . Prognosis This patient is terminal, with multisystem organ failure and ongoing shock, acidosis. . Code Status: Alternative Code (intubation only) Plan * ALTERNATE CODE (intubation only) * DECISION-MAKING: The patient lacks capacity for decision-making, and he will not regain that capacity. The proxy decision-maker is the patient's long time significant other Ameena Pineda. * GOALS: Ensuring comfort while awaiting . Sig Other confirms she does not want dialysis initiated.. * SYMPTOMS: The patient remains on the ventilator and fentanyl, and I have no additional medication recommendations at this time.. * We will continue supporting Mrs. Pineda... * Palliative Care will continue to follow this patient during this hospitalization. . Time Spent Total Floor Time (mins): 26 Face to Face Time (mins): 10 >50% Counseling/Coord of Care: Yes (d/w Dr. Rodriguez and with RN) Attestation To help prompt me to consider important information that might be impacting today's encounter and assessment, information from prior notes written by myself or my colleagues may have been "brought forward" into today's note. My signature on this note, however, is an attestation that I personally performed the exam, history, and/or decision-making noted today, and, unless otherwise indicated, the interactions with patient, family, and staff as well as the review of records all occurred today. I also attest that the listed assessment and stated plan reflect my best clinical judgment today based on the combination of historical information, prior notes, and today's exam/ interactions. When time spent is documented, it refers only to time spent today by the signer, or if indicated, combined time spent today by collaborating physician/nurse practitioner. Mary Rodriguez MD Sep 13, 2017 17:02
[2017-09-13] MEDS: ZINC SULFATE 220 MG CAP PEG SCH (21:17)
[2017-09-14] VITALS (20 sets, daily range): BP systolic 134–156; BP diastolic 61–70; PULSE 71–86; RESP 19–24; TEMP 97.4–98.8; O2SAT 91–100
[2017-09-14] MEDS: metroNIDAZOLE 500 MG INJ 100 ML IV SCH ×3 (00:53→15:39)
[2017-09-14] MEDS: LINEZOLID 600 MG PREMIX 300 ML IV SCH ×2 (03:48→15:39)
[2017-09-14] MEDS: INSULIN NovoLIN REGULAR SUPPLEMENTAL SCALE SQ SCH ×6 (04:00→21:04)
[2017-09-14] MEDS: CHLORHEXIDINE GLUCONATE 2 % 1 PACK (2 CLOTHS) TOP SCH (04:00)
[2017-09-14 04:35] LABS: AUTOMATED NEUTROPHIL # 9.7 TH/MM3 (1.8-7.7); BASOPHIL # 0.1 TH/MM3 (0-0.2); BASOPHIL % 0.5 % (0.0-2.0); EOSINOPHIL % 0.1 % (0.0-4.0); LYMPH % 3.4 % (9.0-44.0); LYMPHOCYTE # 0.4 TH/MM3 (1.0-4.8); MEAN CELL VOLUME 83.5 FL (80.0-100.0); MEAN CORPUSCULAR HEMOGLOBIN 28.6 PG (27.0-34.0); MEAN CORPUSCULAR HGB CONC 34.3 % (32.0-36.0); MONO % 1.1 % (0.0-8.0); NEUT % 94.9 % (16.0-70.0); PLATELET COUNT 38 TH/MM3 (150-450); RED BLOOD COUNT 2.42 MIL/MM3 (4.50-5.90); RED CELL DISTRIBUTION WIDTH 16.5 % (11.6-17.2); WHITE BLOOD COUNT 10.2 TH/MM3 (4.0-11.0)
[2017-09-14] MEDS: RESP: ALBUTEROL 2.5 MG/IPRATROPIUM 0.5 MG NEB (SCH) NEB ×4 (04:37→20:56)
[2017-09-14 04:50] LABS: HEMO FLAGS AUTO DIFF
[2017-09-14 04:52] LABS: HEMATOCRIT 20.2 % (39.0-51.0)
[2017-09-14 05:26] LABS: BICARBONATE 19.5 MEQ/L (21.0-32.0)
[2017-09-14] MEDS: fentaNYL DRIP 250 ML IV PRN ×2 (05:39→21:05)
[2017-09-14] MEDS: PROPOFOL 1000 MG/100 ML INJ 100 ML IV PRN ×3 (05:39→18:20)
[2017-09-14] MEDS: METOCLOPRAMIDE HCL 10 MG/2 ML VIAL IV PUSH SCH ×3 (05:39→21:03)
[2017-09-14] MEDS: HYDROCORTISONE SOD SUCCINATE 100 MG VIAL IV SCH ×3 (05:40→21:02)
[2017-09-14 06:02] LABS: CALCIUM-PROTEIN CORRECTED 7.3 MG/DL (8.5-10.1)
[2017-09-14 06:41] LABS: PLATELET ESTIMATE SMEAR LOW (NORMAL); PLATELET MORPHOLOGY NORMAL (NORMAL); SCAN/DIFF AUTO DIFF CONFIRMED
[2017-09-14] MEDS ORDERED: BUMETANIDE INJ 1 MG/4 ML VIAL IV PUSH ONE (07:30)
[2017-09-14] MEDS ORDERED: METOCLOPRAMIDE HCL 10 MG/2 ML VIAL IV PUSH PRN (07:30)
--- NOTE | 2017-09-14 07:34 | HHI.CCPN ---
Subjective Remarks/Hospital Course 82-year-old gentleman with past medical history of dementia, status post CVA with baseline aphasia, dysphasia and PEG, DM, HTN was sent here from [facility] because he had vomited bright red blood and also had blood from rectum today. He was also chronic respiratory failure on 2 L nasal cannula and usually sats close to 94%. Patient has no family members however his next of can and long time friend requested patient to be a full code and he was intubated for an airway protection and hypoxemia by ED attending. CCM re eval at 08.30: Worsening septic shock. Worsening hypoxia, now on 100% FiO2. Showing agonal breathing on the ventilator TV increased to 600, PEEP increased to 10. Kalin-Synephrine started to keep map above 65, additional 1 L fluid bolus given. Receiving sedation after blood pressure is improved. CT of the chest did show extensive bibasilar pneumonia 09/05: Showing some signs of clinical deterioration. Febrile at 102.5 BUN/ creatinine 54/2.6. It was 36/0.9 yesterday. Urine output 625 mill in 24 hours. Remains on Levophed 3 mcg/m and Kalin-Synephrine at 250 mcg/m. worsening metabolic acidosis and renal function makes prognosis guarded. Sputum culture with gram-positive cocci in pairs and clusters. Most likely MRSA-discussed with pharmacy to adjust vancomycin dose appropriately 09/06: Febrile. Minimal response on ventilator. Essentially anuric. In discussion with palliative care patient is currently actually cut intubation only with no escalation of care. MRSA in sputum and wound. Have dis continued vancomycin secondary to elevated creatinine. 09/07: Positive gag and corneal reflex otherwise unresponsive on the ventilator. Becoming more edematous. Extremities with mottling. Very poor outlook. 09/08: Tmax 100.9. Hemoglobin decreased to 6.6. Will transfuse 1 unit PRBCs today. Receiving 2 g calcium chloride 1 now. Actively dying. 09/09: Resting in bed in no acute distress. Less marked today. Continues with low-grade temperatures. Hemoglobin stable. Receiving calcium today. 09/10: Low-grade fevers. Off norepinephrine. Currently on low-dose Kalin- Synephrine. Minimal urine output. High tube feed residuals. 09/11: Resting in bed. Currently off all sedation. Minimal blink. No corneal reflex. Positive gag. Does not withdraw to pain. Not tolerating tube feeds. Subjective 09/12: Resting in bed. Sedation is been off greater than 24 hours. Patient currently somewhat treatment therefore restart. Hypertensive. Off all vasopressors. Not tolerating tube feeding. No bowel movement for several days. Significant other upset that sedation health to assess neurological status. She does not want any intervention done at this time concluding dialysis. She desires that he remains comfortable on the ventilator. 09/13 Patient is sedated with Diprivan, Fentanyl and intubated. TF held for emesis. Afebrile. 09/14 Patient remains sedated and intubated. Afebrile. Did not tolerate CPAP trials yesterday. Hgb 6.9 this morning. Objective Vital Signs Date Time Temp Pulse Resp B/P (MAP) Pulse Ox O2 Delivery O2 Flow Rate FiO2 09/14/17 06:00 76 09/14/17 04:38 98 45 09/14/17 04:00 98.4 24 134/61 (85) 09/11/17 04:00 Ventilator Intake and Output 09/14/17 09/14/17 09/15/17 08:00 16:00 00:00 Intake Total 1241 ml Output Total 500 ml Balance 741 ml Result Diagram: 09/14/17 0340 09/14/17 0340 Other Results Laboratory Tests Test 09/14/17 03:40 White Blood Count 10.2 TH/MM3 Red Blood Count 2.42 MIL/MM3 Hemoglobin 6.9 GM/DL Hematocrit 20.2 % Mean Corpuscular Volume 83.5 FL Mean Corpuscular Hemoglobin 28.6 PG Mean Corpuscular Hemoglobin Concent 34.3 % Red Cell Distribution Width 16.5 % Platelet Count 38 TH/MM3 Mean Platelet Volume 8.5 FL Neutrophils (%) (Auto) 94.9 % Lymphocytes (%) (Auto) 3.4 % Monocytes (%) (Auto) 1.1 % Eosinophils (%) (Auto) 0.1 % Basophils (%) (Auto) 0.5 % Neutrophils # (Auto) 9.7 TH/MM3 Lymphocytes # (Auto) 0.4 TH/MM3 Monocytes # (Auto) 0.1 TH/MM3 Eosinophils # (Auto) 0.0 TH/MM3 Basophils # (Auto) 0.1 TH/MM3 CBC Comment AUTO DIFF Differential Comment AUTO DIFF CONFIRMED Platelet Estimate LOW Platelet Morphology Comment NORMAL Blood Urea Nitrogen 94 MG/DL Creatinine 3.81 MG/DL Random Glucose 151 MG/DL Total Protein 4.0 GM/DL Calcium Level 5.8 MG/DL Sodium Level 129 MEQ/L Potassium Level 4.0 MEQ/L Chloride Level 94 MEQ/L Carbon Dioxide Level 19.5 MEQ/L Anion Gap 16 MEQ/L Estimat Glomerular Filtration Rate 15 ML/MIN Protein Corrected Calcium 7.3 MG/DL Imaging Last Impressions Chest X-Ray 09/13/17599 Signed Impressions: Service Date/Time: Wednesday, September 13, 2017 04:29 - CONCLUSION: Patchy airspace disease remains throughout the lungs. Tubes and catheters in good position. Valeriy Hollis MD Abdomen X-Ray 09/13/17599 Signed Impressions: Service Date/Time: Wednesday, September 13, 2017 04:36 - CONCLUSION: Normal examination. Tube overlies the stomach. Valeriy Hollis MD Renal Ultrasound 09/06/17 Signed Impressions: Service Date/Time: Wednesday, September 06, 2017 18:21 - CONCLUSION: 1. No hydronephrosis is present. 2. There is a small left pleural effusion visualized. Amos Mcclain MD Head CT 09/04/17 Signed Impressions: Service Date/Time: Monday, September 04, 2017 03:49 - CONCLUSION: Age- related and chronic ischemic change. No acute intracranial findings. Damion Monroy MD Chest CT 09/04/17 Signed Impressions: Service Date/Time: Monday, September 04, 2017 03:55 - CONCLUSION: Moderate severity bilateral pulmonary consolidation most prominent at the dependent portions of lower lobes. Damion Monroy MD Abdomen/Pelvis CT 09/04/17 Signed Impressions: Service Date/Time: Monday, September 04, 2017 03:55 - CONCLUSION: 1. Diffuse urinary bladder wall thickening. 2. Bilateral lower lobe pulmonary consolidation. 3. Nonobstructing left renal calculus. 4. Colonic diverticulosis with no evidence of acute diverticulitis. 5. Nonspecific diffuse mild gallbladder wall thickening. No pericholecystic inflammatory changes. Damion Monroy MD Objective Remarks GENERAL: 82-year-old male, critically ill currently orotracheally intubated SKIN: Diffuse today.patient today EYES: No scleral icterus. No injection or drainage. Pupils are about 2 mm bilaterally and minimally reactive. NECK: Supple, trachea midline. No JVD or lymphadenopathy. CARDIOVASCULAR: Tachycardia, RR. S1, S2. No S4. Without murmurs, gallops, or rubs. RESPIRATORY: Breath sounds equal bilaterally. Taking large TV. Diminished air entry at the bases with crackles. GASTROINTESTINAL: Abdomen soft, non-tender, nondistended. MUSCULOSKELETAL: 2+ peripheral edema NEURO: The patient is sedated and intubated. Only slight withdrawal to pain bilateral upper looks really. Positive gag. Positive corneal reflex. Patient is on sedation Date of Insertion: Sep 04, 2017 Line: Central Venous Catheter Side: Right Location: Subclavian A/P Assessment and Plan Neuro: Metabolic encephalopathy History of CVA Dementia -On Diprivan and Fentanyl drip for sedation. Daily sedation vacation. RESP; Acute on chronic hypoxemic respiratory failure Severe bilateral pneumonia - Intubated for airway protection, and severe pneumonia - PRVC 20/600/0.9/10/45. Check ABG -Ventilator bundle -CXR yesterday patchy airspace disease b/l -Albuterol/ipratropium aerosols every 6 hours with albuterol aerosols every 2 hours. - Stress dose hydrocortisone 50 mg IV every 8 hours CVS: Septic shock Atrial fibrillation with RVR History of atrial fibrillation Dyslipidemia -Monitor HR and BP keep MAP>65mmHg - Home dose of digoxin 0.25 mill grams daily on hold in light of acute kidney injury. Digoxin level:1.2 09/13 - Amiodarone currently 200 mg twice a day On ezetimibe 10 mg daily for dyslipidemia. As needed hydralazine, labetalol and Nitropaste GI: GI bleed -Pantoprazole 40 mg IV twice a day - Monitor H&H, Transfuse 2units PRBC today - GI consulted- EGD when stable. They have signed off - PEG tube in place some erythema. On metoclopramide 5 mill grams IV every 8 hours KUB abdomen within normal Start trickle feeds with Nepro @10ml/hr ID: Septic shock Bilateral pneumonia PEG tube infection - Follow-up on blood and sputum culture. Sputum Gram stain and wound from PEG tube shows MRSA - Continue metronidazole linezolid, levofloxacin, Micafungin 100 mg IV daily. 09/13 Sputum cx: Pending. Check strep pneumonia and Legionella urinary Ag HEME: Leukocytosis..trending down Anemia, Thrombocytopenia Chronic warfarin use Elevated INR Elevated PTT Holding warfarin 3 mg daily in light of GI bleed Monitor CBC and coags, Fibrinogen Transfused 2 units PRBCs 09/11. Transfuse 2units PRBC today ENDO: Diabetes - Insulin sliding scale high scale every 4 hours RENAL: Acute kidney injury Monitor renal function, I/O's, avoid nephrotoxins. Cr: 3.81, UOP: 1050 ml in 24 hrs Diurese with Bumex 2mg x1, d/c IVG 09/06 Renal US: No hydronephrosis, renal eval. DVT GI prophylaxis - Teds SCDs -Pantoprazole IV twice a day - No pharmacological DVT prophylaxis due to GI bleed Palliative care is following Level III follow-up Arjun Villarreal MD Sep 14, 2017 07:34
[2017-09-14] MEDS: SODIUM CHLORIDE 0.9% FLUSH 10 ML FLUSH IV FLUSH SCH ×2 (07:47→21:03)
[2017-09-14] MEDS: AMIODARONE 200 MG TAB PO SCH ×2 (07:48→21:03)
[2017-09-14] MEDS: DOCUSATE SODIUM 50 MG/SENNA 8.6 MG TAB PO SCH ×2 (07:48→21:03)
[2017-09-14] MEDS: EZETIMIBE 10 MG TAB PEG SCH (07:48)
[2017-09-14] MEDS: CALCIUM ACETATE 667 MG CAP PO SCH ×3 (07:48→18:16)
[2017-09-14] MEDS: MUPIROCIN 2% OINT 1 APPLIC/GM SYR EACH NARE SCH ×2 (07:48→21:04)
[2017-09-14] MEDS: PANTOPRAZOLE SODIUM 40 MG VIAL IV PUSH SCH ×2 (07:48→21:03)
[2017-09-14] MEDS: ARTIFICIAL TEARS OPTH SOLN 15 ML BTL EACH EYE SCH ×3 (07:49→18:16)
[2017-09-14] MEDS: CHLORHEXIDINE 0.12% (ORAL KIT) 15 ML CUP MT SCH ×2 (07:50→21:04)
[2017-09-14 07:56] LABS: BLOOD GAS BASE EXCESS -5.5 mmol/L (-2-2); BLOOD GAS CARBOXYHEMOGLOBIN 1.1 % (0-4); BLOOD GAS HCO3 18 mmol/L (22-26); BLOOD GAS METHEMOGLOBIN 1.5 % (0-2); BLOOD GAS O2 HGB SATURATION 95 % (90-100); BLOOD GAS OXYGEN CONTENT 10.4 Vol % (12.0-20.0); BLOOD GAS PCO2 29 mmHg (38-42); BLOOD GAS PO2 102 mmHg (61-120); BLOOD GAS TOTAL HGB 7.6 G/DL (12.0-16.0); TEMP CORR TO 98.6
[2017-09-14 07:57] LABS: CRITICAL VALUE NO; FIO2 45 %; OXYGEN DEVICE VENTILATOR; VENT SETTINGS PRVC/AC
[2017-09-14 07:58] LABS: DRAW SITE RT RADIAL; NUMBER OF ARTERIAL PUNCTURES 1; STAT NO; ULNAR PULSE PRESENT
[2017-09-14 09:32] LABS: INTERNATIONAL NORMALIZED RATIO 1.3 RATIO; PROTHROMBIN TIME - PATIENT 14.7 SEC (9.8-11.6)
--- NOTE | 2017-09-14 11:21 | MB ---
cc: MAGY LANDRY MD DATE OF CONSULTATION: 09/14/2017 REASON FOR CONSULTATION Elevated BUN and creatinine for evaluation. HISTORY OF PRESENT ILLNESS This is an 82-year-old male with a past medical history of cerebrovascular accident, hypertension, diabetes mellitus, history of dementia, aphasia, hyperlipidemia and atrial fibrillation, who was transferred from the senior care with GI bleeding and high INR. I was called to see the patient because of elevated BUN and creatinine. The patient was admitted on 09/04/2017 with a creatinine of 0.9 and it increased up to 3.9 in two days and since then since then it has been in the same range. The patient is intubated, not able to give a history. Most of the history is taken from the patient's chart according to which the patient has a low hemoglobin and he received multiple transfusions. He is getting a blood transfusion right now. The patient's blood is occasionally on the low side but not having persistently low readings. He has been getting diuretics and passing urine and has some edema. He is getting feeding through the NG tube. The patient was also seen by Palliative Care. PAST MEDICAL HISTORY 1. Hypertension. 2. Diabetes mellitus. 3. Cerebrovascular accident. 4. Hyperlipidemia. 5. History of aphasia. 6. Ischemic heart disease. 7. Atrial fibrillation. PAST SURGICAL HISTORY 1. Coronary artery bypass grafting. 2. Macular degeneration. 3. Tonsillectomy. REVIEW OF SYSTEMS A review of systems cannot be taken since the patient is intubated. ALLERGIES PENICILLIN-G. MEDICATIONS Currently he is on the following medications: 1. Colace, one tablet b.i.d. 2. Zetia 10 mg once a day. 3. Zinc sulfate 220 mg q.h.s. 4. DuoNeb nebulizer. 5. Linezolid 600 mg IV q.12h. 6. Cordarone 200 mg q.12h. 7. Protonix 40 mg q.12h. 8. Levaquin 750 mg q.48h. 9. Insulin sliding scale. 10.Metronidazole 500 mg q.8h. 11.Metoclopramide 5 mg q.8h. 12.PhosLo 667 mg t.i.d. 13.Zofran as needed. 14.Labetalol as needed. PHYSICAL EXAMINATION GENERAL: On examination the patient is intubated and sedated. VITAL SIGNS: His last blood pressure is 152/67, temperature 97.4. Oxygen saturation on 45% is 98-100%. HEENT: Pupils are mid constricted. Non-icteric sclera. Conjunctiva pale. NECK: Supple. JVD is slightly elevated. LUNGS: Bilateral decreased air entry with basilar rales and scattered wheezing. HEART: S1, S2, regular rhythm. ABDOMEN: Distended. Bowel sounds positive. There is some subcutaneous edema in the abdominal wall. EXTREMITIES: Bilateral 2+ leg edema which is pitting in nature. LABORATORY WBC count 10.2, hemoglobin 6.9, platelet count 38. Sodium 129, potassium 4.0, chloride 94, bicarb 19.5, BUN 94, creatinine 3.8, corrected calcium 7.3, phosphorus 5.8, magnesium 2.0, AST and ALT normal, total protein 4.0, albumin 2.0. INR is 1.3. Urinalysis is showing sodium of 13, urine osmolality 274, protein trace. Random vancomycin level was 17.7 on 09/06/2017. IMAGING The patient had an abdominal x-ray done yesterday and it shows tube overlies the stomach. CT scan of the abdomen and pelvis was done on 09/04/2017 which shows the kidneys with no hydronephrosis, 2 mm calculus in the upper pole of the left kidney and 1.1 cm cyst in the upper pole of the right kidney. Urinary bladder wall thickening. Bilateral lower lobe pulmonary consolidation. Diverticulosis. Diffuse gallbladder wall thickening. ASSESSMENT 1. Acute kidney injury. 2. Pneumonia and respiratory failure. 3. Atrial fibrillation with RVR. 4. Metabolic encephalopathy with history of CVA. 5. Anemia and thrombocytopenia. 6. GI bleeding. 7. Hypocalcemia. PLAN The patient has acute kidney injury and the differential diagnosis is most likely either acute tubular necrosis or possibility of interstitial nephritis. There is no history of urea. The urine sodium was slightly on the lower side. He does not have any obstructive uropathy on the CT scan. He is getting intermittent diuretic. I will put him on Lasix twice a day, try to keep him in some negative fluid balance. If his BUN and creatinine get worse he possibly will need dialysis. Calcium is low and phosphorus is slightly elevated. He was started on PhosLo. Will follow both and adjust accordingly. Thank you for the consultation. I will follow the patient while he is in the hospital. MD NICANOR Ballard/JASVIR /10:39 AM /11:03 AM
[2017-09-14] MEDS: MICAFUNGIN INJ 100 MG in SODIUM CHLORIDE 0.9% INJ 100 ML IV SCH (13:01)
[2017-09-14] MEDS: FUROSEMIDE 40 MG/4 ML VIAL IV PUSH SCH (18:17)
[2017-09-14] MEDS: ZINC SULFATE 220 MG CAP PEG SCH (21:00)
[2017-09-14 22:13] LABS: HEMATOCRIT 28.9 % (39.0-51.0)
[2017-09-14 22:21] LABS: REVIEW FLAG FINAL
[2017-09-15] VITALS (17 sets, daily range): BP systolic 85–141; BP diastolic 46–65; PULSE 75–95; RESP 19–20; TEMP 98.3–98.7; O2SAT 77–94
[2017-09-15] MEDS: metroNIDAZOLE 500 MG INJ 100 ML IV SCH (00:34)
[2017-09-15] MEDS: PROPOFOL 1000 MG/100 ML INJ 100 ML IV PRN ×3 (02:37→20:26)
[2017-09-15] MEDS: CHLORHEXIDINE GLUCONATE 2 % 1 PACK (2 CLOTHS) TOP SCH (04:00)
[2017-09-15] MEDS: INSULIN NovoLIN REGULAR SUPPLEMENTAL SCALE SQ SCH ×6 (04:00→20:00)
[2017-09-15] MEDS: RESP: ALBUTEROL 2.5 MG/IPRATROPIUM 0.5 MG NEB (SCH) NEB ×3 (04:11→15:59)
[2017-09-15] MEDS: LINEZOLID 600 MG PREMIX 300 ML IV SCH ×2 (04:47→16:25)
[2017-09-15] MEDS: METOCLOPRAMIDE HCL 10 MG/2 ML VIAL IV PUSH SCH ×3 (04:48→20:51)
[2017-09-15] MEDS: HYDROCORTISONE SOD SUCCINATE 100 MG VIAL IV SCH ×3 (04:48→20:53)
[2017-09-15 05:12] LABS: AUTOMATED NEUTROPHIL # 14.9 TH/MM3 (1.8-7.7); BASOPHIL % 0.3 % (0.0-2.0); HEMATOCRIT 29.7 % (39.0-51.0); LYMPH % 1.5 % (9.0-44.0); LYMPHOCYTE # 0.2 TH/MM3 (1.0-4.8); MEAN CORPUSCULAR HEMOGLOBIN 28.6 PG (27.0-34.0); MEAN CORPUSCULAR HGB CONC 33.3 % (32.0-36.0); MONO % 1.2 % (0.0-8.0); PLATELET COUNT 40 TH/MM3 (150-450); RED BLOOD COUNT 3.45 MIL/MM3 (4.50-5.90); RED CELL DISTRIBUTION WIDTH 16.2 % (11.6-17.2); WHITE BLOOD COUNT 15.3 TH/MM3 (4.0-11.0)
[2017-09-15 05:17] LABS: HEMO FLAGS AUTO DIFF
[2017-09-15 05:33] LABS: BICARBONATE 20.4 MEQ/L (21.0-32.0); POTASSIUM 4.2 MEQ/L (3.5-5.1)
[2017-09-15 05:45] LABS: CALCIUM-PROTEIN CORRECTED 7.7 MG/DL (8.5-10.1)
[2017-09-15 07:10] LABS: BANDS 21 % (0-6); METAMYELOCYTES 1 % (0-1); NEUTROPHIL # MANUAL DIFF 14.5 TH/MM3 (1.8-7.7); POLYS (SEG NEUTROPHILS) 73 % (16-70); WBC DIFF SAMPLE 100
[2017-09-15 07:11] LABS: PLATELET ESTIMATE SMEAR LOW (NORMAL); PLATELET MORPHOLOGY ENLARGED (NORMAL)
[2017-09-15 07:12] LABS: SCAN/DIFF FINAL DIFF MANUAL
--- NOTE | 2017-09-15 07:18 | HHI.CCPN ---
Subjective Remarks/Hospital Course 82-year-old gentleman with past medical history of dementia, status post CVA with baseline aphasia, dysphasia and PEG, DM, HTN was sent here from [facility] because he had vomited bright red blood and also had blood from rectum today. He was also chronic respiratory failure on 2 L nasal cannula and usually sats close to 94%. Patient has no family members however his next of can and long time friend requested patient to be a full code and he was intubated for an airway protection and hypoxemia by ED attending. CCM re eval at 08.30: Worsening septic shock. Worsening hypoxia, now on 100% FiO2. Showing agonal breathing on the ventilator TV increased to 600, PEEP increased to 10. Kalin-Synephrine started to keep map above 65, additional 1 L fluid bolus given. Receiving sedation after blood pressure is improved. CT of the chest did show extensive bibasilar pneumonia 09/05: Showing some signs of clinical deterioration. Febrile at 102.5 BUN/ creatinine 54/2.6. It was 36/0.9 yesterday. Urine output 625 mill in 24 hours. Remains on Levophed 3 mcg/m and Kalin-Synephrine at 250 mcg/m. worsening metabolic acidosis and renal function makes prognosis guarded. Sputum culture with gram-positive cocci in pairs and clusters. Most likely MRSA-discussed with pharmacy to adjust vancomycin dose appropriately 09/06: Febrile. Minimal response on ventilator. Essentially anuric. In discussion with palliative care patient is currently actually cut intubation only with no escalation of care. MRSA in sputum and wound. Have dis continued vancomycin secondary to elevated creatinine. 09/07: Positive gag and corneal reflex otherwise unresponsive on the ventilator. Becoming more edematous. Extremities with mottling. Very poor outlook. 09/08: Tmax 100.9. Hemoglobin decreased to 6.6. Will transfuse 1 unit PRBCs today. Receiving 2 g calcium chloride 1 now. Actively dying. 09/09: Resting in bed in no acute distress. Less marked today. Continues with low-grade temperatures. Hemoglobin stable. Receiving calcium today. 09/10: Low-grade fevers. Off norepinephrine. Currently on low-dose Kalin- Synephrine. Minimal urine output. High tube feed residuals. 09/11: Resting in bed. Currently off all sedation. Minimal blink. No corneal reflex. Positive gag. Does not withdraw to pain. Not tolerating tube feeds. Subjective 09/12: Resting in bed. Sedation is been off greater than 24 hours. Patient currently somewhat treatment therefore restart. Hypertensive. Off all vasopressors. Not tolerating tube feeding. No bowel movement for several days. Significant other upset that sedation health to assess neurological status. She does not want any intervention done at this time concluding dialysis. She desires that he remains comfortable on the ventilator. 09/13 Patient is sedated with Diprivan, Fentanyl and intubated. TF held for emesis. Afebrile. 09/14 Patient remains sedated and intubated. Afebrile. Did not tolerate CPAP trials yesterday. Hgb 6.9 this morning. 09/15 No events overnight. Sedated with Diprivan and Fentanyl. Afebrile. s/p transfusion 2u PRBC yesterday repeat Hgb 9.9. Objective Vital Signs Date Time Temp Pulse Resp B/P (MAP) Pulse Ox O2 Delivery O2 Flow Rate FiO2 09/15/17 06:00 95 09/15/17 04:08 93 60 09/15/17 04:00 98.3 19 124/60 (81) 09/15/17 00:50 Ventilator Intake and Output 09/15/17 09/15/17 09/16/17 08:00 16:00 00:00 Intake Total 892 ml Output Total 425 ml Balance 467 ml Result Diagram: 09/15/17 0407 09/15/17 0407 Other Results Laboratory Tests Test 09/14/17 07:45 09/14/17 08:40 09/14/17 21:11 09/15/17 04:07 Blood Gas Puncture Site RT RADIAL Blood Gas Patient Temperature 98.6 Blood Gas HCO3 18 mmol/L Blood Gas Base Excess -5.5 mmol/L Blood Gas Oxygen Saturation 95 % Arterial Blood pH 7.41 Arterial Blood Partial Pressure CO2 29 mmHg Arterial Blood Partial Pressure O2 102 mmHg Arterial Blood Oxygen Content 10.4 Vol % Arterial Blood Carboxyhemoglobin 1.1 % Arterial Blood Methemoglobin 1.5 % Blood Gas Hemoglobin 7.6 G/DL Oxygen Delivery Device VENTILATOR Blood Gas Ventilator Setting PRVC/AC Blood Gas Inspired Oxygen 45 % Prothrombin Time 14.7 SEC Prothromb Time International Ratio 1.3 RATIO Fibrinogen 448 mg/dL Hemoglobin 9.9 GM/DL 9.9 GM/DL Hematocrit 28.9 % 29.7 % White Blood Count 15.3 TH/MM3 Red Blood Count 3.45 MIL/MM3 Mean Corpuscular Volume 86.0 FL Mean Corpuscular Hemoglobin 28.6 PG Mean Corpuscular Hemoglobin Concent 33.3 % Red Cell Distribution Width 16.2 % Platelet Count 40 TH/MM3 Mean Platelet Volume 8.3 FL Neutrophils (%) (Auto) 97.0 % Lymphocytes (%) (Auto) 1.5 % Monocytes (%) (Auto) 1.2 % Eosinophils (%) (Auto) 0.0 % Basophils (%) (Auto) 0.3 % Neutrophils # (Auto) 14.9 TH/MM3 Lymphocytes # (Auto) 0.2 TH/MM3 Monocytes # (Auto) 0.2 TH/MM3 Eosinophils # (Auto) 0.0 TH/MM3 Basophils # (Auto) 0.0 TH/MM3 CBC Comment AUTO DIFF Blood Urea Nitrogen 101 MG/DL Creatinine 3.79 MG/DL Random Glucose 115 MG/DL Total Protein 4.5 GM/DL Calcium Level 6.4 MG/DL Sodium Level 128 MEQ/L Potassium Level 4.2 MEQ/L Chloride Level 94 MEQ/L Carbon Dioxide Level 20.4 MEQ/L Anion Gap 14 MEQ/L Estimat Glomerular Filtration Rate 15 ML/MIN Protein Corrected Calcium 7.7 MG/DL Imaging Last Impressions Chest X-Ray 09/13/17 0600 Signed Impressions: Service Date/Time: Wednesday, September 13, 2017 04:29 - CONCLUSION: Patchy airspace disease remains throughout the lungs. Tubes and catheters in good position. Valeriy Hollis MD Abdomen X-Ray 09/13/17 0600 Signed Impressions: Service Date/Time: Wednesday, September 13, 2017 04:36 - CONCLUSION: Normal examination. Tube overlies the stomach. Valeriy Hollis MD Renal Ultrasound 09/06/17 0000 Signed Impressions: Service Date/Time: Wednesday, September 06, 2017 18:21 - CONCLUSION: 1. No hydronephrosis is present. 2. There is a small left pleural effusion visualized. Amos Mcclain MD Head CT 09/04/17 0000 Signed Impressions: Service Date/Time: Monday, September 04, 2017 03:49 - CONCLUSION: Age- related and chronic ischemic change. No acute intracranial findings. Damion Monroy MD Chest CT 09/04/17 0000 Signed Impressions: Service Date/Time: Monday, September 04, 2017 03:55 - CONCLUSION: Moderate severity bilateral pulmonary consolidation most prominent at the dependent portions of lower lobes. Damion Monroy MD Abdomen/Pelvis CT 09/04/17 0000 Signed Impressions: Service Date/Time: Monday, September 04, 2017 03:55 - CONCLUSION: 1. Diffuse urinary bladder wall thickening. 2. Bilateral lower lobe pulmonary consolidation. 3. Nonobstructing left renal calculus. 4. Colonic diverticulosis with no evidence of acute diverticulitis. 5. Nonspecific diffuse mild gallbladder wall thickening. No pericholecystic inflammatory changes. Damion Monroy MD Objective Remarks GENERAL: 82-year-old male, critically ill currently orotracheally intubated SKIN: Diffuse today.patient today EYES: No scleral icterus. No injection or drainage. Pupils are about 2 mm bilaterally and minimally reactive. NECK: Supple, trachea midline. No JVD or lymphadenopathy. CARDIOVASCULAR: Tachycardia, RR. S1, S2. No S4. Without murmurs, gallops, or rubs. RESPIRATORY: Breath sounds equal bilaterally. Taking large TV. Diminished air entry at the bases with crackles. GASTROINTESTINAL: Abdomen soft, non-tender, nondistended. MUSCULOSKELETAL: 2+ peripheral edema NEURO: The patient is sedated and intubated. Only slight withdrawal to pain bilateral upper looks really. Positive gag. Positive corneal reflex. Patient is on sedation Date of Insertion: Sep 04, 2017 Line: Central Venous Catheter Side: Right Location: Subclavian A/P Assessment and Plan Neuro: Metabolic encephalopathy History of CVA Dementia -On Diprivan and Fentanyl drip for sedation. Daily sedation vacation. RESP; Acute on chronic hypoxemic respiratory failure Severe bilateral pneumonia - Intubated for airway protection, and severe pneumonia - PRVC 18/550/0.9/5/60. Decrease FIO2 as gloria 40% -Ventilator bundle -CXR 09/13 patchy airspace disease b/l -Albuterol/ipratropium aerosols every 6 hours with albuterol aerosols every 2 hours. - Stress dose hydrocortisone 50 mg IV every 8 hours CVS: Septic shock Atrial fibrillation with RVR History of atrial fibrillation Dyslipidemia -Monitor HR and BP keep MAP>65mmHg - Home dose of digoxin 0.25 mill grams daily on hold in light of acute kidney injury. Digoxin level:1.2 09/13 - Amiodarone currently 200 mg twice a day On ezetimibe 10 mg daily for dyslipidemia. As needed hydralazine, labetalol and Nitropaste GI: GI bleed -Pantoprazole 40 mg IV twice a day - Monitor H&H, s/p Transfusion 2units PRBC 09/13 - GI consulted- EGD when stable. They have signed off - PEG tube in place some erythema. On metoclopramide 5 mill grams IV every 8 hours KUB abdomen within normal Start trickle feeds with Nepro @10ml/hr ID: Septic shock Bilateral pneumonia PEG tube infection - Sputum Gram stain and wound from PEG tube shows MRSA - Continue metronidazole linezolid, levofloxacin, Micafungin 100 mg IV daily. d /c Flagyl, add Aztreonam 09/13 Sputum cx: Pseudomonas 09/04 Sputum: MRSA 09/05 Wound: MRSA, C [place] HEME: Leukocytosis Anemia, Thrombocytopenia Chronic warfarin use Elevated INR Elevated PTT Holding warfarin 3 mg daily in light of GI bleed Monitor CBC and coags, Fibrinogen level 448, INR: 1.3 Transfused 2 units PRBCs 09/11. a/p Transfusion 2units PRBC 09/13 ENDO: Diabetes - Insulin sliding scale high scale every 4 hours RENAL: Acute kidney injury Monitor renal function, I/O's, avoid nephrotoxins. Cr: 3.79 today from 3.81, UOP: 1075 ml in 24 hrs On Lasix 40mg BID, renal is following- Dr. Pereyra. 09/06 Renal US: No hydronephrosis, DVT GI prophylaxis - Teds SCDs -Pantoprazole IV twice a day - No pharmacological DVT prophylaxis due to GI bleed, anemia and thrombocytopenia with PLT < 50 Palliative care is following Level III follow-up Arjun Villarreal MD Sep 15, 2017 07:18
[2017-09-15] MEDS: MUPIROCIN 2% OINT 1 APPLIC/GM SYR EACH NARE SCH ×2 (07:57→20:51)
[2017-09-15] MEDS: AZTREONAM INJ 1,000 MG in SODIUM CHLORIDE 0.9% INJ 100 ML IV SCH ×2 (07:57→16:00)
[2017-09-15] MEDS: EZETIMIBE 10 MG TAB PEG SCH (07:58)
[2017-09-15] MEDS: DOCUSATE SODIUM 50 MG/SENNA 8.6 MG TAB PO SCH ×2 (07:58→20:51)
[2017-09-15] MEDS: CALCIUM ACETATE 667 MG CAP PO SCH ×3 (07:58→18:00)
[2017-09-15] MEDS: AMIODARONE 200 MG TAB PO SCH ×2 (07:58→20:51)
[2017-09-15] MEDS: FUROSEMIDE 40 MG/4 ML VIAL IV PUSH SCH ×2 (07:58→18:00)
[2017-09-15] MEDS: PANTOPRAZOLE SODIUM 40 MG VIAL IV PUSH SCH ×2 (07:59→20:28)
[2017-09-15] MEDS: ARTIFICIAL TEARS OPTH SOLN 15 ML BTL EACH EYE SCH ×3 (07:59→18:00)
[2017-09-15] MEDS: CHLORHEXIDINE 0.12% (ORAL KIT) 15 ML CUP MT SCH ×2 (07:59→20:28)
--- NOTE | 2017-09-15 12:25 | HHI.HCPN ---
Reason for visit a. To assist with evaluation and management of symptoms including: Dyspnea , pain b. To assist medical decision maker(s) with: better understanding of current medical conditions; weighing benefits/burdens of medical treatment options; making medical treatment decisions. . Subjective/Interval History INTERVAL NOTE: The patient remains unresponsive, and he is making some urine now.....and creat remains near 4. He continues to appear weaker each day. He has failed CPAP trials again, and his prognosis has now become quite dismal and is more clear. I discussed his condition again with his HCS, see below. . Family/friend interactions Lengthy telephone discussion with Ms. Pineda his HCS. She understands that his chance of meaningful improvement now is very slim, and she knows that he has told her in the past that he would not want to be kept alive artificially if he would not likely have a meaningful recovery. She wants to now transition to hospice services and have him transferred [facility] the [facility] for comfort measures and withdrawal of life support. . Advance Directives Living Will: Never completed Health Care Surrogate: Never completed Durable Power of Nascar Driver: Never completed Advance Directive Specifics Documented care wishes: The patient's significant other Ms. Pineda reports that the patient has told her on multiple occasions in the past couple years that he would not want to be kept alive on life support indefinitely. She is certain that he would not want to be resuscitated when his heart stops now. . Significant change in goals: Mr. Pineda once him sent to the hospice care center for comfort measures and withdrawal of life support. . Objective Vital Signs Date Time Temp Pulse Resp B/P (MAP) Pulse Ox O2 Delivery O2 Flow Rate FiO2 09/15/17 11:00 92 60 09/15/17 09:03 94 60 09/15/17 08:00 60 09/15/17 08:00 98.3 78 19 132/63 (86) 77 09/15/17 08:00 95 09/15/17 06:00 95 09/15/17 04:08 93 60 09/15/17 04:00 95 09/15/17 04:00 98.3 77 19 124/60 (81) 77 09/15/17 04:00 60 09/15/17 02:00 81 09/15/17 00:50 92 60 09/15/17 00:50 92 Ventilator 90 09/15/17 00:00 60 09/15/17 00:00 98.5 79 20 141/65 (90) 91 09/15/17 00:00 90 09/14/17 22:00 82 09/14/17 20:57 92 60 09/14/17 20:00 84 09/14/17 20:00 60 09/14/17 20:00 98.8 84 21 144/65 (91) 91 09/14/17 18:00 82 09/14/17 17:17 93 60 09/14/17 16:11 83 09/14/17 16:11 45 09/14/17 16:11 98.4 83 19 156/70 (98) 92 09/14/17 14:15 86 09/14/17 13:31 98.0 83 23 146/66 97 Intake & Output 09/15/17 09/15/17 07:00 19:00 Intake Total 892 ml Output Total 425 ml Balance 467 ml Intake IV Total 892 ml Output Urine Total 425 ml Gastric Drainage Total 0 ml # Bowel Movements 0 Physical Exam CONSTITUTIONAL/GENERAL: This is a very weak, elderly patient, in no distress. TUBES/LINES/DRAINS: ET tube, Lee, right subclavian, art line SKIN: No jaundice, rashes, or lesions. Sanguinous fluid leaking from the forearms. Skin temperature is fairly normal now CARDIOVASCULAR: Irregular, rapid rhythm without murmurs, gallops, or rubs. No JVD. Peripheral pulses not palpable in the feet/ankles. RESPIRATORY/CHEST: Symmetric, unlabored respirations. A few scattered rales and rhonchi. GASTROINTESTINAL: Abdomen soft, nondistended. No hepato-splenomegaly, or palpable masses. No guarding. Bowel sounds diminished. MUSCULOSKELETAL: Extremities without clubbing..No calf tenderness. No mottling at this time. NEUROLOGICAL: Not responsive to voice, touch, or pain. PSYCHIATRIC: Unable to evaluate due to clinical condition .. Diagnostic Tests Laboratory Laboratory Tests Test 09/13/17 06:30 09/14/17 03:40 09/14/17 07:45 09/14/17 08:40 White Blood Count 12.1 TH/MM3 (4.0-11.0) 10.2 TH/MM3 (4.0-11.0) Red Blood Count 2.52 MIL/MM3 (4.50-5.90) 2.42 MIL/MM3 (4.50-5.90) Hemoglobin 7.2 GM/DL (13.0-17.0) 6.9 GM/DL (13.0-17.0) Hematocrit 21.1 % (39.0-51.0) 20.2 % (39.0-51.0) Mean Corpuscular Volume 83.8 FL (80.0-100.0) 83.5 FL (80.0-100.0) Mean Corpuscular Hemoglobin 28.6 PG (27.0-34.0) 28.6 PG (27.0-34.0) Mean Corpuscular Hemoglobin Concent 34.2 % (32.0-36.0) 34.3 % (32.0-36.0) Red Cell Distribution Width 16.7 % (11.6-17.2) 16.5 % (11.6-17.2) Platelet Count 43 TH/MM3 (150-450) 38 TH/MM3 (150-450) Mean Platelet Volume 8.1 FL (7.0-11.0) 8.5 FL (7.0-11.0) Neutrophils (%) (Auto) 96.1 % (16.0-70.0) 94.9 % (16.0-70.0) Lymphocytes (%) (Auto) 1.9 % (9.0-44.0) 3.4 % (9.0-44.0) Monocytes (%) (Auto) 1.5 % (0.0-8.0) 1.1 % (0.0-8.0) Eosinophils (%) (Auto) 0.1 % (0.0-4.0) 0.1 % (0.0-4.0) Basophils (%) (Auto) 0.4 % (0.0-2.0) 0.5 % (0.0-2.0) Neutrophils # (Auto) 11.6 TH/MM3 (1.8-7.7) 9.7 TH/MM3 (1.8-7.7) Lymphocytes # (Auto) 0.2 TH/MM3 (1.0-4.8) 0.4 TH/MM3 (1.0-4.8) Monocytes # (Auto) 0.2 TH/MM3 (0-0.9) 0.1 TH/MM3 (0-0.9) Eosinophils # (Auto) 0.0 TH/MM3 (0-0.4) 0.0 TH/MM3 (0-0.4) Basophils # (Auto) 0.1 TH/MM3 (0-0.2) 0.1 TH/MM3 (0-0.2) CBC Comment AUTO DIFF AUTO DIFF Differential Comment AUTO DIFF CONFIRMED AUTO DIFF CONFIRMED Platelet Estimate LOW (NORMAL) LOW (NORMAL) Platelet Morphology Comment NORMAL (NORMAL) NORMAL (NORMAL) Blood Urea Nitrogen 96 MG/DL (7-18) 94 MG/DL (7-18) Creatinine 3.95 MG/DL (0.60-1.30) 3.81 MG/DL (0.60-1.30) Random Glucose 107 MG/DL (74-106) 151 MG/DL (74-106) Total Protein 4.2 GM/DL (6.4-8.2) 4.0 GM/DL (6.4-8.2) Albumin 2.0 GM/DL (3.4-5.0) Calcium Level 5.8 MG/DL (8.5-10.1) 5.8 MG/DL (8.5-10.1) Phosphorus Level 5.8 MG/DL (2.5-4.9) Magnesium Level 2.0 MG/DL (1.5-2.5) Alkaline Phosphatase 65 U/L (45-117) Aspartate Amino Transf (AST/SGOT) 22 U/L (15-37) Alanine Aminotransferase (ALT/SGPT) 24 U/L (12-78) Total Bilirubin 1.2 MG/DL (0.2-1.0) Sodium Level 126 MEQ/L (136-145) 129 MEQ/L (136-145) Potassium Level 3.6 MEQ/L (3.5-5.1) 4.0 MEQ/L (3.5-5.1) Chloride Level 91 MEQ/L (98-107) 94 MEQ/L (98-107) Carbon Dioxide Level 20.6 MEQ/L (21.0-32.0) 19.5 MEQ/L (21.0-32.0) Anion Gap 14 MEQ/L (5-15) 16 MEQ/L (5-15) Estimat Glomerular Filtration Rate 15 ML/MIN (>89) 15 ML/MIN (>89) Protein Corrected Calcium 7.1 MG/DL (8.5-10.1) 7.3 MG/DL (8.5-10.1) Digoxin Level 1.2 NG/ML (0.8-2.0) Blood Gas Puncture Site RT RADIAL Blood Gas Patient Temperature 98.6 Blood Gas HCO3 18 mmol/L (22-26) Blood Gas Base Excess -5.5 mmol/L (-2-2) Blood Gas Oxygen Saturation 95 % (90-100) Arterial Blood pH 7.41 (7.380-7.420) Arterial Blood Partial Pressure CO2 29 mmHg (38-42) Arterial Blood Partial Pressure O2 102 mmHg (61-120) Arterial Blood Oxygen Content 10.4 Vol % (12.0-20.0) Arterial Blood Carboxyhemoglobin 1.1 % (0-4) Arterial Blood Methemoglobin 1.5 % (0-2) Blood Gas Hemoglobin 7.6 G/DL (12.0-16.0) Oxygen Delivery Device VENTILATOR Blood Gas Ventilator Setting PRVC/AC Blood Gas Inspired Oxygen 45 % Prothrombin Time 14.7 SEC (9.8-11.6) Prothromb Time International Ratio 1.3 RATIO Fibrinogen 448 mg/dL (227-377) Test 09/14/17 21:11 09/15/17 04:07 Hemoglobin 9.9 GM/DL (13.0-17.0) 9.9 GM/DL (13.0-17.0) Hematocrit 28.9 % (39.0-51.0) 29.7 % (39.0-51.0) White Blood Count 15.3 TH/MM3 (4.0-11.0) Red Blood Count 3.45 MIL/MM3 (4.50-5.90) Mean Corpuscular Volume 86.0 FL (80.0-100.0) Mean Corpuscular Hemoglobin 28.6 PG (27.0-34.0) Mean Corpuscular Hemoglobin Concent 33.3 % (32.0-36.0) Red Cell Distribution Width 16.2 % (11.6-17.2) Platelet Count 40 TH/MM3 (150-450) Mean Platelet Volume 8.3 FL (7.0-11.0) Neutrophils (%) (Auto) 97.0 % (16.0-70.0) Lymphocytes (%) (Auto) 1.5 % (9.0-44.0) Monocytes (%) (Auto) 1.2 % (0.0-8.0) Eosinophils (%) (Auto) 0.0 % (0.0-4.0) Basophils (%) (Auto) 0.3 % (0.0-2.0) Neutrophils # (Auto) 14.9 TH/MM3 (1.8-7.7) Lymphocytes # (Auto) 0.2 TH/MM3 (1.0-4.8) Monocytes # (Auto) 0.2 TH/MM3 (0-0.9) Eosinophils # (Auto) 0.0 TH/MM3 (0-0.4) Basophils # (Auto) 0.0 TH/MM3 (0-0.2) CBC Comment AUTO DIFF Differential Total Cells Counted 100 Neutrophils % (Manual) 73 % (16-70) Band Neutrophils % 21 % (0-6) Lymphocytes % 3 % (9-44) Monocytes % 2 % (0-8) Neutrophils # (Manual) 14.5 TH/MM3 (1.8-7.7) Metamyelocytes 1 % (0-1) Differential Comment FINAL DIFF MANUAL Platelet Estimate LOW (NORMAL) Platelet Morphology Comment ENLARGED (NORMAL) Blood Urea Nitrogen 101 MG/DL (7-18) Creatinine 3.79 MG/DL (0.60-1.30) Random Glucose 115 MG/DL (74-106) Total Protein 4.5 GM/DL (6.4-8.2) Calcium Level 6.4 MG/DL (8.5-10.1) Sodium Level 128 MEQ/L (136-145) Potassium Level 4.2 MEQ/L (3.5-5.1) Chloride Level 94 MEQ/L (98-107) Carbon Dioxide Level 20.4 MEQ/L (21.0-32.0) Anion Gap 14 MEQ/L (5-15) Estimat Glomerular Filtration Rate 15 ML/MIN (>89) Protein Corrected Calcium 7.7 MG/DL (8.5-10.1) Result Diagram: 09/15/17 0407 09/15/17 0407 Microbiology Microbiology Date/Time Source Procedure Growth Status 09/13/17 16:50 Sputum Endotracheal Gram Stain - Final Resulted 09/13/17 16:50 Sputum Culture - Preliminary Pseudomonas Aeruginosa Resulted Imaging Last Impressions Chest X-Ray 09/13/17 0600 Signed Impressions: Service Date/Time: Wednesday, September 13, 2017 04:29 - CONCLUSION: Patchy airspace disease remains throughout the lungs. Tubes and catheters in good position. Valeriy Hollis MD Abdomen X-Ray 09/13/17 0600 Signed Impressions: Service Date/Time: Wednesday, September 13, 2017 04:36 - CONCLUSION: Normal examination. Tube overlies the stomach. Valeriy Hollis MD Renal Ultrasound 09/06/17 0000 Signed Impressions: Service Date/Time: Wednesday, September 06, 2017 18:21 - CONCLUSION: 1. No hydronephrosis is present. 2. There is a small left pleural effusion visualized. Amos Mcclain MD Head CT 09/04/17 0000 Signed Impressions: Service Date/Time: Monday, September 04, 2017 03:49 - CONCLUSION: Age- related and chronic ischemic change. No acute intracranial findings. Damion Monroy MD Chest CT 09/04/17 0000 Signed Impressions: Service Date/Time: Monday, September 04, 2017 03:55 - CONCLUSION: Moderate severity bilateral pulmonary consolidation most prominent at the dependent portions of lower lobes. Damion Monroy MD Abdomen/Pelvis CT 09/04/17 0000 Signed Impressions: Service Date/Time: Monday, September 04, 2017 03:55 - CONCLUSION: 1. Diffuse urinary bladder wall thickening. 2. Bilateral lower lobe pulmonary consolidation. 3. Nonobstructing left renal calculus. 4. Colonic diverticulosis with no evidence of acute diverticulitis. 5. Nonspecific diffuse mild gallbladder wall thickening. No pericholecystic inflammatory changes. Damion Monroy MD Procedures INTUBATION 09/04/17 Right subclavian line 09/04/17 Art line 09/04/17 . Assessment and Plan Disease Oriented Problem List: (1) multisystem organ failure (2) septic shock, pneumonia (3) respiratory failure (4) GI bleeding Comment: Source undetermined (5) rapidly progressive RENAL FAILURE, with acidosis (6) history of CVA, with aphasia and dysphagia (7) history of dementia (8) chronic atrial fibrillation, recently on Coumadin (9) diabetes type 2 (10) CAD, history of CABG (11) peripheral neuropathy (12) peripheral vascular disease, status post stent left leg Symptom Scale: (1) pain 0-10 Scale: Unable to quantify (2) dyspnea 0-10 Scale: Unable to quantify Pertinent Non-Medical Issues Psychosocial: Originally from [place]. Served in the [employer], , no children, lives with significant other Ms. Pineda the past 14 years. Spiritual: The patient was raised Quaker, but he is said now "to not like them at all." The patient's significant other Ameena Pineda and her daughter believe that the patient would want a sql database administrator to come by to visit him. Legal: The patient lacks capacity for decision-making, and he will not regain that capacity. The only potential family is a sister, but there is been no contact for many years and no one knows her name or what state she may reside in. Therefore, the proxy decision-maker is the patient's long time significant other Ameena Pineda. Ethical issues impacting care: None . Important Contacts Significant other and proxy decision-maker Ameena Pineda: Home: Ms. Pineda's daughter Riana Harmon: [phone] Ms. Pineda's son Otto Pineda: [phone] . Prognosis This patient is terminal, with multisystem organ failure and ongoing shock, acidosis. . Code Status: Alternative Code (intubation only) Plan * ALTERNATE CODE (intubation only) * DECISION-MAKING: The patient lacks capacity for decision-making, and he will not regain that capacity. The proxy decision-maker is the patient's long time significant other Ameena Pineda. * GOALS: Lengthy telephone discussion with Ms. Pineda his HCS. She understands that his chance of meaningful improvement now is very slim, and she knows that he has told her in the past that he would not want to be kept alive artificially if he would not likely have a meaningful recovery. She wants to now transition to hospice services and have him transferred to the [facility] for comfort measures and withdrawal of life support there. * SYMPTOMS: The patient remains on the ventilator and fentanyl, and I have no additional medication recommendations at this time.. * Hospice consult placed * Palliative Care will continue to follow this patient during this hospitalization. . Time Spent Total Floor Time (mins): 42 Face to Face Time (mins): 14 >50% Counseling/Coord of Care: Yes (d/w RN and with Dr. Rodriguez) Attestation To help prompt me to consider important information that might be impacting today's encounter and assessment, information from prior notes written by myself or my colleagues may have been "brought forward" into today's note. My signature on this note, however, is an attestation that I personally performed the exam, history, and/or decision-making noted today, and, unless otherwise indicated, the interactions with patient, family, and staff as well as the review of records all occurred today. I also attest that the listed assessment and stated plan reflect my best clinical judgment today based on the combination of historical information, prior notes, and today's exam/ interactions. When time spent is documented, it refers only to time spent today by the signer, or if indicated, combined time spent today by collaborating physician/nurse practitioner. Mary Rodriguez MD Sep 15, 2017 12:25
--- NOTE | 2017-09-15 12:36 | HHI.NPPN ---
Subjective History of Present Illness 82-year-old male with a past medical history of cerebrovascular accident, hypertension, diabetes mellitus, history of dementia, aphasia, hyperlipidemia and atrial fibrillation, who was transferred from the [place] [facility] with GI bleeding and high INR. I was called to see the patient because of elevated BUN and creatinine. The patient was admitted on 09/04/2017 with a creatinine of 0.9. Additional Remarks Patient is on the vent. and remain sedated. Review of Systems General General Remarks Intubated and sedated. Objective Data Data Vital Signs Date Time Temp Pulse Resp B/P (MAP) Pulse Ox O2 Delivery O2 Flow Rate FiO2 09/15/17 11:00 92 60 09/15/17 09:03 94 60 09/15/17 08:00 60 09/15/17 08:00 98.3 78 19 132/63 (86) 77 09/15/17 08:00 95 09/15/17 06:00 95 09/15/17 04:08 93 60 09/15/17 04:00 95 09/15/17 04:00 98.3 77 19 124/60 (81) 77 09/15/17 04:00 60 09/15/17 02:00 81 09/15/17 00:50 92 60 09/15/17 00:50 92 Ventilator 90 09/15/17 00:00 60 09/15/17 00:00 98.5 79 20 141/65 (90) 91 09/15/17 00:00 90 09/14/17 22:00 82 09/14/17 20:57 92 60 09/14/17 20:00 84 09/14/17 20:00 60 09/14/17 20:00 98.8 84 21 144/65 (91) 91 09/14/17 18:00 82 09/14/17 17:17 93 60 09/14/17 16:11 83 09/14/17 16:11 45 09/14/17 16:11 98.4 83 19 156/70 (98) 92 09/14/17 14:15 86 09/14/17 13:31 98.0 83 23 146/66 97 -: 09/15/17 0407 09/15/17 0407 Physical Exam General Appearance Remarks Intubated and sedated. Eyes Eye Exam: Pupils Equal Neck Neck Exam: Neck Supple Pulmonary Resp Exam: Breath Sounds Equal, Rhonchi, Decreased Bases, Diminished Breath Sounds, Poor Inspiratory Effort Cardiology CV Exam: Arrhythmia, Tachycardia Gastrointestinal/Abdomen GI Exam: Soft, Non-Tender, Bowel Sounds Present, Distended Extremeties Extremities Exam: Moderate Edema, Pitting Edema Neurologic Neuro Exam: Unresponsive, Sedated Assessment/Plan Assessment Summary: BHAKTI/Acute Renal Failure, Fluid/Volume Overload Problem List: (1) Acute kidney injury ICD Codes: N17.9 - Acute kidney failure, unspecified (2) hyperlipidemia (3) Acute respiratory failure with hypoxia ICD Codes: J96.01 - Acute respiratory failure with hypoxia Status: Acute (4) history of CVA, with aphasia and dysphagia (5) chronic atrial fibrillation, recently on Coumadin (6) diabetes type 2 Plan Patient has Acute kidney injury, Creatinine was 0.8 on admission. BP is stable, urine out put is better. Creatinine is almost same. On the vent. Continue antibiotics. Avoid Nephrotoxins. Follow the urine put put and BMP. Palliative care is following. Cade Pereyra MD Sep 15, 2017 12:36
[2017-09-15] MEDS: MICAFUNGIN INJ 100 MG in SODIUM CHLORIDE 0.9% INJ 100 ML IV SCH (14:37)
[2017-09-15] MEDS: LEVOFLOXACIN 750 MG PREMIX INJ 150 ML IV SCH (14:38)
[2017-09-15] MEDS: fentaNYL DRIP 250 ML IV PRN (14:39)
[2017-09-15] MEDS: RESP: ALBUTEROL 2.5 MG/3 ML NEB (PRN) NEB (20:00)
[2017-09-15] MEDS: SODIUM CHLORIDE 0.9% FLUSH 10 ML FLUSH IV FLUSH SCH (20:29)
[2017-09-15] MEDS: ZINC SULFATE 220 MG CAP PEG SCH (20:30)
[2017-09-16] VITALS: BP 74/39; PULSE 81; RESP 20; TEMP 98.5; O2SAT 89
[2017-09-16 00:31] VITALS: O2SAT 94
[2017-09-16] MEDS: AZTREONAM INJ 1,000 MG in SODIUM CHLORIDE 0.9% INJ 100 ML IV SCH (01:14)
[2017-09-16 02:00] VITALS: PULSE 77
[2017-09-16] MEDS: RESP: ALBUTEROL 2.5 MG/3 ML NEB (PRN) NEB (03:22)
[2017-09-16 03:23] VITALS: O2SAT 91
[2017-09-16 04:00] VITALS: BP 85/42; PULSE 62; RESP 20; TEMP 98.5; O2SAT 89
[2017-09-16] MEDS: CHLORHEXIDINE GLUCONATE 2 % 1 PACK (2 CLOTHS) TOP SCH (04:00)
[2017-09-16] MEDS: INSULIN NovoLIN REGULAR SUPPLEMENTAL SCALE SQ SCH ×2 (04:00)
[2017-09-16] MEDS: HYDROCORTISONE SOD SUCCINATE 100 MG VIAL IV SCH (04:34)
[2017-09-16] MEDS: fentaNYL DRIP 250 ML IV PRN (04:35)
[2017-09-16] MEDS: METOCLOPRAMIDE HCL 10 MG/2 ML VIAL IV PUSH SCH (04:35)
[2017-09-16] MEDS: LINEZOLID 600 MG PREMIX 300 ML IV SCH (04:36)
[2017-09-16 05:00] LABS: AUTOMATED NEUTROPHIL # 19.3 TH/MM3 (1.8-7.7); BASOPHIL # 0.1 TH/MM3 (0-0.2); BASOPHIL % 0.3 % (0.0-2.0); HEMATOCRIT 29.3 % (39.0-51.0); LYMPH % 2.1 % (9.0-44.0); LYMPHOCYTE # 0.4 TH/MM3 (1.0-4.8); MEAN CELL VOLUME 88.4 FL (80.0-100.0); MEAN CORPUSCULAR HEMOGLOBIN 28.7 PG (27.0-34.0); MEAN CORPUSCULAR HGB CONC 32.4 % (32.0-36.0); MONO % 1.5 % (0.0-8.0); NEUT % 96.1 % (16.0-70.0); PLATELET COUNT 60 TH/MM3 (150-450); RED BLOOD COUNT 3.32 MIL/MM3 (4.50-5.90); RED CELL DISTRIBUTION WIDTH 16.9 % (11.6-17.2); WHITE BLOOD COUNT 20.1 TH/MM3 (4.0-11.0)
[2017-09-16 05:10] LABS: HEMO FLAGS AUTO DIFF
[2017-09-16 05:37] LABS: BICARBONATE 19.1 MEQ/L (21.0-32.0); POTASSIUM 5.2 MEQ/L (3.5-5.1)
[2017-09-16 05:53] LABS: CALCIUM-PROTEIN CORRECTED 7.9 MG/DL (8.5-10.1)
[2017-09-16 06:00] VITALS: PULSE 61
[2017-09-16 06:42] LABS: BANDS 33 % (0-6); CORRECTED NUCLEATED RBC 4 /100 WBC (0-0); METAMYELOCYTES 5 % (0-1); NEUTROPHIL # MANUAL DIFF 19.5 TH/MM3 (1.8-7.7); POLYS (SEG NEUTROPHILS) 59 % (16-70); WBC DIFF SAMPLE 100
[2017-09-16 06:43] LABS: DOHLE BODIES PRESENT (NONE SEEN)
[2017-09-16 06:44] LABS: PLATELET ESTIMATE SMEAR LOW (NORMAL); PLATELET MORPHOLOGY ENLARGED (NORMAL); TOXIC VACUOLATION PRESENT (NONE SEEN)
[2017-09-16 06:45] LABS: SCAN/DIFF FINAL DIFF MANUAL; TOXIC GRANULATION 1+ (NORMAL)
--- NOTE | 2017-09-16 07:39 | DEATH SUM ---
Summary Demographics Date Pronounced : Sep 16, 2017 Time Of : 07:07 Pronounced By: Camron Fitzpatrick Preliminary Cause of : Cardiac arrest Oziel Fitzpatrick MD Sep 16, 2017 07:39
== END 2017-09-16 10:45 | disposition expired | DRG 870 ==
LOC: NEPE 23:46 → NEDA 09-04 02:31 → HIME 09-04 04:10
PROVIDERS: ADMIT Internal Medicine Critical Care Medicine; ATTEND Internal Medicine Critical Care Medicine
PROC: 5A1955Z Respiratory Ventilation, Greater than 96 Consecutive Hours (ICD-10-PCS; principal; 2017-09-04)
PROC: 0BH17EZ Insertion of Endotracheal Airway into Trachea, Via Natural or Artificial Opening (ICD-10-PCS; 2017-09-04)
PROC: 0T9B70Z Drainage of Bladder with Drainage Device, Via Natural or Artificial Opening (ICD-10-PCS; 2017-09-04)
PROC: 30233K1 Transfusion of Nonautologous Frozen Plasma into Peripheral Vein, Percutaneous Approach (ICD-10-PCS; 2017-09-04)
PROC: 05H633Z Insertion of Infusion Device into Left Subclavian Vein, Percutaneous Approach (ICD-10-PCS; 2017-09-04)
PROC: 04HY32Z Insertion of Monitoring Device into Lower Artery, Percutaneous Approach (ICD-10-PCS; 2017-09-05)
PROC: 30233N1 Transfusion of Nonautologous Red Blood Cells into Peripheral Vein, Percutaneous Approach (ICD-10-PCS; 2017-09-08)
DX: A41.9 Sepsis, unspecified organism (principal); J96.21 Acute and chronic respiratory failure with hypoxia; R65.21 Severe sepsis with septic shock; J18.9 Pneumonia, unspecified organism; K92.0 Hematemesis; G93.41 Metabolic encephalopathy; R34 Anuria and oliguria; I11.0 Hypertensive heart disease with heart failure; N17.9 Acute kidney failure, unspecified; I50.9 Heart failure, unspecified; E87.1 Hypo-osmolality and hyponatremia; E87.2 Acidosis; F03.90 Unspecified dementia, unspecified severity, without behavioral disturbance, psychotic disturbance, mood disturbance, and anxiety; E11.40 Type 2 diabetes mellitus with diabetic neuropathy, unspecified; R13.10 Dysphagia, unspecified; I48.2 Chronic atrial fibrillation; K75.9 Inflammatory liver disease, unspecified; H91.90 Unspecified hearing loss, unspecified ear; I25.10 Atherosclerotic heart disease of native coronary artery without angina pectoris; R00.0 Tachycardia, unspecified; E78.00 Pure hypercholesterolemia, unspecified; K21.9 Gastro-esophageal reflux disease without esophagitis; I73.9 Peripheral vascular disease, unspecified; Z95.1 Presence of aortocoronary bypass graft; Z93.1 Gastrostomy status; Z78.1 Physical restraint status; I69.320 Aphasia following cerebral infarction; I69.391 Dysphagia following cerebral infarction; Z99.81 Dependence on supplemental oxygen; H35.30 Unspecified macular degeneration; K57.30 Diverticulosis of large intestine without perforation or abscess without bleeding; Z51.5 Encounter for palliative care; Z82.49 Family history of ischemic heart disease and other diseases of the circulatory system; Z79.01 Long term (current) use of anticoagulants; Z95.820 Peripheral vascular angioplasty status with implants and grafts; N20.0 Calculus of kidney; D69.6 Thrombocytopenia, unspecified; E83.39 Other disorders of phosphorus metabolism; I46.9 Cardiac arrest, cause unspecified
CPT/HCPCS: 31500; 36430; 36556; 36600; 51702; 70450; 71010; 71260; 74000; 74177; 76775; 76937; 80048; 80053; 80162; 80202; 81001; 82140; 82550; 82570; 82805; 82948; 83605; 83690; 83735; 83930; 83935; 84100; 84155; 84300; 84443; 84484; 84550; 85007; 85014; 85018; 85025; 85027; 85384; 85610; 85730; 86403; 86850; 86900; 86901; 86920; 86927; 87040; 87070; 87077; 87147; 87186; 87205; 87641; 93005; 94002; 94003; 94640; 94664; 96365; 96366; C9113; C9132; J0282; J0360; J0610; J1720; J1815; J1940; J1956; J2020; J2212; J2248; J2250; J2370; J2405; J2765; J3010; J3370; J3430; J3475; J3480; J7030; J7040; J7050; J7060; J7613; P9016; P9017; P9047; Q9967